=== PATIENT | female | born 1945 | race Caucasian/White ===

== ENCOUNTER 2017-12-14 11:28 | Emergency (ER) | payer MEDICARE, OTHER, SELFPAY ==
[2017-12-14 11:29] VITALS: BP 154/96; PULSE 84; RESP 12; TEMP 35.8; BMI 22.7
[2017-12-14] MEDS: 0.9% Normal Saline 1,000 ML 1000 ML IV (12:19)
[2017-12-14] MEDS: Ondansetron 4 MG/2 ML Vial IV (12:20)
[2017-12-14 12:50] LABS: Anion Gap 9 (5-15); BUN 19 mg/dL (7-18); Calcium,Total 8.3 mg/dL (8.5-10.1); Chloride 105 mmol/L (98-107); Creatinine, Serum 0.95 mg/dL (0.55-1.02); EST Glomerular Filtration Rate 62 mL/min (>60); Est Glom Filt Rate - Afr Amer 75 mL/min (>60); Estimated Creatinine Clearance 50.85 ml/min; Glucose 111 mg/dL (70-110); Potassium 3.8 mmol/L (3.5-5.1); Sodium Level 138 mmol/L (136-145)
[2017-12-14 12:52] LABS: Absolute Lymphocyte Count 0.62 X10^3/ul (0.83-4.51); Absolute Neutrophil Count 3.9 X10^3/uL (2.0-7.7); Basophil# 0.01 X10^3/uL; Basophil% 0.2 % (0-1); Eosinophil# 0.02 X10^3/uL; Eosinophils% 0.4 % (0-5); Hematocrit 44.9 % (37-47); Hemoglobin 14.9 g/dl (12.0-15.0); Lymphocyte # 0.62 X10^3/ul (4.0); Lymphocyte % 11.9 % (19-41); Mean Corp Hgb Conc 33.2 g/gl (32-36); Mean Corpuscular Hgb 30.7 pg (27.0-32.0); Mean Corpuscular Volume 92.6 fL (81-99); Mean Platelet Vol. 11.5 fl (6.2-12.0); Monocyte# 0.61 X10^3/uL; Monocyte% 11.8 % (0-10); Neutrophil # 3.93 X10^3/uL (2.7-7.7); Neutrophil % 75.7 % (47-70); RBC Distribution Width CV 13.6 % (11.6-14.6); RBC Distribution Width SD 45.9 fl (35.1-43.9); Red Blood Count 4.85 M/mm3 (4.2-5.4); White Blood Count 5.2 K/mm3 (4.4-11.0)
[2017-12-14 12:54] LABS: Differential Indicated SCAN CRITERIA MET; POSITIVE COUNT YES; POSITIVE DIFFERENTIAL NO; POSITIVE MORPHOLOGY NO
[2017-12-14 12:55] LABS: Platelet Count 232 K/mm3 (150-450); Platelet Estimate ADEQUATE (ADEQ)
[2017-12-14] MEDS: DiphenhydrAMINE 50 MG/ML Syringe 25 MG IV (14:16)
[2017-12-14] MEDS: Ketorolac 30 MG/ML Syringe IV (14:17)
[2017-12-14] MEDS: proCHLORPERazine 10 MG/2 ML Vial IV (14:17)
[2017-12-14 14:22] VITALS: BP 146/81; PULSE 95; RESP 16; O2SAT 98
--- NOTE | 2017-12-14 15:23 | ED.VISSUMM ---
- ER Visit Summary Date of Service: 12/14/17 Chief Complaint: Vomiting and diarrhea. Headache. History of Present Illness: The patient is a [address] Valdivia. She reports she has vomiting and diarrhea that began 2 days ago. She is vomited multiple times without blood. She has also had multiple episodes of diarrhea without blood. No blood in her stools or black tarry stools. She denies any abdominal pain. Patient denies sick contacts. Has not been camping out of the country. No possible bad food exposure. He does drink well water, but others at home due as well and they are not ill. No recent antibiotic use. Patient also complains of a headache that is diffuse 10 out of 10 severity. Similar to prior headaches she has had with migraines. Physical Examination: Vitals: Stable. Afebrile. General: Well-nourished and well-developed. Head: Normocephalic atraumatic. Neck: Supple, no lymphadenopathy. No JVD. Nontender. Cardiovascular: Regular rate and rhythm. No murmurs. Respiratory: No respiratory distress. Clear to auscultation bilaterally. Abdominal: Soft, nontender, nondistended, normal bowel sounds. No guarding, rebound, or peritoneal signs. Back: Nontender. Extremities: Nontender, no edema. Skin: Normal color, no rash. Neurologic: Alert and oriented ?3. Cranial nerves II through XII are intact. Normal strength and sensation. Psych: Normal affect. Test Results: CBC is remarkable for segment neutrophils 76, lymphocytes 12, monocytes 12. Chem-7 is more for glucose 111, BUN 19, and calcium of 8.3. Emergency Department Course and Treatment: She was treated the dose of morphine and Zofran IV. Her abdominal pain is completely resolved. She has not had any vomiting or diarrhea while here. She continues to complain of a headache. She was given Compazine, Toradol, and Benadryl IV. Her headache is now 2-10 severity. Treatment Plan: Patient will be discharged with Zofran for her nausea and Compazine for her headaches. Instructed to follow-up her primary care physician 1 to days not improving. Return to the emergency department for any worsening symptoms. Disposition: To home in improved and stable condition. Impression:. Vomiting/diarrhea. 2. Cephalgia. This note was generated with Dragon dictation software. It may contain incorrect words, spelling, and punctuation that were not noted in review of the chart prior to signing ED Disposition - Plan for ED Patient: Disposition: Home or Assisted Living Chief Complaint: Nausea/Vomiting Instructions: ED Vomiting Diarrhea Nonspecific Ad Prescriptions: Prochlorperazine Maleate [Compazine] 10 mg PO Q6H PRN PRN #20 tablet PRN Reason: Headache Ondansetron [Zofran Odt] 4 mg PO Q8H PRN PRN #10 tablet PRN Reason: Nausea Referrals: Etienne Valdivia MD [Primary Care Provider] - 1-2 Days if not improving
== END 2017-12-14 15:33 | disposition home or self-care (01) ==
PROVIDERS: Emergency Provider Emergency Medicine; Family Provider Internal Medicine; PCP Internal Medicine
DX: R51 Headache (principal); R19.7 Diarrhea, unspecified; R11.2 Nausea with vomiting, unspecified
CPT/HCPCS: 80048; 85025; 96361; 96374; 96375; 99284; J7030; A4216; J2405

== ENCOUNTER → 2018-04-12 12:52 | Outpatient (CLI) | payer MEDICARE, OTHER, SELFPAY | PROVIDERS: Family Provider Internal Medicine; PCP Internal Medicine; Visit Provider Dermatology | DX: L60.9 Nail disorder, unspecified (principal); L57.0 Actinic keratosis; L82.0 Inflamed seborrheic keratosis; L57.8 Other skin changes due to chronic exposure to nonionizing radiation | CPT/HCPCS: 87077; 87101 ==

== ENCOUNTER 2018-05-09 12:18 | Observation (INO) | payer MEDICARE, OTHER, SELFPAY ==
[2018-05-09] VITALS (9 sets, daily range): BP systolic 125–157; BP diastolic 72–92; PULSE 60–88; RESP 12–18; TEMP 35.6–36.6; O2SAT 96–100; BMI 24.7; BMI 24.8; BMI 24.4
--- NOTE | 2018-05-09 12:44 | RAD_ITS ---
STUDY: X-RAY CHEST REASON FOR EXAM: Female, 72 years old. Chest pain. TECHNIQUE: Single AP portable view of the chest. COMPARISON: None. FINDINGS: EKG electrodes are seen. Surgical clips are seen in the right axillary region. Hyperinflation. Scattered calcified granulomas. The lungs are clear. There is no demonstrated pleural abnormality. There is borderline cardiomegaly. Normal mediastinum and bharti. Normal visualized pulmonary arteries. Normal visualized aortic arch and descending thoracic aorta. There are diffuse degenerative changes of the visualized thoracic spine. Normal visualized ribs, clavicles, and shoulders. There is no demonstrated abnormality of the visualized soft tissue structures of the upper abdomen. RAD/Chest 1 View (Portable) IMPRESSION: No acute abnormality is seen. Electronically Signed: Shashi Granger MD at 13:20 EDT Tel [phone], Service support ,
--- NOTE | 2018-05-09 12:44 | EKG12_ITS ---
Test Reason : ABNORMAL EKG Blood Pressure : / mmHG Vent. Rate : 081 BPM Atrial Rate : 081 BPM P-R Int : 150 ms QRS Dur : 140 ms QT Int : 426 ms P-R-T Axes : 060 -45 114 degrees QTc Int : 494 ms Sinus rhythm with Premature atrial complexes Left axis deviation Left bundle branch block Abnormal ECG Confirmed by PHILLY PERRIN, CARLOS ([id number]), desk editor YANETH HOLM ([id number]) on 05/11/2018 9:11:57 AM Referred By: MICHELLE Confirmed By:CARLOS FRAGA MD
[2018-05-09] MEDS: 0.9% Normal Saline 1,000 ML 15 ML IV (13:01)
[2018-05-09] MEDS: Aspirin 81 MG TAB.CHEW 324 MG PO (13:02)
[2018-05-09 13:18] LABS: Anion Gap 7 (5-15); BUN 13 mg/dL (7-18); BUN/Creat Ratio 13.1 RATIO (10-20); Calcium,Total 9.3 mg/dL (8.5-10.1); Chloride 107 mmol/L (98-107); Creatinine, Serum 0.99 mg/dL (0.55-1.02); EST Glomerular Filtration Rate 59 mL/min (>60); Est Glom Filt Rate - Afr Amer 71 mL/min (>60); Estimated Creatinine Clearance 43.12 ml/min; Glucose 87 mg/dL (74-106); Potassium 4.1 mmol/L (3.5-5.1); Sodium Level 141 mmol/L (136-145); Thyroid Stim Hormone (TSH) 1.94 uIU/mL (0.358-3.74)
[2018-05-09 13:20] LABS: Absolute Lymphocyte Count 1.91 X10^3/ul (0.83-4.51); Absolute Neutrophil Count 3.4 X10^3/uL (2.0-7.7); Basophil# 0.02 X10^3/uL; Basophil% 0.3 % (0-1); Eosinophils% 1.7 % (0-5); Hematocrit 41.5 % (37-47); Hemoglobin 13.5 g/dl (12.0-15.0); Lymphocyte # 1.91 X10^3/ul (4.0); Lymphocyte % 33.1 % (19-41); Mean Corp Hgb Conc 32.5 g/gl (32-36); Mean Corpuscular Hgb 30.1 pg (27.0-32.0); Mean Corpuscular Volume 92.6 fL (81-99); Mean Platelet Vol. 10.1 fl (6.2-12.0); Monocyte% 5.2 % (0-10); Neutrophil # 3.43 X10^3/uL (2.7-7.7); Neutrophil % 59.5 % (47-70); POSITIVE COUNT NO; POSITIVE DIFFERENTIAL NO; POSITIVE MORPHOLOGY NO; Platelet Count 258 K/mm3 (150-450); RBC Distribution Width CV 13.1 % (11.6-14.6); RBC Distribution Width SD 44.2 fl (35.1-43.9); Red Blood Count 4.48 M/mm3 (4.2-5.4); White Blood Count 5.8 K/mm3 (4.4-11.0)
--- NOTE | 2018-05-09 13:44 | ED.VISSUMM ---
- ER Visit Summary Date of Service: 05/09/18 Chief Complaint: Chest pain History of Present Illness: The patient is a 72 F with a 3-6 month history of progressive worsening shortness of breath and chest heaviness with exertion. Patient states now when she goes out for a walk she has to stop several times to rest. She gets chest heaviness that will diminish within minutes once she is comes to arrest. Patient was seen her PCP office today were EKG changes were noted compared to her prior study from 2013. She also complains of increased fatigue and having us that her rest much more frequently than what she has in the past. Physical Examination: Blood pressure is 157/92, otherwise vitals are normal. Patient sitting upright in bed no acute distress. Head and neck examination is normal. Heart is regular rate and rhythm without murmur. Lung sounds are clear. Abdomen is soft nontender. Extremity examination reveals no significant edema or calf tenderness. Test Results: EKG is sinus at 81 with a left bundle branch block. There is loss of R-wave progression when compared to prior study from 2013. Left bundle branch block is new when compared to prior as well. Portable chest x-ray shows no acute abnormality. CBC and chemistry studies normal. TSH is normal. Troponin is less than 0.015. Emergency Department Course and Treatment: Patient was given aspirin here. She has remained pain-free while sitting at rest. Patient certainly does have concerning symptoms with onset with exertion and becoming more frequent. She also reports an episode of pain up into her neck a few days ago. At this time I recommended hospitalization overnight for repeat cardiac enzymes and stress test. Treatment Plan: [] Disposition: Admit Impression: Chest pain New left bundle branch block on EKG This note was generated with [employer] dictation software. It may contain incorrect words, spelling, and punctuation that were not noted in review of the chart prior to signing ED Disposition - Plan for ED Patient: Chief Complaint: Chest Pain Referrals: Etienne Valdivia MD [Primary Care Provider] -
--- NOTE | 2018-05-09 14:20 | NURSING ---
called ER account analyst, okay to send patient at this time.
--- NOTE | 2018-05-09 17:30 | PCM.HP.STD ---
History of Present Illness Date of Admission: 05/09/18 Chief Complaint: Chest pain The patient is a 72 year old F who presented to the emergency room evaluated for chest pain. She describes chest heaviness across her chest anytime she walks or exercises , this has progressively gotten worse in the last 3 weeks and she now also reports exertional dyspnea . She has had a negative stress test many years ago, she denies significant family history of coronary artery disease, she does not smoke and she denies history of hypertension or dyslipidemia . T Past Medical History Medical History: Medical History (Last Updated 05/09/18 @ 17:33 by Homero Maher MD) Migraine G43.909 Allergies No Known Allergies Allergy (Verified 05/09/18 12:18) Home Medications: Ambulatory Orders Medication Instructions Recorded Cholecalciferol (Vitamin D3) 1,000 unit PO DAILY 12/14/17 [Vitamin D3] Lutein Extract/Zeaxanthin Ext 1 each PO DAILY 12/14/17 [Lutein 15 mg Softgel] Sumatriptan Succinate [Imitrex] 50 mg PO .X1 PRN PRN 05/09/18 Smoking Status: Never smoker Review of Systems Comment: All Systems were reviewed with pertinent positives mentioned in the HPI above. VTE Information - Inpt Only VTE Present on Admission: No VTE Mechan Device Prophylaxis: SCD's VTE Pharm Prophylaxis ordered?: No - Physical Exam General: Alert, Oriented x3 HEENT: Atraumatic Oral: Moist Mucosa Neck: Supple Lungs: Clear to auscultation, No wheeze, No rales Cardiovascular: Regular rate, Normal S1, Normal S2 Abdomen: Bowel Sounds Present, Soft Extremities: No edema Skin: No rashes Neurological: Cranial nerves II-XII grossly intact, Motor Exam 5/5 strength throughout Vital Signs Temp Pulse Resp BP Pulse Ox 98 F 75 12 125/72 H 99 05/09/18 16:32 05/09/18 16:32 05/09/18 16:32 05/09/18 16:32 05/09/18 16:32 Oxygen Flow Rate (L/min) 2 Oxygen Delivery Method Room Air Weight: 62.6 kg Body Mass Index (BMI) 24.4 Laboratory Tests Past 24 Hrs 05/09/18 15:48 Troponin I < 0.015 Assessment/Plan 1. Chest pain; will obtain serial cardiac biomarkers and EKGs to rule out ACS , assuming negative cardiac biomarkers, we will would schedule for a stress test in the morning to rule out ischemia. 2. History of migraine headache, she takes as needed sumatriptan which we would avoid. until CAD is ruled out as in #1. 3. Early ambulation for DVT prophylaxis. Code Visit OBSV E&M: 05988 Initial observation care L2
[2018-05-10 03:25] VITALS: PULSE 66
[2018-05-10 04:30] VITALS: BP 131/72; PULSE 70; RESP 16; TEMP 36.4; O2SAT 97
[2018-05-10 05:15] LABS: Hematocrit 40.3 % (37-47); Hemoglobin 13.5 g/dl (12.0-15.0); Mean Corp Hgb Conc 33.5 g/gl (32-36); Mean Corpuscular Hgb 31.2 pg (27.0-32.0); Mean Corpuscular Volume 93.1 fL (81-99); Platelet Count 237 K/mm3 (150-450); RBC Distribution Width CV 12.8 % (11.6-14.6); RBC Distribution Width SD 42.7 fl (35.1-43.9); Red Blood Count 4.33 M/mm3 (4.2-5.4); White Blood Count 5.5 K/mm3 (4.4-11.0)
[2018-05-10 05:21] LABS: Prothrombin Time (Protime)PT. 13.3 SECONDS (11.7-14.9)
--- NOTE | 2018-05-10 05:30 | EKG12_ITS ---
Test Reason : AM EKG Blood Pressure : / mmHG Vent. Rate : 079 BPM Atrial Rate : 079 BPM P-R Int : 158 ms QRS Dur : 138 ms QT Int : 440 ms P-R-T Axes : 053 -41 126 degrees QTc Int : 504 ms Normal sinus rhythm Left axis deviation Left bundle branch block Abnormal ECG When compared with ECG of 09-MAY-2018 12:27, MANUAL COMPARISON REQUIRED, DATA IS UNCONFIRMED Confirmed by PHILLY PERRIN, CARLOS ([id number]), editor managing newspaper YANETH HOLM ([id number]) on 05/11/2018 10:05:32 AM Referred By: DR AGUIAR Confirmed By:CARLOS FRAGA MD
[2018-05-10 05:44] LABS: Anion Gap 7 (5-15); BUN 14 mg/dL (7-18); BUN/Creat Ratio 14.6 RATIO (10-20); Calcium,Total 8.8 mg/dL (8.5-10.1); Chloride 112 mmol/L (98-107); Creatinine, Serum 0.96 mg/dL (0.55-1.02); EST Glomerular Filtration Rate 61 mL/min (>60); Est Glom Filt Rate - Afr Amer 74 mL/min (>60); Estimated Creatinine Clearance 44.46 ml/min; Glucose 91 mg/dL (74-106); Potassium 4.1 mmol/L (3.5-5.1); Sodium Level 144 mmol/L (136-145)
[2018-05-10 06:21] LABS: Scan Indicated on CBC? Y/N NO
[2018-05-10 08:54] VITALS: PULSE 97
--- NOTE | 2018-05-10 09:25 | STRESSREP ---
Stress Test Report Date: 05/11/2018 Procedure: Pharmacologic stress nuclear imaging study Indications: Chest pain Consent: Per the patient Procedure: The patient underwent pharmacologic (Regadenoson) evaluation with a peak heart rate of 121 beats per minute (81 predicted maximal heart rate) and a peak blood pressure of 140/84 mmHg. The baseline ECG demonstrated sinus rhythm with a left bundle branch block pattern. The peak pharmacologic ECG demonstrated no obvious ECG changes. There were no cardiac dysrhythmias pretest, during pharmacologic infusion, or recovery. There was no complaint of chest discomfort during pharmacologic infusion or recovery. The examination was discontinued secondary to completion of protocol. Impression: 1. Pharmacologic (Regadenoson) evaluation 2. Peak pharmacologic ECG with a continued left bundle branch block pattern with no obvious ECG changes. 3. There were no cardiac dysrhythmias pretest, during pharmacologic infusion, or recovery 4. Nuclear images pending Myocardial perfusion imaging study: Technique: The patient was injected with 11.8 millicuries of technetium 99m Cardiolite and subsequently rest SPECT Cardiolite nuclear imaging was obtained in the horizontal long, vertical long, and short axis views. The patient underwent pharmacologic (Regadenoson) evaluation with a peak heart rate of 121 beats per minute (81 % percent predicted maximal heart rate) and a peak blood pressure of 140/84 mmHg. The patient was injected with 34.2 millicuries of technetium 99m Cardiolite and subsequently stress SPECT Cardiolite nuclear imaging was obtained in the horizontal long, vertical long, and short axis views. A gated Cardiolite study at peak stress was obtained. Interpretation: Rest and stress SPECT Cardiolite nuclear imaging status post realignment, normalization, and attenuation correction demonstrate relative uniform tracer uptake. There is diminished end systolic thickening and brightening. The gated Cardiolite study demonstrates diminished myocardial thickening and inward wall motion. The reported LVEF is 28 %. Impression: 1. Rest and stress SPECT Cardiolite nuclear imaging demonstrate relative uniform tracer uptake with no myocardial perfusion changes consider diagnostic for associated stress-induced myocardial ischemia or previous myocardial injury/infarction. 2. The gated Cardiolite study reports an LVEF of 28 %. This note was generated with [employer] software. It may contain incorrect words, spelling, and punctuation that were not noted in checking the note before signing.
--- NOTE | 2018-05-10 09:28 | STRESSREP_ITS ---
Stress Test Report Date: 05/11/2018 Procedure: Pharmacologic stress nuclear imaging study Indications: Chest pain Consent: Per the patient Procedure: The patient underwent pharmacologic (Regadenoson) evaluation with a peak heart rate of 121 beats per minute (81 predicted maximal heart rate) and a peak blood pressure of 140/84 mmHg. The baseline ECG demonstrated sinus rhythm with a left bundle branch block pattern. The peak pharmacologic ECG demonstrated no obvious ECG changes. There were no cardiac dysrhythmias pretest, during pharmacologic infusion, or recovery. There was no complaint of chest discomfort during pharmacologic infusion or recovery. The examination was discontinued secondary to completion of protocol. Impression: 1. Pharmacologic (Regadenoson) evaluation 2. Peak pharmacologic ECG with a continued left bundle branch block pattern with no obvious ECG changes. 3. There were no cardiac dysrhythmias pretest, during pharmacologic infusion, or recovery 4. Nuclear images pending Myocardial perfusion imaging study: Technique: The patient was injected with 11.8 millicuries of technetium 99m Cardiolite and subsequently rest SPECT Cardiolite nuclear imaging was obtained in the horizontal long, vertical long, and short axis views. The patient underwent pharmacologic (Regadenoson) evaluation with a peak heart rate of 121 beats per minute (81 % percent predicted maximal heart rate) and a peak blood pressure of 140/84 mmHg. The patient was injected with 34.2 millicuries of technetium 99m Cardiolite and subsequently stress SPECT Cardiolite nuclear imaging was obtained in the horizontal long, vertical long, and short axis views. A gated Cardiolite study at peak stress was obtained. Interpretation: Rest and stress SPECT Cardiolite nuclear imaging status post realignment, normalization, and attenuation correction demonstrate relative uniform tracer uptake. There is diminished end systolic thickening and brightening. The gated Cardiolite study demonstrates diminished myocardial thickening and inward wall motion. The reported LVEF is 28 %. Impression: 1. Rest and stress SPECT Cardiolite nuclear imaging demonstrate relative uniform tracer uptake with no myocardial perfusion changes consider diagnostic for associated stress-induced myocardial ischemia or previous myocardial injury/ infarction. 2. The gated Cardiolite study reports an LVEF of 28 %. This note was generated with [employer] software. It may contain incorrect words, spelling, and punctuation that were not noted in checking the note before signing.
[2018-05-10 10:18] VITALS: BP 139/78; PULSE 85; RESP 18; TEMP 36.4; O2SAT 100
--- NOTE | 2018-05-10 10:55 | ECHOD_ITS ---
Reason For Study: CHEST PAIN Procedure This was a 2D Doppler, Color Flow transthoracic echocardiogram. Exam performed portable in patient room. Left Ventricle Normal LV size. The estimated ejection fraction is 25 %. Stage 1 diastolic dysfunction. There is moderate to severe global hypokinesis of the left ventricle. Right Ventricle Normal RV size. Normal systolic function. Atria Normal left atrium. Normal right atrium. Mitral Valve Normal mitral valve. Mild (1+) eccentric mitral valve insufficiency. Tricuspid Valve Normal tricuspid valve. Unable to estimate RV systolic pressure due to inadequate jet, pulmonary artery pressure probably normal. Aortic Valve Trisinus/trileaflet aortic valve. Pulmonic Valve Normal pulmonic valve. Great Vessels Normal aortic root. The pulmonary artery is normal size. Normal inferior vena cava. Pericardium/Pleural Trivial pericardial effusion. MMode/2D Measurements & Calculations LVIDd: 5.0 cm IVSd: 1.1 cm Ao root diam: 2.6 cm LVIDs: 4.6 cm LVPWd: 1.0 cm RVDd: 3.1 cm FS: 7.8 % LAV(MOD-bp): 36.8 ml LA A4 area: 14.4 cm2 RA A4 area: 10.9 cm2 LAV(MOD-bp) Indexed: 22.3 ml/m2 LAV(MOD-sp2): 29.0 ml LAV(MOD-sp4): 35.6 ml Time Measurements MV dec time: 0.16 sec Doppler Measurements & Calculations MV E max osmani: 55.6 cm/sec Lat Peak E' Osmani: 3.4 cm/sec Med Peak E' Osmani: 2.8 cm/sec MV A max osmani: 105.8 cm/sec E/E' lat: 16.2 E/E' med: 20.0 MV E/A: 0.53 Ao V2 max: 100.0 cm/sec LV V1 max: 72.4 cm/sec PA V2 max: 105.8 cm/sec Ao max P.0 mmHg LV V1 max P.1 mmHg Interpretation Summary Stage 1 diastolic dysfunction. Normal LV size. The estimated ejection fraction is 25 %. There is moderate to severe global hypokinesis of the left ventricle. Global longitudinal strain of 10 Ordering Physician: Forest Garcia Referring Physician: SARABJIT FLOWERS Performed By: Ariadna Maxwell, HANANE, RVT
[2018-05-10 12:54] LABS: Cholesterol 187 mg/dL (200); High Density Lipoprotein 68 mg/dL; Triglycerides 112 mg/dL; Very Low Density Lipoprotein 22 mg/dL (5-40)
[2018-05-10] MEDS: Aspirin 81 MG TAB.CHEW PO (13:22)
[2018-05-10 13:24] LABS: Hemoglobin A1c 5.8 % (4.2-6.3)
[2018-05-10 15:01] VITALS: PULSE 91
--- NOTE | 2018-05-10 15:07 | PCM.CONS.C ---
Reason for Consult Date of Consultation: 05/10/18 Reason for Consultation: Shortness of breath and chest tightness History of Present Illness: The patient is a 72 year old F with no previous cardiac history who presented to the emergency room due to exertional shortness of breath as well as chest tightness. She is also been complaining of easy fatigability. She has never been diagnosed with angina. Of note is the fact that she had breast carcinoma initially diagnosed in 2001 and then subsequently in 2011. She received full dose chemotherapy as well as radiation therapy. The exact components are not known. She says that she was last seen by her radiation oncologist over 6 months ago and was told that she did not need to follow up. She was evaluated in the emergency room she was noted to have a left bundle branch block cardiac enzymes were obtained and were negative. She underwent a pharmacologic myocardial perfusion stress test this morning we did not demonstrate any evidence of ischemia however she was noted to have reduced ejection fraction on the nuclear imaging. Due to her other symptomatology cardiology was called for evaluation. She denies any pedal edema no palpitations no paroxysmal nocturnal dyspnea though she does attest to easy fatigability. She was seen in the hospital in December of this year with a possible viral prodrome and was discharged as an outpatient. [] Past Medical History Allergies/Adverse Reactions: Allergies No Known Allergies Allergy (Verified 05/09/18 12:18) Home Medications: Ambulatory Orders Medication Instructions Recorded Cholecalciferol (Vitamin D3) 1,000 unit PO DAILY 12/14/17 [Vitamin D3] Lutein Extract/Zeaxanthin Ext 1 each PO DAILY 12/14/17 [Lutein 15 mg Softgel] Sumatriptan Succinate [Imitrex] 50 mg PO .X1 PRN PRN 05/09/18 Smoking Status: Never smoker Alcohol: None Drugs: None Review of Systems - Review of Systems General: Reports: Fatigue, Malaise. Denies: Fever, Night Sweats Cardiovascular: Reports: Shortness of Breath, Shortness of Breath at Rest, Shortness of Breath with Exertion. Denies: Chest Discomfort, Orthopnea, PND, Peripheral Edema, Palpitations, Lightheadedness, Dizziness, Near Syncope, Syncope Respiratory: Denies: Cough, Sputum Production, Hemoptysis Gastrointestinal: Denies: Hematemesis, Hematochezia, Melena Genitourinary: Denies: Dysuria, Hematuria Skin: Denies: Rash Subjectve: Pleasant lady in no apparent distress Objective: Vital Signs Temp Pulse Resp BP Pulse Ox 97.6 F L 85 18 139/78 H 100 05/10/18 10:18 05/10/18 10:18 05/10/18 10:18 05/10/18 10:18 05/10/18 10:18 Oxygen Flow Rate (L/min) 2 Oxygen Delivery Method Room Air Weight: 138 lb 0.15 oz Body Mass Index (BMI) 24.4 Intake and Output for Last 24 Hours 05/08/18 05/09/18 05/10/18 23:59 23:59 23:59 Intake Total 300 / 300 600 / 600 Balance 300 / 300 600 / 600 General: Awake, Alert, Oriented x 3 HEENT: PERRL, EOMI, Sclera Non Icteric Neck: Supple, Good ROM, No Lymph Node Enlargement Chest Wall: - - Bilateral mastectomy Lungs: Clear to auscultation Cardiovascular: Regular Rhythm, Normal S1, Normal S2, No Murmurs, No Rubs, No Gallops Vascular: No Carotid Bruits, Normal Femoral Pulses, Normal Radial Pulses, Normal Dorsalis Pedal Pulse, Normal Posterior Tibial Pulses Abdomen: Bowel Sounds Present, Soft, Non Tender, No HSM, No Organomegaly Extremities: No Cyanosis, No Clubbing, No edema Neurological: No Focal Motor or Sensory Deficit 05/09/18 15:48: Troponin I < 0.015 05/09/18 18:17: Troponin I < 0.015 05/10/18 05:00: WBC 5.5, RBC 4.33, Hgb 13.5, Hct 40.3, MCV 93.1, MCH 31.2, MCHC 33.5, RDW 12.8, RDW Differential 42.7, Plt Count 237, MPV 10.0 05/10/18 05:00: PT 13.3, INR 1.0, APTT 29.0 05/10/18 05:00: Sodium 144, Potassium 4.1, Chloride 112 H, Carbon Dioxide 25.0, Anion Gap 7, BUN 14, Creatinine 0.96, Est GFR (MDRD) Af Amer 74, Est GFR (MDRD) Non-Af 61, BUN/Creatinine Ratio 14.6, Glucose 91, Calcium 8.8 05/10/18 05:00: Triglycerides 112, Cholesterol 187, LDL Cholesterol 97, VLDL Cholesterol 22, HDL Cholesterol 68 05/10/18 05:00: Hemoglobin A1c 5.8 Rhythm: EKG: Normal sinus rhythm with a left bundle branch block and a rate of 79 bpm. ECHO: Globally reduced left ventricular ejection fraction for results pending estimated EF 25% Assessment/Plan 1. Nonischemic cardiomyopathy. She presents with shortness of breath and chest discomfort rules out for myocardial infarction with no evidence of ischemia noted on the myocardial perfusion stress test. Her echocardiogram does confirm that she has a nonischemic cardiomyopathy which is likely secondary to chemotherapy induced agents. At this time she is on no therapy whatsoever and my recommendation would be to start her on an JIAME inhibitor, beta-josafat and titrate upwards as appropriate as well as Lasix. She will also be seen for follow-up visit. 2. Mild congestive heart failure. She does have recently documented mild congestive heart failure. She will be treated with an JAIME inhibitor and beta-josafat as well as the diuretics. The beta blockers will be titrated upwards as appropriate in the office and then further recommendations will be made. Thank you for allowing me to participate in the care of your patient. Please don't hesitate to call if any issues arise
[2018-05-10 15:50] VITALS: BP 149/86; PULSE 83; RESP 18; TEMP 36.5; O2SAT 98
--- NOTE | 2018-05-10 16:16 | PCM.DC ---
You will use the following diet at home:: Cardiac - <2 g sodium per day Your food should be the consistency of: Regular Discharge Activity: Return to Normal Activity Allergies/Adverse Reactions: Allergies No Known Allergies Allergy (Verified 05/09/18 12:18) Medications to take at Discharge Cholecalciferol (Vitamin D3) [Vitamin D3] 1,000 unit PO DAILY 12/14/17 Lutein Extract/Zeaxanthin Ext [Lutein 15 mg Softgel] 1 each PO DAILY 12/14/17 Sumatriptan Succinate [Imitrex] 50 mg PO .X1 PRN PRN 05/09/18 Aspirin [Aspirin, Baby] 81 mg PO DAILY@0800 tab.chew 05/10/18 Carvedilol [Coreg (Beta Vincent)] 3.125 mg PO BID #60 tab 05/10/18 Furosemide [Lasix] 40 mg PO DAILY #30 tab 05/10/18 Lisinopril [Zestril] 5 mg PO DAILY #30 tab 05/10/18 The following prescriptions were given: Carvedilol [Coreg (Beta Vincent)] 3.125 mg PO BID #60 tab Furosemide [Lasix] 40 mg PO DAILY #30 tab Lisinopril [Zestril] 5 mg PO DAILY #30 tab Orders to be completed after discharge: Basic Metabolic Profile (BMP) Time Frame: 5 Days, Location: Laboratory Primary Care Physician: Etienne Valdivia MD [Primary Care Provider] - Please follow up with your Primary Care Physician in: 1-2 weeks Please Follow Up With: Pérez Phillips MD When: 2-4 weeks Proposed Discharge Date: 05/10/18
--- NOTE | 2018-05-10 16:24 | DS.PCM_ITS ---
<Forest Garcia - Last Filed: 05/10/18 16:18> Discharge Date and Diagnosis Date of Admission: 05/09/18 Date of Discharge: 05/10/18 - Primary Discharge Diagnosis Chest pain and SOB with exertion 2/2 nonischemic cardiomyopathy Acute systolic congestive heart failure Hx Breast cancer Hx Migraine Hospital Course and Treatment Imaging Results: 05/10/18 10:55 Echo Complete [ECHO] Routine Consults: Cardiology - Alan Operations: None Procedures: Stress test Summary of Care Provided: Physical exam on day of discharge: General: Resting comfortably NAD Psych: A/Ox3 normal affect HEENT: PEARRLA AT NC Neck: Supple NT CV: RRR no m/t/r/g/h Resp: CTA Abd: [id number] Soft NT no guarding or rigidity Ext: DP2+= no edema Skin: W/D normal turgor Lymph/Heme: No active bleeding or adenopathy Neuro: CN2-12 intact Hospital course: The patient is a 72 year old F with a hx of breast cancer in remission s/p chemo and rads, and migraines, who presented to the ER with SOB and CP with exertion. She had negative troponin, negative EKG, and negative CXR. She was admitted to PCU and placed on telemetry. Troponins were cycled which were negative. Stress test the following morning was negative for ischemia, however she had an EF of 28%/ Cardiology was consulted. They felt that she had a nonischemic cardiomyopathy possibly 2/2 prior chemotherapy, and mild acute systolic congestive heart failure. She was placed on coreg, lasix, baby aspirin , and lisinopril. She had no further symptoms overnight. She had no crackles on exam and no leg edema. She was discharged home in stable condition and advised to have outpatient BMP in 5 days, and to follow up with her PCP in 1-2 weeks and cardiology in 2-4 weeks. [] Discharge Diet: Low fat/ Low Cholesterol, 2000 mg Sodium Diet Discharge Activity: Return to Normal Activity Home Medications: Medications to take at Discharge Cholecalciferol (Vitamin D3) [Vitamin D3] 1,000 unit PO DAILY 12/14/17 Lutein Extract/Zeaxanthin Ext [Lutein 15 mg Softgel] 1 each PO DAILY 12/14/17 Sumatriptan Succinate [Imitrex] 50 mg PO .X1 PRN PRN 05/09/18 Aspirin [Aspirin, Baby] 81 mg PO DAILY@0800 tab.chew 05/10/18 Carvedilol [Coreg (Beta Vincent)] 3.125 mg PO BID #60 tab 05/10/18 Furosemide [Lasix] 40 mg PO DAILY #30 tab 05/10/18 Lisinopril [Zestril] 5 mg PO DAILY #30 tab 05/10/18 Following Prescrptions Were Given to Patient: Carvedilol [Coreg (Beta Vincent)] 3.125 mg PO BID #60 tab Furosemide [Lasix] 40 mg PO DAILY #30 tab Lisinopril [Zestril] 5 mg PO DAILY #30 tab Primary Care Physician: Etienne Valdivia MD [Primary Care Provider] - Please follow up with your Primary Care Physician in: 1-2 weeks Please Follow Up With: Pérez Phillips MD When: 2-4 weeks Disposition: Home Minutes spent on discharge:: 35 Patient Condition:: Stable Medical Necessity - Tobacco Use Smoking Status: Never smoker Meaningful Use Info Meaningful Use Diagnoses (Choose all that apply): CHF - CHF JAIME/ARB ordered at discharge?: Yes Documented LVEF (%): 28 <Elizabeth Portillo - Last Filed: 05/10/18 18:45> Hospital Course and Treatment Imaging Results: 05/10/18 10:55 Echo Complete [ECHO] Routine Summary of Care Provided: The patient is a 72 year old F [] Code Visit Inpatient E&M: 44713 Disch Hosp
== END 2018-05-10 17:12 | disposition home or self-care (01) ==
LOC: ED 14:17 → PCU 14:28
PROVIDERS: Admitting Provider Internal Medicine; Emergency Provider Emergency Medicine; Family Provider Internal Medicine; PCP Internal Medicine; Visit Provider Internal Medicine
DX: I42.8 Other cardiomyopathies (principal); R07.89 Other chest pain; R06.02 Shortness of breath; I44.7 Left bundle-branch block, unspecified; G43.909 Migraine, unspecified, not intractable, without status migrainosus; I50.21 Acute systolic (congestive) heart failure; Z85.3 Personal history of malignant neoplasm of breast; R06.09 Other forms of dyspnea; Z92.21 Personal history of antineoplastic chemotherapy; Z92.3 Personal history of irradiation; R94.31 Abnormal electrocardiogram [ECG] [EKG]; R53.83 Other fatigue; I34.0 Nonrheumatic mitral (valve) insufficiency
CPT/HCPCS: 36415; 71045; 78452; 80048; 80061; 83036; 84443; 84484; 85025; 85027; 85610; 85730; 93005; 93017; 93306; 99218; 99285; A9500; J7030; A4216; G0378; J2785

== ENCOUNTER → 2018-12-07 10:34 | Outpatient (CLI) | payer MEDICARE, OTHER, SELFPAY ==
[2018-11-26 14:15] VITALS: BMI 22.7
--- NOTE | 2018-12-07 10:38 | ECHOD_ITS ---
Reason For Study: CHF Procedure This was a 2D Doppler, Color Flow transthoracic echocardiogram. Myocardial strain analysis was performed in this exam to aid in the assessment of cardiac function. Exam performed in department. Left Ventricle Normal LV size. The estimated ejection fraction is 28 %. Severe global left ventricular systolic dysfunction. The global longitudinal strain = -11% (abnormal). The prior global longitudinal strain was -10 % . There is severe global hypokinesis of the left ventricle. Right Ventricle Normal RV size. Normal systolic function. Atria Normal left atrium. Normal right atrium. Mitral Valve Normal mitral valve. Mild (1+) eccentric mitral valve insufficiency. Tricuspid Valve Normal tricuspid valve. Mild (1+) tricuspid valve insufficiency. Pulmonary artery systolic pressure is 23 mmHg. Aortic Valve Normal aortic valve. Trisinus/trileaflet aortic valve. Pulmonic Valve Normal pulmonic valve. Great Vessels Normal aortic root. The pulmonary artery is normal size. Normal inferior vena cava. Pericardium/Pleural No pericardial effusion. MMode/2D Measurements & Calculations LVIDd: 5.1 cm IVSd: 0.98 cm Ao root diam: 2.6 cm LVIDs: 4.5 cm LVPWd: 1.0 cm RVDd: 3.0 cm FS: 11.8 % LAV(MOD-bp): 47.6 ml LA A4 area: 14.2 cm2 LA dimension(2D): 3.3 cm LAV(MOD-bp) Indexed: 29.6 ml/m2 LAV(MOD-sp2): 44.8 ml LAV(MOD-sp4): 43.0 ml RA A4 area: 10.9 cm2 Doppler Measurements & Calculations MV E max osmani: 62.9 cm/sec Lat Peak E' Osmani: 3.6 cm/sec Med Peak E' Osmani: 4.1 cm/sec MV A max osmani: 110.1 cm/sec E/E' lat: 17.6 E/E' med: 15.2 MV E/A: 0.57 Ao V2 max: 114.4 cm/sec LV V1 max: 82.7 cm/sec PA V2 max: 106.9 cm/sec Ao max P.2 mmHg LV V1 max P.7 mmHg TR max osmani: 222.0 cm/sec TR max P.7 mmHg Interpretation Summary Normal LV size. The estimated ejection fraction is 28 %. The global longitudinal strain = -11% (abnormal). Mild (1+) eccentric mitral valve insufficiency. Mild (1+) tricuspid valve insufficiency. Compared to previous study, the left ventricular systolic function is the same.. Ordering Physician: Gregg Rodriguez Referring Physician: Etienne Valdivia M.D. Performed By: Fanny Tim RDCS, RVT
== END ==
PROVIDERS: Family Provider Internal Medicine; PCP Internal Medicine; Referring Provider Nurse Practitioner Family; Visit Provider Nurse Practitioner Family
DX: I50.23 Acute on chronic systolic (congestive) heart failure (principal); I42.8 Other cardiomyopathies
CPT/HCPCS: 93306

== ENCOUNTER → 2019-04-04 | Outpatient (CLI) | payer MEDICARE, OTHER, SELFPAY ==
[2019-01-01 13:55] VITALS: BMI 21.4
--- NOTE | 2019-04-04 09:55 | ECHODONC_ITS ---
Reason For Study: Dyspnea/SOB Procedure This was a 2D Doppler, Color Flow transthoracic echocardiogram. Myocardial strain analysis was performed in this exam to aid in the assessment of cardiac function. Exam performed in department. Left Ventricle Normal LV size. Moderately severe global left ventricular systolic dysfunction. The estimated ejection fraction is 35 %. There is moderate to severe global hypokinesis of the left ventricle. Right Ventricle Normal RV size. Normal systolic function. Atria Normal left atrium. Normal right atrium. Mitral Valve Normal mitral valve. Mild (1+) mitral valve insufficiency. Tricuspid Valve Normal tricuspid valve. Mild tricuspid valve insufficiency. Aortic Valve Normal aortic valve. Trisinus/trileaflet aortic valve. Pulmonic Valve Normal pulmonic valve. Great Vessels Normal aortic root. The pulmonary artery is normal size. Normal inferior vena cava. Pericardium/Pleural No pericardial effusion. MMode/2D Measurements & Calculations LVIDd: 4.8 cm IVSd: 0.93 cm Ao root diam: 3.0 cm LVIDs: 3.8 cm LVPWd: 0.83 cm LA dimension: 3.3 cm RVDd: 3.0 cm FS: 21.8 % LAV(MOD-bp): 46.3 ml LVAd ap4: 33.0 cm2 SV(MOD-sp4): 38.4 ml LAV(MOD-bp) Indexed: 28.8 ml/m2 EDV(MOD-sp4): 107.0 ml LAV(MOD-sp2): 43.7 ml EDV(sp4-el): 111.3 ml LAV(MOD-sp4): 46.8 ml LVAs ap4: 24.3 cm2 ESV(MOD-sp4): 68.6 ml ESV(sp4-el): 67.6 ml EF(MOD-sp4): 35.9 % EF(sp4-el): 39.2 % SV(sp4-el): 43.7 ml LA A4 area: 16.6 cm2 RA A4 area: 10.9 cm2 Time Measurements MV dec time: 0.23 sec Doppler Measurements & Calculations MV E max jorje: 59.2 cm/sec MV V2 max: 83.9 cm/sec MV P1/2t max jorje: 73.6 cm/sec MV A max jorje: 72.1 cm/sec MV max P.8 mmHg MV P1/2t: 81.4 msec MV E/A: 0.82 MV V2 mean: 46.0 cm/sec MV mean P.0 mmHg MV dec slope: 265.0 cm/sec2 MV V2 VTI: 32.2 cm MVA(P1/2t): 2.7 cm2 Ao V2 max: 133.9 cm/sec LV V1 max: 80.2 cm/sec Ao max P.2 mmHg LV V1 max P.6 mmHg Ao V2 mean: 92.1 cm/sec LV V1 mean P.2 mmHg Ao mean P.9 mmHg LV V1 mean: 49.7 cm/sec Ao V2 VTI: 30.3 cm LV V1 VTI: 19.3 cm Interpretation Summary Normal LV size. Moderately severe global left ventricular systolic dysfunction. The estimated ejection fraction is 35 %. Mild (1+) mitral valve insufficiency. The global longitudinal strain = -13.8% (abnormal). The prior global longitudinal strain was -10 % . The global longitudinal strain has improved. Compared to previous study, the left ventricular systolic function has improved.. Ordering Physician: Pérez Phillips Referring Physician: Pérez Phillips Performed By: Quintin Degroot, [facility]
== END | disposition home or self-care (01) ==
LOC: CVS 09:54
PROVIDERS: Family Provider Internal Medicine; PCP Internal Medicine; Referring Provider Internal Medicine Cardiovascular Disease; Visit Provider Internal Medicine Cardiovascular Disease
DX: I50.23 Acute on chronic systolic (congestive) heart failure (principal)
CPT/HCPCS: 0399T; 93306

== ENCOUNTER 2019-04-24 06:49 | Day surgery (SDC) | payer MEDICARE, OTHER, SELFPAY ==
[2019-04-23 14:09] VITALS: BMI 21.8
[2019-04-23 15:41] VITALS: BMI 21.8
--- NOTE | 2019-04-23 16:05 | RAD_ITS ---
STUDY: X-RAY CHEST REASON FOR EXAM: Female, 73 years old. Preop cardiac catheterization TECHNIQUE: PA and lateral views of the chest. COMPARISON: 05/09/2018 FINDINGS: Status post right axillary lymph node dissection. The lungs are clear and expanded. There is no demonstrated pleural abnormality. Normal size heart. Normal mediastinum and bharti. Normal visualized pulmonary arteries. Normal visualized aortic arch and descending thoracic aorta. Normal visualized thoracic spine. Normal visualized ribs, clavicles, and shoulders. There is no demonstrated abnormality of the visualized soft tissue structures of the upper abdomen. RAD/Chest PA and Lateral IMPRESSION: No active disease. Electronically Signed: Lauro Bowling MD at 16:23 EDT Tel , Service support ,
--- NOTE | 2019-04-24 08:17 | CL.D_ITS ---
Patient Name: LOGAN MORTON Study Date: 04/24/2019 Performing: Pérez Phillips MD Ht: 64 inches 163 cm : 1945 Wt: 128 lbs 58 kg Age: 73 Gender: female BSA: 1.62 PROCEDURE(S) PERFORMED [id number]-ORF/COR/LV CLINICAL PROFILE AND INDICATIONS Indications: Cardiomyopathy Heart Failure: NYHA Class: 2, Newly Diagnosed: Yes, Heart Failure Type: Systolic Stress/Imaging Stress/Image Study Performed: No CAD Presentations: No Sxs, no angina. CONCLUSIONS Normal coronary arteries Cardiomyopathy: Dilated idiopathic RECOMMENDATIONS Medical therapy DESCRIPTION OF PROCEDURE The patient arrived to the procedure lab. The risks and benefits of the procedure as well as a full d escription of our services here and current unavailability of surgical backup were fully explained to the patient and/or their significant other prior to the catheterization. The Timeout was completed, verifying the correct patient and procedure. The patient's procedural site was prepped and draped in the usual fashion. Local anesthetic was given subcutaneously to right radial region with Lidocaine 2% . Using a modified Seldinger technique, arterial access was obtained via the right radial artery, a 6 Fr sheath was inserted. Left Coronary Artery selective angiography was performed in multiple views u sing a 5 Fr. 4.0 Niles catheter. Right Coronary Artery selective angiography was then performed in mu ltiple views using a 5 Fr. 4.0 Niles catheter. Left Ventriculography was performed in EASON projection using a 5 Fr. Pigtail catheter. LV to AO pullback pressures were then recorded.The arterial sheath was pulled and a TR Band was applied for hemostasis w/ 12 ml air CORONARY ANGIOGRAPHY DOMINANCE: Right Dominant LEFT HEART ASSESSMENT Left Ventricular Ejection Fraction: by LV Gram 38 % Global Hypokinesis - Moderate LEFT MAIN: Angiographically normal LEFT ANTERIOR DESCENDING ARTERY: Angiographically normal CIRCUMFLEX ARTERY: Angiographically normal RIGHT CORONARY ARTERY: Angiographically normal COMPLICATIONS No Complications PROCEDURE MEDICATIONS Versed 1 mg IV Fentanyl 50 mcg IV Oxygen: 2 L/min via nasal cannula Heparin diluted in 23cc Heparinized saline. Patient given 2cc IA of this solution. 04/24/2019 07:54:4 3 Verapamil 2.5mg, Ntg 100mcgs, 2000 units of Heparin diluted in 23cc Heparinized saline. Patient give n 2cc IA of this solution. 04/24/2019 07:54:43 IV Bolus: .9 NaCl ml total 04/24/2019 07:57:38 SUMMARY OF HEMODYNAMIC DATA Time AIR REST ECG 07:18:47 AO 107/52 (73) SA 07:55:46 LV 98/-1, 1 08:03:06 LV 102/-2, 3 08:03:28 LV 103/-3, 0 08:04:13 LVp 102/-10, 1 08:04:19 AOp 105/42 (64) 08:04:24 Signed By Pérez Phillips MD On 04/24/2019 08:17:08 Pérez Phillips MD
== END 2019-04-24 10:55 | disposition home or self-care (01) ==
LOC: CLSP 06:50
PROVIDERS: Family Provider Internal Medicine; PCP Internal Medicine; Referring Provider Internal Medicine Cardiovascular Disease; Visit Provider Internal Medicine Cardiovascular Disease
DX: I42.0 Dilated cardiomyopathy (principal); I44.7 Left bundle-branch block, unspecified; I50.23 Acute on chronic systolic (congestive) heart failure; Z85.3 Personal history of malignant neoplasm of breast; Z79.82 Long term (current) use of aspirin; Z79.899 Other long term (current) drug therapy
CPT/HCPCS: 71046; 93458; 99152; 99153; J7040; C1769; C1894; Q9967

== ENCOUNTER → 2019-09-23 | Outpatient (CLI) | payer MEDICARE, OTHER, SELFPAY ==
[2019-04-23 15:41] VITALS: BMI 21.8
--- NOTE | 2019-09-23 10:31 | ECHODONC_ITS ---
Reason For Study: CHF Procedure This was a 2D Doppler, Color Flow transthoracic echocardiogram. Exam performed in department. Left Ventricle Normal LV size. The estimated ejection fraction is 45 %. Septal motion consistent with IVCD. There is mild global hypokinesis of the left ventricle. Right Ventricle Normal RV size. Normal systolic function. Atria Normal left atrium. Normal right atrium. Mitral Valve Normal mitral valve. Tricuspid Valve Normal tricuspid valve. Aortic Valve Normal aortic valve. Trisinus/trileaflet aortic valve. Pulmonic Valve Normal pulmonic valve. Great Vessels Normal aortic root. The pulmonary artery is normal size. Normal inferior vena cava. Pericardium/Pleural No pericardial effusion. MMode/2D Measurements & Calculations LVIDd: 4.7 cm IVSd: 0.91 cm Ao root diam: 3.0 cm LVIDs: 3.7 cm LVPWd: 0.89 cm RVDd: 2.9 cm FS: 20.3 % LAV(MOD-bp): 46.2 ml LA A4 area: 15.6 cm2 LA dimension(2D): 3.0 cm LAV(MOD-bp) Indexed: 28.6 ml/m2 LAV(MOD-sp2): 41.7 ml LAV(MOD-sp4): 45.8 ml RA A4 area: 10.6 cm2 Time Measurements MV dec time: 0.21 sec Doppler Measurements & Calculations MV E max osmani: 52.3 cm/sec Lat Peak E' Osmani: 4.5 cm/sec Med Peak E' Osmani: 3.7 cm/sec MV A max osmani: 70.6 cm/sec E/E' lat: 11.7 E/E' med: 14.2 MV E/A: 0.74 Ao V2 max: 112.5 cm/sec LV V1 max: 73.9 cm/sec PA V2 max: 63.3 cm/sec Ao max P.1 mmHg LV V1 max P.2 mmHg TR max osmani: 243.5 cm/sec TR max P.7 mmHg Interpretation Summary Normal LV size. The estimated ejection fraction is 45 %. Septal motion consistent with IVCD. There is mild global hypokinesis of the left ventricle. The global longitudinal strain = -13.2% (abnormal). The global longitudinal strain is mildly abnormal. The global longitudinal strain = -13.2% (abnormal). The prior global longitudinal strain was -13.8 % . Compared to previous study, the left ventricular systolic function has improved.. Ordering Physician: Pérez Phillips Referring Physician: Etienne Valdivia Performed By: Fanny Tim, RONALCS, RVT
== END | disposition home or self-care (01) ==
LOC: CVS 10:30
PROVIDERS: Family Provider Internal Medicine; PCP Internal Medicine; Referring Provider Internal Medicine Cardiovascular Disease; Visit Provider Internal Medicine Cardiovascular Disease
DX: R07.9 Chest pain, unspecified (principal); R06.02 Shortness of breath; I50.9 Heart failure, unspecified; I44.7 Left bundle-branch block, unspecified
CPT/HCPCS: 0399T; 93306

== ENCOUNTER 2019-12-11 16:00 | Outpatient (RCR) | payer MEDICARE, OTHER, SELFPAY ==
[2019-11-07 13:37] VITALS: BMI 22.4
--- NOTE | 2019-11-29 11:50 | HP.PTEVAL ---
Patient's Visit Information LOGAN MORTON is a 73 year old F referred to Physical Therapy by tEienne Valdivia MD with a diagnosis of Left Hip. Date of Evaluation: 11/29/19 Physical Therapist: Nelly Lua DPT - Visit Plan Frequency: 2x /Week Duration: 4 Weeks Plan: Focus on Core s/s with postural education for sitting and standing- possible glut med/piriformis strain - Subjective Findings: Patient reports that she was playing pickleball and went for a ball and turned and now she has pain in the left glut- 3rd week in October. Feels like something is twisted. She has gotten better but its not quite there yet. Then she started to have a little bit of low back pain on that side so she went to the MD who gave her Predinosone and recommended PT/massage. The prednisone did not help. Did have a massage helped a little bit but now its back. Low back and into the top of the buttock can feel the exact spot. Eases: pushing on it, Advil Best: 11/22 Worst: 02/20 Agg:everything. Radiates to the ankle- no radiating up the back. Describes the pain as achy- N/T nerve pain down the leg- its much more mild. very active does a lot of walking and playing pickleball sometimes. Sleep: not disturbed- right side sleeper. PMHX: Left Ventricle Bundle, cancer- breast 2006 Meds: Lutein Extract/Zeaxanthin, Sumatriptan Succinate [Imitrex],tablet,sublingual, lisinopril, furosemide, carvedilol, cholecalciferol, resveratrol - Objective Posture: FH, RS, increased kyphosis-can correct but does not maintain. Gait: no deviation noted. HR/TR: able without pain. SLS: 10 sec with mild hip drop. ROM: WNL in all planes of Lumbar and LE. Palpation: tender along pirifiromis and glut med on the left. Sensation/Reflex: WNL. Strength: Core: fair, Hip: IR/ER: 4-/5 wtih discomfort, Extn: 4+/5, Flexion: 4/5, Abd/Add: 4+/5 Clam: 4/5 with discomfort. Flex: HS: moderate, Piriformis: severe, Gastroc: mild - Goals Goal 1:: Patient will be I with HEP and progression Goal Time Frame: 4-6 Weeks Goal 2:: Patient will maintain proper posture t/o tx session to demo increased core s/s Goal Time Frame: 4-6 Weeks Goal 3:: Patient will report 0/10 pain for 1 week Goal Time Frame: 4-6 Weeks - Rehabilitation Potential Physical Therapy Diagnosis: Patient presents with hypomobiliy- she has decreased core s/s and LE strength leading to increased pain with ADL's Rehabilitation Potential: Good - Anticipated Interventions Patient/Client Instruction: Educate patient on: Benefits of Fitness Program Therapeutic Exercise to Include: Strength training, Endurance training, Balance training, Coordination, Agility training, Body mechanics, Postural training, Flexibilty training, Active ROM, Scapular Strength/Stabilization For the Purpose of:: To improve muscle performance and motor function, To improve performance and independence with ADL's TENS: No Cryotherapy (ice pack, ice massage): Yes Thermo therapy (hot pack): Yes Ultrasound (thermal/non thermal): No Thank you for the opportunity to evaluate your patient. For Medicare and Medicare HMO plans, please review the plan of care and approve it. It will need to be FAXED BACK to us at [phone] for Medicare purposes. For Medicare only, by signing this I certify the plan of care. Please let me know if there are questions or concerns regarding this plan of care. Physician Signature: Date:
--- NOTE | 2020-03-24 10:43 | HP.PT.NRP ---
LOGAN MORTON was seen in my office for initial evaluation on 11/29/19. The following Plan of Care was established for this patient: Initial Frequency: 2x /Week Initial Duration: 4 Weeks Patient/Client Instruction: Educate patient on: Benefits of Fitness Program Therapeutic Exercise to Include: Strength training, Endurance training, Balance training, Coordination, Agility training, Body mechanics, Postural training, Flexibilty training, Active ROM, Scapular Strength/Stabilization For the Purpose of:: To improve muscle performance and motor function, To improve performance and independence with ADL's TENS: No Cryotherapy (ice pack, ice massage): Yes Thermo therapy (hot pack): Yes Ultrasound (thermal/non thermal): No This patient was last seen in our office . Pertinent comments regarding their Physical therapy will appear below: Patient has not attended physical therapy in over 8 weeks- appropriate for d/c and return to MD as appropriate. At this point I will be discontinuing this patient from physical therapy. I would be happy to see this patient again in the future if found appropriate by the physician. Thank you! Nelly Lua DPT
== END 2019-12-11 19:00 | disposition home or self-care (01) ==
LOC: PT 16:00
PROVIDERS: Family Provider Internal Medicine; PCP Internal Medicine; Referring Provider Internal Medicine; Visit Provider Internal Medicine
DX: S76.012D Strain of muscle, fascia and tendon of left hip, subsequent encounter (principal)
CPT/HCPCS: 97110; 97162

== ENCOUNTER → 2020-07-10 | Outpatient (CLI) | payer MEDICARE, OTHER, SELFPAY ==
[2020-06-25 10:15] VITALS: BMI 22.4
--- NOTE | 2020-07-10 10:56 | ECHOD_ITS ---
Reason For Study: DYSPNEA/SOB Procedure This was a 2D Doppler, Color Flow transthoracic echocardiogram. Myocardial strain analysis was performed in this exam to aid in the assessment of cardiac function. Exam performed in department. Left Ventricle Normal LV size. The estimated ejection fraction is 40 %. Stage 1 diastolic dysfunction. There is mild to moderate global hypokinesis of the left ventricle. Right Ventricle Normal RV size. Normal systolic function. Atria Normal left atrium. Normal right atrium. Mitral Valve Normal mitral valve. Trivial eccentric mitral valve insufficiency. Tricuspid Valve Normal tricuspid valve. Aortic Valve Trisinus/trileaflet aortic valve. Pulmonic Valve Normal pulmonic valve. Great Vessels Normal aortic root. The pulmonary artery is normal size. Normal inferior vena cava. Pericardium/Pleural No pericardial effusion. MMode/2D Measurements & Calculations LVIDd: 4.7 cm IVSd: 1.1 cm Ao root diam: 3.0 cm LVIDs: 3.9 cm LVPWd: 0.94 cm RVDd: 2.8 cm FS: 16.6 % LAV(MOD-bp): 32.7 ml LA A4 area: 12.1 cm2 LA dimension(2D): 3.2 cm LAV(MOD-bp) Indexed: 20.5 ml/m2 LAV(MOD-sp2): 31.0 ml LAV(MOD-sp4): 30.6 ml RA A4 area: 11.2 cm2 Doppler Measurements & Calculations MV E max osmani: 50.1 cm/sec Lat Peak E' Osmani: 2.1 cm/sec Med Peak E' Osmani: 3.3 cm/sec MV A max osmani: 81.8 cm/sec E/E' lat: 23.8 E/E' med: 15.3 MV E/A: 0.61 Ao V2 max: 111.8 cm/sec LV V1 max: 71.5 cm/sec PA V2 max: 119.6 cm/sec Ao max P.0 mmHg LV V1 max P.0 mmHg Interpretation Summary Normal LV size. The estimated ejection fraction is 40 %. There is mild to moderate global hypokinesis of the left ventricle. Stage 1 diastolic dysfunction. The global longitudinal strain is moderately abnormal. The global longitudinal strain = -13.1% (abnormal). Ordering Physician: Pérez Phillips Referring Physician: Etienne Valdivia Performed By: Fanny Tim, RONALCS, RVT
== END | disposition home or self-care (01) ==
LOC: CVS 10:56
PROVIDERS: PCP Internal Medicine; Referring Provider Internal Medicine Cardiovascular Disease; Visit Provider Internal Medicine Cardiovascular Disease
DX: I42.8 Other cardiomyopathies (principal); R06.00 Dyspnea, unspecified; R06.02 Shortness of breath
CPT/HCPCS: 93306

== ENCOUNTER → 2022-06-09 | Outpatient (CLI) | payer MEDICARE, OTHER, SELFPAY ==
--- NOTE | 2022-06-09 07:17 | ECHOD_ITS ---
Reason For Study: Cardiomyopathy Procedure This was a 2D Doppler, Color Flow transthoracic echocardiogram. Myocardial strain analysis was performed in this exam to aid in the assessment of cardiac function. Exam performed in department. Left Ventricle Normal LV size. The estimated ejection fraction is 40 %. Stage 1 diastolic dysfunction. There is mild to moderate global hypokinesis of the left ventricle. Right Ventricle Normal RV size. Normal systolic function. Atria Normal left atrium. Normal right atrium. Mitral Valve Normal mitral valve. Tricuspid Valve Normal tricuspid valve. Aortic Valve Normal aortic valve. Pulmonic Valve Normal pulmonic valve. Great Vessels Normal aortic root. The pulmonary artery is normal size. Normal inferior vena cava. Pericardium/Pleural No pericardial effusion. MMode/2D Measurements & Calculations LVIDd: 4.7 cm IVSd: 0.93 cm Ao root diam: 2.8 cm LVIDs: 3.7 cm LVPWd: 0.82 cm LA dimension: 3.2 cm RVDd: 3.3 cm FS: 21.0 % LAV(MOD-bp): 29.8 ml LVAd ap4: 28.9 cm2 SV(MOD-sp4): 30.9 ml LAV(MOD-bp) Indexed: 18.9 ml/m2 LVLd ap4: 7.0 cm LAV(MOD-sp2): 22.8 ml EDV(MOD-sp4): 95.1 ml LAV(MOD-sp4): 35.2 ml EDV(sp4-el): 101.6 ml LVAs ap4: 22.2 cm2 LVLs ap4: 6.7 cm ESV(MOD-sp4): 64.2 ml ESV(sp4-el): 63.0 ml EF(MOD-sp4): 32.5 % EF(sp4-el): 38.0 % SV(sp4-el): 38.6 ml LA A4 area: 13.8 cm2 RA A4 area: 10.6 cm2 Time Measurements MV dec time: 0.17 sec Doppler Measurements & Calculations MV E max osmani: 48.5 cm/sec Lat Peak E' Osmani: 3.1 cm/sec Med Peak E' Osmani: 7.6 cm/sec MV A max osmani: 73.9 cm/sec E/E' lat: 15.5 E/E' med: 6.4 MV E/A: 0.66 MV V2 max: 92.5 cm/sec MV P1/2t max osmani: 65.0 cm/sec Ao V2 max: 105.2 cm/sec MV max P.4 mmHg MV P1/2t: 68.6 msec Ao max P.4 mmHg MV V2 mean: 41.3 cm/sec Ao V2 mean: 74.9 cm/sec MV mean P.83 mmHg MV dec slope: 277.7 cm/sec2 Ao mean P.6 mmHg MV V2 VTI: 22.0 cm MVA(P1/2t): 3.2 cm2 Ao V2 VTI: 23.8 cm LV V1 max: 78.3 cm/sec PA V2 max: 115.3 cm/sec LV V1 max P.5 mmHg LV V1 mean P.3 mmHg LV V1 mean: 52.7 cm/sec LV V1 VTI: 16.5 cm ECHO/Echo Complete Interpretation Summary Normal LV size. The estimated ejection fraction is 40 %. There is mild to moderate global hypokinesis of the left ventricle. Stage 1 diastolic dysfunction. The global longitudinal strain is moderately abnormal. The global longitudinal strain = -12.5% (abnormal). Compared to previous study, the left ventricular systolic function is the same.. Ordering Physician: Kate Simmons Referring Physician: Etienne Valdivia M.D. Performed By: Quintin Degroot RCS
--- NOTE | 2022-06-09 16:34 | STRESSREP ---
Stress Test Report Myocardial perfusion stress test. 76-year-old lady with a history of nonischemic cardiomyopathy. Stress protocol: Resting EKG demonstrates normal sinus rhythm with a rate of 61 bpm left bundle branch block pattern is noted. Resting blood pressure is 130/78 mmHg. 0.4 mg of regadenoson was infused per usual protocol followed by rapid intravenous saline flush injection continuous EKG monitoring was performed. The maximum heart rate attained was 86 bpm which was 59% of max impacted heart rate the maximum workload was 1 metabolic equivalent. At rest there were no ST or T wave changes noted to suggest abnormal flow reserve and at peak infusion nonspecific ST changes were noted with did not meet the criteria for ischemia. No clinical angina was noted. The final blood pressure was 132/70 mmHg. Myocardial perfusion protocol. 10.7 mCi of technetium 99m sestamibi was injected at rest. 0.4 mg of regadenoson was infused per usual protocol. At peak infusion 34.5 mCi of technetium 99m sestamibi was injected stress images were obtained stress and rest images were reconstructed and compared in the short axis vertical long and horizontal long axis. Gated images were also obtained to Perfusion SPECT analysis: Review of the stress images demonstrate normal uptake of tracer noted in all areas of the myocardium. The resting images similarly demonstrate normal uptake of tracer noted in all areas of the myocardium. No areas of reversibility are noted to suggest ischemia. Gated SPECT analysis: The gated ejection fraction is noted to be 25% but likely with diaphragmatic attenuation artifact. Conclusion: Pharmacologic myocardial perfusion stress test with no obvious ischemia noted.
== END | disposition home or self-care (01) ==
PROVIDERS: PCP Internal Medicine; Referring Provider Nurse Practitioner Gerontology; Visit Provider Nurse Practitioner Gerontology
DX: I42.8 Other cardiomyopathies (principal); I44.7 Left bundle-branch block, unspecified; R94.31 Abnormal electrocardiogram [ECG] [EKG]
CPT/HCPCS: 78452; 93017; 93306; A9500; A4216; J2785

== ENCOUNTER 2022-07-11 13:24 | Emergency (ER) | payer MEDICARE, OTHER, SELFPAY ==
[2022-07-11 13:25] VITALS: BP 109/64; PULSE 78; RESP 14; TEMP 37.2; O2SAT 100; BMI 21.6
--- NOTE | 2022-07-11 14:49 | CT_ITS ---
STUDY: CT Abdomen And Pelvis W/ Contrast Injection 07/11/2022 4:11 PM REASON FOR EXAM: Female, 76 years old. ABDOMINAL PAIN Abdominal Pain LLQ Technologist Notes LLQ PAIN X3 DAYS, N/D SURG-GB TECHNIQUE: Transaxial images were obtained without oral contrast, and with IV 100mL Isovue-300 intravenous contrast. Individualized dose optimization techniques were used for this CT. COMPARISON: None. FINDINGS: The visualized lung bases are unremarkable. The visualized portions of the heart are within normal limits. Unremarkable liver. There is non-visualization of the gallbladder, which may be secondary to either contraction or a prior cholecystectomy. Unremarkable spleen. Unremarkable pancreas. Unremarkable bilateral adrenal glands. No acute findings of the right kidney. ACR White Paper guidelines (Herts, et al. JACR 2018; 15(2):264-273) recommend MRI or CT without and with intravenous contrast. Unremarkable visualized stomach. Unremarkable small intestine. There is diverticulosis, with thickening of the colon wall, and pericolonic inflammation changes consistent with acute diverticulitis. There are surgical clips in the region of the appendix consistent with a prior appendectomy. There are calcifications of the abdominal aorta. This is consistent for atherosclerotic disease. There is no abdominal aortic aneurysm. Unremarkable inferior vena cava. Subcentimeter mesenteric lymph nodes. Unremarkable urinary bladder. Normal visualized uterus. Unremarkable abdominal wall. There are diffuse degenerative changes of the visualized lumbar spine. CT/Abdomen/Pelvis W IV Cont ONLY IMPRESSION: (NOT LISTED IN ORDER OF SIGNIFICANCE) Acute sigmoid diverticulitis. There is no evidence to suggest abscess formation. 6.1mm hyperdense lesion in the superior left kidney. Se 601 IM: 66. ACR White Paper guidelines (Herts, et al. JACR 2018; 15(2):264-273) recommend MRI or CT without and with intravenous contrast. Other findings as above. Electronically Signed: Harjit Carmen MD at 16:15 EDT ,
--- NOTE | 2022-07-11 14:50 | ED.VIS.GI ---
HPI HPI - GI History of Present Illness Chief Complaint: Abd Pain Narrative Narrative: Patient with past surgical history of appendectomy and cholecystectomy presents from her primary care provider's office with 3 days of abdominal pain. She states it is crampy in nature and somewhat dull. She has been having diarrhea and loose stool with it. She thought it would get better this morning but it has not. She denies any fevers or chills. She was intermittently nauseated but has had no vomiting. No recent antibiotic use. Past medical history includes remote breast cancer for which she is in remission. She states that from the chemotherapy agents she now has congestive heart failure. She denies any exacerbating or alleviating factors to her bilateral lower quadrant pain. She does state that the pain is worse on the left more so than the right. No dysuria or hematuria. [facility] Medical History Acute on chronic systolic (congestive) heart failure History of breast cancer Left bundle branch block Migraine Non-ischemic cardiomyopathy Home Medications lutein extract 15 mg-zeaxanthin extract 0.7 mg capsule 1 ea PO DAILY supplement 12/14/17 [History Last Taken 05/09/18] mecobalamin (vitamin B12) 1,000 mcg disintegrating tablet,sublingual 1,000 mcg sublingual QDAY 05/31/18 [History Last Taken Unknown] cholecalciferol (vitamin D3) 50 mcg (2,000 unit) tablet 2,000 unit PO DAILY 11/07/19 [History Last Taken Unknown] loratadine 10 mg tablet (Allergy Relief (loratadine)) 10 mg PO PRN PRN Allergy Symptoms 06/25/20 [History Last Taken Unknown] sumatriptan succinate 50 mg tablet 50 mg PO .X1 PRN PRN Migraine Symptoms 06/25/20 [History Last Taken Unknown] carvedilol 25 mg tablet 25 mg PO BID #180 tabs 05/18/21 [Rx Last Taken Unknown] multivitamin 1 tab PO DAILY 05/19/22 [History Last Taken Unknown] vitamin B complex 1 cap PO DAILY 05/19/22 [History Last Taken Unknown] furosemide 40 mg tablet 40 mg PO DAILY #90 tabs 06/30/22 [Rx Last Taken Unknown] cefdinir 300 mg capsule 300 mg PO BID #14 caps 07/11/22 [Rx Last Taken Unknown] hydrocodone-acetaminophen 5-325mg 5mg-325mg 1 tab PO Q6H PRN pain 3 days #10 tabs 07/11/22 [Rx Last Taken Unknown] metronidazole 500 mg tablet 500 mg PO TID #21 tabs 07/11/22 [Rx Last Taken Unknown] Allergy/AdvReac Type Severity Reaction Status Date / Time No Known Allergies Allergy Verified 07/11/22 13:27 Family History Grandfather Myocardial infarction Surgical History H/O lumpectomy History of appendectomy History of left heart catheterization (04/24/19) History of open reduction and internal fixation (ORIF) procedure Hx of cholecystectomy Social History Smoking Status: Never smoker ROS ROS ED ROS Narrative Constitutional: No fever, no chills. HEENT: No sore throat. No neck pain. No loss of vision. No rhinorrhea. Cardiovascular: No chest pain. No palpitations. No pedal edema. Respiratory: No cough, no shortness of breath. Abdominal: Bilateral lower quadrant, left greater than right abdominal pain. No nausea currently-resolved. No vomiting. Loose stool/diarrhea for 2 to 3 days. Genitourinary: No dysuria. No hematuria. Musculoskeletal: No myalgias. No arthralgias. Neurologic: No headaches. No dizziness. No lightheadedness. Skin: No rash. No change in color. Psychiatric: No depression. No anxiety. EXAM Physical Exam Narrative Exam Narrative: Afebrile. Vital signs noted. HEENT: Normocephalic. Atraumatic. PERRL, EOMI. Neck soft and supple. No point tenderness or step off. Cardiovascular: Regular rate and rhythm. No murmurs, rubs, or gallops appreciated. Respiratory: No tachypnea. Lungs clear to auscultation bilaterally. Gastrointestinal: Abdomen soft, tenderness in the suprapubic to left lower quadrant area, with normoactive bowel sounds. No rebound or guarding. Neurological: Awake. Alert. Nonfocal, nonlateralizing. Skin: No rash. Normal color. No pallor. Musculoskeletal: No pedal edema. Full range of motion extremities. Const Vital Signs: 07/11/22 13:25 07/11/22 15:02 Temperature 98.9 F Temperature Source Temporal Pulse Rate 78 77 Respiratory Rate 14 16 Blood Pressure 109/64 109/62 Blood Pressure Mean 79 77 Pulse Ox 100 98 Oxygen Delivery Method Room Air Room Air MDM MDM MDM Narrative Medical decision making narrative: Concern is for sigmoid diverticulitis given the examination tenderness. Comprehensive work-up was pursued. CBC, CMP, and urinalysis were obtained along with CT imaging with IV contrast. She declined analgesics currently. She was bolused normal saline 1 L intravenously. CBC shows normal white count of 9.9, hemoglobin stable at 11.1, hematocrit 33.7. Platelet count normal at 262. CMP is grossly unremarkable except for creatinine of 1.1 with a normal BUN of 14. Urinalysis is positive for nitrites but negative for WBCs, 0-5. CT of the abdomen and pelvis with IV contrast does show acute sigmoid diverticulitis without abscess or perforation. Patient is resting comfortably reading a book. At this point in time, I do feel that she could do outpatient therapy. She was given her first dose of Omnicef and Flagyl here in the emergency department and she was written prescriptions for both for the next 7 days. Additionally, I wrote her prescription for [place] tablets for breakthrough pain, otherwise she states she will take Tylenol as needed for pain. I stressed the importance of return instructions, and that she should follow-up with her primary care provider in the next 3 to 5 days. Disposition is discharged home in stable condition. Lab Data Attestation: I reviewed the patient's lab results. Labs: Laboratory Results - last 24 hr 07/11/22 07/11/22 07/11/22 15:10 15:10 16:20 WBC 9.9 RBC 3.67 L Hgb 11.1 L Hct 33.7 L MCV 91.8 MCH 30.2 MCHC 32.9 RDW Std Deviation 44.7 H RDW Coeff of [place] 13.2 Plt Count 262 MPV 9.8 Immature Gran % (Auto) 0.400 Neut % (Auto) 77.3 H Lymph % (Auto) 13.8 L Sunflower % (Auto) 7.6 Eos % (Auto) 0.7 Baso % (Auto) 0.2 Absolute Neuts (auto) 7.6 Absolute Lymphs (auto) 1.36 Nucleated RBC % 0 Sodium 138 Potassium 3.7 Chloride 103 Carbon Dioxide 31.0 Anion Gap 4 L BUN 14 Creatinine 1.14 H Estim Creat Clear Calc 36.82 Est GFR (MDRD) Af Amer 60 Est GFR (MDRD) Non-Af 49 L BUN/Creatinine Ratio 12.3 Glucose 93 Calcium 9.1 Total Bilirubin 0.80 AST 48 H ALT 50 Alkaline Phosphatase 96 Total Protein 7.4 Albumin 3.3 Globulin 4.1 Albumin/Globulin Ratio 0.8 L Urine Color Straw Urine Clarity Clear Urine pH 7.0 Ur Specific [place] 1.010 Urine Protein 15 H Urine Glucose (UA) Normal Urine Ketones Negative Urine Occult Blood 10 H Urine Nitrite Positive H Urine Bilirubin Negative Urine Urobilinogen Normal Ur Leukocyte Esterase 500 H Urine RBC 0-5 SEEN Urine WBC 0-5 SEEN Ur Squamous Epith Cells 0-5 SEEN Urine Bacteria 3+ Urine Mucus 0 SEEN Radiography Diagnostic Testing: Clinical Impression(s) from Imaging Studies Abdomen/Pelvis CT 07/11/22 14:49 IMPRESSION: (NOT LISTED IN ORDER OF SIGNIFICANCE) Acute sigmoid diverticulitis. There is no evidence to suggest abscess formation. 6.1mm hyperdense lesion in the superior left kidney. Se 601 IM: 66. ACR White Paper guidelines (Herts, et al. JACR 2018; 15(2):264-273) recommend MRI or CT without and with intravenous contrast. Other findings as above. Electronically Signed: Harjit Carmen MD at 16:15 EDT Reading Location ID and State: [facility] [place] / [place] , Service support , Discharge Plan Triage Chief Complaint: Abd Pain ED Provider: Elier Doll Dx/Rx/DC Orders Clinical Impression: Sigmoid diverticulitis, Diarrhea Instructions: ED Diverticulitis Prescriptions: New cefdinir 300 mg capsule 300 mg PO BID Qty: 14 0RF metronidazole 500 mg tablet 500 mg PO TID Qty: 21 0RF hydrocodone-acetaminophen 5-325 mg tablet 1 tab PO Q6H PRN (Reason: pain) 3 Days Qty: 10 0RF No Action mecobalamin (vitamin B12) 1,000 mcg tablet,disintegrating 1,000 mcg SUBLINGUAL QDAY cholecalciferol (vitamin D3) 2,000 unit tablet 2,000 unit PO DAILY loratadine [Allergy Relief (loratadine)] 10 mg tablet 10 mg PO PRN PRN (Reason: Allergy Symptoms) carvedilol 25 mg tablet 25 mg PO BID Qty: 180 3RF multivitamin Tablet 1 tab PO DAILY vitamin B complex Capsule 1 cap PO DAILY lutein extract-zeaxanthin ext 1 EACH capsule 1 ea PO DAILY sumatriptan succinate 50 mg tablet 50 mg PO .X1 PRN PRN (Reason: Migraine Symptoms) furosemide 40 mg tablet 40 mg PO DAILY Qty: 90 3RF Primary Care Provider: Etienne Valdivia Referrals: Etienne Valdivia MD [Primary Care Provider] - 3-5 Days Activity Restrictions/Additional Instructions: Take your medications/antibiotics as directed. Follow-up with Dr. Valdivia by the end of the week. Return with any fever, increased pain, inability to take your medications, new or worsening symptoms. Disposition Disposition: Home, Self Care
[2022-07-11 15:02] VITALS: BP 109/62; PULSE 77; RESP 16; O2SAT 98
[2022-07-11] MEDS: 0.9% Normal Saline 1,000 ML 1000 ML IV (15:08)
[2022-07-11 15:28] LABS: Absolute Lymphocyte Count 1.36 X10^3/uL (0.83-4.51); Absolute Neutrophil Count 7.6 X10^3/uL (2.0-7.7); Basophil# 0.02 X10^3/uL; Basophil% 0.2 % (0-1); Eosinophil# 0.07 X10^3/uL; Eosinophils% 0.7 % (0-5); Hematocrit 33.7 % (37-47); Hemoglobin 11.1 g/dL (12.0-15.0); Lymphocyte # 1.36 X10^3/ul (0.83-4.51); Lymphocyte % 13.8 % (19-41); Mean Corp Hgb Conc 32.9 g/dL (32-36); Mean Corpuscular Hgb 30.2 pg (27.0-32.0); Mean Corpuscular Volume 91.8 fL (81-99); Mean Platelet Vol. 9.8 fl (6.2-12.0); Monocyte# 0.75 X10^3/uL; Monocyte% 7.6 % (0-10); NRBC Flagged by Analyzer 0 % (0-5); Neutrophil # 7.63 X10^3/uL (2.7-7.7); Neutrophil % 77.3 % (47-70); Platelet Count 262 K/mm3 (150-450); RBC Distribution Width CV 13.2 % (11.6-14.6); RBC Distribution Width SD 44.7 fl (35.1-43.9); Red Blood Count 3.67 M/mm3 (4.2-5.4); White Blood Count 9.9 K/mm3 (4.4-11.0)
[2022-07-11 15:42] LABS: ALB/GLOB Ratio 0.8 RATIO (0.9-2.4); AST(SGOT) 48 U/L (15-37); Alanine Aminotransfer ALT/SGPT 50 U/L (13-56); Albumin, Serum 3.3 g/dL (3.2-5.0); Alkaline Phosphatase 96 U/L (45-117); Anion Gap 4 (5-15); BUN 14 mg/dL (7-18); BUN/Creat Ratio 12.3 RATIO (10-20); Calcium,Total 9.1 mg/dL (8.5-10.1); Chloride 103 mmol/L (98-107); Creatinine, Serum 1.14 mg/dL (0.55-1.02); EST Glomerular Filtration Rate 49 mL/min (>60); Est Glom Filt Rate - Afr Amer 60 mL/min (>60); Estimated Creatinine Clearance 36.82 ml/min; Globulin 4.1 g/dL (2.2-4.2); Glucose 93 mg/dL (74-106); Potassium 3.7 mmol/L (3.5-5.1); Protein, Total 7.4 g/dL (6.4-8.2); Sodium Level 138 mmol/L (136-145)
[2022-07-11 16:27] LABS: Mucous, Urine 0 SEEN /hpf (<or=2+)
[2022-07-11 16:33] LABS: Color, Urine Straw (Yellow); Glucose, Dipstick Normal (Normal); Ketone-Dipstick Negative (Negative); Leukocyte Esterase-Dipstick 500 /ul (Negative); Nitrite-Dipstick Positive (Negative); Occult Blood-Urine 10 /ul (Negative); Protein-Dipstick 15 mg/dl (Negative); Urine Bilirubin Dipstick Negative (Negative); Urine Clarity Clear (Clear); Urine Urobilinogen Normal (Normal)
[2022-07-11 16:52] LABS: Bacteria 3+ /hpf (None Seen); Red Blood Cells-Urine 0-5 SEEN /hpf (0-5); Squamous Epithelial Cells - UA 0-5 SEEN /hpf (5-10); White Blood Cells 0-5 SEEN /hpf (0-5)
[2022-07-11] MEDS: metroNIDAZOLE 500 MG Tablet PO (17:21)
[2022-07-11] MEDS: Cefdinir 300 MG Capsule PO (17:40)
[2022-07-11 17:43] VITALS: BP 115/64; PULSE 71; RESP 16; TEMP 37.1; O2SAT 98
== END 2022-07-11 17:44 | disposition home or self-care (01) ==
PROVIDERS: Emergency Provider Emergency Medicine; PCP Internal Medicine; Visit Provider Emergency Medicine
DX: K57.32 Diverticulitis of large intestine without perforation or abscess without bleeding (principal); I50.43 Acute on chronic combined systolic (congestive) and diastolic (congestive) heart failure; R10.32 Left lower quadrant pain; R10.31 Right lower quadrant pain; R19.7 Diarrhea, unspecified; Z90.49 Acquired absence of other specified parts of digestive tract; Z79.899 Other long term (current) drug therapy
CPT/HCPCS: 74177; 80053; 81001; 85025; 96360; 96361; 99284; J7030; Q9967

== ENCOUNTER 2022-10-09 05:52 | Emergency (ER) | payer MEDICARE, OTHER, SELFPAY ==
[2022-10-09 05:53] VITALS: BP 158/89; PULSE 101; RESP 16; TEMP 36.7; O2SAT 97; BMI 21.7
--- NOTE | 2022-10-09 06:02 | EDS_ITS ---
HPI History of Present Illness Chief Complaint: Headache Informant: patient Onset/Context/Timing Onset: Yesterday Context: Gradual Quality -Headache: Positive for Throbbing Current Severity: Severe Maximum Severity: Severe Associated Symptoms/Injury Associated Symptoms: Positive for Nausea and Photophobia Narrative Narrative: Patient presents secondary to throbbing headache. She states headache started last evening and is progressively worsened tonight. She is felt nauseated but has not vomited. She did not take anything for her headache because she was afraid she might vomit. She denies any recent head injuries or illness. She does feel that she is having chills. [facility] Medical History Acute on chronic systolic (congestive) heart failure History of breast cancer Left bundle branch block Migraine Non-ischemic cardiomyopathy Home Medications lutein extract 15 mg-zeaxanthin extract 0.7 mg capsule 1 ea PO DAILY supplement 12/14/17 [History Last Taken 05/09/18] mecobalamin (vitamin B12) 1,000 mcg disintegrating tablet,sublingual 1,000 mcg sublingual QDAY 05/31/18 [History Last Taken Unknown] cholecalciferol (vitamin D3) 50 mcg (2,000 unit) tablet 2,000 unit PO DAILY 11/07/19 [History Last Taken Unknown] loratadine 10 mg tablet (Allergy Relief (loratadine)) 10 mg PO PRN PRN Allergy Symptoms 06/25/20 [History Last Taken Unknown] sumatriptan succinate 50 mg tablet 50 mg PO .X1 PRN PRN Migraine Symptoms 06/25/20 [History Last Taken Unknown] multivitamin 1 tab PO DAILY 05/19/22 [History Last Taken Unknown] vitamin B complex 1 cap PO DAILY 05/19/22 [History Last Taken Unknown] furosemide 40 mg tablet 40 mg PO DAILY #90 tabs 06/30/22 [Rx Last Taken Unknown] cefdinir 300 mg capsule 300 mg PO BID #14 caps 07/11/22 [Rx Last Taken Unknown] hydrocodone-acetaminophen 5-325mg 5mg-325mg 1 tab PO Q6H PRN pain 3 days #10 tabs 07/11/22 [Rx Last Taken Unknown] metronidazole 500 mg tablet 500 mg PO TID #21 tabs 07/11/22 [Rx Last Taken Unknown] carvedilol 25 mg tablet 25 mg PO BID #180 tabs 08/01/22 [Rx Last Taken Unknown] nirmatrelvir 300 mg (150 mg x2)-ritonavir 100 mg tablet,dose pack(EUA) (Paxlovid) See Rx Instructions PO .COMPLEX #30 tabs 10/09/22 [Rx Last Taken Unknown] Allergy/AdvReac Type Severity Reaction Status Date / Time No Known Allergies Allergy Verified 07/11/22 13:27 Family History Grandfather Myocardial infarction Surgical History H/O lumpectomy History of appendectomy History of left heart catheterization (04/24/19) History of open reduction and internal fixation (ORIF) procedure Hx of cholecystectomy Social History Smoking Status: Never smoker ROS ROS ED Constitutional Constitutional ED: Reports chills; Denies fever(s) Eyes Eyes: Denies change in vision or discharge from eye(s) ENT ENT ED: Denies discharge from eye(s), rhinorrhea or sore throat Cardiovascular Cardiovascular: Denies chest pain or palpitations Respiratory/Chest Respiratory/Chest: Denies cough or dyspnea Gastrointestinal Gastrointestinal: Reports nausea; Denies abdominal pain, diarrhea or vomiting Genitourinary Genitourinary ED: Denies dysuria Musculoskeletal Musculoskeletal: Denies back pain, extremity pain or neck pain Integumentary Denies Abrasions or rash Neurologic Neurologic: Reports headache(s); Denies weakness Allergic/Immunologic Allergic/Immunologic ED: Denies lip swelling or urticaria EXAM Physical Exam Const Vital Signs: 10/09/22 05:53 10/09/22 05:53 Temperature 98.1 F 98.1 F Temperature Source Temporal Temporal Pulse Rate 101 H 101 H Respiratory Rate 16 16 Blood Pressure 158/89 H 158/89 H Blood Pressure Mean 112 112 Pulse Ox 97 97 Oxygen Delivery Method Room Air Room Air Positive well nourished and well developed General Appearance ED: well developed HEENT Reports normocephalic and head/scalp atraumatic Eyes PERRL and EOMs intact bilaterally Neck supple and no meningeal signs Chest Wall inspection of chest normal and palpation of chest normal Resp normal respiratory effort and clear to auscultation bilaterally Cardio regular rate and regular rhythm GI normal to inspection, nondistended, normoactive bowel sounds Palpation: soft Extremity normal to inspection Neuro oriented x3 and no sensory deficits noted Sensorium / Orientation: alert Motor Exam: strength 5/5 throughout Psych Mood & Affect: anxious Skin no rashes or lesions noted MDM MDM MDM Narrative Medical decision making narrative: Patient is given Toradol, Compazine, Benadryl, IV fluids. COVID test obtained. Treatment and Re-Evaluation Narrative: COVID test returns positive. On repeat evaluation patient reports her headache is much improved. I did review the patient's home medication list. There is nothing that prevents her from taking Paxlovid if she wishes. We discussed the pros and cons and she would like to try this. I will send the prescription to the pharmacy for her. We discussed supportive care and monitoring her pulse ox at home. Return instructions are given. Discharge Plan Triage Chief Complaint: Headache ED Provider: Lucina Miguel Dx/Rx/DC Orders Clinical Impression: COVID-19, Headache Instructions: Coronavirus Disease 2019 (COVID-19): Overview, Coronavirus Disease 2019 (COVID-19): Caring for Yourself or Others Prescriptions: New Paxlovid (EUA) 300 mg (150 mg x 2)-100 mg tablets,dose pack See Rx Instructions .ROUTE .COMPLEX Qty: 30 0RF Rx Instructions: take TWO 150 mg tablets of nirmatrelvir with ONE 100 mg tablet of ritonavir twice daily for 5 days No Action mecobalamin (vitamin B12) 1,000 mcg tablet,disintegrating 1,000 mcg SUBLINGUAL QDAY cholecalciferol (vitamin D3) 2,000 unit tablet 2,000 unit PO DAILY loratadine [Allergy Relief (loratadine)] 10 mg tablet 10 mg PO PRN PRN (Reason: Allergy Symptoms) multivitamin Tablet 1 tab PO DAILY vitamin B complex Capsule 1 cap PO DAILY lutein extract-zeaxanthin ext 1 EACH capsule 1 ea PO DAILY sumatriptan succinate 50 mg tablet 50 mg PO .X1 PRN PRN (Reason: Migraine Symptoms) cefdinir 300 mg capsule 300 mg PO BID Qty: 14 0RF metronidazole 500 mg tablet 500 mg PO TID Qty: 21 0RF hydrocodone-acetaminophen 5-325 mg tablet 1 tab PO Q6H PRN (Reason: pain) 3 Days Qty: 10 0RF furosemide 40 mg tablet 40 mg PO DAILY Qty: 90 3RF carvedilol 25 mg tablet 25 mg PO BID Qty: 180 3RF Primary Care Provider: Etienne Valdivia Referrals: Etienne Valdivia MD [Primary Care Provider] - 1-2 Weeks Disposition Disposition: Home, Self Care
[2022-10-09] MEDS: Ketorolac 15 MG/ML Vial IV (06:13)
[2022-10-09] MEDS: DiphenhydrAMINE 50 MG/ML Syringe 25 MG IV (06:13)
[2022-10-09] MEDS: proCHLORPERazine 10 MG/2 ML Vial 5 MG IV (06:13)
== END 2022-10-09 07:14 | disposition home or self-care (01) ==
PROVIDERS: Emergency Provider Emergency Medicine; PCP Internal Medicine; Visit Provider Emergency Medicine
DX: U07.1 COVID-19 (principal); I50.23 Acute on chronic systolic (congestive) heart failure; R51.9 Headache, unspecified; R11.0 Nausea
CPT/HCPCS: 87811; 96374; 96375; 99282; A4216

== ENCOUNTER → 2023-06-14 | Outpatient (CLI) | payer MEDICARE, OTHER, SELFPAY ==
--- NOTE | 2023-06-14 10:55 | ECHODONC_ITS ---
Reason For Study: MV Insufficiency Procedure This was a 2D Doppler, Color Flow transthoracic echocardiogram. Myocardial strain analysis was performed in this exam to aid in the assessment of cardiac function. Exam performed in department. Left Ventricle Normal LV size. The estimated ejection fraction is 40 %. Mild to moderate global left ventricular systolic dysfunction. Septal motion consistent with bundle branch block. There is mild to moderate global hypokinesis of the left ventricle. Right Ventricle Normal RV size. Normal systolic function. Mitral Valve Normal mitral valve. Mild (1+) eccentric mitral valve insufficiency. Aortic Valve Normal aortic valve. Trisinus/trileaflet aortic valve. Pericardium/Pleural Small pericardial effusion. MMode/2D Measurements & Calculations LVIDd: 4.8 cm IVSd: 0.77 cm Ao root diam: 2.9 cm LVIDs: 3.5 cm LVPWd: 0.86 cm RVDd: 3.0 cm FS: 27.0 % LAV(MOD-bp): 32.0 ml LVAd ap4: 27.4 cm2 LVAd ap2: 28.2 cm2 LAV(MOD-bp) Indexed: 19.8 ml/m2 LVLd ap4: 7.5 cm LVLd ap2: 7.7 cm LAV(MOD-sp2): 39.7 ml EDV(MOD-sp4): 82.7 ml EDV(MOD-sp2): 85.8 ml LAV(MOD-sp4): 23.4 ml EDV(sp4-el): 84.9 ml EDV(sp2-el): 88.2 ml LVAs ap4: 20.0 cm2 LVAs ap2: 20.0 cm2 LVLs ap4: 6.6 cm LVLs ap2: 6.4 cm ESV(MOD-sp4): 50.4 ml ESV(MOD-sp2): 50.8 ml ESV(sp4-el): 51.6 ml ESV(sp2-el): 52.8 ml EF(MOD-sp4): 39.0 % EF(MOD-sp2): 40.8 % EF(sp4-el): 39.2 % SV(MOD-sp4): 32.3 ml SV(MOD-sp2): 35.0 ml SV(sp4-el): 33.3 ml LA A4 area: 10.8 cm2 LA dimension(2D): 3.6 cm RA A4 area: 11.5 cm2 TAPSE: 2.0 cm Time Measurements MV dec time: 0.22 sec Doppler Measurements & Calculations MV E max osmani: 42.2 cm/sec Lat Peak E' Osmani: 4.3 cm/sec Med Peak E' Osmani: 4.0 cm/sec MV A max osmani: 73.4 cm/sec E/E' lat: 9.8 E/E' med: 10.5 MV E/A: 0.58 Ao V2 max: 104.5 cm/sec LV V1 max: 74.1 cm/sec MV dec slope: 193.3 cm/sec2 Ao max P.4 mmHg LV V1 max P.2 mmHg Ao V2 mean: 71.0 cm/sec LV V1 mean P.1 mmHg Ao mean P.3 mmHg LV V1 mean: 49.2 cm/sec Ao V2 VTI: 24.1 cm LV V1 VTI: 15.0 cm AV (velocity ratio): 0.62 PA V2 max: 117.0 cm/sec TR max osmani: 212.4 cm/sec TR max P.1 mmHg ECHO/ONC Echo Complete Interpretation Summary Normal LV size. The estimated ejection fraction is 40 %. Mild to moderate global left ventricular systolic dysfunction. There is mild to moderate global hypokinesis of the left ventricle. The global longitudinal strain is severely abnormal. The global longitudinal st rain = -12.8% (abnormal). Ordering Physician: Pérez Phillips Referring Physician: Etienne Valdivia M.D. Performed By: Marilyn Guy RDCS
== END | disposition home or self-care (01) ==
LOC: CVS 10:53
PROVIDERS: PCP Internal Medicine; Referring Provider Internal Medicine Cardiovascular Disease; Visit Provider Internal Medicine Cardiovascular Disease
DX: I34.0 Nonrheumatic mitral (valve) insufficiency (principal)
CPT/HCPCS: 93306; 93356

== ENCOUNTER 2023-12-11 18:49 | Inpatient (IN) | payer MEDICARE, OTHER, SELFPAY ==
[2023-12-11 18:52] VITALS: BP 163/84; PULSE 67; RESP 16; TEMP 36.1; O2SAT 98; BMI 23.0
--- NOTE | 2023-12-11 19:55 | RAD_ITS ---
INDICATION: chest pain EXAMINATION/TECHNIQUE: X-RAY - XR Chest 1 View COMPARISON: 04/23/2019. FINDINGS: LINES/DEVICES: None. LUNGS: No consolidation or evidence of an effusion. No evidence of edema or a pneumothorax. MEDIASTINUM AND CARDIOVASCULAR STRUCTURES: Cardiac silhouette is normal in size and contour. Mediastinum is unremarkable. BONES AND SOFT TISSUES: No acute abnormality. Stable calcifications in the right breast and postsurgical changes in the right breast and right axilla. RAD/Chest 1 View (Portable) IMPRESSION: No evidence of acute cardiopulmonary disease. Electronically Signed: Sharath Rajan DO at 20:54 EST ,
--- OUTSIDE RECORDS SUMMARY | 2023-12-11 20:35 | XMS RPT_ITS | CCD ---
Author Name Unknown Address [address] [place] [address] Organization [facility] Care Team Providers Care Sugar Refiner Name Role Phone BRYAN OCONNOR Attending Unavailable ANASTASIABRYAN PUGA Primary Care Unavailable ANASTASIABRYAN PUGA Admitting Unavailable ANASTASIABRYAN PUGA Attending Unavailable ANASTASIABRYAN PUGA Primary Care Unavailable ANASTASIABRYAN GONSALVES Admitting Unavailable Etienne Flowers MD Primary Care Provider [phone] Marbin Rosa RN Unavailable UnavailEtienne Burdick MD Primary Care Provider [phone] Shelley SUTTON, Marbin Luna Unavailable Unavailvanessa Zazueta RN, Shelley Luna Unavailable UnavailEtienne Burdick MD Primary Care Provider [phone] Marbin SUTTON, Shelley Luna Unavailable Unavailvanessa Zazueta RN, Shelley Luna Unavailable UnavailETIENNE Burdick Attending Unavailable ETIENNE FLOWERS Primary Care Unavailable KEYONNA ÁLVAREZ Attending Unavailable ETIENNE FLOWERS Primary Care Unavailable ETIENNE FLOWERS Referring Unavailable ETIENNE FLOWERS Primary Care Unavailable ETIENNE FLOWERS Primary Care Unavailable ETIENNE FLOWERS Referring Unavailable ETIENNE FLOWERS Attending Unavailable ETIENNE FLOWERS Primary Care Unavailable ETIENNE FLOWERS Referring Unavailable Allergies Allergy Classification Reported Allergen(s) Allergy Type Date of Onset Reaction(s) Facility (4 sources) Seasonal allergy; Translations: [SEASONAL ALLERGIES] Propensity to adverse reactions 3 Other: See Comments [facility] Work Phone: Medications Completed/Discontinued Medications Medication Drug Class(es) Dates Sig (Normalized) Sig (Original) carvedilol 25 mg oral tablet (20 sources) alpha-Adrenergic Vincent, beta-Adrenergic Vincent Start: 11-08-2019 take 1 tablet by mouth twice daily carvedilol (COREG) 25 mg tablet Indications: Chronic systolic CHF (congestive heart failure) (HCC) Take 1 tablet by mouth twice daily. 0 11/08/2019 Active Problems Active Problems Problem Classification Problem Date Documented Da te Episodic/Chronic Abdominal pain (2 sources) Acute abdominal pain; Translations: [Left lower quadrant pain] Episodic Allergic reactions (2 sources) Contact dermatitis due to plants; Translations: [Unspecified contact dermatitis due to plants, except food] Episodic Chronic kidney disease (20 sources) Chronic kidney disease stage 3; Translations: [Chronic kidney disease (CKD), stage III (moderate)] Onset: 08-13-2020 08-13-2020 Chronic Chronic kidney disease (1 source) Chronic kidney disease; Translations: [Stage 3a chronic kidney disease (HCC)] Onset: 08-13-2020 Congestive heart failure; nonhypertensive (20 sources) Chronic systolic heart failure; Translations: [Chronic systolic (congestive) heart failure] Onset: 05-18-2018 08-31-2018 Chronic Deficiency and other anemia (1 source) Anemia; Translations: [Anemia, unspecified] Episodic Diverticulosis and diverticulitis (1 source) Diverticulitis of large intestine; Translations: [Diverticulitis of large intestine without perforation or abscess without bleeding] Chronic Fluid and electrolyte disorders (1 source) Dehydration; Translations: [Dehydration] Episodic Headache; including migraine (5 sources) Migraine; Translations: [Migraine, unspecified, not intractable, without status migrainosus] Onset: 05-06-2011 Chronic Hemorrhoids (1 source) Perianal skin tags; Translations: [Residual hemorrhoidal skin tags] Episodic Nutritional deficiencies (20 sources) Vitamin D deficiency; Translations: [Vitamin D deficiency, unspecified] Onset: 03-12-2014 03-12-2014 Chronic Osteoporosis (20 sources) Osteoporosis; Translations: [Age-related osteoporosis without current pathological fracture] Onset: 12-05-2008 06-03-2013 Chronic Other connective tissue disease (2 sources) Pain in bilateral legs; Translations: [Pain in right leg] Episodic Other connective tissue disease (1 source) Postexertional fatigue; Translations: [Other specified disorders of muscle] Episodic Other connective tissue disease (1 source) Paraparesis; Translations: [Other symptoms and signs involving the musculoskeletal system] Episodic Other diseases of kidney and ureters (1 source) Disorder of kidney and/or ureter; Translations: [Other specified disorders of kidney and ureter] Chronic Other gastrointestinal disorders (20 sources) Irritable bowel syndrome; Translations: [Irritable bowel syndrome without diarrhea] Onset: 09-06-2013 09-06-2013 Chronic Other gastrointestinal disorders (1 source) Diarrhea; Translations: [Diarrhea, unspecified] Episodic Other screening for suspected conditions (not mental disorders or infectious disease) (14 sources) Imaging of genitourinary system abnormal; Translations: [Abnormal radiologic findings on diagnostic imaging of unspecified kidney] Onset: 07-15-2022 Episodic Shabana-; endo-; and myocarditis; cardiomyopathy (except that caused by tuberculosis or sexually transmitted disease) (20 sources) Cardiomyopathy; Translations: [Other cardiomyopathies] Onset: 05-18-2018 09-02-2018 Chronic Past or Other Problems Problem Classification Problem Date Documented Da te Episodic/Chronic Cancer of breast (20 sources) History of malignant neoplasm of breast; Translations: [Personal history of malignant neoplasm of breast] Onset: 04-27-2018 04-27-2018 Episodic Diabetes mellitus without complication (20 sources) Impaired glucose tolerance; Translations: [Impaired glucose tolerance (oral)] Onset: 09-03-2021 09-03-2021 Episodic Other skin disorders (20 sources) Actinic keratosis; Translations: [Actinic keratosis] Onset: 07-11-2007 01-05-2010 Episodic Results Test Name Value Interpretation Reference Range Facil ity Vital Signs Date Time Vital Sign Value Performing Clinician Roxanne ellison 09-21-2022 10:47-0500 Body height 160 cm Keyonna Older BULK SEALER OPERATOR.FLOAT BUILDER Work Phone: [facility] 09-21-2022 10:47-0500 Body weight 56.7 kg Keyonna Older BULK SEALER OPERATOR.LUCHO Work Phone: [facility] 09-21-2022 10:47-0500 Diastolic blood pressure 78 mm[Hg] Keyonna Older BULK SEALER OPERATOR.LUCHO Work Phone: [facility] 09-21-2022 10:47-0500 Heart rate 64 /min Keyonna Older BULK SEALER OPERATOR.LUCHO Work Phone: [facility] 09-21-2022 10:47-0500 Respiratory rate 14 /min Keyonna Older BULK SEALER OPERATOR.FLOAT BUILDER Work Phone: [facility] 09-21-2022 10:47-0500 Systolic blood pressure 130 mm[Hg] Keyonna Older BULK SEALER OPERATOR.FLOAT BUILDER Work Phone: [facility] 07-11-2022 12:17-0400 Body temperature 97.11 [degF] Etienne Flowers MD Work Phone: [facility] 07-11-2022 12:17-0400 Body weight 58.06 kg Etienne Flowers MD Work Phone: [facility] 07-11-2022 12:17-0400 Diastolic blood pressure 54 mm[Hg] Etienne Flowers MD Work Phone: [facility] 07-11-2022 12:17-0400 Heart rate 72 /min Etienne Flowers MD Work Phone: [facility] 07-11-2022 12:17-0400 Respiratory rate 12 /min Etienne Flowers MD Work Phone: [facility] 07-11-2022 12:17-0400 Systolic blood pressure 102 mm[Hg] Etienne Flowers MD Work Phone: [facility] 04-21-2022 12:58-0400 Body temperature 96.6 [degF] Etienne Flowers MD Work Phone: [facility] 04-21-2022 12:58-0400 Body weight 59.88 kg Etienne Flowers MD Work Phone: [facility] 04-21-2022 12:58-0400 Diastolic blood pressure 68 mm[Hg] Etienne Flowers MD Work Phone: [facility] 04-21-2022 12:58-0400 Heart rate 60 /min Etienne Flowers MD Work Phone: [facility] 04-21-2022 12:58-0400 Respiratory rate 12 /min Etienne Flowers MD Work Phone: [facility] 04-21-2022 12:58-0400 Systolic blood pressure 122 mm[Hg] Etienne Flowers MD Work Phone: [facility] 04-13-2022 09:59-0400 Body weight 59.42 kg Keyonna Older BULK SEALER OPERATOR.FLOAT BUILDER Work Phone: [facility] 04-13-2022 09:59-0400 Diastolic blood pressure 68 mm[Hg] Keyonna Older BULK SEALER OPERATOR.FLOAT BUILDER Work Phone: [facility] 04-13-2022 09:59-0400 Heart rate 64 /min Keyonna Older BULK SEALER OPERATOR.FLOAT BUILDER Work Phone: [facility] 04-13-2022 09:59-0400 Respiratory rate 12 /min Keyonna Older BULK SEALER OPERATOR.FLOAT BUILDER Work Phone: [facility] 04-13-2022 09:59-0400 Systolic blood pressure 124 mm[Hg] Keyonna Older BULK SEALER OPERATOR.FLOAT BUILDER Work Phone: [facility] Encounters Encounter Date Encounter Type Care Provider Facility Start: 11-09-2023 End: 11-09-2023 ambulatory KEYONNA ÁLVAREZ Facility:[facility] Start: 09-26-2023 Documentation procedure Mammog susanna Coordinator [facility] Start: 09-26-2023 Letter encounter Mammography Coordinator [facility] Department Start: 09-25-2023 End: 09-25-2023 Orders Only Etienne Flowers MD Work Phone: [facility] Procedures Date Procedure Procedure Detail Performing Clinician Start: 09-23-2022 End: 09-23-2022 Mammography Keyonna Older BULK SEALER OPERATOR.FLOAT BUILDER Work Phone: Start: 07-11-2022 Adult depression screening assessment Etienne Flowers MD Work Phone: Start: 06-16-2021 Mammography Keyonna Older BULK SEALER OPERATOR.FLOAT BUILDER Work Phone: Start: 03-03-2021 Adult depression screening assessment Keyonna Older BULK SEALER OPERATOR.FLOAT BUILDER Work Phone: Start: 04-21-2016 Colonoscopy Keyonna Older BULK SEALER OPERATOR.FLOAT BUILDER Work Phone: Start: 07-27-2012 History of bilateral mastectomy S/P bilateral breast lumpectomy Keyonna Older BULK SEALER OPERATOR.FLOAT BUILDER Work Phone: Start: 07-27-2012 History of mastectomy S/P bila teral breast lumpectomy Keyonna Older BULK SEALER OPERATOR.FLOAT BUILDER Work Phone: Plan of Treatment Date Care Activity Detail Author Start: 06-13-2028 Urine microalbumin profile [facility] Start: 09-23-2027 LIPID SCREEN LIPID SCREEN [facility] Start: 08-27-2026 LIPID SCREEN LIPID SCREEN [facility] Start: 04-21-2026 Colonoscopy COLONOSCOPY [facility] Start: 04-21-2026 COLORECTAL CANCER SCREENING COLORECTAL CANCER SCREENING [facility] Start: 04-20-2026 DIABETES SCREEN DIABETES SCREEN [facility] Start: 04-20-2026 Diabetes Screening Diabetes Screenin g [facility] Start: 09-23-2025 DIABETES SCREEN DIABETES SCREEN [facility] Start: 04-13-2025 DIABETES SCREEN DIABETES SCREEN [facility] Start: 09-25-2024 Mammography Mammogram Screening [facility] Start: 08-27-2024 DIABETES SCREEN DIABETES SCREEN [facility] Start: 04-20-2024 ANNUAL PCP TEAM ORDER SELECTOR MORA DISEASE VISIT ANNUAL PCP TEAM CHRONIC DISEASE VISIT [facility] Start: 04-20-2024 COVID-19 VACCINE (3 - Pfizer series) COVID-19 VACCINE (3 - Pfizer series) [facility] Immunizations Immunization Date Immunization Notes Care Provider Fa cili 09-03-2021 influenza, high-dose , quadrivalent vaccine (FLUZONE HIGH DOSE QUADRIVALENT) Keyonna Older BULK SEALER OPERATOR.FLOAT BUILDER Work Phone: [facility] 09-03-2021 influenza virus vacc ine, unspecified formulation Etienne Flowers MD Work Phone: [facility] 03-03-2021 zoster vaccine recombinant Keyonna Older BULK SEALER OPERATOR.FLOAT BUILDER Work Phone: [facility] Work Phone: 02-01-2021 COVID-19 vaccine, ag e 12+ yr ([facility] - [facility]) Keyonna Older BULK SEALER OPERATOR.FLOAT BUILDER Work Phone: [facility] Work Phone: 01-07-2021 COVID-19 vaccine, ag e 12+ yr (AVST-Kapta - PURPLE TOP) Keyonna Older BULK SEALER OPERATOR.FLOAT BUILDER Work Phone: [facility] Work Phone: 10-27-2020 zoster vaccine recombinant Keyonna Older BULK SEALER OPERATOR.FLOAT BUILDER Work Phone: [facility] Work Phone: 08-13-2020 influenza, high-dose , quadrivalent vaccine (FLUZONE HIGH DOSE QUADRIVALENT) Keyonna Older BULK SEALER OPERATOR.[facility] Work Phone: [facility] Work Phone: 06-13-2018 tetanus toxoid, redu antione diphtheria toxoid, and acellular pertussis vaccine, adsorbed Keyonna Older BULK SEALER OPERATOR.[facility] Work Phone: [facility] Work Phone: 03-02-2016 pneumococcal conjuga te vaccine, 13 valent Keyonna Older BULK SEALER OPERATOR.FLOAT BUILDER Work Phone: [facility] 09-06-2013 influenza virus vacc ine, unspecified formulation Keyonna Older BULK SEALER OPERATOR.FLOAT BUILDER Work Phone: [facility] 02-24-2012 tetanus and diphther ia toxoids, adsorbed, preservative free, for adult use (2 Lf of tetanus toxoid and 2 Lf of diphtheria toxoid) Keyonna Older BULK SEALER OPERATOR.FLOAT BUILDER Work Phone: [facility] Work Phone: 02-24-2012 zoster vaccine, live Keyonna Old er BULK SEALER OPERATOR.FLOAT BUILDER Work Phone: [facility] Work Phone: 01-30-2012 pneumococcal polysaccharide vaccine, 23 valent Keyonna Older BULK SEALER OPERATOR.FLOAT BUILDER Work Phone: [facility] Payers Date Payer Category Payer Medicare [id number] 2019 Unknown MMO MMO MEDICARE SUPPLEMENT [id number] 2019-Present [phone] [address] [place] [address] Indemnity [id number] 2019 Unknown MMO MMO MEDICARE SUPPLEMENT [id number] 2019-Present [phone] [address] [place] [address] Indemnity [id number] 2014 Medicare MEDICARE MEDICAR E A AND B [id number] 2014-Present [phone] [address] [address] [place] [address] Medicare [id number] 2014 Medicare MEDICARE MEDICAR E A AND B [id number] 2014-Present [phone] [address] [address] [place] [address] Medicare [id number] 2014 Medicare [id number] Social History Date Type Detail Facility Tobacco smoking stat [facility] Never smoked tobacco [facility] Start: 09-03-2021 End: 04-20-2023 Alcohol intake Current non-drinker of alcohol (finding) [facility] Start: 11-06-2019 End: 03-03-2021 History SDOH Alcohol Frequency 2 [facility] Start: 11-06-2019 End: 03-03-2021 History SDOH Alcohol Std Drinks 1 [facility] Start: 11-06-2019 End: 06-17-2020 History SDOH Social Connections Phone 5 [facility] Start: 11-06-2019 History SDOH Social Connections Voodoo 98 [facility] Start: 11-06-2019 History SDOH Social Connections Meetings 3 [facility] Start: 06-17-2020 History SDOH Physical Activity DPW 7 [facility] Start: 06-17-2020 History SDOH Financial 4 [facility] Start: 11-06-2019 Education 21 [facility] Start: 1945 Sex Assigned At Not on file [facility] Start: 03-27-2022 End: 07-15-2022 Exposure to SARS-CoV-2 (event) Not sure [facility] Work Phone: Start: 1945 Sex Assigned At Female [facility] Start: 10-18-2020 End: 04-18-2023 History of Social function [facility] Start: 10-18-2020 End: 04-18-2023 Social connection and isolation panel [facility] How often do you att end buddhist or temple services? Patient refused [facility] Do you belong to any clubs or organizations such as buddhist groups, unions, fraternal or athletic groups, or school groups? Yes [facility] Are you now , , , , never or living with a partner? [facility] How often to you hav e a drink containing alcohol? Monthly or less [facility] How many standard dr inks containing alcohol do you have on a typical day? 1 or 2 [facility] How often do you hav e 6 or more drinks on 1 occasion? Never [facility] Do you feel stress - tense, restless, nervous, or anxious, or unable to sleep at night because your mind is troubled all the time - these days [OSQ] Not at all [facility] (I/We) worried mk er (my/our) food would run out before (I/we) got money to buy more. Never true [facility] In the past 12 month s, was there a time when you were not able to pay the mortgage or rent on time? No [facility] Start: 04-12-2022 Gender identity Identifies as female gender (finding) [facility] Start: 04-12-2022 Sexual orientation Heterosexual (finding) [facility] How hard is it for y ou to pay for the very basics like food, housing, medical care, and heating Not very hard [facility] Do you feel stress - tense, restless, nervous, or anxious, or unable to sleep at night because your mind is troubled all the time - these days [OSQ] Only a little [facility] Goals Date Patient Goal Desired Activity /State Personal health goal Clinical Notes 06-10-2019 to 11-09-2023 Letter - Coordinator, Mammography - 09/26/2023 9:08 AM Shelley Goldsmith RN - 06/21/2023 3:17 PM Shelley Benavidez RN - 06/15/2023 4:08 PM Kenisha Zazueta RN - 10/12/2022 10:23 AM EST Note Date & Type Note Facility 11-09-2023 Note HNO ID: [id number] Author: Keyonna Álvarez APRN.FLOAT BUILDER Service: ? Author Type: Nurse Practitioner Type: Progress Notes Filed: 11/09/2023 1:17 PM Note Text: Logan Carrillo is a 77 year old female here for a Medicare wellness visit. Medicare Health Risk Assessment General Health Very good Exercise: Minutes/Day 30 min Exercise: Days/Week 7 days Alcohol: Daily Use Monthly or less Alcohol: Drinks/Day 1 or 2 Alcohol: 6 or more drinks Never Feel off balance No Concerns: Teeth/Dentures No Concerns: Sexual function No Troubled by feelings None of the above Frequency: Eating healthy diet Nearly every day ADLs requiring help None of the above Safety precautions in home/vehicle Yes Smoke, vape, chews tobacco No Difficulty hearing No Difficulty seeing No Current Providers Specialists: I have reviewed specialist-related care of the patient in the medical record. Current care team: Patient Care Team: Etienne Flowers MD as PCP - General Outside specialists seen: chief financial officer- Dr. Phillips, Optometry- Amari, Dermatology- Dr. López Medical/Family history review Reviewed and updated problem list, medical/surgical/family/social history, medications, and allergies. Opioid use review Opioid Medications (last 90 days) Some values may be hidden. Unless noted otherwise, only the newest values recorded on each date are displayed. Opioid Medications No data to display. Depression screening Depression Screening PHQ-2 Score PHQ-9 Score NIR-2 Total Score 04/20/2023 0 - - Depression screening tool completed and reviewed. Based on score and interview, patient is not at risk for depression. Screening tool discussed with patient, and I recommended no further intervention at this time. Cognitive screening Mini Cog Score: 5 Cognitive screening reviewed and no further action needed (score 3-5) Functional Observation Was the patient's timed Up AND Go test unsteady or ? 12 seconds? No Advance Care Planning Patient did not wish or was not able to name a surrogate decision maker or provide an advance care plan Measurements BP 116/74 Pulse 60 Resp 14 Ht 5' 2.5 (1.59m) Wt 134 lb (60.8kg) SpO2 97% BMI 24.10 kg/(m2). Additional screenings: No results found. Assessment/Plan Medicare annual wellness visit, subsequent (Z00.00) - Counseled on healthy diet and regular exercise - Fall avoidance information provided - Personalized prevention plan provided Keyonna Álvarez APRN.CNP [facility] 09-26-2023 Miscellaneous Notes September 26, 2023 PID: [id number] Logan Carrillo [id number] [place] [address] Dear Ms. Carrillo, We are pleased to inform you that the results of your recent breast imaging exam on 09/25/2023 are normal. Early detection of cancer is very important. We also understand recommendations regarding breast cancer screening are controversial. Please discuss with your primary care provider which strategy is best for you and whether a mammogram is right for you. Your imaging studies and report will be kept on file at [facility] as part of your permanent medical record and are available for your continuing care. Thank you for allowing us to help in meeting your health care needs. Sincerely, Dr. Ricardo Interpreting Radiologist (Normal over 40) documented in this encounter [facility] 09-25-2023 Note HNO ID: [id number] Author: Coleen Haddad, [employer] Service: ? Author Type: Oracle Analyst Type: Progress Notes Filed: 09/25/2023 11:38 AM Note Text: Radiology Service Progress Note PATIENT NAME: Logan Carrillo DATE OF SERVICE: September 25, 2023 TIME: 10:59 AM PATIENT IDENTITY VERIFICATION COMPLETED USING TWO (2) IDENTIFIERS: Name and Date of confirmed by patient verbally. FALL SCREENING: Has the patient had 2 falls in the last year or 1 fall with injury or currently using an Ambulatory Assistive Device (Walker, Cane, Wheelchair, Crutches, etc.)? No PATIENT GENDER DATA: Female. status: : No status: NO. PATIENT RELEVANT IMPLANT DATA REVIEWED: Not Applicable RADIOLOGY DEPARTMENT: Mammography PERIPHERAL IV DATA: Not applicable SIGNED BY: Coleen Haddad [employer] September 25, 2023 10:59 AM [facility] 09-14-2023 Note HNO ID: [id number] Author: Shelley Zazueta RN Service: ? Author Type: Registered Nurse Type: Progress Notes Filed: 09/14/2023 3:38 PM Note Text: CDM Telephonic Outreach Provider Action/FYI Opened in Error [facility] 09-14-2023 Note HNO ID: [id number] Author: Shelley Zazueta RN Service: ? 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 My Chart 'Home Monitoring questionnaire location reminder given. Pt appreciated the call. Contacted for: Engagement Contact made with patient: Yes Patient identified by name and date of . Discussed care with patient Outcomes: Patient forgot, reminder given Are you experiencing any new or worsening symptoms you need to talk about today? No Based on vulnerability assessment analyst, the following disposition is advised: No symptoms or symptoms present, not severe. Routed to: No Action Needed [facility] Education Provided this Outreach: No Shelley Zazueta RN September 14, 2023 2:22 PM [facility] 09-14-2023 Note Patient Outreach ([place] [facility] LOGAN CARRILLO ([id number]) 1945 F Date Time Provider Department 09/14/23 SHELLEY [facility] During your visit today, we recorded the following information about you: Shelley Zazueta RN 09/14/2023 3:38 PM Signed CDM Telephonic Outreach Provider Baljit/ALEIDA Opened in Error Allergies As of Date: 09/14/2023 Noted Allergy Reaction SEASONAL ALLERGIES 04/20/2023 14 - Other: See Comments Comments: Watery eyes Date Reviewed: 04/20/2023 Reviewed by: Vandana Mistry LPN - Fully Assessed Reason for Visit: Community Monitoring Outreach [Other] Prescriptions as of 09/14/2023 - loratadine (CLARITIN) 10 mg tablet, chewable Take 0.5 mg by mouth once daily. - mometasone (ELOCON) 0.1 % cream Apply 1 application to affected area once daily as needed. - cholecalciferol (VITAMIN D3) 1,000 unit tab tablet Take 1 tablet by mouth once daily. - SUMAtriptan (IMITREX) 50 mg tablet Take 1 tablet daily as needed at headache onset. May repeat once in 2 hours as needed. - dicyclomine (BENTYL) 10 mg capsule Take 1 capsule by mouth daily before breakfast. - carvedilol (COREG) 25 mg tablet Take 1 tablet by mouth twice daily. - furosemide (LASIX) 40 mg tablet Take 1 tablet by mouth once daily. - cyanocobalamin (VITAMIN B-12) 1,000 mcg tab Take 1 tablet by mouth once daily. - lisinopril (ZESTRIL, PRINIVIL) 5 mg tablet Take 5 mg by mouth once daily. - COMPOUNDED PRESCRIPTION 1 tablet once daily. - OTC PRODUCT Take 1 tablet by mouth once daily. Reservatrol Supplement - vit c/vit e acetate/lutein/min(LUTEIN VISON FORMULA CAP) Take one(1) tablet daily. Problem List As Of Date 09/14/2023 Noted Resolved Malignant neoplasm of breast (female), unspecif*12/07/2005 04/27/2018 Internal hemorrhoids without mention of complic* 03/06/2014 Diverticulosis of colon (without mention of hem* 03/11/2015 Herpes zoster without mention of complication [*06/01/2007 12/06/2011 ACTINIC KERATOSIS (Premalignant AK) [L57.0] 07/11/2007 Other seborrheic keratosis [L82.1] 07/11/2007 12/06/2011 SOLAR LENTIGINES///DYSCHROMIA OTHER [L81.9] 07/11/2007 12/06/2011 ACTINIC DAMAGE//CHR SOLAR SKIN DAMAGE NOS [L57.*07/11/2007 12/06/2011 REGALADO ANGIOMA///NEVUS, NON-NEOPLASTIC [I78.1] 07/11/2007 12/06/2011 Sebaceous cyst [L72.3] 07/11/2007 12/06/2011 Benign neoplasm of skin of other and unspecifie*09/25/2008 12/06/2011 Osteoporosis [M81.0] 12/05/2008 Intractable migraine without aura [G43.019] 12/05/2008 08/13/2020 Irritated//Inflamed Seborrheic Keratosis [L82.0]01/05/2010 03/09/2015 Xerosis cutis [L85.3] 07/07/2010 03/11/2015 Viral wart: component of irritated Seborrheic K*12/06/2011 03/09/2015 Solar Lentigines [L81.4] 12/06/2011 05/12/2016 Seborrheic Keratosis [L82.1] 12/06/2011 05/12/2016 Actinic skin damage [L57.8] 12/06/2011 03/09/2015 Abnormal mammogram, unspecified [R92.8] 05/15/2012 03/06/2014 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/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 04/27/2018 S/P bilateral breast lumpectomy [Z98.890] 07/27/2012 IBS (irritable bowel syndrome) [K58.9] 09/06/2013 Vitamin D deficiency [E55.9] 03/12/2014 Milial cysts [L72.0] 07/02/2014 05/12/2016 Vasovagal near syncope [R55] 12/03/2014 03/09/2015 Back pain with sciatica [M54.9, M54.30] 03/18/2016 04/12/2019 Colon cancer screening [Z12.11] 04/21/2016 04/21/2016 CKD (chronic kidney disease) stage 3, GFR 30-59*04/27/2018 08/13/2020 History of bilateral breast cancer [Z85.3] 04/27/2018 Dysphagia [R13.10] 05/04/2018 11/08/2019 Nonischemic cardiomyopathy (HCC) [I42.8] 05/18/2018 Chronic systolic CHF (congestive heart failure)*05/18/2018 Impaired glucose metabolism [R73.09] 05/18/2018 08/13/2020 Contact dermatitis due to poison jeffry [L23.7] 06/10/2019 11/08/2019 Medicare annual wellness visit, subsequent [Z00*06/10/2019 11/08/2019 CKD (chronic kidney disease) Stage 3, GFR 30-59*08/13/2020 Impaired glucose tolerance [R73.02] 09/03/[address] scan, kidney [R93.429] 07/15/2022 04/20/2023 Migraine without aura and without status migrai*05/06/2011 Encounter Status:Closed by SHELLEY ZAZUETA on 09/14/23 [facility] 09-14-2023 Note Patient Outreach (AM [facility]) LOGAN CARRILLO ([id number]) 1945 F Date Time Provider Department 09/14/23 SHELLEY ZAZUETA [facility] [place] During your visit today, we recorded the following information about you: Shelley Zazueta, RN 09/14/2023 2:50 PM Signed CDM Telephonic Outreach Provider Action/ CDM: CHF / CKD Spk with Pt 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 My Chart 'Home Monitoring questionnaire location reminder given. Pt appreciated the call. Contacted for: Engagement Contact made with patient: Yes Patient identified by name and date of . Discussed care with patient Outcomes: Patient forgot, reminder given Are you experiencing any new or worsening symptoms you need to talk about today? No Based on vulnerability assessment analyst, the following disposition is advised: No symptoms or symptoms present, not severe. Routed to: No Action Needed CRYSTAL Education Provided this Outreach: No Shelley Zazueta RN September 14, 2023 2:22 PM Allergies As of Date: 09/14/2023 Noted Allergy Reaction SEASONAL ALLERGIES 04/20/2023 14 - Other: See Comments Comments: Watery eyes Date Reviewed: 04/20/2023 Reviewed by: Vandana Mistry LPN - Fully Assessed Reason for Visit: Community Monitoring Outreach [Other] Prescriptions as of 09/14/2023 - loratadine (CLARITIN) 10 mg tablet, chewable Take 0.5 mg by mouth once daily. - mometasone (ELOCON) 0.1 % cream Apply 1 application to affected area once daily as needed. - cholecalciferol (VITAMIN D3) 1,000 unit tab tablet Take 1 tablet by mouth once daily. - SUMAtriptan (IMITREX) 50 mg tablet Take 1 tablet daily as needed at headache onset. May repeat once in 2 hours as needed. - dicyclomine (BENTYL) 10 mg capsule Take 1 capsule by mouth daily before breakfast. - carvedilol (COREG) 25 mg tablet Take 1 tablet by mouth twice daily. - furosemide (LASIX) 40 mg tablet Take 1 tablet by mouth once daily. - cyanocobalamin (VITAMIN B-12) 1,000 mcg tab Take 1 tablet by mouth once daily. - lisinopril (ZESTRIL, PRINIVIL) 5 mg tablet Take 5 mg by mouth once daily. - COMPOUNDED PRESCRIPTION 1 tablet once daily. - OTC PRODUCT Take 1 tablet by mouth once daily. Reservatrol Supplement - vit c/vit e acetate/lutein/min(LUTEIN VISON FORMULA CAP) Take one(1) tablet daily. Problem List As Of Date 09/14/2023 Noted Resolved Malignant neoplasm of breast (female), unspecif*12/07/2005 04/27/2018 Internal hemorrhoids without mention of complic* 03/06/2014 Diverticulosis of colon (without mention of hem* 03/11/2015 Herpes zoster without mention of complication [*06/01/2007 12/06/2011 ACTINIC KERATOSIS (Premalignant AK) [L57.0] 07/11/2007 Other seborrheic keratosis [L82.1] 07/11/2007 12/06/2011 SOLAR LENTIGINES///DYSCHROMIA OTHER [L81.9] 07/11/2007 12/06/2011 ACTINIC DAMAGE//CHR SOLAR SKIN DAMAGE NOS [L57.*07/11/2007 12/06/2011 REGALADO ANGIOMA///NEVUS, NON-NEOPLASTIC [I78.1] 07/11/2007 12/06/2011 Sebaceous cyst [L72.3] 07/11/2007 12/06/2011 Benign neoplasm of skin of other and unspecifie*09/25/2008 12/06/2011 Osteoporosis [M81.0] 12/05/2008 Intractable migraine without aura [G43.019] 12/05/2008 08/13/2020 Irritated//Inflamed Seborrheic Keratosis [L82.0]01/05/2010 03/09/2015 Xerosis cutis [L85.3] 07/07/2010 03/11/2015 Viral wart: component of irritated Seborrheic K*12/06/2011 03/09/2015 Solar Lentigines [L81.4] 12/06/2011 05/12/2016 Seborrheic Keratosis [L82.1] 12/06/2011 05/12/2016 Actinic skin damage [L57.8] 12/06/2011 03/09/2015 Abnormal mammogram, unspecified [R92.8] 05/15/2012 03/06/2014 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/29/2012 04/27/2018 S/P bilateral breast lumpectomy [Z98.890] 07/27/2012 IBS (irritable bowel syndrome) [K58.9] 09/06/2013 Vitamin D deficiency [E55.9] 03/12/2014 Milial cysts [L72.0] 07/02/2014 05/12/2016 Vasovagal near syncope [R55] 12/03/2014 03/09/2015 Back pain with sciatica [M54.9, M54.30] 03/18/2016 04/12/2019 Colon cancer screening [Z12.11] 04/21/2016 04/21/2016 CKD (chronic kidney disease) stage 3, GFR 30-59*04/27/2018 08/13/2020 History of bilateral breast cancer [Z85.3] 04/27/2018 Dysphagia [R13.10] 05/04/2018 11/08/2019 Nonischemic cardiomyopathy (HCC) [I42.8] 05/18/2018 Chronic systolic CHF (congestive heart failure)*05/18/2018 Impaired glucose metabolism [R73.09] 05/18/2018 08/13/2020 Contact dermatitis due to poison jeffry [L23.7] 06/10/2019 11/08/2019 Medicare annual wellness visit, subsequent [Z00*06/10/2019 11/08/2019 CKD (chronic kidney disease) Stage 3, GFR 30-59*08/13/2020 Impaired glucose tolerance [R73.02] 09/03/[address] scan, kidney [R93.429] 07/15/2022 04/20/2023 Migraine without aura and without status migrai*05/06/2011 Encounter Status:Closed by ST (more content not included)... [facility] 06-21-2023 Note HNO ID: [id number] Author: Shelley Zauzeta RN Service: ? Author Type: Registered Nurse Type: Progress Notes Filed: 06/21/2023 3:36 PM Note Text: CDM Telephonic Outreach Provider Action/FYI CDM: CHF, CKD Pt denies new or worsening symptoms or needs, provided My Chart Home Monitoring questionnaire location and updates Pt appreciated the call. ADL's, Falls, Goals completed CRYSTAL CKD Education sent Contacted for: Engagement Contact made with patient: Yes Patient identified by name and date of . Discussed care with patient Outcomes: Patient forgot, reminder given Are you experiencing any new or worsening symptoms you need to talk about today? No Based on vulnerability assessment analyst, the following disposition is advised: No symptoms or symptoms present, not severe. Routed to: No Action Needed CRYSTAL Education Provided this Outreach: Yes Shelley Zazueta RN June 21, 2023 3:18 PM [facility] 06-21-2023 History of Presen t illness Narrative CDM Telephonic Outreach Provider Action/FYI CDM: CHF, CKD Pt denies new or worsening symptoms or needs, provided My Chart Home Monitoring questionnaire location and updates Pt appreciated the call. ADL's, Falls, Goals completed CRYSTAL CKD Education sent Contacted for: Engagement Contact made with patient: Yes Patient identified by name and date of . Discussed care with patient Outcomes: Patient forgot, reminder given Are you experiencing any new or worsening symptoms you need to talk about today? No Based on vulnerability assessment analyst, the following disposition is advised: No symptoms or symptoms present, not severe. Routed to: No Action Needed CRYSTAL Education Provided this Outreach: Yes Shelley Zazueta RN June 21, 2023 3:18 PM CDM Telephonic Outreach Provider Action/FYI CDM: CHF, CKD Called Pt left a message to verify symptom status and needs and to provide My Chart 'Home Monitoring questionnaire location Contacted for: Engagement Contact made with patient: No, left message. Shelley Zazueta RN June 15, 2023 4:08 PM documented in this encounter [facility] 06-15-2023 Note HNO ID: [id number] Author: Shelley Zazueta RN Service: ? Author Type: Registered Nurse Type: Progress Notes Filed: 06/21/2023 3:36 PM Note Text: CDM Telephonic Outreach Provider Action/FYI CDM: CHF, CKD Called Pt left a message to verify symptom status and needs and to provide My Chart 'Home Monitoring questionnaire location Contacted for: Engagement Contact made with patient: No, left message. Shelley Zazueta RN June 15, 2023 4:08 PM [facility] 06-15-2023 Note Patient Outreach [place] LOGAN CARRILLO ([id number]) 1945 F Date Time Provider Department 06/15/23 SHELLEY ZAZUETA [facility] During your visit today, we recorded the following information about you: Shelley Zazueta RN 06/21/2023 3:36 PM Signed CDM Telephonic Outreach Provider Action/FYI CDM: CHF, CKD Called Pt left a message to verify symptom status and needs and to provide My Chart 'Home Monitoring questionnaire location Contacted for: Engagement Contact made with patient: No, left message. Shelley Zazueta RN June 15, 2023 4:08 PM Shelley Zazueta RN 06/21/2023 3:36 PM Signed CDM Telephonic Outreach Provider Action/FYI CDM: CHF, CKD Pt denies new or worsening symptoms or needs, provided My Chart Home Monitoring questionnaire location and updates Pt appreciated the call. ADL's, Falls, Goals completed CRYSTAL CKD Education sent Contacted for: Engagement Contact made with patient: Yes Patient identified by name and date of . Discussed care with patient Outcomes: Patient forgot, reminder given Are you experiencing any new or worsening symptoms you need to talk about today? No Based on vulnerability assessment analyst, the following disposition is advised: No symptoms or symptoms present, not severe. Routed to: No Action Needed CRYSTAL Education Provided this Outreach: Yes Shelley Zazueta RN June 21, 2023 3:18 PM Allergies As of Date: 06/15/2023 Noted Allergy Reaction SEASONAL ALLERGIES 04/20/2023 14 - Other: See Comments Comments: Watery eyes Date Reviewed: 04/20/2023 Reviewed by: Vandana Mistry LPN - Fully Assessed Reason for Visit: Community Monitoring Outreach [Other] Primary Visit Diagnosis:Stage 3a chronic kidney disease (HCC) [N18.31] Order(s):PT ED NEPHROLOGY [[id number]] Order #: [id number]: 1 PT ED NEPHROLOGY [[id number]] Order #: [id number]: 1 Prescriptions as of 06/21/2023 - loratadine (CLARITIN) 10 mg tablet, chewable Take 0.5 mg by mouth once daily. - mometasone (ELOCON) 0.1 % cream Apply 1 application to affected area once daily as needed. - cholecalciferol (VITAMIN D3) 1,000 unit tab tablet Take 1 tablet by mouth once daily. - SUMAtriptan (IMITREX) 50 mg tablet Take 1 tablet daily as needed at headache onset. May repeat once in 2 hours as needed. - dicyclomine (BENTYL) 10 mg capsule Take 1 capsule by mouth daily before breakfast. - carvedilol (COREG) 25 mg tablet Take 1 tablet by mouth twice daily. - furosemide (LASIX) 40 mg tablet Take 1 tablet by mouth once daily. - cyanocobalamin (VITAMIN B-12) 1,000 mcg tab Take 1 tablet by mouth once daily. - lisinopril (ZESTRIL, PRINIVIL) 5 mg tablet Take 5 mg by mouth once daily. - COMPOUNDED PRESCRIPTION 1 tablet once daily. - OTC PRODUCT Take 1 tablet by mouth once daily. Reservatrol Supplement - vit c/vit e acetate/lutein/min(LUTEIN VISON FORMULA CAP) Take one(1) tablet daily. Problem List As Of Date 06/15/2023 Noted Resolved Malignant neoplasm of breast (female), unspecif*12/07/2005 04/27/2018 Internal hemorrhoids without mention of complic* 03/06/2014 Diverticulosis of colon (without mention of hem* 03/11/2015 Herpes zoster without mention of complication [*06/01/2007 12/06/2011 ACTINIC KERATOSIS (Premalignant AK) [L57.0] 07/11/2007 Other seborrheic keratosis [L82.1] 07/11/2007 12/06/2011 SOLAR LENTIGINES///DYSCHROMIA OTHER [L81.9] 07/11/2007 12/06/2011 ACTINIC DAMAGE//CHR SOLAR SKIN DAMAGE NOS [L57.*07/11/2007 12/06/2011 REGALADO ANGIOMA///NEVUS, NON-NEOPLASTIC [I78.1] 07/11/2007 12/06/2011 Sebaceous cyst [L72.3] 07/11/2007 12/06/2011 Benign neoplasm of skin of other and unspecifie*09/25/2008 12/06/2011 Osteoporosis [M81.0] 12/05/2008 Intractable migraine without aura [G43.019] 12/05/2008 08/13/2020 Irritated//Inflamed Seborrheic Keratosis [L82.0]01/05/2010 03/09/2015 Xerosis cutis [L85.3] 07/07/2010 03/11/2015 Viral wart: component of irritated Seborrheic K*12/06/2011 03/09/2015 Solar Lentigines [L81.4] 12/06/2011 05/12/2016 Seborrheic Keratosis [L82.1] 12/06/2011 05/12/2016 Actinic skin damage [L57.8] 12/06/2011 03/09/2015 Abnormal mammogram, unspecified [R92.8] 05/15/2012 03/06/2014 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/29/2012 04/27/2018 S/P bilateral breast lumpectomy [Z98.890] 07/27/2012 IBS (irritable bowel syndrome) [K58.9] 09/06/2013 Vitamin D deficiency [E55.9] 03/12/2014 Milial cysts [L72.0] 07/02/2014 05/12/2016 Vasovagal near syncope [R55] 12/03/2014 03/09/2015 Back pain with sciatica [M54.9, M54.30] 03/18/2016 04/12/2019 Colon cancer screening [Z12.11] 04/21/2016 04/21/2016 CKD (chronic kidney disease) stage 3, GFR 30-59*04/27/2018 08/13/2020 History of bilateral breast cancer [Z85.3] 04/27/2018 Dysphagia [R13.10] 05/04/2018 11/08/2019 Nonischemic cardiomyopathy (HCC) [I42.8] 05/18/2018 Chronic systolic CHF (congestive heart failure)*07 (more content not included)... [facility] 04-20-2023 Note HNO ID: [id number] Author: Etienne Flowers MD Service: ? Author Type: Physician Type: Progress Notes Filed: 04/20/2023 3:34 PM Note Text: This note was created using [employer]. Subjective Logan Carrillo is a 77 year old female. She was doing well and staying active. Her cardiac medications have not changed. Review of Systems Constitutional: Negative for fatigue and unexpected weight change. Eyes: Negative. Respiratory: Negative for chest tightness and shortness of breath. Cardiovascular: Negative for chest pain, palpitations and leg swelling. Gastrointestinal: Negative. Genitourinary: Negative. Neurological: Negative. ACTIVE PROBLEM LIST ACTINIC KERATOSIS (Premalignant AK) Osteoporosis S/P Bilateral Breast Lumpectomy Ibs (Irritable Bowel Syndrome) Vitamin D Deficiency History of Bilateral Breast Cancer Nonischemic Cardiomyopathy (Hcc) Chronic Systolic Chf (Congestive Heart Failure) (Hcc) CKD (chronic kidney disease) Stage 3, GFR 30-59 ml/min Impaired Glucose Tolerance Migraine Without Aura and Without Status Migrainosus, Not Intractable Current Outpatient Medications Medication Sig loratadine (CLARITIN) 10 mg tablet, chewable Take 0.5 mg by mouth once daily. mometasone (ELOCON) 0.1 % cream Apply 1 application to affected area once daily as needed. cholecalciferol (VITAMIN D3) 1,000 unit tab tablet Take 1 tablet by mouth once daily. SUMAtriptan (IMITREX) 50 mg tablet Take 1 tablet daily as needed at headache onset. May repeat once in 2 hours as needed. dicyclomine (BENTYL) 10 mg capsule Take 1 capsule by mouth daily before breakfast. (Patient taking differently: Take 10 mg by mouth daily before breakfast. Patient taking as needed.) carvedilol (COREG) 25 mg tablet Take 1 tablet by mouth twice daily. furosemide (LASIX) 40 mg tablet Take 1 tablet by mouth once daily. cyanocobalamin (VITAMIN B-12) 1,000 mcg tab Take 1 tablet by mouth once daily. lisinopril (ZESTRIL, PRINIVIL) 5 mg tablet Take 5 mg by mouth once daily. COMPOUNDED PRESCRIPTION 1 tablet once daily. OTC PRODUCT Take 1 tablet by mouth once daily. Reservatrol Supplement vit c/vit e acetate/lutein/min(LUTEIN VISON FORMULA CAP) Take one(1) tablet daily. No current facility-administered medications for this visit. Objective BP 114/64 (BP Site: Left Arm, BP Position: Sitting, BP Cuff Size: Large Adult) Pulse 68 Resp 16 Wt 60.8 kg (134 lb) BMI 23.74 kg/m? Physical Exam Constitutional: Appearance: Normal appearance. Cardiovascular: Rate and Rhythm: Normal rate and regular rhythm. Heart sounds: No murmur heard. No gallop. Pulmonary: Breath sounds: Normal breath sounds. Musculoskeletal: Right lower leg: No edema. Left lower leg: No edema. Neurological: Mental Status: She is alert. Gait: Gait normal. Depression Screening 07/11/2022 09/21/2022 04/18/2023 04/20/2023 PHQ-2 Score 0 2 0 0 PHQ-9 Score - - 1 - NIR-2 Total Score - - - - Depression screening tool completed and reviewed. Based on score and interview, patient is not at risk for depression. Screening tool discussed with patient, and I recommended no further intervention at this time. Assessment and Plan 1. Stage 3a chronic kidney disease (HCC) - ICD9: 585.3, ICD10: N18.31 (primary diagnosis) Monitor. Labs today. - CBC - BASIC METABOLIC PNL 2. Nonischemic cardiomyopathy (HCC) - ICD9: 425.4, ICD10: I42.8 Stable. 3. Chronic systolic CHF (congestive heart failure) (HCC) - ICD9: 428.22, 428.0, ICD10: I50.22 Stable. 4. Impaired glucose tolerance - ICD9: 790.22, ICD10: R73.02 Recheck - HGB A1C 5. Migraine without aura and without status migrainosus, not intractable - ICD9: 346.10, ICD10: G43.009 Infrequent. No medication use for one year. Etienne Flowers MD [facility] 03-27-2023 Miscellaneous Notes NEERAJ: 12/14/2022 Last refill: 04/06/2022 QTY: 45g Refills: 0 documented in this encounter [facility] 12-14-2022 Note HNO ID: [id number] Author: Etienne Flowers MD Service: ? Author Type: Physician Type: Progress Notes Filed: 12/14/2022 3:37 PM Note Text: This note was created using [employer]. Subjective Logan Carrillo is a 77 year old female complaining of vague left ear pressure for 2 weeks, with no other symptoms. ACTIVE PROBLEM LIST ACTINIC KERATOSIS (Premalignant AK) Osteoporosis S/P Bilateral Breast Lumpectomy Ibs (Irritable Bowel Syndrome) Vitamin D Deficiency History of Bilateral Breast Cancer Nonischemic Cardiomyopathy (Hcc) Chronic Systolic Chf (Congestive Heart Failure) (Hcc) CKD (chronic kidney disease) Stage 3, GFR 30-59 ml/min Impaired Glucose Tolerance Abnormal CT Scan, Kidney Current Outpatient Medications Medication Sig cholecalciferol (VITAMIN D3) 1,000 unit tab tablet Take 1 tablet by mouth once daily. SUMAtriptan (IMITREX) 50 mg tablet Take 1 tablet daily as needed at headache onset. May repeat once in 2 hours as needed. mometasone (ELOCON) 0.1 % cream Apply 1 application to affected area once daily as needed. dicyclomine (BENTYL) 10 mg capsule Take 1 capsule by mouth daily before breakfast. (Patient taking differently: Take 10 mg by mouth daily before breakfast. Patient taking as needed.) carvedilol (COREG) 25 mg tablet Take 1 tablet by mouth twice daily. furosemide (LASIX) 40 mg tablet Take 1 tablet by mouth once daily. cyanocobalamin (VITAMIN B-12) 1,000 mcg tab Take 1 tablet by mouth once daily. lisinopril (ZESTRIL, PRINIVIL) 5 mg tablet Take 5 mg by mouth once daily. COMPOUNDED PRESCRIPTION 1 tablet once daily. OTC PRODUCT Take 1 tablet by mouth once daily. Reservatrol Supplement vit c/vit e acetate/lutein/min(LUTEIN VISON FORMULA CAP) Take one(1) tablet daily. No current facility-administered medications for this visit. Review of Systems Constitutional: Negative for fever. HENT: Negative for congestion, ear discharge, ear pain, hearing loss and sore throat. Respiratory: Negative. Objective BP 118/70 (BP Site: Left Arm, BP Position: Sitting, BP Cuff Size: Large Adult) Pulse 72 Temp 36.4 ?C (97.6 ?F) (Temporal) Resp 12 Wt 57.2 kg (126 lb) BMI 22.32 kg/m? Physical Exam Constitutional: Appearance: Normal appearance. HENT: Right Ear: Tympanic membrane and ear canal normal. Left Ear: There is impacted cerumen. Ears: Comments: Canal narrow. Musculoskeletal: Cervical back: No tenderness. Lymphadenopathy: Cervical: No cervical adenopathy. Assessment and Plan 1. Impacted cerumen of left ear - ICD9: 380.4, ICD10: H61.22 Verbal consent obtained for lavage and ear curette. Lavage and curette well tolerated, but not successful, but reproduces symptoms. Use OTC ear drops. See ENT in about one week if not better. - AMBULATORY EAR LAVAGE/IRRIGATION Etienne Flowers MD [facility] 12-14-2022 Note HNO ID: [id number] Author: Vandana Mistry LPN Service: ? Author Type: ? Type: Progress Notes Filed: 12/14/2022 3:37 PM Note Text: Left ear flushed with warm water/h2o2. Did not remove any cerumen. Patient tolerated procedure well. [facility] 11-23-2022 Miscellaneous Notes NEERAJ: 09/21/2022 Last refill: 08/02/2021 QTY: 90 Refills: 0 Patient's request for medication is as follows: Requested Prescriptions Pending Prescriptions Disp Refills cholecalciferol (VITAMIN D3) 1,000 unit tab tablet 90 tablet 0 Sig: Take 1 tablet by mouth once daily. Please approve the above prescription(s) to electronically send to pharmacy. Natalio Flynn Ma documented in this encounter [facility] 10-12-2022 History of Presen t illness Narrative Patient requesting refills as follows: Please contact Pt directly for any recommendations. Requested Prescriptions Pending Prescriptions Disp Refills SUMAtriptan (IMITREX) 50 mg tablet 27 tablet 1 Sig: Take 1 tablet daily as needed at headache onset. May repeat once in 2 hours as needed. Please review and advise. Shelley Zazueta, RN Shelley Zazueta RN October 12, 2022 10:23 AM documented in this encounter [facility] 10-12-2022 History of Presen t illness Narrative INSIGHT CDM ESCALATION Provider Action/FYI: Updates Routed to Dr. Flowers, Pt is requesting a refill of [employer] ( See other encounter) Pt reported on Insight questionnaire experiencing new symptoms related to your chronic condition. Spk with Pt she reported tested Covid Positive on 10/09/22, Pt denies Sob or wheezing, has a mild intermittent cough Pt is speaking in full sentences, No respiratory distress, t was treated with Paxlovid which has been effective. Pt has slight nausea, C-band, motion sickness band which is effective, eating and drinking adequate fluid, eating light meals. Instructed on symptom relief, Pt verbalized understanding. Message received via: InSight - Yes contact made with patient ACTION TAKEN: Based on vulnerability assessment analyst, the following disposition is advised: SYMPTOMS PRESENT NOT SEVERE: No action required - Continue outreach / Phone Call Shelley Zazueta RN October 12, 2022 10:03 AM documented in this encounter [facility] 09-26-2022 Miscellaneous Notes September 26, 2022 PID: [id number] Logan Carrillo [id number] [place] [address] Dear Ms. Carrillo, We are pleased to inform you that the results of your recent breast imaging exam on 09/23/2022 are normal. Early detection of cancer is very important. We also understand recommendations regarding breast cancer screening are controversial. Please discuss with your primary care provider which strategy is best for you and whether a mammogram is right for you. Your imaging studies and report will be kept on file at [facility] as part of your permanent medical record and are available for your continuing care. Thank you for allowing us to help in meeting your health care needs. Sincerely, Dr. Buckner Interpreting Radiologist (Normal over 40) documented in this encounter [facility] 09-23-2022 History of Presen t illness Narrative Radiology Service Progress Note PATIENT NAME: Logan Carrillo DATE OF SERVICE: September 23, 2022 TIME: 2:34 PM PATIENT IDENTITY VERIFICATION COMPLETED USING TWO (2) IDENTIFIERS: Name and Date of confirmed by patient verbally. FALL SCREENING: Has the patient had 2 falls in the last year or 1 fall with injury or currently using an Ambulatory Assistive Device (Walker, Cane, Wheelchair, Crutches, etc.)? No PATIENT GENDER DATA: Female. status: : No status: NO. PATIENT RELEVANT IMPLANT DATA REVIEWED: Not Applicable RADIOLOGY DEPARTMENT: Mammography PERIPHERAL IV DATA: Not applicable SIGNED BY: Brenda Maynard RT(R) September 23, 2022 2:34 PM documented in this encounter [facility] 09-21-2022 History of Presen t illness Narrative Medicare Yearly Visit Medical B eligibilty date 12/14/13 Date of last exam 09/03/21 PAST MEDICAL HISTORY Diagnosis Date Cholecystitis with cholelithiasis Sept.2007 Choledocholithiasis with acute cholecystitis 08/10/2009 Chronic systolic CHF (congestive heart failure) ([facility]) 05/18/2018 CKD (chronic kidney disease) stage 3, GFR 30-59 ml/min ([facility]) 04/27/2018 Contact dermatitis due to poison jeffry 06/10/2019 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 2013 Diverticulosis of colon (without mention of hemorrhage) HERPES ZOSTER NOS 06/01/2007 Internal hemorrhoids without mention of complication Intractable migraine without aura 12/05/2008 Malignant neoplasm of breast (female), unspecified site 2000 Breast cancer Rt/lumpectomy/chemo/radiation Migraine without aura, with intractable migraine, so stated, without mention of status migrainosus 05/06/2011 Nonischemic cardiomyopathy (HCC) 05/18/2018 Likely secondary to chemotherapy for breast cancer Osteoporosis 12/05/2008 Osteoporosis 12/05/2008 Vasovagal near syncope 12/03/2014 PAST SURGICAL HISTORY Procedure Laterality Date APPENDECTOMY 1999 BIOPSY BREAST OPEN INCISIONAL Right 09/20/2002 Bx of breast, US Guided CARDIAC CATH 04/24/2019 COLONOSCOPY FLX DX W/COLLJ SPEC WHEN PFRMD 03/13/06 COLONOSCOPY FLX DX W/COLLJ SPEC WHEN PFRMD 04/21/16 Colonoscopy mac next time EXC BREAST LES PREOP PLMT RAD MARKER OPEN 1 LES Left 06/12/2012 left EXC CYST/ABERRANT BREAST TISSUE OPEN 1/> LESION Left 07/06/2012 RE-DO LEFT LUMPECTOMY LAPS SURG CHOLECSTC W/EXPL COMMON DUCT 07/31/2009 LAP GB WITH CBD LIG/TRNSXJ FLP TUBE ABDL/VAG APPR UNI/BI 1975 MASTECTOMY PARTIAL Right 09/20/2002 Mastectomy - partial PAST SURGICAL HISTORY OF 2005 broken right wrist plate put in STEREO LOC FOR CORE BRST BX LT Left 05/22/2012 Left breast ALLERGIES: Patient has no known allergies. Medications reviewed: Yes FAMILY HISTORY Problem Relation Age of Onset COPD Mother Diabetes Mother Cancer Father Lymphoma, Thyroid Brother SOCIAL HISTORY: Social History Tobacco Use Smoking status: Never Smokeless tobacco: Never Substance Use Topics Alcohol use: No Drug use: No Logan likes to exercise by stretching daily and walks a lot during the day at work. She watches her diet for sodium, low fat and low cholesterol most of the time. List of current specialists seen: Grade Foreman- Dr. Phillips Optometry- Dr. Fitzpatrick Dermatology- Dr. Ramakrishna López End of Live Planning discussed including patients advanced directive wishes: Yes, needs to complete paperwork for it I am willing to follow Logan's advanced directives. Evidence of Cognitive Impairment: No What tool was used to assess the patients cognitive status? MiniCog 5/5. PHQ-2 / Depression screen She in the past two weeks denies having felt down, depressed, hopeless, or with little interest or pleasure in doing things. Functional Ability/Safety Screen 1. Was the patient's timed Up and Go test unsteady or longer than 30 seconds? No 2. Does the patient need help with the phone, transportation, shopping,preparing meals, housework, laundry, medications or managing money? No 3. Does your home have rugs in the hallway, lack of grab bars in the bathroom, lack of handrails on the stairs or have poor lighting? No Hearing Evaluation: normal PHYSICAL EXAM BP 130/78 Pulse 64 Resp 14 Ht 160 cm (5' 3 ) Wt 56.7 kg (125 lb) BMI 22.14 kg/m Alert and oriented X 3: YES Body mass index is 22.14 kg/m . ASSESSMENT/PLAN: 1. Medicare annual wellness visit, subsequent - ICD9: V70.0, ICD10: Z00.00 (primary diagnosis) The following prevention plan was discussed during the office visit and provided to the patient: - fall risk reduction - Counseled on healthy diet and regular exercise - Calcium intake with supplements or by diet of 1000 mg/day for under 50, 7690-4300 mg/day for 50+ - Mammogram ordered - exam recommended once yearly - Depression screening tool completed and reviewed with patient. Based on score and interview, patient is not at risk for depression and recommended no further intervention at this time. - follow-up for medicare annual exam in one year 2. Impaired glucose tolerance - ICD9: 790.22, ICD10: R73.02 - HGB A1C 3. Screening for lipid disorders - ICD9: V77.91, ICD10: Z13.220 - LIPID PANEL BASIC - COMP METABOLIC PANEL 4. Vitamin D deficiency - ICD9: 268.9, ICD10: E55.9 - VITAMIN D 25 HYDROXY 5. Encounter for screening mammogram for malignant neoplasm of breast - ICD9: V76.12, ICD10: Z12.31 - LONG SCREENING Keyonna Mims APRN.LUCHO documented in this encounter [facility] 09-17-2022 Miscellaneous Notes Pt reports she was diagnosed with Diverticulitis 3-4 weeks ago, and this feels like it did then. Let Pt and know she would need to go to the ER for a prescription for pain medicine and that she would need antibiotics, they could also give her nausea medication. Pt reports she was just in the hospital for this. Let Pt know that her stomach needs rest. documented in this encounter [facility] 08-01-2022 Miscellaneous Notes Patient has been identified by name and date of : Yes Patient phones for refill(s): Requested Prescriptions Pending Prescriptions Disp Refills cholecalciferol (VITAMIN D3) 1,000 unit tab tablet 90 tablet 0 Sig: Take 1 tablet by mouth once daily. Date of last office visit in primary care: 07/15/2022 Annual Medicare: 09/21/2022 Last 2 Encounter Wt Readings: Date: Wt: 07/11/2022 58.1 kg (128 lb) 04/21/2022 59.9 kg (132 lb) Previous labs/tests for medication: Not applicable Please advise. Thank you. Vandana Mistry LPN documented in this encounter [facility] 07-18-2022 History of Presen t illness Narrative This note was created using [employer]. Subjective Patient presents with: ED Follow-up: diverticulitis Logan Carrillo is a 76 year old female. I referred her to the ER 07/11/22 for abdominal pain with peritoneal signs. Her workup confirmed sigmoid diverticulitis with no complications. She was discharged on cefdinir and omnicef. She felt vaguely ill and was having diarrhea. She noted lumps in her anus. Abdominal pain was resolving. She was advancing her diet. Aside from sigmoid diverticulitis, she was noted to have a 6.1 mm hyperdense lesion of her left kidney and MRI was recommended. Review of Systems Constitutional: Positive for appetite change and fatigue. Negative for chills and fever. HENT: Negative. Respiratory: Negative. Cardiovascular: Negative. Genitourinary: Negative. ACTIVE PROBLEM LIST ACTINIC KERATOSIS (Premalignant AK) Osteoporosis S/P Bilateral Breast Lumpectomy Ibs (Irritable Bowel Syndrome) Vitamin D Deficiency History of Bilateral Breast Cancer Nonischemic Cardiomyopathy (Hcc) Chronic Systolic Chf (Congestive Heart Failure) (Hcc) CKD (chronic kidney disease) Stage 3, GFR 30-59 ml/min Impaired Glucose Tolerance Abnormal CT Scan, Kidney Current Outpatient Medications Medication Sig mometasone (ELOCON) 0.1 % cream Apply 1 application to affected area once daily as needed. cholecalciferol (VITAMIN D3) 1,000 unit tab tablet Take 1 tablet by mouth once daily. dicyclomine (BENTYL) 10 mg capsule Take 1 capsule by mouth daily before breakfast. carvedilol (COREG) 25 mg tablet Take 1 tablet by mouth twice daily. furosemide (LASIX) 40 mg tablet Take 1 tablet by mouth once daily. cyanocobalamin (VITAMIN B-12) 1,000 mcg tab Take 1 tablet by mouth once daily. lisinopril (ZESTRIL, PRINIVIL) 5 mg tablet Take 5 mg by mouth once daily. COMPOUNDED PRESCRIPTION 1 tablet once daily. OTC PRODUCT Take 1 tablet by mouth once daily. Reservatrol Supplement vit c/vit e acetate/lutein/min(LUTEIN VISON FORMULA CAP) Take one(1) tablet daily. cefdinir (OMNICEF) 300 mg capsule Take 1 capsule by mouth twice daily. metroNIDAZOLE (FLAGYL) 500 mg tablet Take 1 tablet by mouth three times daily. No current facility-administered medications for this visit. Objective BP (P) 122/74 (BP Site: Left Arm, BP Position: Sitting, BP Cuff Size: Regular Adult) Pulse (P) 60 Temp (P) 36.4 C (97.6 F) (Temporal) Resp (P) 16 Wt (P) 57.6 kg (127 lb) BMI (P) 22.50 kg/m Physical Exam Constitutional: Appearance: She is not ill-appearing. Cardiovascular: Rate and Rhythm: Normal rate and regular rhythm. Pulmonary: Breath sounds: Normal breath sounds. Abdominal: Palpations: Abdomen is soft. Tenderness: There is no abdominal tenderness. Genitourinary: Comments: Only Anal inspection was done. Circumferential skin tags and external hemorrhoids noted, mild erythema. Neurological: Mental Status: She is alert. Assessment and Plan 1. Diverticulitis of large intestine without perforation or abscess without bleeding - ICD9: 562.11, ICD10: K57.32 (primary diagnosis) Finish antibiotic. 2. Skin tag of perianal region - ICD9: 455.9, ICD10: K64.4 From diarrhea. This should improve once diarrhea subsides which is likely from antibiotic. 3. Abnormal CT scan, kidney - ICD9: 793.5, ICD10: R93.429 See below. 4. Other specified disorders of kidney and ureter - ICD9: 593.89, ICD10: N28.89 - MRI KIDNEY WO/W IVCON Eteinne Flowers MD documented in this encounter [facility] documented as of this encounter (statuses as of 06/22/2023) [facility]09-02-2022 History of Past illness Narrative* Problem Noted Date Diagnosed Date Resolved Date Abnormal CT scan, kidney 07/15/202206/2023 Contact dermatitis due to poison jeffry 06/10/2019 11/08/2019 Medicare annual wellness visit, subsequent 06/10/2019 11/08/2019 Impaired glucose metabolism 05/18/2018 08/13/2020 Dysphagia 05/04/2018 11/08/2019 Overview: Added automatically from request for surgery [id number] CKD (chronic kidney disease) stage 3, GFR 30-59 ml/min 04/27/2018 08/13/2020 Colon cancer screening 04/21/201604/21 Back pain with sciatica 03/18/201603/15 Vasovagal near syncope 12/03/201403/09 Milial cysts 07/02/2014 05/12/2016 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 04/27/2018 Abnormal mammogram, unspecified 05/15/2012 03/06/2014 Viral wart: component of irr itated Seborrheic Keratosis L forehead 12/06/2011 03/09/2015 Solar Lentigines 12/06/2011 05/12/2016 Seborrheic Keratosis 12/06/2011 016 Actinic skin damage 12/06/2011 03/09/20 15 Xerosis cutis 07/07/2010 03/11/2015 Irritated//Inflamed Seborrheic Keratosis 01/05/2010 03/09/2015 Intractable migraine without aura 12/05/2008 08/13/2020 Benign neoplasm of skin of o ther and unspecified parts of face 09/25/2008 12/06/2011 Other seborrheic keratosis 07/11/2007 0 12/06/2011 SOLAR LENTIGINES///DYSCHROMIA OTHER 07/11/2007 12/06/2011 ACTINIC DAMAGE//CHR SOLAR SKIN DAMAGE NOS 07/11/2007 12/06/2011 REGALADO ANGIOMA///NEVUS, NON-NEOPLASTIC 07/11/2007 12/06/2011 Sebaceous cyst 07/11/2007 12/06/2011 Herpes zoster without mention of complication 06/01/20 07 12/06/2011 Malignant neoplasm of breast (female), unspecified site 12/07/2005 04/27/2018 Internal hemorrhoids without mention of complication 03/06/2014 Diverticulosis of colon (wit hout mention of hemorrhage) 03/11/2015 documented as of this encounter (statuses as of 09/16/2023) [facility]09-02-2022 History of Past illness Narrative* Problem Noted Date Diagnosed Date Resolved Date Abnormal CT scan, kidney 07/15/202206/2023 Contact dermatitis due to poison jeffry 06/10/2019 11/08/2019 Medicare annual wellness visit, subsequent 06/10/2019 11/08/2019 Impaired glucose metabolism 05/18/2018 08/13/2020 Dysphagia 05/04/2018 11/08/2019 Overview: Added automatically from request for surgery [id number] CKD (chronic kidney disease) stage 3, GFR 30-59 ml/min 04/27/2018 08/13/2020 Colon cancer screening 04/21/201604/21 Back pain with sciatica 03/18/201603/15 Vasovagal near syncope 12/03/201403/09 Milial cysts 07/02/2014 05/12/2016 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 04/27/2018 Abnormal mammogram, unspecified 05/15/2012 03/06/2014 Viral wart: component of irr itated Seborrheic Keratosis L forehead 12/06/2011 03/09/2015 Solar Lentigines 12/06/2011 05/12/2016 Seborrheic Keratosis 12/06/2011 016 Actinic skin damage 12/06/2011 03/09/20 15 Xerosis cutis 07/07/2010 03/11/2015 Irritated//Inflamed Seborrheic Keratosis 01/05/2010 03/09/2015 Intractable migraine without aura 12/05/2008 08/13/2020 Benign neoplasm of skin of o ther and unspecified parts of face 09/25/2008 12/06/2011 Other seborrheic keratosis 07/11/2007 0 12/06/2011 SOLAR LENTIGINES///DYSCHROMIA OTHER 07/11/2007 12/06/2011 ACTINIC DAMAGE//CHR SOLAR SKIN DAMAGE NOS 07/11/2007 12/06/2011 REGALADO ANGIOMA///NEVUS, NON-NEOPLASTIC 07/11/2007 12/06/2011 Sebaceous cyst 07/11/2007 12/06/2011 Herpes zoster without mention of complication 06/01/20 07 12/06/2011 Malignant neoplasm of breast (female), unspecified site 12/07/2005 04/27/2018 Internal hemorrhoids without mention of complication 03/06/2014 Diverticulosis of colon (wit hout mention of hemorrhage) 03/11/2015 documented as of this encounter (statuses as of 09/17/2023) [facility]09-[facility]20[facility] History of Past illness Narrative* Problem Noted Date Diagnosed Date Resolved Date Abnormal CT scan, kidney 07/15/202206/2023 Contact dermatitis due to poison jeffry 06/10/2019 11/08/2019 Medicare annual wellness visit, subsequent 06/10/2019 11/08/2019 Impaired glucose metabolism 05/18/2018 08/13/2020 Dysphagia 05/04/2018 11/08/2019 Overview: Added automatically from request for surgery [id number] CKD (chronic kidney disease) stage 3, GFR 30-59 ml/min 04/27/2018 08/13/2020 Colon cancer screening 04/21/201604/21 Back pain with sciatica 03/18/201603/15 Vasovagal near syncope 12/03/201403/09 Milial cysts 07/02/2014 05/12/2016 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 04/27/2018 Abnormal mammogram, unspecified 05/15/2012 03/06/2014 Viral wart: component of irr itated Seborrheic Keratosis L forehead 12/06/2011 03/09/2015 Solar Lentigines 12/06/2011 05/12/2016 Seborrheic Keratosis 12/06/2011 016 Actinic skin damage 12/06/2011 03/09/20 15 Xerosis cutis 07/07/2010 03/11/2015 Irritated//Inflamed Seborrheic Keratosis 01/05/2010 03/09/2015 Intractable migraine without aura 12/05/2008 08/13/2020 Benign neoplasm of skin of o ther and unspecified parts of face 09/25/2008 12/06/2011 Other seborrheic keratosis 07/11/2007 0 12/06/2011 SOLAR LENTIGINES///DYSCHROMIA OTHER 07/11/2007 12/06/2011 ACTINIC DAMAGE//CHR SOLAR SKIN DAMAGE NOS 07/11/2007 12/06/2011 REGALADO ANGIOMA///NEVUS, NON-NEOPLASTIC 07/11/2007 12/06/2011 Sebaceous cyst 07/11/2007 12/06/2011 Herpes zoster without mention of complication 06/01/20 07 12/06/2011 Malignant neoplasm of breast (female), unspecified site 12/07/2005 04/27/2018 Internal hemorrhoids without mention of complication 03/06/2014 Diverticulosis of colon (wit hout mention of hemorrhage) 03/11/2015 documented as of this encounter (statuses as of 09/28/2023) [facility]08-29-2022 Instructions* Patient Instructions* Etienne Flowers MD - 07/11/2022 12:52 PM EDT PROCEED TO THE ER. YOU NEED BLOOD TESTS AND CT SCANS AND IV FLUIDS. [facility] History of Present illness Narrative* Etienne Flowers MD - 07/11/2022 12:41 PM EDT This note was created using [employer]igo. Subjective Logan Carrillo is a 76 year old female. She had been having lower abdominal pains for 3 days, getting progressively worse, and waking her up from sleep. Pain was cramping, and associated with nausea, and non bloody diarrhea. She denied any unusual food intake. She indicated she had food poisoning from fastfood 2 weeks ago that resolved. This was not letting up. Pepto Bismol was not helping. Appetite was poor. Review of Systems Constitutional: Positive for appetite change and fatigue. Negative for fever. HENT: Negative for congestion and sore throat. Respiratory: Negative for cough and shortness of breath. Cardiovascular: Negative. Genitourinary: Negative for difficulty urinating and dysuria. ACTIVE PROBLEM LIST ACTINIC KERATOSIS (Premalignant AK) Osteoporosis S/P Bilateral Breast Lumpectomy Ibs (Irritable Bowel Syndrome) Vitamin D Deficiency History of Bilateral Breast Cancer Nonischemic Cardiomyopathy (Hcc) Chronic Systolic Chf (Congestive Heart Failure) (Hcc) CKD (chronic kidney disease) Stage 3, GFR 30-59 ml/min Impaired Glucose Tolerance Current Outpatient Medications Medication Sig mometasone (ELOCON) 0.1 % cream Apply 1 application to affected area once daily as needed. cholecalciferol (VITAMIN D3) 1,000 unit tab tablet Take 1 tablet by mouth once daily. dicyclomine (BENTYL) 10 mg capsule Take 1 capsule by mouth daily before breakfast. carvedilol (COREG) 25 mg tablet Take 1 tablet by mouth twice daily. furosemide (LASIX) 40 mg tablet Take 1 tablet by mouth once daily. cyanocobalamin (VITAMIN B-12) 1,000 mcg tab Take 1 tablet by mouth once daily. lisinopril (ZESTRIL, PRINIVIL) 5 mg tablet Take 5 mg by mouth once daily. COMPOUNDED PRESCRIPTION 1 tablet once daily. OTC PRODUCT Take 1 tablet by mouth once daily. Reservatrol Supplement vit c/vit e acetate/lutein/min(LUTEIN VISON FORMULA CAP) Take one(1) tablet daily. No current facility-administered medications for this visit. Objective BP 102/54 (BP Site: Left Arm, BP Position: Sitting, BP Cuff Size: Large Adult) Pulse 72 Temp 36.2 C (97.1 F) (Temporal) Resp 12 Wt 58.1 kg (128 lb) BMI 22.67 kg/m Physical Exam Constitutional: General: She is not in acute distress. Appearance: She is not diaphoretic. Eyes: General: No scleral icterus. Conjunctiva/sclera: Conjunctivae normal. Pulmonary: Effort: Pulmonary effort is normal. Abdominal: General: Abdomen is flat. Bowel sounds are decreased. Tenderness: There is abdominal tenderness in the suprapubic area and left lower quadrant. There is left CVA tenderness, guarding and rebound. There is no right CVA tenderness. Neurological: Mental Status: She is alert. Assessment and Plan 1. Acute abdominal pain in left lower quadrant - ICD9: 789.04, 338.19, ICD10: R10.32 (primary diagnosis) Differential Diagnosis includes Diverticulitis and colitis. 2. Left lower quadrant abdominal tenderness with rebound tenderness - ICD9: 789.64, ICD10: R10.824 3. Diarrhea, unspecified type - ICD9: 787.91, ICD10: R19.7 4. Dehydration - ICD9: 276.51, ICD10: E86.0 Patient advised ER. I spoke to ER doctor. Etienne Flowers MD [facility] History of Present illness Narrative* Marbin Rosa RN - 06/15/2022 1:36 PM EDT inSight CDM Engagement Provider Action/FYI: Call to Pt, left a message to verify CHF/ CKD symptom status and provide Insight Monitoring questionnaire reminder. Contact Made with Patient: No, first attempt, left message. Mukund Carrillo. This is Shelley Zazueta RN your [employer] Mortiser Operator from the [facility]. I am calling to check in with you concerning the MyChart questionnaire you have been receiving from me. I will call you again tomorrow and am looking forward to speaking with you. (Care Coordinatorenters next day in next patient outreach ) Shelley Zazueta RN June 15, 2022 1:36 PM [facility] History of Present illness Narrative* Marbin Rosa RN - 05/12/2022 3:56 PM EDT INSIGHT CDM TELEPHONIC OUTREACH Provider Action/FYI: Call to Pt left a message to verify CHF/ CKD status and needs. Contact made with patient: No - Left message Mukund my name is Shelley Zazueta RN your [employer] Mortiser Operator from the [facility] I am callingtoday for your bi-weekly check in. I am sorry I missed your call. I will reach out to you again tomorrow. (if the third call I will reach out to you again next week) Enter next patient outreach date for the following business day using the Track Pt Outreach. End outreach. Shelley Zazueta RN May 12, 2022 3:56 PM documented [facility] Instructions* Patient Instructions* Etienne Flowers MD - 04/21/2022 1:28 PM EDT Do follow up labs today. [facility] History of Present illness Narrative* Etienne Flowers MD - 04/21/2022 1:10 PM EDT This note was created using Quigo. Subjective Logan Carrillo is a 76 year old female. She had ongoing issues with subjective weakness and pain in her legs. 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 Her labs and PVDtest were unremarkable. Her symptoms reminded her of presentation of her cardiomyopathy. She sees Dr. Phillips in May for her annual cardiology follow up. Review of Systems Constitutional: Negative for fever and unexpected weight change. Respiratory: Negative for cough, chest tightness and shortness of breath. Cardiovascular: Negative for chest pain, palpitations and leg swelling. Gastrointestinal: Negative. Neurological: Positive for weakness. Negative for numbness. ACTIVE PROBLEM LIST ACTINIC KERATOSIS (Premalignant AK) Osteoporosis S/P Bilateral Breast Lumpectomy Ibs (Irritable Bowel Syndrome) Vitamin D Deficiency History of Bilateral Breast Cancer Nonischemic Cardiomyopathy (Hcc) Chronic Systolic Chf (Congestive Heart Failure) (Hcc) CKD (chronic kidney disease) Stage 3, GFR 30-59 ml/min Impaired Glucose Tolerance Current Outpatient Medications Medication Sig mometasone (ELOCON) 0.1 % cream Apply 1 application to affected area once daily as needed. cholecalciferol (VITAMIN D3) 1,000 unit tab tablet Take 1 tablet by mouth once daily. dicyclomine (BENTYL) 10 mg capsule Take 1 capsule by mouth daily before breakfast. carvedilol (COREG) 25 mg tablet Take 1 tablet by mouth twice daily. furosemide (LASIX) 40 mg tablet Take 1 tablet by mouth once daily. cyanocobalamin (VITAMIN B-12) 1,000 mcg tab Take 1 tablet by mouth once daily. lisinopril (ZESTRIL, PRINIVIL) 5 mg tablet Take 5 mg by mouth once daily. COMPOUNDED PRESCRIPTION 1 tablet once daily. OTC PRODUCT Take 1 tablet by mouth once daily. Reservatrol Supplement vit c/vit e acetate/lutein/min(LUTEIN VISON FORMULA CAP) Take one(1) tablet daily. No current facility-administered medications for this visit. Objective BP 122/68 (BP Site: Left Arm, BP Position: Sitting, BP Cuff Size: Large Adult) Pulse 60 Temp (!) 35.9 C (96.6 F) (Temporal Artery) Resp 12 Wt 59.9 kg (132 lb) BMI 23.38 kg/m Physical Exam Constitutional: Appearance: Normal appearance. Cardiovascular: Rate and Rhythm: Normal rate and regular rhythm. Pulses: Normal pulses. Heart sounds: No murmur heard. No gallop. Pulmonary: Effort: No respiratory distress. Breath sounds: No wheezing or rales. Musculoskeletal: General: No tenderness. Right lower leg: No edema. Left lower leg: No edema. Neurological: Mental Status: She is alert. Motor: No weakness. Gait: Gait normal. Component Latest Ref Rng & Units 04/13/2022 WBC 3.70 - 11.00 k/uL 5.52 RBC 3.90 - 5.20 m/uL 3.78 (L) Hemoglobin 11.5 - 15.5 g/dL 11.2 (L) Hematocrit 36.0 - 46.0 % 35.7 (L) MCV 80.0 - 100.0 fL 94.4 MCH 26.0 - 34.0 pg 29.6 MCHC 30.5 - 36.0 g/dL 31.4 RDW-CV 11.5 - 15.0 % 13.2 Platelet Count 150 - 400 k/uL 266 MPV 9.0 - 12.7 fL 10.4 Neut% % 59.2 Abs Neut (ANC) 1.45 - 7.50 k/uL 3.27 Lymph% % 29.2 Abs Lymph 1.00 - 4.00 k/uL 1.61 Bradford% % 8.5 Abs Bradford <0.87 k/uL 0.47 Eosin% % 2.0 Abs Eosin <0.46 k/uL 0.11 Baso% % 0.7 Abs Baso <0.11 k/uL 0.04 Immature Gran % % 0.4 IMMATURE GRANS (ABS) <0.10 k/uL <0.03 NRBC /100 WBC 0.0 Absolute nRBC <0.01 k/uL <0.01 DTYPE Auto Protein, Total 6.3 - 8.0 g/dL 7.2 Albumin 3.9 - 4.9 g/dL 4.5 Calcium 8.5 - 10.2 mg/dL 9.7 Bilirubin, Total 0.2 - 1.3 mg/dL 0.8 Alkaline Phosphatase 34 - 123 U/L 78 AST 13 - 35 U/L 19 ALT 7 - 38 U/L 10 Glucose 74 - 99 mg/dL 92 BUN 7 - 21 mg/dL 20 Creatinine 0.58 - 0.96 mg/dL 1.07 (H) Sodium 136 - 144 mmol/L 138 Potassium 3.7 - 5.1 mmol/L 3.8 Chloride 97 - 105 mmol/L 100 CO2 22 - 30 mmol/L 26 Anion Gap 9 - 18 mmol/L 12 eGFR >=60 mL/min/1.73m 54 (L) CK 42 - 196 U/L 98 Magnesium 1.7 - 2.3 mg/dL 2.3 GISELLE normal in both legs. Assessment and Plan 1. Pain in both lower extremities - ICD9: 729.5, ICD10: M79.604, M79.605 (primary diagnosis) Subjective leg fatigue. Do follow up labs. 2. Leg weakness, bilateral - ICD9: 729.89, ICD10: R29.898 Subjective leg fatigue. Leg exercises. 3. Chronic systolic CHF (congestive heart failure) (HCC) - ICD9: 428.22, 428.0, ICD10: I50.22 Stable. EKG w/o change. - ECG COMPLETE 4. Nonischemic cardiomyopathy (HCC) - ICD9: 425.4, ICD10: I42.8 - ECG COMPLETE 5. Stage 3a chronic kidney disease (HCC) - ICD9: 585.3, ICD10: N18.31 Stable. Etienne Flowers MD [facility] History of Present illness Narrative* Keyonna Mims, BULK SEALER OPERATOR.FLOAT BUILDER - 04/13/2022 10:01 AM EDT CC: Patient presents with: fatigue in legs: 4-6 weeks body muscle soreness DEVAN Carrillo is a 76 year old female who presents today for above. Patient reports for the past 4-6 weeks she has been experiencing a heavy feeling in both legs with activity, legs get tired easily. Only occurring with ambulation however she also had aching in both legs that occurred randomly and sometimes waking her up in the middle of the night. She has no other myalgias and no joint pains. She denies malaise, generalized fatigue, weakness, legs giving out on her, numbness/tingling, decreased sensation, cold feeling, falling, leg swelling, redness or tenderness. No recent illnesses. Staying well hydrated. No new medications. She started drinking protein supplement and taking an OTC herbal medication with B vitamins and caffeine a couple weeks ago, notic ed a slight improvement since then. REVIEW OF SYSTEMS General: no fevers, no chills, no night sweats and no significant changes in weight Respiratory: no cough, no wheezing, no shortness of breath, no hemoptysis Cardiovascular: no chest pain, no chest pressure, no palpitations and no decrease in exercise tolerance GI: No nausea, vomiting. Chronic diarrhea every morning, no worse than usual. Skin: Negative for lesions, rash, and itching Neurologic: No dizziness, lightheadedness, tremors PAST MEDICAL HISTORY Diagnosis Date Cholecystitis with cholelithiasis Jul.2007 Choledocholithiasis with acute cholecystitis 08/10/2009 Chronic systolic CHF (congestive heart failure) ([facility]) 05/18/2018 CKD (chronic kidney disease) stage 3, GFR 30-59 ml/min ([facility]) 04/27/2018 Contact dermatitis due to poison jeffry 06/10/2019 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 2013 Diverticulosis of colon (without mention of hemorrhage) HERPES ZOSTER NOS 06/01/2007 Internal hemorrhoids without mention of complication Intractable migraine without aura 12/05/2008 Malignant neoplasm of breast (female), unspecified site 1999 Breast cancer Rt/lumpectomy/chemo/radiation Migraine without aura, with intractable migraine, so stated, without mention of status migrainosus 05/06/2011 Nonischemic cardiomyopathy (HCC) 05/18/2018 Likely secondary to chemotherapy for breast cancer Osteoporosis 12/05/2008 Osteoporosis 12/05/2008 Vasovagal near syncope 12/03/2014 PAST SURGICAL HISTORY Procedure Laterality Date APPENDECTOMY 1998 BIOPSY BREAST OPEN INCISIONAL Right 09/20/2002 Bx of breast, US Guided CARDIAC CATH 04/24/2019 COLONOSCOPY FLX DX W/COLLJ SPEC WHEN PFRMD 03/13/06 COLONOSCOPY FLX DX W/COLLJ SPEC WHEN PFRMD 04/21/16 Colonoscopy mac next time EXC BREAST LES PREOP PLMT RAD MARKER OPEN 1 LES Left 06/12/2012 left EXC CYST/ABERRANT BREAST TISSUE OPEN 1/> LESION Left 07/06/2012 RE-DO LEFT LUMPECTOMY LAPS SURG CHOLECSTC W/EXPL COMMON DUCT 07/31/2009 LAP GB WITH CBD LIG/TRNSXJ FLP TUBE ABDL/VAG APPR UNI/BI 1975 MASTECTOMY PARTIAL Right 09/20/2002 Mastectomy - partial PAST SURGICAL HISTORY OF 2005 broken right wrist plate put in STEREO LOC FOR CORE BRST BX LT Left 05/22/2012 Left breast ALLERGIES Patient has no known allergies. MEDICATIONS mometasone (ELOCON) 0.1 % cream Apply 1 application to affected area once daily as needed. cholecalciferol (VITAMIN D3) 1,000 unit tab tablet Take 1 tablet by mouth once daily. dicyclomine (BENTYL) 10 mg capsule Take 1 capsule by mouth daily before breakfast. carvedilol (COREG) 25 mg tablet Take 1 tablet by mouth twice daily. furosemide (LASIX) 40 mg tablet Take 1 tablet by mouth once daily. cyanocobalamin (VITAMIN B-12) 1,000 mcg tab Take 1 tablet by mouth once daily. lisinopril (ZESTRIL, PRINIVIL) 5 mg tablet Take 5 mg by mouth once daily. COMPOUNDED PRESCRIPTION 1 tablet once daily. OTC PRODUCT Take 1 tablet by mouth once daily. Reservatrol Supplement vit c/vit e acetate/lutein/min(LUTEIN VISON FORMULA CAP) Take one(1) tablet daily. FAMILY HISTORY Problem Relation Age of Onset COPD Mother Diabetes Mother Cancer Father Lymphoma, Thyroid Brother Social History Tobacco Use Smoking status: Never Smoker Smokeless tobacco: Never Used Substance Use Topics Alcohol use: No Drug use: No PHYSICAL EXAM BP 124/68 Pulse 64 Resp 12 Wt 59.4 kg (131 lb) BMI 23.21 kg/m General Appearance: well appearing, in no acute distress, alert Skin: Skin color, texture, turgor normal for age; No rashes or lesions Lungs: Lungs clear to auscultation. No wheezing, rhonchi, rales. Heart: RRR without murmur, gallop, or rubs. No ectopy Extremities: venous stasis changes BLE. No deformities, edema, clubbing or cyanosis. Good capillaryrefill. Pulses: 2+, No cords. No calf tenderness. Neurological: gait normal. Muscle strength 5/5 bilaterally. Reflexes 2+ and symmetric. DATA REVIEWED: Most recent labs ASSESSMENT/PLAN: 1. Exercise-induced leg fatigue - ICD9: 729.89, ICD10: M62.89 (primary diagnosis) Suspicious for PVD Further evaluation with: - CBC + DIFF - COMP METABOLIC PANEL - CK CREATINE KINASE - PVR ANK PRESS [facility] Follow-up in one month or sooner depending on results of work-up 2. Pain in both lower extremities - ICD9: 729.5, ICD10: M79.604, M79.605 As above - CBC + DIFF - COMP METABOLIC PANEL - CK CREATINE KINASE - MAGNESIUM BLD - PVR ANK PRESS [facility] Prescription instructions reviewed with patient as applicable. Potential red flag symptoms discussed with the patient. Reviewed appropriate action plan to take if red flag symptoms occur. Patient agreeable to treatment plan. Keyonna Mims APRN.CNP documented in this encounter[facility] [place] Miscellaneous Notes* Telephone Encounter - Vandana Mistry LPN - 04/06/2022 10:48 AM EDT Patient has been identified by name and date of : Yes Patient phones for refill(s): Pending Prescriptions Disp Refills MOMETASONE 0.1 % TOPICAL CREAM 45 g 0 Sig: Apply 1 application to affected area once daily as needed. JONATHAN: No Date of last office visit in primary care: 09/03/2021 No future appt scheduled. Last 2 Encounter Wt Readings: Date: Wt: 09/03/2021 60.3 kg (133 lb) 01/10/2020 59.4 kg (131 lb) Previous labs/tests for medication: Not applicable Please advise. Thank you. 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 documented in this encounterSelect [facility] [place] History of Past illness Narrative* Problem Noted Date Resolved Date Contact dermatitis due to poison jeffry 06/10/2019 11/08/2019 Medicare annual wellness visit, subsequent 06/1011/08/2019 Impaired glucose metabolism 05/18/2018 1011/2019 Dysphagia 05/04/2018 11/08/2019 Overview: Added automatically from request for surgery [id number] CKD (chronic kidney disease) stage 3, GFR 30-59 ml/min 04/27/2018 08/13/2020 Colon cancer screening 04/21/2016 6 Back pain with sciatica 03/18/2016 04/12/20 19 Vasovagal near syncope 12/03/2014 5 Milial cysts 07/02/2014 05/12/2016 DCIS (ductal carcinoma in situ) of breast 201104/27/2018 Abnormal mammogram, unspecified 05/15/2012 03/06/2014 Viral wart: component of irr itated Seborrheic Keratosis L forehead 12/06/2011 03/09/2015 Solar Lentigines 12/06/2011 05/12/2016 Seborrheic Keratosis 12/06/2011 05/12/2016 Actinic skin damage 12/06/2011 03/09/2015 Xerosis cutis 07/07/2010 03/11/2015 Irritated//Inflamed Seborrheic Keratosis 010 03/09/2015 Intractable migraine without aura 12/05/2008 08/13/2020 Benign neoplasm of skin of o ther and unspecified parts of face 09/25/2008 12/06/2011 Other seborrheic keratosis 07/11/200712/06 SOLAR LENTIGINES///DYSCHROMIA OTHER 07/11/2007 12/06/2011 ACTINIC DAMAGE//CHR SOLAR SKIN DAMAGE NOS 200612/06/2011 REGALADO ANGIOMA///NEVUS, NON-NEOPLASTIC 7 12/06/2011 Sebaceous cyst 07/11/2007 12/06/2011 Herpes zoster without mention of complication 12/06/2011 Malignant neoplasm of breast (female), unspecifi ed site 12/07/2005 04/27/2018 Internal hemorrhoids without mention of complica tion 03/06/2014 Diverticulosis of colon (without mention of hemo rrhage) 03/11/2015 documented as of this encounter (statuses as of 04/06/2022) [facility] [place] History of Past illness Narrative* Problem Noted Date Resolved Date Contact dermatitis due to poison jeffry 06/10/2019 11/08/2019 Medicare annual wellness visit, subsequent 06/1011/08/2019 Impaired glucose metabolism 05/18/2018 1011/2019 Dysphagia 05/04/2018 11/08/2019 Overview: Added automatically from request for surgery [id number] CKD (chronic kidney disease) stage 3, GFR 30-59 ml/min 04/27/2018 08/13/2020 Colon cancer screening 04/21/2016 6 Back pain with sciatica 03/18/2016 04/12/20 19 Vasovagal near syncope 12/03/2014 5 Milial cysts 07/02/2014 05/12/2016 DCIS (ductal carcinoma in situ) of breast 201104/27/2018 Abnormal mammogram, unspecified 05/15/2012 03/06/2014 Viral wart: component of irr itated Seborrheic Keratosis L forehead 12/06/2011 03/09/2015 Solar Lentigines 12/06/2011 05/12/2016 Seborrheic Keratosis 12/06/2011 05/12/2016 Actinic skin damage 12/06/2011 03/09/2015 Xerosis cutis 07/07/2010 03/11/2015 Irritated//Inflamed Seborrheic Keratosis 010 03/09/2015 Intractable migraine without aura 12/05/2008 08/13/2020 Benign neoplasm of skin of o ther and unspecified parts of face 09/25/2008 12/06/2011 Other seborrheic keratosis 07/11/200712/06 SOLAR LENTIGINES///DYSCHROMIA OTHER 07/11/2007 12/06/2011 ACTINIC DAMAGE//CHR SOLAR SKIN DAMAGE NOS 200612/06/2011 REGALADO ANGIOMA///NEVUS, NON-NEOPLASTIC 7 12/06/2011 Sebaceous cyst 07/11/2007 12/06/2011 Herpes zoster without mention of complication 12/06/2011 Malignant neoplasm of breast (female), unspecifi ed site 12/07/2005 04/27/2018 Internal hemorrhoids without mention of complica tion 03/06/2014 Diverticulosis of colon (without mention of hemo rrhage) 03/11/2015 documented as of this encounter (statuses as of 04/13/2022) [facility] [place] History of Past illness Narrative* Problem Noted Date Resolved Date Contact dermatitis due to poison jeffry 06/10/2019 11/08/2019 Medicare annual wellness visit, subsequent 06/1011/08/2019 Impaired glucose metabolism 05/18/201811/2019 Dysphagia 05/04/2018 11/08/2019 Overview: Added automatically from request for surgery [id number] CKD (chronic kidney disease) stage 3, GFR 30-59 ml/min 04/27/2018 08/13/2020 Colon cancer screening 04/21/2016 6 Back pain with sciatica 03/18/2016 04/12/20 19 Vasovagal near syncope 12/03/2014 5 Milial cysts 07/02/2014 05/12/2016 DCIS (ductal carcinoma in situ) of breast 201104/27/2018 Abnormal mammogram, unspecified 05/15/2012 03/06/2014 Viral wart: component of irr itated Seborrheic Keratosis L forehead 12/06/2011 03/09/2015 Solar Lentigines 12/06/2011 05/12/2016 Seborrheic Keratosis 12/06/2011 05/12/2016 Actinic skin damage 12/06/2011 03/09/2015 Xerosis cutis 07/07/2010 03/11/2015 Irritated//Inflamed Seborrheic Keratosis 010 03/09/2015 Intractable migraine without aura 12/05/2008 08/13/2020 Benign neoplasm of skin of o ther and unspecified parts of face 09/25/2008 12/06/2011 Other seborrheic keratosis 07/11/200712/06 SOLAR LENTIGINES///DYSCHROMIA OTHER 07/11/2007 12/06/2011 ACTINIC DAMAGE//CHR SOLAR SKIN DAMAGE NOS 200612/06/2011 REGALADO ANGIOMA///NEVUS, NON-NEOPLASTIC 7 12/06/2011 Sebaceous cyst 07/11/2007 12/06/2011 Herpes zoster without mention of complication 12/06/2011 Malignant neoplasm of breast (female), unspecifi ed site 12/07/2005 04/27/2018 Internal hemorrhoids without mention of complica tion 03/06/2014 Diverticulosis of colon (without mention of hemo rrhage) 03/11/2015 documented as of this encounter (statuses as of 04/15/2022) [facility] [place] of Past illness Narrative* Problem Noted Date Resolved Date Contact dermatitis due to poison jeffry 06/10/2019 11/08/2019 Medicare annual wellness visit, subsequent 06/1011/08/2019 Impaired glucose metabolism 05/18/201811/2019 Dysphagia 05/04/2018 11/08/2019 Overview: Added automatically from request for surgery [id number] CKD (chronic kidney disease) stage 3, GFR 30-59 ml/min 04/27/2018 08/13/2020 Colon cancer screening 04/21/2016 6 Back pain with sciatica 03/18/2016 04/12/20 19 Vasovagal near syncope 12/03/2014 5 Milial cysts 07/02/2014 05/12/2016 DCIS (ductal carcinoma in situ) of breast 201104/27/2018 Abnormal mammogram, unspecified 05/15/2012 03/06/2014 Viral wart: component of irr itated Seborrheic Keratosis L forehead 12/06/2011 03/09/2015 Solar Lentigines 12/06/2011 05/12/2016 Seborrheic Keratosis 12/06/2011 05/12/2016 Actinic skin damage 12/06/2011 03/09/2015 Xerosis cutis 07/07/2010 03/11/2015 Irritated//Inflamed Seborrheic Keratosis 010 03/09/2015 Intractable migraine without aura 12/05/2008 08/13/2020 Benign neoplasm of skin of o ther and unspecified parts of face 09/25/2008 12/06/2011 Other seborrheic keratosis 07/11/200712/06 SOLAR LENTIGINES///DYSCHROMIA OTHER 07/11/2007 12/06/2011 ACTINIC DAMAGE//CHR SOLAR SKIN DAMAGE NOS 200612/06/2011 REGALADO ANGIOMA///NEVUS, NON-NEOPLASTIC 7 12/06/2011 Sebaceous cyst 07/11/2007 12/06/2011 Herpes zoster without mention of complication 12/06/2011 Malignant neoplasm of breast (female), unspecifi ed site 12/07/2005 04/27/2018 Internal hemorrhoids without mention of complica tion 03/06/2014 Diverticulosis of colon (without mention of hemo rrhage) 03/11/2015 documented as of this encounter (statuses as of 04/21/2022) [facility] [place] of Past illness Narrative* Problem Noted Date Resolved Date Contact dermatitis due to poison jeffry 06/10/2019 11/08/2019 Medicare annual wellness visit, subsequent 06/1011/08/2019 Impaired glucose metabolism 05/18/201811/2019 Dysphagia 05/04/2018 11/08/2019 Overview: Added automatically from request for surgery [id number] CKD (chronic kidney disease) stage 3, GFR 30-59 ml/min 04/27/2018 08/13/2020 Colon cancer screening 04/21/2016 6 Back pain with sciatica 03/18/2016 04/12/20 19 Vasovagal near syncope 12/03/2014 5 Milial cysts 07/02/2014 05/12/2016 DCIS (ductal carcinoma in situ) of breast 201104/27/2018 Abnormal mammogram, unspecified 05/15/2012 03/06/2014 Viral wart: component of irr itated Seborrheic Keratosis L forehead 12/06/2011 03/09/2015 Solar Lentigines 12/06/2011 05/12/2016 Seborrheic Keratosis 12/06/2011 05/12/2016 Actinic skin damage 12/06/2011 03/09/2015 Xerosis cutis 07/07/2010 03/11/2015 Irritated//Inflamed Seborrheic Keratosis 010 03/09/2015 Intractable migraine without aura 12/05/2008 08/13/2020 Benign neoplasm of skin of o ther and unspecified parts of face 09/25/2008 12/06/2011 Other seborrheic keratosis 07/11/200712/06 SOLAR LENTIGINES///DYSCHROMIA OTHER 07/11/2007 12/06/2011 ACTINIC DAMAGE//CHR SOLAR SKIN DAMAGE NOS 200612/06/2011 REGALADO ANGIOMA///NEVUS, NON-NEOPLASTIC 7 12/06/2011 Sebaceous cyst 07/11/2007 12/06/2011 Herpes zoster without mention of complication 12/06/2011 Malignant neoplasm of breast (female), unspecifi ed site 12/07/2005 04/27/2018 Internal hemorrhoids without mention of complica tion 03/06/2014 Diverticulosis of colon (without mention of hemo rrhage) 03/11/2015 documented as of this encounter (statuses as of 05/13/2022) [facility] illness Narrative* Problem Noted Date Resolved Date Contact dermatitis due to poison jeffry 06/10/2019 11/08/2019 Medicare annual wellness visit, subsequent 06/1011/08/2019 Impaired glucose metabolism 05/18/2018 10/0 11/2019 Dysphagia 05/04/2018 11/08/2019 Overview: Added automatically from request for surgery [id number] CKD (chronic kidney disease) stage 3, GFR 30-59 ml/min 04/27/2018 08/13/2020 Colon cancer screening 04/21/2016 6 Back pain with sciatica 03/18/2016 04/12/20 19 Vasovagal near syncope 12/03/2014 5 Milial cysts 07/02/2014 05/12/2016 DCIS (ductal carcinoma in situ) of breast 201104/27/2018 Abnormal mammogram, unspecified 05/15/2012 03/06/2014 Viral wart: component of irr itated Seborrheic Keratosis L forehead 12/06/2011 03/09/2015 Solar Lentigines 12/06/2011 05/12/2016 Seborrheic Keratosis 12/06/2011 05/12/2016 Actinic skin damage 12/06/2011 03/09/2015 Xerosis cutis 07/07/2010 03/11/2015 Irritated//Inflamed Seborrheic Keratosis 010 03/09/2015 Intractable migraine without aura 12/05/2008 08/13/2020 Benign neoplasm of skin of o ther and unspecified parts of face 09/25/2008 12/06/2011 Other seborrheic keratosis 07/11/200712/06 SOLAR LENTIGINES///DYSCHROMIA OTHER 07/11/2007 12/06/2011 ACTINIC DAMAGE//CHR SOLAR SKIN DAMAGE NOS 200612/06/2011 REGALADO ANGIOMA///NEVUS, NON-NEOPLASTIC 7 12/06/2011 Sebaceous cyst 07/11/2007 12/06/2011 Herpes zoster without mention of complication 12/06/2011 Malignant neoplasm of breast (female), unspecifi ed site 12/07/2005 04/27/2018 Internal hemorrhoids without mention of complica tion 03/06/2014 Diverticulosis of colon (without mention of hemo rrhage) 03/11/2015 documented as of this encounter (statuses as of 06/15/2022) [facility] illness Narrative* Problem Noted Date Resolved Date Contact dermatitis due to poison jeffry 06/10/2019 11/08/2019 Medicare annual wellness visit, subsequent 06/1011/08/2019 Impaired glucose metabolism 05/18/201811/2019 Dysphagia 05/04/2018 11/08/2019 Overview: Added automatically from request for surgery [id number] CKD (chronic kidney disease) stage 3, GFR 30-59 ml/min 04/27/2018 08/13/2020 Colon cancer screening 04/21/2016 6 Back pain with sciatica 03/18/2016 04/12/20 19 Vasovagal near syncope 12/03/2014 5 Milial cysts 07/02/2014 05/12/2016 DCIS (ductal carcinoma in situ) of breast 201104/27/2018 Abnormal mammogram, unspecified 05/15/2012 03/06/2014 Viral wart: component of irr itated Seborrheic Keratosis L forehead 12/06/2011 03/09/2015 Solar Lentigines 12/06/2011 05/12/2016 Seborrheic Keratosis 12/06/2011 05/12/2016 Actinic skin damage 12/06/2011 03/09/2015 Xerosis cutis 07/07/2010 03/11/2015 Irritated//Inflamed Seborrheic Keratosis 010 03/09/2015 Intractable migraine without aura 12/05/2008 08/13/2020 Benign neoplasm of skin of o ther and unspecified parts of face 09/25/2008 12/06/2011 Other seborrheic keratosis 07/11/200712/06 SOLAR LENTIGINES///DYSCHROMIA OTHER 07/11/2007 12/06/2011 ACTINIC DAMAGE//CHR SOLAR SKIN DAMAGE NOS 200612/06/2011 REGALADO ANGIOMA///NEVUS, NON-NEOPLASTIC 7 12/06/2011 Sebaceous cyst 07/11/2007 12/06/2011 Herpes zoster without mention of complication 12/06/2011 Malignant neoplasm of breast (female), unspecifi ed site 12/07/2005 04/27/2018 Internal hemorrhoids without mention of complica tion 03/06/2014 Diverticulosis of colon (without mention of hemo rrhage) 03/11/2015 documented as of this encounter (statuses as of 07/11/2022) [facility] Past illness Narrative* Problem Noted Date Resolved Date Contact dermatitis due to poison jeffry 06/10/2019 11/08/2019 Medicare annual wellness visit, subsequent 06/1011/08/2019 Impaired glucose metabolism 05/18/2018 1011/2019 Dysphagia 05/04/2018 11/08/2019 Overview: Added automatically from request for surgery [id number] CKD (chronic kidney disease) stage 3, GFR 30-59 ml/min 04/27/2018 08/13/2020 Colon cancer screening 04/21/2016 6 Back pain with sciatica 03/18/2016 04/12/20 19 Vasovagal near syncope 12/03/2014 5 Milial cysts 07/02/2014 05/12/2016 DCIS (ductal carcinoma in situ) of breast 201104/27/2018 Abnormal mammogram, unspecified 05/15/2012 03/06/2014 Viral wart: component of irr itated Seborrheic Keratosis L forehead 12/06/2011 03/09/2015 Solar Lentigines 12/06/2011 05/12/2016 Seborrheic Keratosis 12/06/2011 05/12/2016 Actinic skin damage 12/06/2011 03/09/2015 Xerosis cutis 07/07/2010 03/11/2015 Irritated//Inflamed Seborrheic Keratosis 010 03/09/2015 Intractable migraine without aura 12/05/2008 08/13/2020 Benign neoplasm of skin of o ther and unspecified parts of face 09/25/2008 12/06/2011 Other seborrheic keratosis 07/11/200712/06 SOLAR LENTIGINES///DYSCHROMIA OTHER 07/11/2007 12/06/2011 ACTINIC DAMAGE//CHR SOLAR SKIN DAMAGE NOS 200612/06/2011 REGALADO ANGIOMA///NEVUS, NON-NEOPLASTIC 7 12/06/2011 Sebaceous cyst 07/11/2007 12/06/2011 Herpes zoster without mention of complication 12/06/2011 Malignant neoplasm of breast (female), unspecifi ed site 12/07/2005 04/27/2018 Internal hemorrhoids without mention of complica tion 03/06/2014 Diverticulosis of colon (without mention of hemo rrhage) 03/11/2015 documented as of this encounter (statuses as of 07/19/2022) [facility] of Past illness Narrative* Problem Noted Date Resolved Date Contact dermatitis due to poison jeffry 06/10/2019 11/08/2019 Medicare annual wellness visit, subsequent 06/1011/08/2019 Impaired glucose metabolism 05/18/201811/2019 Dysphagia 05/04/2018 11/08/2019 Overview: Added automatically from request for surgery [id number] CKD (chronic kidney disease) stage 3, GFR 30-59 ml/min 04/27/2018 08/13/2020 Colon cancer screening 04/21/2016 6 Back pain with sciatica 03/18/2016 04/12/20 19 Vasovagal near syncope 12/03/2014 5 Milial cysts 07/02/2014 05/12/2016 DCIS (ductal carcinoma in situ) of breast 201104/27/2018 Abnormal mammogram, unspecified 05/15/2012 03/06/2014 Viral wart: component of irr itated Seborrheic Keratosis L forehead 12/06/2011 03/09/2015 Solar Lentigines 12/06/2011 05/12/2016 Seborrheic Keratosis 12/06/2011 05/12/2016 Actinic skin damage 12/06/2011 03/09/2015 Xerosis cutis 07/07/2010 03/11/2015 Irritated//Inflamed Seborrheic Keratosis 010 03/09/2015 Intractable migraine without aura 12/05/2008 08/13/2020 Benign neoplasm of skin of o ther and unspecified parts of face 09/25/2008 12/06/2011 Other seborrheic keratosis 07/11/200712/06 SOLAR LENTIGINES///DYSCHROMIA OTHER 07/11/2007 12/06/2011 ACTINIC DAMAGE//CHR SOLAR SKIN DAMAGE NOS 200612/06/2011 REGALADO ANGIOMA///NEVUS, NON-NEOPLASTIC 7 12/06/2011 Sebaceous cyst 07/11/2007 12/06/2011 Herpes zoster without mention of complication 12/06/2011 Malignant neoplasm of breast (female), unspecifi ed site 12/07/2005 04/27/2018 Internal hemorrhoids without mention of complica tion 03/06/2014 Diverticulosis of colon (without mention of hemo rrhage) 03/11/2015 documented as of this encounter (statuses as of 08/02/2022) [facility] History of Past illness Narrative* Problem Noted Date Resolved Date Contact dermatitis due to poison jeffry 06/10/2019 11/08/2019 Medicare annual wellness visit, subsequent 06/1011/08/2019 Impaired glucose metabolism 05/18/201811/2019 Dysphagia 05/04/2018 11/08/2019 Overview: Added automatically from request for surgery [id number] CKD (chronic kidney disease) stage 3, GFR 30-59 ml/min 04/27/2018 08/13/2020 Colon cancer screening 04/21/2016 6 Back pain with sciatica 03/18/2016 04/12/20 19 Vasovagal near syncope 12/03/2014 5 Milial cysts 07/02/2014 05/12/2016 DCIS (ductal carcinoma in situ) of breast 201104/27/2018 Abnormal mammogram, unspecified 05/15/2012 03/06/2014 Viral wart: component of irr itated Seborrheic Keratosis L forehead 12/06/2011 03/09/2015 Solar Lentigines 12/06/2011 05/12/2016 Seborrheic Keratosis 12/06/2011 05/12/2016 Actinic skin damage 12/06/2011 03/09/2015 Xerosis cutis 07/07/2010 03/11/2015 Irritated//Inflamed Seborrheic Keratosis 010 03/09/2015 Intractable migraine without aura 12/05/2008 08/13/2020 Benign neoplasm of skin of o ther and unspecified parts of face 09/25/2008 12/06/2011 Other seborrheic keratosis 07/11/200712/06 SOLAR LENTIGINES///DYSCHROMIA OTHER 07/11/2007 12/06/2011 ACTINIC DAMAGE//CHR SOLAR SKIN DAMAGE NOS 200612/06/2011 REGALADO ANGIOMA///NEVUS, NON-NEOPLASTIC 7 12/06/2011 Sebaceous cyst 07/11/2007 12/06/2011 Herpes zoster without mention of complication 12/06/2011 Malignant neoplasm of breast (female), unspecifi ed site 12/07/2005 04/27/2018 Internal hemorrhoids without mention of complica tion 03/06/2014 Diverticulosis of colon (without mention of hemo rrhage) 03/11/2015 documented as of this encounter (statuses as of 09/17/2022) [facility] History of Past illness Narrative* Problem Noted Date Resolved Date Contact dermatitis due to poison jeffry 06/10/2019 11/08/2019 Medicare annual wellness visit, subsequent 06/1011/08/2019 Impaired glucose metabolism 05/18/201811/2019 Dysphagia 05/04/2018 11/08/2019 Overview: Added automatically from request for surgery [id number] CKD (chronic kidney disease) stage 3, GFR 30-59 ml/min 04/27/2018 08/13/2020 Colon cancer screening 04/21/2016 6 Back pain with sciatica 03/18/2016 04/12/20 19 Vasovagal near syncope 12/03/2014 5 Milial cysts 07/02/2014 05/12/2016 DCIS (ductal carcinoma in situ) of breast 201104/27/2018 Abnormal mammogram, unspecified 05/15/2012 03/06/2014 Viral wart: component of irr itated Seborrheic Keratosis L forehead 12/06/2011 03/09/2015 Solar Lentigines 12/06/2011 05/12/2016 Seborrheic Keratosis 12/06/2011 05/12/2016 Actinic skin damage 12/06/2011 03/09/2015 Xerosis cutis 07/07/2010 03/11/2015 Irritated//Inflamed Seborrheic Keratosis 010 03/09/2015 Intractable migraine without aura 12/05/2008 08/13/2020 Benign neoplasm of skin of o ther and unspecified parts of face 09/25/2008 12/06/2011 Other seborrheic keratosis 07/11/200712/06 SOLAR LENTIGINES///DYSCHROMIA OTHER 07/11/2007 12/06/2011 ACTINIC DAMAGE//CHR SOLAR SKIN DAMAGE NOS 200612/06/2011 REGALADO ANGIOMA///NEVUS, NON-NEOPLASTIC 7 12/06/2011 Sebaceous cyst 07/11/2007 12/06/2011 Herpes zoster without mention of complication 12/06/2011 Malignant neoplasm of breast (female), unspecifi ed site 12/07/2005 04/27/2018 Internal hemorrhoids without mention of complica tion 03/06/2014 Diverticulosis of colon (without mention of hemo rrhage) 03/11/2015 documented as of this encounter (statuses as of 09/21/2022) [facility] History of Past illness Narrative* Problem Noted Date Resolved Date Contact dermatitis due to poison jeffry 06/10/2019 11/08/2019 Medicare annual wellness visit, subsequent 06/1011/08/2019 Impaired glucose metabolism 05/18/201811/2019 Dysphagia 05/04/2018 11/08/2019 Overview: Added automatically from request for surgery [id number] CKD (chronic kidney disease) stage 3, GFR 30-59 ml/min 04/27/2018 08/13/2020 Colon cancer screening 04/21/2016 6 Back pain with sciatica 03/18/2016 04/12/20 19 Vasovagal near syncope 12/03/2014 5 Milial cysts 07/02/2014 05/12/2016 DCIS (ductal carcinoma in situ) of breast 201104/27/2018 Abnormal mammogram, unspecified 05/15/2012 03/06/2014 Viral wart: component of irr itated Seborrheic Keratosis L forehead 12/06/2011 03/09/2015 Solar Lentigines 12/06/2011 05/12/2016 Seborrheic Keratosis 12/06/2011 05/12/2016 Actinic skin damage 12/06/2011 03/09/2015 Xerosis cutis 07/07/2010 03/11/2015 Irritated//Inflamed Seborrheic Keratosis 010 03/09/2015 Intractable migraine without aura 12/05/2008 08/13/2020 Benign neoplasm of skin of o ther and unspecified parts of face 09/25/2008 12/06/2011 Other seborrheic keratosis 07/11/200712/06 SOLAR LENTIGINES///DYSCHROMIA OTHER 07/11/2007 12/06/2011 ACTINIC DAMAGE//CHR SOLAR SKIN DAMAGE NOS 200612/06/2011 REGALADO ANGIOMA///NEVUS, NON-NEOPLASTIC 7 12/06/2011 Sebaceous cyst 07/11/2007 12/06/2011 Herpes zoster without mention of complication 12/06/2011 Malignant neoplasm of breast (female), unspecifi ed site 12/07/2005 04/27/2018 Internal hemorrhoids without mention of complica tion 03/06/2014 Diverticulosis of colon (without mention of hemo rrhage) 03/11/2015 documented as of this encounter (statuses as of 09/28/2022) [facility] History of Past illness Narrative* Problem Noted Date Resolved Date Contact dermatitis due to poison jeffry 06/10/2019 11/08/2019 Medicare annual wellness visit, subsequent 06/1011/08/2019 Impaired glucose metabolism 05/18/201811/2019 Dysphagia 05/04/2018 11/08/2019 Overview: Added automatically from request for surgery [id number] CKD (chronic kidney disease) stage 3, GFR 30-59 ml/min 04/27/2018 08/13/2020 Colon cancer screening 04/21/2016 6 Back pain with sciatica 03/18/2016 04/12/20 19 Vasovagal near syncope 12/03/2014 5 Milial cysts 07/02/2014 05/12/2016 DCIS (ductal carcinoma in situ) of breast 201104/27/2018 Abnormal mammogram, unspecified 05/15/2012 03/06/2014 Viral wart: component of irr itated Seborrheic Keratosis L forehead 12/06/2011 03/09/2015 Solar Lentigines 12/06/2011 05/12/2016 Seborrheic Keratosis 12/06/2011 05/12/2016 Actinic skin damage 12/06/2011 03/09/2015 Xerosis cutis 07/07/2010 03/11/2015 Irritated//Inflamed Seborrheic Keratosis 010 03/09/2015 Intractable migraine without aura 12/05/2008 08/13/2020 Benign neoplasm of skin of o ther and unspecified parts of face 09/25/2008 12/06/2011 Other seborrheic keratosis 07/11/200712/06 SOLAR LENTIGINES///DYSCHROMIA OTHER 07/11/2007 12/06/2011 ACTINIC DAMAGE//CHR SOLAR SKIN DAMAGE NOS 200612/06/2011 REGALADO ANGIOMA///NEVUS, NON-NEOPLASTIC 7 12/06/2011 Sebaceous cyst 07/11/2007 12/06/2011 Herpes zoster without mention of complication 12/06/2011 Malignant neoplasm of breast (female), unspecifi ed site 12/07/2005 04/27/2018 Internal hemorrhoids without mention of complica tion 03/06/2014 Diverticulosis of colon (without mention of hemo rrhage) 03/11/2015 documented as of this encounter (statuses as of 10/12/2022) [facility] History of Past illness Narrative* Problem Noted Date Resolved Date Contact dermatitis due to poison jeffry 06/10/2019 11/08/2019 Medicare annual wellness visit, subsequent 06/1011/08/2019 Impaired glucose metabolism 05/18/2018 10/0 11/2019 Dysphagia 05/04/2018 11/08/2019 Overview: Added automatically from request for surgery [id number] CKD (chronic kidney disease) stage 3, GFR 30-59 ml/min 04/27/2018 08/13/2020 Colon cancer screening 04/21/2016 6 Back pain with sciatica 03/18/2016 04/12/20 19 Vasovagal near syncope 12/03/2014 5 Milial cysts 07/02/2014 05/12/2016 DCIS (ductal carcinoma in situ) of breast 201104/27/2018 Abnormal mammogram, unspecified 05/15/2012 03/06/2014 Viral wart: component of irr itated Seborrheic Keratosis L forehead 12/06/2011 03/09/2015 Solar Lentigines 12/06/2011 05/12/2016 Seborrheic Keratosis 12/06/2011 05/12/2016 Actinic skin damage 12/06/2011 03/09/2015 Xerosis cutis 07/07/2010 03/11/2015 Irritated//Inflamed Seborrheic Keratosis 010 03/09/2015 Intractable migraine without aura 12/05/2008 08/13/2020 Benign neoplasm of skin of o ther and unspecified parts of face 09/25/2008 12/06/2011 Other seborrheic keratosis 07/11/200712/06 SOLAR LENTIGINES///DYSCHROMIA OTHER 07/11/2007 12/06/2011 ACTINIC DAMAGE//CHR SOLAR SKIN DAMAGE NOS 200612/06/2011 REGALADO ANGIOMA///NEVUS, NON-NEOPLASTIC 7 12/06/2011 Sebaceous cyst 07/11/2007 12/06/2011 Herpes zoster without mention of complication 12/06/2011 Malignant neoplasm of breast (female), unspecifi ed site 12/07/2005 04/27/2018 Internal hemorrhoids without mention of complica tion 03/06/2014 Diverticulosis of colon (without mention of hemo rrhage) 03/11/2015 documented as of this encounter (statuses as of 10/12/2022) [facility] History of Past illness Narrative* Problem Noted Date Resolved Date Contact dermatitis due to poison jeffry 06/10/2019 11/08/2019 Medicare annual wellness visit, subsequent 06/1011/08/2019 Impaired glucose metabolism 05/18/201811/2019 Dysphagia 05/04/2018 11/08/2019 Overview: Added automatically from request for surgery [id number] CKD (chronic kidney disease) stage 3, GFR 30-59 ml/min 04/27/2018 08/13/2020 Colon cancer screening 04/21/2016 6 Back pain with sciatica 03/18/2016 04/12/20 19 Vasovagal near syncope 12/03/2014 5 Milial cysts 07/02/2014 05/12/2016 DCIS (ductal carcinoma in situ) of breast 201104/27/2018 Abnormal mammogram, unspecified 05/15/2012 03/06/2014 Viral wart: component of irr itated Seborrheic Keratosis L forehead 12/06/2011 03/09/2015 Solar Lentigines 12/06/2011 05/12/2016 Seborrheic Keratosis 12/06/2011 05/12/2016 Actinic skin damage 12/06/2011 03/09/2015 Xerosis cutis 07/07/2010 03/11/2015 Irritated//Inflamed Seborrheic Keratosis 010 03/09/2015 Intractable migraine without aura 12/05/2008 08/13/2020 Benign neoplasm of skin of o ther and unspecified parts of face 09/25/2008 12/06/2011 Other seborrheic keratosis 07/11/200712/06 SOLAR LENTIGINES///DYSCHROMIA OTHER 07/11/2007 12/06/2011 ACTINIC DAMAGE//CHR SOLAR SKIN DAMAGE NOS 200612/06/2011 REGALADO ANGIOMA///NEVUS, NON-NEOPLASTIC 7 12/06/2011 Sebaceous cyst 07/11/2007 12/06/2011 Herpes zoster without mention of complication 12/06/2011 Malignant neoplasm of breast (female), unspecifi ed site 12/07/2005 04/27/2018 Internal hemorrhoids without mention of complica tion 03/06/2014 Diverticulosis of colon (without mention of hemo rrhage) 03/11/2015 documented as of this encounter (statuses as of 11/23/2022) [facility] History of Past illness Narrative* Problem Noted Date Resolved Date Contact dermatitis due to poison jeffry 06/10/2019 11/08/2019 Medicare annual wellness visit, subsequent 06/1011/08/2019 Impaired glucose metabolism 05/18/201811/2019 Dysphagia 05/04/2018 11/08/2019 Overview: Added automatically from request for surgery [id number] CKD (chronic kidney disease) stage 3, GFR 30-59 ml/min 04/27/2018 08/13/2020 Colon cancer screening 04/21/2016 6 Back pain with sciatica 03/18/2016 04/12/20 19 Vasovagal near syncope 12/03/2014 5 Milial cysts 07/02/2014 05/12/2016 DCIS (ductal carcinoma in situ) of breast 201104/27/2018 Abnormal mammogram, unspecified 05/15/2012 03/06/2014 Viral wart: component of irr itated Seborrheic Keratosis L forehead 12/06/2011 03/09/2015 Solar Lentigines 12/06/2011 05/12/2016 Seborrheic Keratosis 12/06/2011 05/12/2016 Actinic skin damage 12/06/2011 03/09/2015 Xerosis cutis 07/07/2010 03/11/2015 Irritated//Inflamed Seborrheic Keratosis 010 03/09/2015 Intractable migraine without aura 12/05/2008 08/13/2020 Benign neoplasm of skin of o ther and unspecified parts of face 09/25/2008 12/06/2011 Other seborrheic keratosis 07/11/200712/06 SOLAR LENTIGINES///DYSCHROMIA OTHER 07/11/2007 12/06/2011 ACTINIC DAMAGE//CHR SOLAR SKIN DAMAGE NOS 200612/06/2011 REGALADO ANGIOMA///NEVUS, NON-NEOPLASTIC 7 12/06/2011 Sebaceous cyst 07/11/2007 12/06/2011 Herpes zoster without mention of complication 12/06/2011 Malignant neoplasm of breast (female), unspecifi ed site 12/07/2005 04/27/2018 Internal hemorrhoids without mention of complica tion 03/06/2014 Diverticulosis of colon (without mention of hemo rrhage) 03/11/2015 documented as of this encounter (statuses as of 03/28/2023) [facility] Dermatitis due to plant Contact dermatitis and other eczema due to plants (except food) [facility] Exercise-induced leg fatigue- Primary Other musculoskeletal symptoms referable to limbs Pain in both lower extremities [facility] Anemia, unspecified type- Primary [facility] Pain in both lower extremities- Primary Leg weakness, bilateral Other musculoskeletal symptoms referable to limbs Chronic systolic CHF (congestive heart failure) (HCC) Chronic systolic heart failure Nonischemic cardiomyopathy (HCC) Other primary cardiomyopathies Stage 3a chronic kidney disease (HCC) documented in this encounter [facility] note* Diagnosis Acute abdominal pain in left lower quadrant- Primary Abdominal pain, left lower quadrant Left lower quadrant abdominal tenderness with rebound tenderness Diarrhea, unspecified type Dehydration [facility] Diagnosis Diverticulitis of large intestine without perforation or abscess without bleeding- Primary Diverticulitis of colon (without mention of hemorrhage) Skin tag of perianal region Residual hemorrhoidal skin tags Abnormal CT scan, kidney Nonspecific (abnormal) findings on radiological and other examination of genitourinary organs Other specified disorders of kidney and ureter [facility] Diagnosis Medicare annual wellness visit, subsequent- Primary Routine general medical examination at a health care facility Impaired glucose tolerance Impaired glucose tolerance test Screening for lipid disorders Vitamin D deficiency Unspecified vitamin D deficiency Encounter for screening mammogram for malignant neoplasm of breast Other screening mammogram [facility] Diagnosis Migraine without status migrainosus, not intractable, unspecified migraine type documented in this encounter [facility] note* Diagnosis Dermatitis due to plant Contact dermatitis and other eczema due to plants (except food) [facility] Diagnosis Stage 3a chronic kidney disease (HCC)- Primary [facility] Diagnosis Visit for screening mammogram- Primary Other screening mammogram documented in this encounter [facility] note* Diagnosis Encounter for screening mammogram for malignant neoplasm of breast Other screening mammogram Visit for screening mammogram- Primary Other screening mammogram documented in this encounter [facility] for referral (narrative)* Outpatient Procedure (Routine) - Authorized Specialty Diagnoses / Procedures Referred By Aline ahumada [facility] Diagnoses Pain in both lower extremities Exercise-induced leg fatigue Claudication (HCC) Procedures PVR ANK PRESS ANGIE VAS LAB NON-INVAS PHYSIOLOGIC STD EXTREMITY ART 2 LEVEL Keyonna Mims APRN.CNP [address] [place] [address] [facility] [address] [place] [address] Referral ID Status Reason Start Date Expiration Date Visits Requested Visits Authorized [id number] Authorized Auto-Generat ed Referral 04/13/2022 04/13/2023 1 1 [facility] for referral (narrative)* Outpatient Procedure (Routine) - Closed Specialty Diagnoses / Procedures Referred By Aline ahumada [facility] Diagnoses Chronic systolic CHF (congestive heart failure) (HCC) Nonischemic cardiomyopathy (HCC) Procedures ECG COMPLETE ECG ROUTINE ECG W/LEAST 12 LDS W/I&R Etienne Flowers MD [address] [place] [address] [facility] [address] [place] [address] Referral ID Status Reason Start Date Expiration Date V isits Requested Visits Authorized [id number] Closed Auto-Generate d Referral 04/21/2022 04/21/2023 1 1 [facility] for referral (narrative)* Diagnostic Procedure Only (Routine) - Authorized Specialty Diagnoses / Procedures Referred By Aline ahumada Referred To Contact [facility] Diagnoses Encounter for screening mammogram for malignant neoplasm of breast Procedures LONG SCREENING SCREENING MAMMOGRAPHY BI 2-VIEW BREAST INC Keyonna Ching APRN.CNP [address] [place] [address] [facility] [address] [place] [address] Referral ID Status Reason Start Date Expiration Date Visits Requested Visits Authorized [id number] Authorized Auto-Generat ed Referral 09/21/2022 10/21/2023 1 1 [facility] for referral (narrative)* Diagnostic Procedure Only (Routine) - Authorized Specialty Diagnoses / Procedures Referred By Aline ahumada Referred To Contact [facility] Diagnoses Visit for screening mammogram Procedures LONG SCREENING SCREENING MAMMOGRAPHY BI 2-VIEW BREAST INC CAD Etienne Flowers MD [address] [place] [address] [facility] [address] [place] [address] Referral ID Status Reason Start Date Expiration Date Visits Requested Visits Authorized [id number] Authorized Auto-Generat ed Referral 09/15/2023 10/13/2024 1 1 [facility] for referral (narrative)* Diagnostic Procedure Only (Routine) - Closed Specialty Diagnoses / Procedures Referred By Aline t Referred To Contact [facility] Diagnoses Encounter for screening mammogram for malignant neoplasm of breast Procedures LONG SCREENING SCREENING MAMMOGRAPHY BI 2-VIEW BREAST INC CAD Older, Keyonna, 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.FLOAT BUILDER [address] [place] [address] [facility] [address] [place] [address] Referral ID Status Reason Start Date Expiration Date V isits Requested Visits Authorized [id number] Closed Auto-Generate d Referral 09/21/2022 10/21/2023 1 1 [facility] for visit Narrative* Diagnostic Procedure Only (Routine) - Closed Specialty Diagnoses / Procedures Referred By Aline ahumada Referred To Contact [facility] Diagnoses Encounter for screening mammogram for malignant neoplasm of breast Procedures LONG SCREENING SCREENING MAMMOGRAPHY BI 2-VIEW BREAST INC CAD [facility], Keyonna, BULK SEALER OPERATOR.FLOAT BUILDER [address] [place] [address] [facility] [address] [address] Referral ID Status Reason Start Date Expiration Date V isits Requested Visits Authorized [id number] Closed Auto-Generate d Referral 09/21/2022 10/21/2023 1 1 [facility] Summary Purpose Family History No Family History Records FoundNo Family History Records Found Advance Directives No Advanced Directives Records FoundDocuments on File Type Date Recorded Patient General Counsel Expl anation Advance Directive(s) 04/21/2016 9:39 AM Advance Directive(s) 04/07/2016 12:16 PM Documents on File Type Date Recorded Patient General Counsel Expl anation Advance Directive(s) 04/21/2016 9:39 AM Advance Directive(s) 04/07/2016 12:16 PM Reason for Referral Specialty Diagnoses / Procedures Referred By Aline ahumada Referred To Contact [facility] Diagnoses Other specified disorders of kidney and ureter Procedures MRI KIDNEY WO/W IVCON MRI ABDOMEN W/O & W/CONTRAST MATERIAL Etienne Flowers MD [address] [place] [address] [facility] Referral ID Status Reason Start Date Expiration Date Visits Requested Visits Authorized [id number] Authorized Auto-Generat ed Referral 08/14/2022 08/14/2023 1 1 Health Concerns Problem Noted Date Diagnosed Date High Risk Chronic Disease Home Monitoring Proble 03/29/2023 Problem Noted Date Diagnosed Date High Risk Chronic Disease Home Monitoring Proble 03/29/2023 Additional Source Comments INFORMATION SOURCE (unrecogn ized section and content) DATE CREATED AUTHOR AUTHOR'S ORGANIZ ATION 11/11/2023 [facility] Source Comments (unrecognize d section and content) In the event this informatio n is protected by the Federal Confidentiality of Alcohol and Drug Abuse Patient Records regulations: The Federal rules restrict any use of the information to criminally investigate or prosecute any alcohol or drug abuse patient.[facility] the event this information is protected by the Federal Confidentiality of Alcohol and Drug Abuse Patient Records regulations: The Federal rules restrict any use of the information to criminally investigate or prosecute any alcohol or drug abuse patient.[facility] the event this information is protected by the Federal Confidentiality of Alcohol and Drug Abuse Patient Records regulations: The Federal rules restrict any use of the information to criminally investigate or prosecute any alcohol or drug abuse patient.[facility] the event this information is protected by the Federal Confidentiality of Alcohol and Drug Abuse Patient Records regulations: The Federal rules restrict any use of the information to criminally investigate or prosecute any alcohol or drug abuse patient.[facility] the event this information is protected by the Federal Confidentiality of Alcohol and Drug Abuse Patient Records regulations: The Federal rules restrict any use of the information to criminally investigate or prosecute any alcohol or drug abuse patient.[facility] event this information is protected by the Federal Confidentiality of Alcohol and Drug Abuse Patient Records regulations: The Federal rules restrict any use of the information to criminally investigate or prosecute any alcohol or drug abuse patient.[facility] the event this information is protected by the Federal Confidentiality of Alcohol and Drug Abuse Patient Records regulations: The Federal rules restrict any use of the information to criminally investigate or prosecute any alcohol or drug abuse patient.[facility] the event this information is protected by the Federal Confidentiality of Alcohol and Drug Abuse Patient Records regulations: The Federal rules restrict any use of the information to criminally investigate or prosecute any alcohol or drug abuse patient.[facility] the event this information is protected by the Federal Confidentiality of Alcohol and Drug Abuse Patient Records regulations: The Federal rules restrict any use of the information to criminally investigate or prosecute any alcohol or drug abuse patient.[facility]on[facility] the event this information is protected by the Federal Confidentiality of Alcohol and Drug Abuse Patient Records regulations: The Federal rules restrict any use of the information to criminally investigate or prosecute any alcohol or drug abuse patient.[facility]on[facility] the event this information is protected by the Federal Confidentiality of Alcohol and Drug Abuse Patient Records regulations: The Federal rules restrict any use of the information to criminally investigate or prosecute any alcohol or drug abuse patient.[facility]on[facility] the event this information is protected by the Federal Confidentiality of Alcohol and Drug Abuse Patient Records regulations: The Federal rules restrict any use of the information to criminally investigate or prosecute any alcohol or drug abuse patient.[facility]on[facility] the event this information is protected by the Federal Confidentiality of Alcohol and Drug Abuse Patient Records regulations: The Federal rules restrict any use of the information to criminally investigate or prosecute any alcohol or drug abuse patient.[facility]onIn the event this information is protected by the Federal Confidentiality of Alcohol and Drug Abuse Patient Records regulations: The Federal rules restrict any use of the information to criminally investigate or prosecute any alcohol or drug abuse patient.[facility]onIn the event this information is protected by the Federal Confidentiality of Alcohol and Drug Abuse Patient Records regulations: The Federal rules restrict any use of the information to criminally investigate or prosecute any alcohol or drug abuse patient.[facility]onIn the event this information is protected by the Federal Confidentiality of Alcohol and Drug Abuse Patient Records regulations: The Federal rules restrict any use of the information to criminally investigate or prosecute any alcohol or drug abuse patient.[facility]onIn the event this information is protected by the Federal Confidentiality of Alcohol and Drug Abuse Patient Records regulations: The Federal rules restrict any use of the information to criminally investigate or prosecute any alcohol or drug abuse patient.[facility]onIn the event this information is protected by the Federal Confidentiality of Alcohol and Drug Abuse Patient Records regulations: The Federal rules restrict any use of the information to criminally investigate or prosecute any alcohol or drug abuse patient.[facility]onIn the event this information is protected by the Federal Confidentiality of Alcohol and Drug Abuse Patient Records regulations: The Federal rules restrict any use of the information to criminally investigate or prosecute any alcohol or drug abuse patient.[facility]onIn the event this information is protected by the Federal Confidentiality of Alcohol and Drug Abuse Patient Records regulations: The Federal rules restrict any use of the information to criminally investigate or prosecute any alcohol or drug abuse patient.[facility] Reason for Visit (unrecogniz ed section and content) Reason Comments fatigue in legs 4-6 weeks body muscle soreness Reason Comments Recheck Reason Onset Date Comments Community Monitoring Outreach 05/12/2022 CH F/ CKD Telephonic CDM Reason Onset Date Comments Community Monitoring Outreach 06/15/2022 CH F / CKD Telephonic CDM Outreach Reason Comments Abdominal Pain Reason Comments ED Follow-up diverticulitis Reason Onset Date Comments Refill Request 08/01/2022 Reason Comments Medicare Wellness Exam Reason Onset Date Comments Community Monitoring Outreach 10/12/2022 In sight Escalation Reason Onset Date Comments Community Monitoring Outreach 10/12/2022 Rx request Reason Onset Date Comments Refill Request 11/22/2022 Reason Onset Date Comments Refill Request 03/27/2023 Reason Onset Date Comments Community Monitoring Outreach 06/15/2023 Care Teams (unrecognized sec tion and content) Sugar Refiner Relationship Specialty Start Date End Date Etienne Flowers MD [address] [place] [address] PCP - General 07/30/09 Marbin Rosa, production metal sprayerDirector Inbound Sales Internal Medicine 07/20/21 Sugar Refiner Relationship Specialty Start Date End Date Etienne Flowers MD [address] [place] [address] PCP - General 07/30/09 Marbin Rosa, production metal sprayerDirector Inbound Sales Internal Medicine 07/20/21 Sugar Refiner Relationship Specialty Start Date End Date Etienne Flowers MD [address] [place] [address] PCP - General 07/30/09 Marbin Rosa, production metal sprayerDirector Inbound Sales Internal Medicine 07/20/21 Sugar Refiner Relationship Specialty Start Date End Date Etienne Flowers MD [address] [place] [address] PCP - General 07/30/09 Marbin Rosa, production metal sprayerDirector Inbound Sales Internal Medicine 07/20/21 Sugar Refiner Relationship Specialty Start Date End Date Etienne Flowers MD [address] [place] [address] PCP - General 07/30/09 Marbin Rosa, production metal sprayerDirector Inbound Sales Internal Medicine 07/20/21 Sugar Refiner Relationship Specialty Start Date End Date Etienne Flowers MD [address] [place] [address] PCP - General 07/30/09 Marbin Rosa, production metal sprayerDirector Inbound Sales Internal Medicine 07/20/21 Sugar Refiner Relationship Specialty Start Date End Date Etienne Flowers MD [address] [place] [address] PCP - General 07/30/09 Marbin Rosa, production metal sprayerDirector Inbound Sales Internal Medicine 07/20/21 Sugar Refiner Relationship Specialty Start Date End Date Etienne Flowers MD [address] [place] [address] PCP - General 07/30/09 Marbin Rosa, production metal sprayerDirector Inbound Sales Internal Medicine 07/20/21 Sugar Refiner Relationship Specialty Start Date End Date Etienne Flowers MD [address] [place] [address] PCP - General 07/30/09 Shelley Zazueta, production metal sprayerDirector Inbound Sales Internal Medicine 07/20/21 Sugar Refiner Relationship Specialty Start Date End Date Etienne Flowers MD [address] [place] [address] PCP - General 07/30/09 Shelley Zazueta, production metal sprayerDirector Inbound Sales Internal Medicine 07/20/21 Sugar Refiner Relationship Specialty Start Date End Date Etienne Flowers MD [address] [place] [address] PCP - General 07/30/09 Shelley Zazueta, production metal sprayerDirector Inbound Sales Internal Medicine 07/20/21 Sugar Refiner Relationship Specialty Start Date End Date Etienne Flowers MD [address] [place] [address] PCP - General 07/30/09 Shelley Zazueta, production metal sprayerDirector Inbound Sales Internal Medicine 07/20/21 Sugar Refiner Relationship Specialty Start Date End Date Etienne Flowers MD [address] [place] [address] PCP - General 07/30/09 Shelley Zazueta, production metal sprayerDirector Inbound Sales Internal Medicine 07/20/21 Sugar Refiner Relationship Specialty Start Date End Date Etienne Flowers MD [address] [place] [address] PCP - General 07/30/09 Shelley Zazueta, production metal sprayerDirector Inbound Sales Internal Medicine 07/20/21 FOR RECORDS PERTAINING TO PATIENTS WHO ARE OR HAVE BEEN ENROLLED IN A CHEMICAL DEPENDENCY/SUBSTANCEABUSE PROGRAM, SOME INFORMATION MAY BE OMITTED. This clinical summary was aggregated from multiple sources. Caution should be exercised in using it in the provision of clinical care. This summary normalizes information from multiple sources, and as a consequence, information in this document may materially change the coding, format and clinical context of patient data. In addition, data may be omitted in some cases. CLINICAL DECISIONS SHOULD BE BASED ON THE PRIMARY CLINICAL RECORDS. [facility] [employer] [facility]. provides no warranty or guarantee of the accuracy or completeness of information in this document.
--- NOTE | 2023-12-11 20:50 | EDS_ITS ---
HPI History of Present Illness Chief Complaint: Nausea/Vomiting Informant: patient and spouse/S.O. Onset/Context/Timing Onset: Weeks Context: Gradual Onset Timing: Intermittent Current Severity: Mild Maximum Severity: Mild Narrative Narrative: 78-year-old female extensive past medical history of CHF, left bundle, card iomyopathy initially EF of 15% years ago is now up to 40%. Prior history of breast cancer. States she is felt lightheaded for the last 3 weeks intermittent primarily positional going from a lying to a seated or seated or standing position and with time it gets better. She denies any headache. Today around noon she said she just was not feeling well same lightheadedness but she started having nausea and vomiting. She has had some recent fatigue. And left-sided chest discomfort is not exertional. Prior similar symptoms: Yes Recent Illness/Hospitalization: No PFSH PFSH Medical History Acute on chronic systolic (congestive) heart failure COVID-19 (~09/2022) History of breast cancer Left bundle branch block Migraine Non-ischemic cardiomyopathy Home Medications lutein extract 15 mg-zeaxanthin extract 0.7 mg capsule 1 ea PO DAILY supplement 12/14/17 [History Last Taken 05/09/18] mecobalamin (vitamin B12) 1,000 mcg disintegrating tablet,sublingual 1,000 mcg sublingual QDAY 05/31/18 [History Last Taken Unknown] cholecalciferol (vitamin D3) 50 mcg (2,000 unit) tablet 2,000 unit PO DAILY 11/07/19 [History Last Taken Unknown] sumatriptan succinate 50 mg tablet 50 mg PO .X1 PRN PRN Migraine Symptoms 06/25/20 [History Last Taken Unknown] multivitamin 1 tab PO DAILY 05/19/22 [History Last Taken Unknown] furosemide 40 mg tablet 40 mg PO DAILY #90 tabs 06/21/23 [Rx Last Taken Unknown] lisinopril 5 mg tablet 5 mg PO DAILY #30 tabs 06/28/23 [Rx Last Taken Unknown] carvedilol 25 mg tablet 25 mg PO BID #180 tabs 07/31/23 [Rx Last Taken Unknown] Allergy/AdvReac Type Severity Reaction Status Date / Time No Known Allergies Allergy Verified 12/11/23 18:51 Family History Grandfather Myocardial infarction Surgical History H/O lumpectomy History of appendectomy History of left heart catheterization (04/24/19) History of open reduction and internal fixation (ORIF) procedure Hx of cholecystectomy Social History Smoking Status: Never smoker alcohol intake: never substance use type: does not use caffeine: Yes Type: coffee Number of servings: 2 ROS ROS ED ROS Narrative Lightheadedness. 4 weeks. Nausea and vomiting today. Review of Systems ROS Unobtainable: Denies due to encephalopathy Constitutional Constitutional ED: Denies chills or fever(s) Eyes Eyes: Denies blurry vision ENT ENT ED: Denies ear pain Cardiovascular Cardiovascular: Denies chest pain Respiratory/Chest Respiratory/Chest: Denies cough or dyspnea Gastrointestinal Gastrointestinal: Reports nausea and vomiting; Denies abdominal pain, constipation, diarrhea or melena Genitourinary Genitourinary ED: Denies dysuria or hematuria Musculoskeletal Musculoskeletal: Denies arthralgias Integumentary Denies abscess Neurologic Neurologic: Denies headache(s) Psychiatric Psychiatric: Denies anxiety Endocrine Endocrinology: Denies cold intolerance Hematologic/Lymphatic Hematologic/Lymphatic: Reports none; Denies systems reviewed and no addt'l complaints, except as documented Allergic/Immunologic Allergic/Immunologic ED: Denies mouth swelling, tongue swelling or urticaria EXAM Physical Exam Narrative Exam Narrative: Well-appearing 78-year-old female. Vital signs stable afebrile. Sitting u pright in bed. at bedside. She does not look septic toxic or in any distress. Pulse ox 90% on room air no hypoxia. H EENT exam unremarkable atraumatic. Pupils round react light. Normal speech. No facial droop. No trauma. Neck nontender. No lymphadenopathy. Lungs clear to auscultation bilaterally. Heart regular rhythm rate about 60 no murmur. Chest wall and ribs nontender. Abdomen soft nontender. Back nontender. Moving all 4 extremities. 5 out of 5 cash management clerk strength. Dorsi plantarflexion intact. No drift bilaterally. Upper and lower extremities. Calves are nontender without edema or cords. Neurologically she is awake alert with no focal motor deficits lying in bed. NIH is 0. Answering questions following commands. Const Vital Signs: 12/11/23 18:52 12/11/23 18:54 12/11/23 18:54 Temperature 96.9 F L Temperature Source Temporal Pulse Rate 67 Pulse Rate [Lying] Pulse Rate [Sitting (for 1 minute prior to obtaining)] Pulse Rate [Standing (for 1 minute prior to obtaining)] Respiratory Rate 16 Respiratory Effort Normal Non-Labored Blood Pressure 163/84 H Blood Pressure [Lying] Blood Pressure [Sitting (for 1 minute prior to obtaining)] Blood Pressure [Standing (for 1 minute prior to obtaining)] Blood Pressure Mean 110 Blood Pressure Mean [Lying] Blood Pressure Mean [Sitting (for 1 minute prior to obtaining)] Blood Pressure Mean [Standing (for 1 minute prior to obtaining)] Pulse Ox 98 Oxygen Delivery Method Room Air Room Air 12/11/23 22:11 12/11/23 20:51 12/11/23 22:00 Temperature Temperature Source Pulse Rate 39 L 47 L Pulse Rate [Lying] 63 Pulse Rate [Sitting (for 1 minute prior to obtaining)] 39 L Pulse Rate [Standing (for 1 minute prior to obtaining)] 39 L Respiratory Rate 16 15 Respiratory Effort Blood Pressure 129/48 H 142/53 H Blood Pressure [Lying] 137/59 H Blood Pressure [Sitting (for 1 minute prior to obtaining)] 143/50 H Blood Pressure [Standing (for 1 minute prior to obtaining)] 136/48 H Blood Pressure Mean 75 82 Blood Pressure Mean [Lying] 85 Blood Pressure Mean [Sitting (for 1 minute prior to obtaining)] 81 Blood Pressure Mean [Standing (for 1 minute prior to obtaining)] 77 Pulse Ox 95 Oxygen Delivery Method Positive well nourished and well developed; Negative for cachectic, contractures or unkempt General Appearance ED: well developed and NAD; Negative for unkempt, cachectic, contractures, cyanotic, diaphoretic or pallor Nutritional Appearance: Negative for cachectic HEENT Reports moist mucous membranes; Denies dry mucous membranes Negative for trauma or tenderness Mouth ED: No dry mucous membranes Mouth: No dry mucous membranes Eyes PERRL and EOMs intact bilaterally General Eye ED: Negative for pale conjunctiva, scleral icterus or other Neck no lymphadenopathy, supple and no JVD General: Negative for tenderness Lymph Lymphatic: Negative for other Chest Wall inspection of chest normal and palpation of chest normal Chest: Negative for other Resp normal respiratory effort and clear to auscultation bilaterally Effort and Inspection: Negative for retractions Auscultation: Negative for rales, rhonchi or wheezes Cardio regular rhythm, S1 normal heart sound, S2 normal heart sound and no murmurs Palpation: Negative for palpable S3 or palpable S4 Rate: Negative for bradycardia, tachycardic or other Rhythm: Negative for abnormal rhythm GI normal to inspection, nondistended, normoactive bowel sounds, non-tender, non- distended and no masses Inspection: Negative for abdominal distention Auscultation: normoactive bowel sounds Palpation: soft; Negative for tender or guarding Back/Spine no CVA tenderness General Back: Negative for CVA tenderness Cervical Spine: Negative for cervical spine tenderness Thoracic Spine / Upper Back: Negative for thoracic spinal tenderness or paraspinal muscle tenderness Lumbar Spine / Lower Back: Negative for lumbar spinal tenderness Neuro oriented x3 and CN's II-XII intact bilaterally Sensorium / Orientation: alert; Negative for orientation impaired, lethargic or stuporous Motor Exam: strength 5/5 throughout Psych mental status grossly normal Appearance: Negative for unkempt Attitude: No agitated Mood & Affect: Negative for depressed, anxious or tearful Skin no rashes or lesions noted, no wounds and skin turgor normal General Skin Exam: elasticity normal; Negative for jaundice or pallor Lesions: No lesion noted Rashes: No rashes noted Trauma: Negative for abrasion Wounds: Negative for wounds noted MDM MDM MDM Narrative Medical decision making narrative: 78-year-old extensive cardiac history with lightheadedness for 3 weeks it sounds positional like orthostatic hypotension. She had some atypical chest discomfort today that was not exertional. And she has had nausea and vomiting. Cardiac workup plus IV Zofran for nausea. Orthostatic vital signs. Exam is benign. Neurologic exam is normal. Repeat exam unchanged. In bed the patient has normal neurologic exam. Walker she was able to walk but felt lightheaded. She has no focal neurological deficits. She has been having episodes of bradycardia anywhere from 30 to the low 60s while in the emergency department. I do not know if this is related or not to her lightheadedness. Her most recent echocardiogram showed an ejection fraction of 40% she has a known cardiomyopathy but that is improving. She will also be treated with a liter normal saline. I do not know the patient's lightheadedness this is simply because it may be related to this bradycardia I will speak to the hospitalist about a telemetry admission. History & Record Review Discussion w/independent historian: Patient Additional record(s) reviewed:: Prior inpatient record, Prior outpatient record, Prior ED visit and Prior labs Lab Data Attestation: I reviewed the patient's lab results. Lab results narrative: CBC shows a white count of 7. H&H 12 and 36. Platelets 261. BMP electrolytes unremarkable. Gap 7. BUN of 28 creatinine 1.36. Glucose 138. Troponin is normal at 38. Chest x-ray is negative. Labs: Laboratory Results - last 24 hr 12/11/23 21:05 WBC 7.0 RBC 4.06 L Hgb 12.3 Hct 36.9 L MCV 90.9 MCH 30.3 MCHC 33.3 RDW Std Deviation 41.3 RDW Coeff of [place] 12.6 Plt Count 261 MPV 9.9 Immature Gran % (Auto) 0.300 Neut % (Auto) 77.4 H Lymph % (Auto) 17.9 L [place] % (Auto) 3.7 Eos % (Auto) 0.1 Baso % (Auto) 0.6 Absolute Neuts (auto) 5.4 Absolute Lymphs (auto) 1.25 Nucleated RBC % 0 Sodium 138 Potassium 3.9 Chloride 105 Carbon Dioxide 26.0 Anion Gap 7 BUN 28 H Creatinine 1.36 H Estim Creat Clear Calc 29.91 Est GFR (MDRD) Af Amer 49 L Est GFR (MDRD) Non-Af 40 L BUN/Creatinine Ratio 20.6 H Glucose 138 H Calcium 9.2 Troponin I High Sens 38 Radiography Chest X-Ray - ED: 1 View, Read by ED Physician, Read by Radiologist, Lungs, Mediastinum, Bony Structures, No Acute Disease and Chronic Changes Diagnostic Testing: Clinical Impression(s) from Imaging Studies Chest X-Ray 12/11/23 19:55 IMPRESSION: No evidence of acute cardiopulmonary disease. Electronically Signed: Sharath Rajan DO at 20:54 EST , Chest x-ray, portable, single view shows no acute abnormality. Normal cardiac silhouette. Normal lung ceballos. Normal mediastinum. No infiltrates. No effusions. Interpreted both by myself and the radiologist. Rhythm Strip Rhythm Strip: Sinus bradycardia Rate: 53 Ectopy: None EKG Initial EKG: Attestation: I personally reviewed and interpreted this EKG as follows: Interpretation: Sinus Rhythm, No Acute Injury Pattern and Sinus Bradycardia Comments: Sinus bradycardia rate of 53 no acute signs of RI or ischemia. Left bundle branch block which she has a history of. Prior EKG tracings: available for review Prior: Unchanged Discharge Plan Dx/Rx/DC Orders Clinical Impression: Light-headedness, History of breast cancer, Bradycardia, Hx of cardiomyopathy Disposition Disposition: Acute Care Hospital [facility]
[2023-12-11 20:51] VITALS: BP 129/48; PULSE 39; RESP 16
[2023-12-11 21:13] LABS: Absolute Lymphocyte Count 1.25 X10^3/uL (0.83-4.51); Absolute Neutrophil Count 5.4 X10^3/uL (2.0-7.7); Basophil# 0.04 X10^3/uL; Basophil% 0.6 % (0-1); Eosinophil# 0.01 X10^3/uL; Eosinophils% 0.1 % (0-5); Hematocrit 36.9 % (37-47); Hemoglobin 12.3 g/dL (12.0-15.0); Lymphocyte # 1.25 X10^3/ul (0.83-4.51); Lymphocyte % 17.9 % (19-41); Mean Corp Hgb Conc 33.3 g/dL (32-36); Mean Corpuscular Hgb 30.3 pg (27.0-32.0); Mean Corpuscular Volume 90.9 fL (81-99); Mean Platelet Vol. 9.9 fl (6.2-12.0); Monocyte# 0.26 X10^3/uL; Monocyte% 3.7 % (0-10); NRBC Flagged by Analyzer 0 % (0-5); Neutrophil # 5.39 X10^3/uL (2.7-7.7); Neutrophil % 77.4 % (47-70); Platelet Count 261 K/mm3 (150-450); RBC Distribution Width CV 12.6 % (11.6-14.6); RBC Distribution Width SD 41.3 fl (35.1-43.9); Red Blood Count 4.06 M/mm3 (4.2-5.4)
[2023-12-11] MEDS: Ondansetron 4 MG/2 ML Vial IV (21:18)
[2023-12-11 21:34] LABS: Anion Gap 7 (5-15); BUN 28 mg/dL (7-18); BUN/Creat Ratio 20.6 RATIO (10-20); Calcium,Total 9.2 mg/dL (8.5-10.1); Chloride 105 mmol/L (98-107); Creatinine, Serum 1.36 mg/dL (0.55-1.02); EST Glomerular Filtration Rate 40 mL/min (>60); Est Glom Filt Rate - Afr Amer 49 mL/min (>60); Estimated Creatinine Clearance 29.91 ml/min; Glucose 138 mg/dL (74-106); Potassium 3.9 mmol/L (3.5-5.1); Sodium Level 138 mmol/L (136-145); Troponin-I HS (w/2H Reflex) 38 pg/mL (3.0-54.0)
[2023-12-11 22:00] VITALS: BP 142/53; PULSE 47; RESP 15; O2SAT 95
[2023-12-11 22:11] VITALS: BP 136/48; BP 137/59; BP 143/50; PULSE 39; PULSE 63
--- NOTE | 2023-12-11 23:05 | CT_ITS ---
INDICATION: dizziness. breast ca hx EXAMINATION: CT BRAIN - CT Head or Brain W/O Contrast Injection TECHNIQUE: Multiple axial images were obtained of the head with sagittal and coronal reconstructed images. Individualized dose optimization techniques were used for this CT. IV contrast dosage and agent: None. COMPARISON: None. FINDINGS: BRAIN PARENCHYMA: No evidence of an acute infarct or intracranial hemorrhage. No evidence of a mass. CSF SPACES: The ventricles, sulci and subarachnoid cisterns are appropriate for age. CALVARIUM, SKULL BASE, PARANASAL SINUSES AND MASTOID AIR CELLS: No fracture. Mastoid air cells are clear. Visualized paranasal sinuses are unremarkable. ORBITS: The globes, extraocular muscles, optic nerves and retrobulbar fat are unremarkable. CT/Brain/Head without Contrast IMPRESSION: Normal noncontrast CT of the head. Electronically Signed: Sharath Rajan DO at 23:39 EST ,
[2023-12-11 23:09] LABS: Reflex Troponin-HS? (from REC) Y
--- NOTE | 2023-12-11 23:25 | PCM.HP.STD ---
HPI - General General Date of Admission: 12/11/23 Date of Service: 12/11/23 Chief Complaint: Lightheadedness HPI Narrative LOGAN MORTON, is a 78 F who presented to the emergency department at [facility] on 12/11/2023 complaining of lightheadedness that has been problematic for the last 3 weeks. She has had associated profound fatigue and nausea with intermittent vomiting. She states she gets the nausea and vomiting when she has these episodes. Initially it sounded very orthostatic and she was complaining of the symptoms predominantly being with positional changes from sitting to standing however her orthostatic vitals were completely unremarkable. She still is having some nausea and was able to ambulate throughout the emergency department without any signs of disequilibrium. She has no other associated symptoms. She has had no medication changes. She has a history of a nonischemic cardiomyopathy with improvement in her EF to 40% from 15%. Her cardiomyopathy was deemed to be from her previous chemotherapy for breast cancer. She follows with Dr. Phillips at baseline. She did have a cardiac catheterization on 04/24/2019 that showed normal coronary arteries. Vital signs on presentation showed a temperature of 96.9, heart rate 67, blood pressure 163/84, respiratory rate 16 oxygen saturations 98% on room air. Orthostatic vitals were done and found to be unremarkable. Her heart rate has been quite variable during the telemetry monitoring in the emergency department and she has had heart rates anywhere from the low 30s to 67. Her CBC was unremarkable. BMP shows normal electrolytes. She has a slightly elevated BUN and creatinine which appear to be close to her baseline. Her glucose was 138. Troponin was normal at 38 and TSH was 2.31. EKG showed sinus bradycardia with intermittent ectopy and normal intervals with no signs of acute ischemia. Chest x-ray was unremarkable. CT of the brain was unremarkable. [facility] Medical History Acute on chronic systolic (congestive) heart failure COVID-19 (~09/2022) History of breast cancer Left bundle branch block Migraine Non-ischemic cardiomyopathy Home Medications lutein extract 15 mg-zeaxanthin extract 0.7 mg capsule 1 ea PO DAILY supplement 12/14/17 [History Last Taken 05/09/18] mecobalamin (vitamin B12) 1,000 mcg disintegrating tablet,sublingual 1,000 mcg sublingual QDAY supplement 05/31/18 [History Last Taken Unknown] cholecalciferol (vitamin D3) 50 mcg (2,000 unit) tablet 2,000 unit PO DAILY supplement 11/07/19 [History Last Taken Unknown] sumatriptan succinate 50 mg tablet 50 mg PO .X1 PRN PRN Migraine Symptoms 06/25/20 [History Last Taken Unknown] multivitamin 1 tab PO DAILY supplement 05/19/22 [History Last Taken Unknown] furosemide 40 mg tablet 40 mg PO DAILY fluid #90 tabs 06/21/23 [Rx Last Taken Unknown] lisinopril 5 mg tablet 5 mg PO DAILY htn #30 tabs 06/28/23 [Rx Last Taken Unknown] carvedilol 25 mg tablet 25 mg PO BID htn #180 tabs 07/31/23 [Rx Last Taken Unknown] Allergy/AdvReac Type Severity Reaction Status Date / Time No Known Allergies Allergy Verified 12/11/23 18:51 Family History Grandfather Myocardial infarction Surgical History H/O lumpectomy History of appendectomy History of left heart catheterization (04/24/19) History of open reduction and internal fixation (ORIF) procedure Hx of cholecystectomy Social History Smoking Status: Never smoker alcohol intake: never substance use type: does not use caffeine: Yes Type: coffee Number of servings: 2 ROS Constitutional Constitutional: Reports fatigue; Denies anorexia, change in weight, chills, fever(s), malaise, night sweats, weakness or other Eyes Eyes: Denies blurry vision, change in eye color, change in vision, discharge from eye(s), double vision, erythema, eye pain, loss of vision or other ENT HEENT: Denies abnormal hearing, dysphagia, ear pain, epistaxis, headache(s), hearing loss, nasal congestion, nasal discharge, post nasal drip, sinus pressure, sore throat or other Cardiovascular Cardiovascular: Reports lightheadedness; Denies chest pain, claudication, dyspnea on exertion, edema, orthopnea, palpitations, paroxysmal nocturnal dyspnea, rapid heart rate, syncope or other Respiratory/Chest Respiratory/Chest: Denies cough, dyspnea, excessive phlegm production, hemoptysis, productive cough, shortness of breath at rest, shortness of breath with exertion, wheezing or other Gastrointestinal Gastrointestinal: Reports nausea and vomiting; Denies abdominal pain, coffee ground emesis, constipation, diarrhea, dyspepsia, hematemesis, hematochezia, loose stools, melena or other Genitourinary Genitourinary: Denies burning urination, difficulty urinating, dysuria, hematuria, nocturia, urinary frequency, urinary hesitancy, urinary incontinence, urinary urgency or other Musculoskeletal Musculoskeletal: Denies arthralgias, back pain, joint pain, joint stiffness, joint swelling, myalgias, neck pain or other Neurologic Neurologic: Denies abnormal gait, abnormal speech, confusion, disequilibrium, dizziness, focal weakness, headache(s), numbness, paresthesias, seizure-like activity, seizures, syncope, tingling, tremor(s) or other Psychiatric Psychiatric: Denies anxiety, depression, homicidal ideation, suicidal ideation or other Endocrine Endocrinology: Denies change in body appearance, cold intolerance, excessive sweating, heat intolerance, polydipsia, polyuria or other Hematologic/Lymphatic Hematologic/Lymphatic: Denies anemia, easy bleeding, easy bruising, lymphadenopathy or other Allergic/Immunologic Allergic/Immunologic: Denies rhinitis, hives, eczemia, asthma or other Vital Signs Vital Signs Vital Signs: 12/11/23 18:52 12/11/23 18:54 12/11/23 18:54 Temperature 96.9 F L Temperature Source Temporal Pulse Rate 67 Pulse Rate [Lying] Pulse Rate [Sitting (for 1 minute prior to obtaining)] Pulse Rate [Standing (for 1 minute prior to obtaining)] Respiratory Rate 16 Respiratory Effort Normal Non-Labored Blood Pressure 163/84 H Blood Pressure [Lying] Blood Pressure [Sitting (for 1 minute prior to obtaining)] Blood Pressure [Standing (for 1 minute prior to obtaining)] Blood Pressure Mean 110 Blood Pressure Mean [Lying] Blood Pressure Mean [Sitting (for 1 minute prior to obtaining)] Blood Pressure Mean [Standing (for 1 minute prior to obtaining)] Pulse Ox 98 Oxygen Delivery Method Room Air Room Air 12/11/23 22:11 12/11/23 20:51 12/11/23 22:00 Temperature Temperature Source Pulse Rate 39 L 47 L Pulse Rate [Lying] 63 Pulse Rate [Sitting (for 1 minute prior to obtaining)] 39 L Pulse Rate [Standing (for 1 minute prior to obtaining)] 39 L Respiratory Rate 16 15 Respiratory Effort Blood Pressure 129/48 H 142/53 H Blood Pressure [Lying] 137/59 H Blood Pressure [Sitting (for 1 minute prior to obtaining)] 143/50 H Blood Pressure [Standing (for 1 minute prior to obtaining)] 136/48 H Blood Pressure Mean 75 82 Blood Pressure Mean [Lying] 85 Blood Pressure Mean [Sitting (for 1 minute prior to obtaining)] 81 Blood Pressure Mean [Standing (for 1 minute prior to obtaining)] 77 Pulse Ox 95 Oxygen Delivery Method Weight Weight: 60.781 kg Body Mass Index (BMI) 23.0 Physical Exam Const alert, oriented x3, no apparent distress, average body habitus and well nourished; Negative for healthy appearing Constitutional Narrative: Older, white female, sitting up in bed, appears younger than stated age, appears nontoxic but does appear as if she is not feeling well General Appearance: cooperative HEENT normocephalic, head/scalp atraumatic, hearing grossly normal bilaterally and moist oral mucous membranes HEENT Narrative: Mallampati is 2, no thrush Eyes PERRL and EOMs intact bilaterally Eyes Narrative: No scleral icterus Neck no lymphadenopathy and supple Neck Narrative: Trachea midline, no thyroid enlargement or nodules noted, Resp normal respiratory effort, no retractions, no use of accessory muscles and clear to auscultation bilaterally Auscultation: Negative for rales, rhonchi or wheezes Cardio S1 normal heart sound, S2 normal heart sound, no murmurs, no rub, no gallops and no clicks; Negative for regular rate or regular rhythm Cardio Narrative: Bradycardic with intermittent ectopy noted GI normal to inspection, nondistended, normoactive bowel sounds, soft to palpation and non-tender Extremity no clubbing, cyanosis or edema Extremity Narrative: Pedal pulses are 2+ Neuro oriented x3, moves all extremities and no focal motor deficits Speech: speech normal Psych affect normal Psych Narrative: Very pleasant, interacts appropriately Results Lab / Micro Data Attestation: I reviewed the patient's lab results. 12/11/23 21:05 12/11/23 21:05 Labs: Laboratory Results - last 24 hr 12/11/23 21:05: WBC 7.0, RBC 4.06 L, Hgb 12.3, Hct 36.9 L, MCV 90.9, MCH 30.3, MCHC 33.3, RDW Std Deviation 41.3, RDW Coeff of Linwood 12.6, Plt Count 261, MPV 9.9, Immature Gran % (Auto) 0.300, Neut % (Auto) 77.4 H, Lymph % (Auto) 17.9 L, Randolph % (Auto) 3.7, Eos % (Auto) 0.1, Baso % (Auto) 0.6, Absolute Neuts (auto) 5.4, Absolute Lymphs (auto) 1.25, Nucleated RBC % 0, Sodium 138, Potassium 3.9, Chloride 105, Carbon Dioxide 26.0, Anion Gap 7, BUN 28 H, Creatinine 1.36 H, Estim Creat Clear Calc 29.91, Est GFR (MDRD) Af Amer 49 L, Est GFR (MDRD) Non-Af 40 L, BUN/Creatinine Ratio 20.6 H, Glucose 138 H, Calcium 9.2, Troponin I High Sens 38 Rhythm Strip Rhythm Strip: Sinus bradycardia Rate: 53 Ectopy: None Imaging Radiology Impression Chest X-Ray 12/11/23 19:55 IMPRESSION: No evidence of acute cardiopulmonary disease. Electronically Signed: Sharath Rajan DO at 20:54 EST Reading Location ID and State: [facility] / [place] Tel , Service support , Assessment & Plan Assessment/Plan (1) Bradycardia: (2) Light-headedness: (3) Elevated serum creatinine: (4) Nausea and vomiting: PLAN: Plan Lightheadedness with bradycardia -Orthostatics are negative -Patient found to be quite profoundly bradycardic intermittently -Hold home beta-josafat -TSH was normal -Cycle cardiac enzymes -Check echocardiogram -Consult cardiology -CT of the brain unremarkable -With history of breast cancer x 2 we will check MRI of brain with and without contrast to rule out any metastatic process that could be contributing Fatigue -Suspect related to the above -Beta-blockers on hold -TSH is normal Nausea and vomiting -Etiology is unclear -Seems to be related to -As needed antiemetics available Elevated serum creatinine -Baseline is unclear -Current creatinine is 1.36 -Patient was given gentle hydration by the emergency department however with an EF of 40% I will not hydrate her anymore and will continue her home Lasix -Repeat lab in a.m. History of nonischemic cardiomyopathy -Was attributed to chemotherapy related to her breast cancer -Echocardiogram is pending -Hold home Coreg -Last echocardiogram was performed on 06/14/2023 and showed an EF of 40% with mild to moderate global left ventricular dysfunction, chronic bundle maria luisa block with no significant valvular abnormalities. -Continue home Lasix Hypertension -Hold home Coreg -Continue home lisinopril -As needed hydralazine for systolic pressure greater than 160 Vitamin D deficiency -Continue home supplementation History of migraine headaches -Continue home as needed sumatriptan DVT prophylaxis -Subcu Lovenox 40 mg daily CODE STATUS -DNR CCA with no intubation as verified on admission Charges/Coding Visit Charges Inpatient E&M: 28479 Init Hosp L2
[2023-12-11] MEDS: 0.9% Normal Saline (1000mL) 1,000 ML 999 ML IV (23:26)
--- OUTSIDE RECORDS SUMMARY | 2023-12-11 23:27 | XMS RPT_ITS | CCD ---
Author Name Unknown Address [address] [place] [address] Organization [facility] Care Team Providers Care Watch Band Assembler Name Role Phone BRYAN OCONNOR Attending Unavailable ANASTASIABRYAN PUGA Primary Care Unavailable ANASTASIABRYAN PUGA Admitting Unavailable ANASTASIABRYAN PUGA Attending Unavailable ANASTASIABRYAN PUGA Primary Care Unavailable ANASTASIABRYAN GONSALVES Admitting Unavailable Etienne Flowers MD Primary Care Provider [phone] Marbin Rosa RN Unavailable UnavailEtienne Burdick MD Primary Care Provider [phone] Shelley SUTTON, Marbin Luna Unavailable Unavailvanessa Zazueta RN, Shelley Luna Unavailable UnavailEtienne Burdick MD Primary Care Provider [phone] Marbin SUTTON, Shelley Luna Unavailable Unavailvanessa Zazueta [...] to adverse reactions 3 Other: See Comments [facility] Work Phone: Medications Completed/Discontinued Medications Medication Drug [...] 10:47-0500 Body height 160 cm Keyonna Older NURSES ASSISTANT.MARKET RESEARCH SPECIALIST Work Phone: [facility] 09-21-2022 10:47-0500 Body weight 56.7 kg Keyonna Older NURSES ASSISTANT.LUCHO Work Phone: [facility] 09-21-2022 10:47-0500 Diastolic blood pressure 78 mm[Hg] Keyonna Older NURSES ASSISTANT.LUCHO Work Phone: [facility] 09-21-2022 10:47-0500 Heart rate 64 /min Keyonna Older NURSES ASSISTANT.LUCHO Work Phone: [facility] 09-21-2022 10:47-0500 Respiratory rate 14 /min Keyonna Older NURSES ASSISTANT.MARKET RESEARCH SPECIALIST Work Phone: [facility] 09-21-2022 10:47-0500 Systolic blood pressure 130 mm[Hg] Keyonna Older NURSES ASSISTANT.MARKET RESEARCH SPECIALIST Work Phone: [facility] 07-11-2022 12:17-0400 Body temperature 97.11 [degF] Etienne Flowers MD Work Phone: [facility] 07-11-2022 12:17-0400 Body weight 58.06 kg Etienne Flowers MD Work Phone: [facility] 07-11-2022 12:17-0400 Diastolic blood pressure 54 mm[Hg] Etienne Flowers MD Work Phone: [facility] 07-11-2022 12:17-0400 Heart rate 72 /min Etienne Flowers MD Work Phone: [facility] 07-11-2022 12:17-0400 Respiratory rate 12 /min Etienne Flowers MD Work Phone: [facility] 07-11-2022 12:17-0400 Systolic blood pressure 102 mm[Hg] Etienne Flowers MD Work Phone: [facility] 04-21-2022 12:58-0400 Body temperature 96.6 [degF] Etienne Flowers MD Work Phone: [facility] 04-21-2022 12:58-0400 Body weight 59.88 kg Etienne Flowers MD Work Phone: [facility] 04-21-2022 12:58-0400 Diastolic blood pressure 68 mm[Hg] Etienne Flowers MD Work Phone: [facility] 04-21-2022 12:58-0400 Heart rate 60 /min Etienne Flowers MD Work Phone: [facility] 04-21-2022 12:58-0400 Respiratory rate 12 /min Etienne Flowers MD Work Phone: [facility] 04-21-2022 12:58-0400 Systolic blood pressure 122 mm[Hg] Etienne Flowers MD Work Phone: [facility] 04-13-2022 09:59-0400 Body weight 59.42 kg Keyonna Older NURSES ASSISTANT.MARKET RESEARCH SPECIALIST Work Phone: [facility] 04-13-2022 09:59-0400 Diastolic blood pressure 68 mm[Hg] Keyonna Older NURSES ASSISTANT.MARKET RESEARCH SPECIALIST Work Phone: [facility] 04-13-2022 09:59-0400 Heart rate 64 /min Keyonna Older NURSES ASSISTANT.MARKET RESEARCH SPECIALIST Work Phone: [facility] 04-13-2022 09:59-0400 Respiratory rate 12 /min Keyonna Older NURSES ASSISTANT.MARKET RESEARCH SPECIALIST Work Phone: [facility] 04-13-2022 09:59-0400 Systolic blood pressure 124 mm[Hg] Keyonna Older NURSES ASSISTANT.MARKET RESEARCH SPECIALIST Work Phone: [facility] Encounters Encounter Date Encounter Type Care Provider Facility Start: 11-09-2023 End: 11-09-2023 ambulatory KEYONNA ÁLVAREZ Facility:[facility] Start: 09-26-2023 Documentation procedure Mammog susanna Coordinator [facility] Start: 09-26-2023 Letter encounter Mammography Coordinator [facility] Department Start: 09-25-2023 End: 09-25-2023 Orders Only Etienne Flowers MD Work Phone: [facility] Procedures Date Procedure Procedure Detail Performing Clinician Start: 09-23-2022 End: 09-23-2022 Mammography Keyonna Older NURSES ASSISTANT.MARKET RESEARCH SPECIALIST Work Phone: Start: 07-11-2022 Adult depression screening assessment Etienne Flowers MD Work Phone: Start: 06-16-2021 Mammography Keyonna Older NURSES ASSISTANT.MARKET RESEARCH SPECIALIST Work Phone: Start: 03-03-2021 Adult depression screening assessment Keyonna Older NURSES ASSISTANT.MARKET RESEARCH SPECIALIST Work Phone: Start: 04-21-2016 Colonoscopy Keyonna Older NURSES ASSISTANT.MARKET RESEARCH SPECIALIST Work Phone: Start: 07-27-2012 History of bilateral mastectomy S/P bilateral breast lumpectomy Keyonna Older NURSES ASSISTANT.MARKET RESEARCH SPECIALIST Work Phone: Start: 07-27-2012 History of mastectomy S/P bila teral breast lumpectomy Keyonna Older NURSES ASSISTANT.MARKET RESEARCH SPECIALIST Work Phone: Plan of Treatment Date Care Activity Detail Author Start: 06-13-2028 Urine microalbumin profile [facility] Start: 09-23-2027 LIPID SCREEN LIPID SCREEN [facility] Start: 08-27-2026 LIPID SCREEN LIPID SCREEN [facility] Start: 04-21-2026 Colonoscopy COLONOSCOPY [facility] Start: 04-21-2026 COLORECTAL CANCER SCREENING COLORECTAL CANCER SCREENING [facility] Start: 04-20-2026 DIABETES SCREEN DIABETES SCREEN [facility] Start: 04-20-2026 Diabetes Screening Diabetes Screenin g [facility] Start: 09-23-2025 DIABETES SCREEN DIABETES SCREEN [facility] Start: 04-13-2025 DIABETES SCREEN DIABETES SCREEN [facility] Start: 09-25-2024 Mammography Mammogram Screening [facility] Start: 08-27-2024 DIABETES SCREEN DIABETES SCREEN [facility] Start: 04-20-2024 ANNUAL PCP TEAM CONTINUOUS WAVE OPERATOR MORA DISEASE VISIT ANNUAL PCP TEAM CHRONIC DISEASE VISIT [facility] Start: 04-20-2024 COVID-19 VACCINE (3 - Pfizer series) COVID-19 VACCINE (3 - Pfizer series) [facility] Immunizations Immunization Date Immunization Notes Care Provider Fa cili 09-03-2021 influenza, high-dose , quadrivalent vaccine (FLUZONE HIGH DOSE QUADRIVALENT) Keyonna Older NURSES ASSISTANT.MARKET RESEARCH SPECIALIST Work Phone: [facility] 09-03-2021 influenza virus vacc ine, unspecified formulation Etienne Flowers MD Work Phone: [facility] 03-03-2021 zoster vaccine recombinant Keyonna Older NURSES ASSISTANT.MARKET RESEARCH SPECIALIST Work Phone: [facility] Work Phone: 02-01-2021 COVID-19 vaccine, ag e 12+ yr (Complete [employer] [facility] - [facility]) Keyonna Older NURSES ASSISTANT.MARKET RESEARCH SPECIALIST Work Phone: [facility] Work Phone: 01-07-2021 COVID-19 vaccine, ag e 12+ yr (Complete [employer] - PURPLE [employer]) Keyonna Older NURSES ASSISTANT.MARKET RESEARCH SPECIALIST Work Phone: [facility] Work Phone: 10-27-2020 zoster vaccine recombinant Keyonna Older NURSES ASSISTANT.MARKET RESEARCH SPECIALIST Work Phone: [facility] Work Phone: 08-13-2020 influenza, high-dose , quadrivalent vaccine (FLUZONE HIGH DOSE QUADRIVALENT) Keyonna Older NURSES ASSISTANT.[facility] Work Phone: [facility] Work Phone: 06-13-2018 tetanus toxoid, redu antione diphtheria toxoid, and acellular pertussis vaccine, adsorbed Keyonna Older NURSES ASSISTANT.[facility] Work Phone: [facility] Work Phone: 03-02-2016 pneumococcal conjuga te vaccine, 13 valent Keyonna Older NURSES ASSISTANT.MARKET RESEARCH SPECIALIST Work Phone: [facility] 09-06-2013 influenza virus vacc ine, unspecified formulation Keyonna Older NURSES ASSISTANT.MARKET RESEARCH SPECIALIST Work Phone: [facility] 02-24-2012 tetanus and diphther ia toxoids, adsorbed, preservative free, for adult use (2 Lf of tetanus toxoid and 2 Lf of diphtheria toxoid) Keyonna Older NURSES ASSISTANT.MARKET RESEARCH SPECIALIST Work Phone: [facility] Work Phone: 02-24-2012 zoster vaccine, live Keyonna Old er NURSES ASSISTANT.MARKET RESEARCH SPECIALIST Work Phone: [facility] Work Phone: 01-30-2012 pneumococcal polysaccharide vaccine, 23 valent Keyonna Older NURSES ASSISTANT.MARKET RESEARCH SPECIALIST Work Phone: [facility] Payers Date Payer Category Payer Medicare [id number] 2019 Unknown MMO MMO MEDICARE SUPPLEMENT [id number] 2019-Present [phone] [address] [place] [address] Indemnity [id number] 2019 Unknown MMO MMO MEDICARE SUPPLEMENT [id number] 2019-Present [phone] [address] [place] [address] Indemnity [id number] 2014 Medicare MEDICARE MEDICAR E A AND B [id number] 2014-Present [phone] [address] [address] [place] [address] Medicare [id number] 2014 Medicare MEDICARE MEDICAR E A AND B [id number] 2014-Present [phone] [address] [address] [place] [address] Medicare [id number] 2014 Medicare [id number] Social History Date Type Detail Facility Tobacco smoking stat [facility] Never smoked tobacco [facility] Start: 09-03-2021 End: 04-20-2023 Alcohol intake Current non-drinker of alcohol (finding) [facility] Start: 11-06-2019 End: 03-03-2021 History SDOH Alcohol Frequency 2 [facility] Start: 11-06-2019 End: 03-03-2021 History SDOH Alcohol Std Drinks 1 [facility] Start: 11-06-2019 End: 06-17-2020 History SDOH Social Connections Phone 5 [facility] Start: 11-06-2019 History SDOH Social Connections Holiness 98 [facility] Start: 11-06-2019 History SDOH Social Connections Meetings 3 [facility] Start: 06-17-2020 History SDOH Physical Activity DPW 7 [facility] Start: 06-17-2020 History SDOH Financial 4 [facility] Start: 11-06-2019 Education 21 [facility] Start: 1945 Sex Assigned At Not on file [facility] Start: 03-27-2022 End: 07-15-2022 Exposure to SARS-CoV-2 (event) Not sure [facility] Work Phone: Start: 1945 Sex Assigned At Female [facility] Start: 10-18-2020 End: 04-18-2023 History of Social function [facility] Start: 10-18-2020 End: 04-18-2023 Social connection and isolation panel [facility] How often do you att end baptism or muslim services? Patient refused [facility] Do you belong to any clubs or organizations such as baptism groups, unions, fraternal or athletic groups, or school groups? Yes [facility] Are you now , , , , never or living with a partner? [facility] How often to you hav e a drink containing alcohol? Monthly or less [facility] How many standard dr inks containing alcohol do you have on a typical day? 1 or 2 [facility] How often do you hav e 6 or more drinks on 1 occasion? Never [facility] Do you feel stress - tense, restless, nervous, or anxious, or unable to sleep at night because your mind is troubled all the time - these days [OSQ] Not at all [facility] (I/We) worried mk er (my/our) food would run out before (I/we) got money to buy more. Never true [facility] In the past 12 month s, was there a time when you were not able to pay the mortgage or rent on time? No [facility] Start: 04-12-2022 Gender identity Identifies as female gender (finding) [facility] Start: 04-12-2022 Sexual orientation Heterosexual (finding) [facility] How hard is it for y ou to pay for the very basics like food, housing, medical care, and heating Not very hard [facility] Do you feel stress - tense, restless, nervous, or anxious, or unable to sleep at night because your mind is troubled all the time - these days [OSQ] Only a little [facility] Goals Date Patient Goal Desired Activity /State Personal health goal Clinical Notes 06-10-2019 to 11-09-2023 Letter - Coordinator, Mammography - 09/26/2023 9:08 AM Shelley Goldsmith RN - 06/21/2023 3:17 PM Shelley Benavidez RN - 06/15/2023 4:08 PM Kenisha Zazueta RN - 10/12/2022 10:23 AM EST Note Date & Type Note Facility 11-09-2023 Note HNO ID: [id number] Author: Keyonna Álvarez APRN.MARKET RESEARCH SPECIALIST Service: ? Author Type: Nurse Practitioner Type: [...] as PCP - General Outside specialists seen: collet making machine operator- Dr. Phillips, Optometry- Amari, Dermatology- Dr. López [...] Personalized prevention plan provided Keyonna Álvarez APRN.CNP [facility] 09-26-2023 Miscellaneous Notes September 26, 2023 PID: [id number] Logan Carrillo [address] [place] [address] Dear Ms. Carrillo, We are pleased to [...] report will be kept on file at [facility] as part of your permanent medical record and are available for your continuing care. Thank you for allowing us to help in meeting your health care needs. Sincerely, Dr. Ricardo Interpreting Radiologist [facility] (Normal over 40) documented in this encounter [facility] 09-25-2023 Note HNO ID: [id number] Author: Coleen Haddad, [employer] Service: ? Author Type: Lead Burner Apprentice Type: Progress Notes Filed: 09/25/2023 11:38 AM [...] DATA: Not applicable SIGNED BY: Coleen Haddad [email or web address] September 25, 2023 10:59 AM [facility] 09-14-2023 Note HNO ID: [id number] Author: Shelley Zazueta RN Service: ? Author Type: Registered Nurse Type: Progress Notes Filed: 09/14/2023 3:38 PM Note Text: CDM Telephonic Outreach Provider Action/FYI Opened in Error [facility] 09-14-2023 Note HNO ID: [id number] Author: Shelley Zazueta RN Service: ? 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 No Based on corporate director talent assessment, the following disposition is advised: No symptoms or symptoms present, not severe. Routed to: No Action Needed CRYSTAL Education Provided this Outreach: No Shelley Zazueta RN September 14, 2023 2:22 PM [facility] 09-14-2023 Note Patient Outreach ([facility]) LOGAN CARRILLO ([id number]) 1945 F Date Time Provider Department 09/14/23 [...] Encounter Status:Closed by SHELLEY ZAZUETA on 09/14/23 [facility] 09-14-2023 Note Patient Outreach (AM [facility]) LOGAN CARRILLO ([id number]) 1945 F Date Time Provider Department 09/14/23 SHELLEY ZAZUETA [facility] During your visit today, we recorded the following information about you: Shelley Zazueta, RN 09/14/2023 2:50 PM Signed CDM Telephonic Outreach Provider Action/ CDM: CHF / CKD Spk with 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 No Based on corporate director talent assessment, the following disposition is advised: No symptoms [...] Status:Closed by ST (more content not included)... [facility] 06-21-2023 Note HNO ID: [id number] Author: Shelley Zazueta RN Service: ? Author [...] to talk about today? No Based on corporate director talent assessment, the following disposition is advised: No symptoms or symptoms present, not severe. Routed to: No Action Needed CRYSTAL Education Provided this Outreach: Yes Shelley Zazueta RN June 21, 2023 3:18 PM [facility] 06-21-2023 History of Presen t illness [...] to talk about today? No Based on corporate director talent assessment, the following disposition is advised: No symptoms [...] 2023 4:08 PM documented in this encounter [facility] 06-15-2023 Note HNO ID: [id number] Author: Shelley Zazueta RN Service: ? Author [...] Zazueta RN June 15, 2023 4:08 PM [facility] 06-15-2023 Note Patient Outreach ([facility]) LOGAN CARRILLO ([id number]) 1945 F Date Time Provider Department 06/15/23 [...] to talk about today? No Based on corporate director talent assessment, the following disposition is advised: No symptoms [...] kidney disease (HCC) [N18.31] Order(s):PT ED NEPHROLOGY [[id number]] Order #: [id number]: 1 PT ED NEPHROLOGY [[id number]] Order #: [id number]: 1 Prescriptions as of 06/21/2023 - loratadine [...] (congestive heart failure)*07 (more content not included)... [facility] 04-20-2023 Note HNO ID: [id number] Author: Etienne Flowers MD Service: ? Author Type: Physician Type: Progress Notes Filed: 04/20/2023 3:34 PM Note Text: This note was created using Vibryntriter. Subjective Logan Carrillo is a 77 year [...] use for one year. Etienne Flowers MD [facility] 03-27-2023 Miscellaneous Notes NEERAJ: 12/14/2022 Last refill: 04/06/2022 QTY: 45g Refills: 0 documented in this encounter [facility] 12-14-2022 Note HNO ID: [id number] Author: Etienne Flowers MD Service: ? Author Type: Physician Type: Progress Notes Filed: 12/14/2022 3:37 PM Note Text: This note was created using barcoo. Subjective Logan Carrillo is a 77 year [...] - AMBULATORY EAR LAVAGE/IRRIGATION Etienne Flowers MD [facility] 12-14-2022 Note HNO ID: [id number] Author: Vandana Mistry LPN Service: ? Author Type: ? Type: Progress Notes Filed: 12/14/2022 3:37 PM Note Text: Left ear flushed with warm water/h2o2. Did not remove any cerumen. Patient tolerated procedure well. [facility] 11-23-2022 Miscellaneous Notes NEERAJ: 09/21/2022 Last refill: 08/02/2021 QTY: 90 Refills: 0 Patient's request for medication is as follows: Requested Prescriptions Pending Prescriptions Disp Refills cholecalciferol (VITAMIN D3) 1,000 unit tab tablet 90 tablet 0 Sig: Take 1 tablet by mouth once daily. Please approve the above prescription(s) to electronically send to pharmacy. Natalio Flynn Ma documented in this encounter [facility] 10-12-2022 History of Presen t illness Narrative [...] 2022 10:23 AM documented in this encounter [facility] 10-12-2022 History of Presen t illness Narrative [...] made with patient ACTION TAKEN: Based on corporate director talent assessment, the following disposition is advised: SYMPTOMS PRESENT NOT SEVERE: No action required - Continue outreach / Phone Call Shelley Zazueta RN October 12, 2022 10:03 AM documented in this encounter [facility] 09-26-2022 Miscellaneous Notes September 26, 2022 PID: [id number] Logan Carrillo [address] [place] [address] Dear Ms. Carrillo, We are pleased to [...] report will be kept on file at [facility] as part of your permanent medical record and are available for your continuing care. Thank you for allowing us to help in meeting your health care needs. Sincerely, Dr. Buckner Interpreting Radiologist [facility] (Normal over 40) documented in this encounter [facility] 09-23-2022 History of Presen t illness Narrative [...] 2022 2:34 PM documented in this encounter [facility] 09-21-2022 History of Presen t illness Narrative Medicare Yearly Visit Medical B eligibilty date 12/14/13 Date of last exam 09/03/21 PAST MEDICAL HISTORY Diagnosis Date Cholecystitis with cholelithiasis Sept.2007 Choledocholithiasis with acute cholecystitis 08/10/2009 Chronic systolic CHF (congestive heart failure) ([facility]) 05/18/2018 CKD (chronic kidney disease) stage 3, GFR 30-59 ml/min ([facility]) 04/27/2018 Contact dermatitis due to poison jeffry [...] the time. List of current specialists seen: Voucher Clerk- Dr. Phillips Optometry- Dr. Fitzpatrick Dermatology- Dr. [...] diet of 1000 mg/day for under 50, 0480-5127 mg/day for 50+ - Mammogram ordered - [...] Keyonna Mims APRN.LUCHO documented in this encounter [facility] 09-17-2022 Miscellaneous Notes Pt reports she was [...] stomach needs rest. documented in this encounter [facility] 08-01-2022 Miscellaneous Notes Patient has been identified [...] Vandana Mistry LPN documented in this encounter [facility] 07-18-2022 History of Presen t illness Narrative This note was created using Vibryntriter. Subjective Patient presents with: ED Follow-up: diverticulitis [...] ICD10: N28.89 - MRI KIDNEY WO/W IVCON Etienne Flowers MD documented in this encounter [facility] documented as of this encounter (statuses as of 06/22/2023) [facility]09-02-2022 History of Past illness Narrative* Problem Noted Date Diagnosed Date Resolved Date Abnormal CT scan, kidney 07/15/202206/2023 Contact dermatitis due to poison jeffry 06/10/2019 11/08/2019 Medicare annual wellness visit, subsequent 06/10/2019 11/08/2019 Impaired glucose metabolism 05/18/2018 08/13/2020 Dysphagia 05/04/2018 11/08/2019 Overview: Added automatically from request for surgery [id number] CKD (chronic kidney disease) stage 3, GFR [...] of this encounter (statuses as of 09/16/2023) [facility]09-02-2022 History of Past illness Narrative* Problem Noted Date Diagnosed Date Resolved Date Abnormal CT scan, kidney 07/15/202206/2023 Contact dermatitis due to poison jeffry 06/10/2019 11/08/2019 Medicare annual wellness visit, subsequent 06/10/2019 11/08/2019 Impaired glucose metabolism 05/18/2018 08/13/2020 Dysphagia 05/04/2018 11/08/2019 Overview: Added automatically from request for surgery [id number] CKD (chronic kidney disease) stage 3, GFR [...] of this encounter (statuses as of 09/17/2023) [facility]09-02-2022 History of Past illness Narrative* Problem Noted Date Diagnosed Date Resolved Date Abnormal CT scan, kidney 07/15/202206/2023 Contact dermatitis due to poison jeffry 06/10/2019 11/08/2019 Medicare annual wellness visit, subsequent 06/10/2019 11/08/2019 Impaired glucose metabolism 05/18/2018 08/13/2020 Dysphagia 05/04/2018 11/08/2019 Overview: Added automatically from request for surgery [id number] CKD (chronic kidney disease) stage 3, GFR [...] of this encounter (statuses as of 09/28/2023) [facility]08-29-2022 Instructions* Patient Instructions* Etienne Flowers MD - 07/11/2022 12:52 PM EDT PROCEED TO THE ER. YOU NEED BLOOD TESTS AND CT SCANS AND IV FLUIDS. [facility] History of Present illness Narrative* Etienne Flowers MD - 07/11/2022 12:41 PM EDT This note was created using barcoo. Subjective Logan Carrillo is a 76 year [...] doctor. Etienne Flowers MD [facility] History of Present illness Narrative* Marbin Rosa RN - 06/15/2022 1:36 PM EDT inSight CDM Engagement Provider Action/FYI: Call to Pt, left a message to verify CHF/ CKD symptom status and provide Insight Monitoring questionnaire reminder. Contact Made with Patient: No, first attempt, left message. Mukund Carrillo. This is Shelley Zazueta RN your Cement Mason Helper from the [facility]. I am calling to check in with you concerning the MyChart questionnaire you have been receiving from me. I will call you again tomorrow and am looking forward to speaking with you. (Care Coordinatorenters next day in next patient outreach ) Shelley Zazueta RN June 15, 2022 1:36 PM documented in this [facility]The [facility] History of Present illness Narrative* Marbin Rosa RN - 05/12/2022 3:56 PM EDT INSIGHT CDM TELEPHONIC OUTREACH Provider Action/FYI: Call to Pt left a message to verify CHF/ CKD status and needs. Contact made with patient: No - Left message Mukund my name is Shelley Zazueta RN your Cement Mason Helper [facility] the [facility] I am callingtoday for your bi-weekly check [...] 12, 2022 3:56 PM documented in this encounterThe [facility] Instructions* Patient Instructions* Etienne Flowers MD - 04/21/2022 1:28 PM EDT Do follow up labs today. documented in this encounterThe [facility] History of Present illness Narrative* Etienne Flowers MD - 04/21/2022 1:10 PM EDT This note was created using barcoo. Subjective Logan Carrillo is a 76 year [...] Abs Lymph 1.00 - 4.00 k/uL 1.61 Ventura% % 8.5 Abs Ventura <0.87 k/uL 0.47 Eosin% % 2.0 Abs [...] Stable. Etienne Flowers MD documented in this encounterThe [facility] History of Present illness Narrative* Keyonna Mims, NURSES ASSISTANT.MARKET RESEARCH SPECIALIST - 04/13/2022 10:01 AM EDT CC: Patient [...] 08/10/2009 Chronic systolic CHF (congestive heart failure) ([facility]) 05/18/2018 CKD (chronic kidney disease) stage 3, GFR 30-59 ml/min ([facility]) 04/27/2018 Contact dermatitis due to poison jeffry [...] plan. Keyonna Mims APRN.CNP documented in this encounterThe [facility]05-25-[facility]22 Miscellaneous Notes* Telephone Encounter - Vandana Mistry [...] applicable Please advise. Thank you. Vandana Fede MANAGER PRINT documented in this encounterThe [facility] History of Past illness Narrative* Problem Noted Date Resolved Date Contact dermatitis due to poison jeffry 06/10/2019 11/08/2019 Medicare annual wellness visit, subsequent 06/1011/08/2019 Impaired glucose metabolism 05/18/2018 1011/2019 Dysphagia 05/04/2018 11/08/2019 Overview: Added automatically from request for surgery [id number] CKD (chronic kidney disease) stage 3, GFR [...] of this encounter (statuses as of 04/06/2022) [facility] History of Past illness Narrative* Problem Noted Date Resolved Date Contact dermatitis due to poison jeffry 06/10/2019 11/08/2019 Medicare annual wellness visit, subsequent 06/1011/08/2019 Impaired glucose metabolism 05/18/2018 1011/2019 Dysphagia 05/04/2018 11/08/2019 Overview: Added automatically from request for surgery [id number] CKD (chronic kidney disease) stage 3, GFR [...] of this encounter (statuses as of 04/13/2022) [facility] History of Past illness Narrative* Problem Noted Date Resolved Date Contact dermatitis due to poison jeffry 06/10/2019 11/08/2019 Medicare annual wellness visit, subsequent 06/1011/08/2019 Impaired glucose metabolism 05/18/201811/2019 Dysphagia 05/04/2018 11/08/2019 Overview: Added automatically from request for surgery [id number] CKD (chronic kidney disease) stage 3, GFR [...] of this encounter (statuses as of 04/15/2022) [facility] History of Past illness Narrative* Problem Noted Date Resolved Date Contact dermatitis due to poison jeffry 06/10/2019 11/08/2019 Medicare annual wellness visit, subsequent 06/1011/08/2019 Impaired glucose metabolism 05/18/201811/2019 Dysphagia 05/04/2018 11/08/2019 Overview: Added automatically from request for surgery [id number] CKD (chronic kidney disease) stage 3, GFR [...] of this encounter (statuses as of 04/21/2022) [facility] History of Past illness Narrative* Problem Noted Date Resolved Date Contact dermatitis due to poison jeffry 06/10/2019 11/08/2019 Medicare annual wellness visit, subsequent 06/1011/08/2019 Impaired glucose metabolism 05/18/201811/2019 Dysphagia 05/04/2018 11/08/2019 Overview: Added automatically from request for surgery [id number] CKD (chronic kidney disease) stage 3, GFR [...] of this encounter (statuses as of 05/13/2022) [facility] History of Past illness Narrative* Problem Noted Date Resolved Date Contact dermatitis due to poison jeffry 06/10/2019 11/08/2019 Medicare annual wellness visit, subsequent 06/1011/08/2019 Impaired glucose metabolism 05/18/2018 10/0 11/2019 Dysphagia 05/04/2018 11/08/2019 Overview: Added automatically from request for surgery [id number] CKD (chronic kidney disease) stage 3, GFR [...] of this encounter (statuses as of 06/15/2022) [facility] History of Past illness Narrative* Problem Noted Date Resolved Date Contact dermatitis due to poison jeffry 06/10/2019 11/08/2019 Medicare annual wellness visit, subsequent 06/1011/08/2019 Impaired glucose metabolism 05/18/201811/2019 Dysphagia 05/04/2018 11/08/2019 Overview: Added automatically from request for surgery [id number] CKD (chronic kidney disease) stage 3, GFR [...] of this encounter (statuses as of 07/11/2022) [facility] of Past illness Narrative* Problem Noted Date Resolved Date Contact dermatitis due to poison jeffry 06/10/2019 11/08/2019 Medicare annual wellness visit, subsequent 06/1011/08/2019 Impaired glucose metabolism 05/18/2018 1011/2019 Dysphagia 05/04/2018 11/08/2019 Overview: Added automatically from request for surgery [id number] CKD (chronic kidney disease) stage 3, GFR [...] of this encounter (statuses as of 07/19/2022) [facility] of Past illness Narrative* Problem Noted Date Resolved Date Contact dermatitis due to poison jeffry 06/10/2019 11/08/2019 Medicare annual wellness visit, subsequent 06/1011/08/2019 Impaired glucose metabolism 05/18/201811/2019 Dysphagia 05/04/2018 11/08/2019 Overview: Added automatically from request for surgery [id number] CKD (chronic kidney disease) stage 3, GFR [...] of this encounter (statuses as of 08/02/2022) [facility] of Past illness Narrative* Problem Noted Date Resolved Date Contact dermatitis due to poison jeffry 06/10/2019 11/08/2019 Medicare annual wellness visit, subsequent 06/1011/08/2019 Impaired glucose metabolism 05/18/201811/2019 Dysphagia 05/04/2018 11/08/2019 Overview: Added automatically from request for surgery [id number] CKD (chronic kidney disease) stage 3, GFR [...] of this encounter (statuses as of 09/17/2022) [facility] of Past illness Narrative* Problem Noted Date Resolved Date Contact dermatitis due to poison jeffry 06/10/2019 11/08/2019 Medicare annual wellness visit, subsequent 06/1011/08/2019 Impaired glucose metabolism 05/18/201811/2019 Dysphagia 05/04/2018 11/08/2019 Overview: Added automatically from request for surgery [id number] CKD (chronic kidney disease) stage 3, GFR [...] of this encounter (statuses as of 09/21/2022) [facility] of Past illness Narrative* Problem Noted Date Resolved Date Contact dermatitis due to poison jeffry 06/10/2019 11/08/2019 Medicare annual wellness visit, subsequent 06/1011/08/2019 Impaired glucose metabolism 05/18/201811/2019 Dysphagia 05/04/2018 11/08/2019 Overview: Added automatically from request for surgery [id number] CKD (chronic kidney disease) stage 3, GFR [...] of this encounter (statuses as of 09/28/2022) [facility] of Past illness Narrative* Problem Noted Date Resolved Date Contact dermatitis due to poison jeffry 06/10/2019 11/08/2019 Medicare annual wellness visit, subsequent 06/1011/08/2019 Impaired glucose metabolism 05/18/201811/2019 Dysphagia 05/04/2018 11/08/2019 Overview: Added automatically from request for surgery [id number] CKD (chronic kidney disease) stage 3, GFR [...] of this encounter (statuses as of 10/12/2022) [facility] of Past illness Narrative* Problem Noted Date Resolved Date Contact dermatitis due to poison jeffry 06/10/2019 11/08/2019 Medicare annual wellness visit, subsequent 06/1011/08/2019 Impaired glucose metabolism 05/18/2018 10/0 11/2019 Dysphagia 05/04/2018 11/08/2019 Overview: Added automatically from request for surgery [id number] CKD (chronic kidney disease) stage 3, GFR [...] of this encounter (statuses as of 10/12/2022) [facility] of Past illness Narrative* Problem Noted Date Resolved Date Contact dermatitis due to poison jeffry 06/10/2019 11/08/2019 Medicare annual wellness visit, subsequent 06/1011/08/2019 Impaired glucose metabolism 05/18/201811/2019 Dysphagia 05/04/2018 11/08/2019 Overview: Added automatically from request for surgery [id number] CKD (chronic kidney disease) stage 3, GFR [...] of this encounter (statuses as of 11/23/2022) [facility] of Past illness Narrative* Problem Noted Date Resolved Date Contact dermatitis due to poison jeffry 06/10/2019 11/08/2019 Medicare annual wellness visit, subsequent 06/1011/08/2019 Impaired glucose metabolism 05/18/201811/2019 Dysphagia 05/04/2018 11/08/2019 Overview: Added automatically from request for surgery [id number] CKD (chronic kidney disease) stage 3, GFR [...] of this encounter ([facility]es as of 03/28/2023) [facility] Dermatitis due to plant Contact dermatitis and other eczema due to plants (except food) [facility] Exercise-induced leg fatigue- Primary Other musculoskeletal symptoms referable to limbs Pain in both lower extremities [facility] Anemia, unspecified type- Primary [facility] Pain in both lower extremities- Primary Leg weakness, bilateral Other musculoskeletal symptoms referable to limbs Chronic systolic CHF (congestive heart failure) (HCC) Chronic systolic heart failure Nonischemic cardiomyopathy (HCC) Other primary cardiomyopathies Stage 3a chronic kidney disease (HCC) documented in this encounter [facility] note* Diagnosis Acute abdominal pain in left lower quadrant- Primary Abdominal pain, left lower quadrant Left lower quadrant abdominal tenderness with rebound tenderness Diarrhea, unspecified type Dehydration [facility] Diagnosis Diverticulitis of large intestine without perforation or abscess without bleeding- Primary Diverticulitis of colon (without mention of hemorrhage) Skin tag of perianal region Residual hemorrhoidal skin tags Abnormal CT scan, kidney Nonspecific (abnormal) findings on radiological and other examination of genitourinary organs Other specified disorders of kidney and ureter [facility] Diagnosis Medicare annual wellness visit, subsequent- Primary Routine general medical examination at a health care facility Impaired glucose tolerance Impaired glucose tolerance test Screening for lipid disorders Vitamin D deficiency Unspecified vitamin D deficiency Encounter for screening mammogram for malignant neoplasm of breast Other screening mammogram [facility] Diagnosis Migraine without status migrainosus, not intractable, unspecified migraine type documented in this encounter [facility] note* Diagnosis Dermatitis due to plant Contact dermatitis and other eczema due to plants (except food) [facility] Diagnosis Stage 3a chronic kidney disease (HCC)- Primary [facility] Diagnosis Visit for screening mammogram- Primary Other screening mammogram documented in this encounter [facility] note* Diagnosis Encounter for screening mammogram for malignant neoplasm of breast Other screening mammogram Visit for screening mammogram- Primary Other screening mammogram documented in this encounter [facility] for referral (narrative)* Outpatient Procedure (Routine) - Authorized Specialty Diagnoses / Procedures Referred By Aline ahumada [facility] Diagnoses Pain in both lower extremities Exercise-induced leg fatigue Claudication (HCC) Procedures PVR ANK PRESS ANGIE VAS LAB NON-INVAS PHYSIOLOGIC STD EXTREMITY ART 2 LEVEL Keyonna Mims APRN.CNP [address] [place] [address] [facility] [address] [place] [address] Referral ID Status Reason Start Date Expiration Date Visits Requested Visits Authorized [id number] Authorized Auto-Generat ed Referral 04/13/2022 04/13/2023 1 1 [facility] for referral (narrative)* Outpatient Procedure (Routine) - Closed Specialty Diagnoses / Procedures Referred By Aline ahumada [facility] Diagnoses Chronic systolic CHF (congestive heart failure) (HCC) Nonischemic cardiomyopathy (HCC) Procedures ECG COMPLETE ECG ROUTINE ECG W/LEAST 12 LDS W/I&R Etienne Flowers MD [address] [place] [address] [facility] [address] [place] [address] Referral ID Status Reason Start Date Expiration Date V isits Requested Visits Authorized [id number] Closed Auto-Generate d Referral 04/21/2022 04/21/2023 1 1 [facility] for referral (narrative)* Diagnostic Procedure Only (Routine) - Authorized Specialty Diagnoses / Procedures Referred By Aline ahumada Referred To Contact [facility] Diagnoses Encounter for screening mammogram for malignant neoplasm of breast Procedures LONG SCREENING SCREENING MAMMOGRAPHY BI 2-VIEW BREAST INC Keyonna Ching APRN.CNP [address] [place] [address] [facility] [address] [address] Referral ID Status Reason Start Date Expiration Date Visits Requested Visits Authorized [id number] Authorized Auto-Generat ed Referral 09/21/2022 10/21/2023 1 1 [facility] for referral (narrative)* Diagnostic Procedure Only (Routine) - Authorized Specialty Diagnoses / Procedures Referred By Aline ahumada Referred To Contact [facility] Diagnoses Visit for screening mammogram Procedures LONG SCREENING SCREENING MAMMOGRAPHY BI 2-VIEW BREAST INC CAD Etienne Flowers MD [address] [place] [address] [facility] [address] [place] [address] Referral ID Status Reason Start Date Expiration Date Visits Requested Visits Authorized [id number] Authorized Auto-Generat ed Referral 09/15/2023 10/13/2024 1 1 [facility] for referral (narrative)* Diagnostic Procedure Only (Routine) - Closed Specialty Diagnoses / Procedures Referred By Aline t Referred To Contact [facility] Diagnoses Encounter for screening mammogram for malignant neoplasm of breast Procedures LONG SCREENING SCREENING MAMMOGRAPHY BI 2-VIEW BREAST INC CAD Older, Keyonna, NURSES ASSISTANT.MARKET RESEARCH SPECIALIST [address] [place] [address] [facility] [id number] [address] Referral ID Status Reason Start Date Expiration Date V isits Requested Visits Authorized [id number] Closed Auto-Generate d Referral 09/21/2022 10/21/2023 1 1 [facility] for visit Narrative* Diagnostic Procedure Only (Routine) - Closed Specialty Diagnoses / Procedures Referred By Aline ahumada Referred To Contact [facility] Diagnoses Encounter for screening mammogram for malignant neoplasm of breast Procedures LONG SCREENING SCREENING MAMMOGRAPHY BI 2-VIEW BREAST INC CAD [facility], Keyonna, NURSES ASSISTANT.MARKET RESEARCH SPECIALIST [address] [place] [address] [facility] [address] [address] Referral ID Status Reason Start Date Expiration Date V isits Requested Visits Authorized [id number] Closed Auto-Generate d Referral 09/21/2022 10/21/2023 1 1 [facility] Summary Purpose Family History No Family History Records FoundNo Family History Records Found Advance Directives No Advanced Directives Records FoundDocuments on File Type Date Recorded 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 Advance Directive(s) 04/21/2016 9:39 AM Advance Directive(s) 04/07/2016 12:16 PM Documents on File Type Date Recorded 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 Advance Directive(s) 04/21/2016 9:39 AM Advance Directive(s) 04/07/2016 12:16 PM Reason for Referral Specialty Diagnoses / Procedures Referred By Aline ahumada Referred To Contact [facility] Diagnoses Other specified disorders of kidney and ureter Procedures MRI KIDNEY WO/W IVCON MRI ABDOMEN W/O & W/CONTRAST MATERIAL Etienne Flowers MD [address] [place] [address] [facility] Referral ID Status Reason Start Date Expiration Date Visits Requested Visits Authorized [id number] Authorized Auto-Generat ed Referral 08/14/2022 08/14/2023 1 1 Health Concerns Problem Noted Date Diagnosed Date High Risk Chronic Disease Home Monitoring Proble 03/29/2023 Problem Noted Date Diagnosed Date High Risk Chronic Disease Home Monitoring Proble 03/29/2023 Additional Source Comments INFORMATION SOURCE (unrecogn ized section and content) DATE CREATED AUTHOR AUTHOR'S ORGANIZ ATION 11/11/2023 [facility] Source Comments (unrecognize d section and content) In the event this informatio n is protected by the Federal Confidentiality of Alcohol and Drug Abuse Patient Records regulations: The Federal rules restrict any use of the information to criminally investigate or prosecute any alcohol or drug abuse patient.[facility] the event this information is protected by the Federal Confidentiality of Alcohol and Drug Abuse Patient Records regulations: The Federal rules restrict any use of the information to criminally investigate or prosecute any alcohol or drug abuse patient.[facility] the event this information is protected by the Federal Confidentiality of Alcohol and Drug Abuse Patient Records regulations: The Federal rules restrict any use of the information to criminally investigate or prosecute any alcohol or drug abuse patient.[facility] the event this information is protected by the Federal Confidentiality of Alcohol and Drug Abuse Patient Records regulations: The Federal rules restrict any use of the information to criminally investigate or prosecute any alcohol or drug abuse patient.[facility] the event this information is protected by the Federal Confidentiality of Alcohol and Drug Abuse Patient Records regulations: The Federal rules restrict any use of the information to criminally investigate or prosecute any alcohol or drug abuse patient.[facility] the event this information is protected by the Federal Confidentiality of Alcohol and Drug Abuse Patient Records regulations: The Federal rules restrict any use of the information to criminally investigate or prosecute any alcohol or drug abuse patient.[facility] the event this information is protected by the Federal Confidentiality of Alcohol and Drug Abuse Patient Records regulations: The Federal rules restrict any use of the information to criminally investigate or prosecute any alcohol or drug abuse patient.[facility] the event this information is protected by the Federal Confidentiality of Alcohol and Drug Abuse Patient Records regulations: The Federal rules restrict any use of the information to criminally investigate or prosecute any alcohol or drug abuse patient.[facility] the event this information is protected by the Federal Confidentiality of Alcohol and Drug Abuse Patient Records regulations: The Federal rules restrict any use of the information to criminally investigate or prosecute any alcohol or drug abuse patient.[facility] the event this information is protected by the Federal Confidentiality of Alcohol and Drug Abuse Patient Records regulations: The Federal rules restrict any use of the information to criminally investigate or prosecute any alcohol or drug abuse patient.[facility] the event this information is protected by the Federal Confidentiality of Alcohol and Drug Abuse Patient Records regulations: The Federal rules restrict any use of the information to criminally investigate or prosecute any alcohol or drug abuse patient.[facility] the event this information is protected by the Federal Confidentiality of Alcohol and Drug Abuse Patient Records regulations: The Federal rules restrict any use of the information to criminally investigate or prosecute any alcohol or drug abuse patient.[facility]woods[facility] the event this information is protected by the Federal Confidentiality of Alcohol and Drug Abuse Patient Records regulations: The Federal rules restrict any use of the information to criminally investigate or prosecute any alcohol or drug abuse patient.[facility] the event this information is protected by the Federal Confidentiality of Alcohol and Drug Abuse Patient Records regulations: The Federal rules restrict any use of the information to criminally investigate or prosecute any alcohol or drug abuse patient.[facility] the event this information is protected by the Federal Confidentiality of Alcohol and Drug Abuse Patient Records regulations: The Federal rules restrict any use of the information to criminally investigate or prosecute any alcohol or drug abuse patient.[facility] the event this information is protected by the Federal Confidentiality of Alcohol and Drug Abuse Patient Records regulations: The Federal rules restrict any use of the information to criminally investigate or prosecute any alcohol or drug abuse patient.[facility] the event this information is protected by the Federal Confidentiality of Alcohol and Drug Abuse Patient Records regulations: The Federal rules restrict any use of the information to criminally investigate or prosecute any alcohol or drug abuse patient.[facility]woods[facility] the event this information is protected by the Federal Confidentiality of Alcohol and Drug Abuse Patient Records regulations: The Federal rules restrict any use of the information to criminally investigate or prosecute any alcohol or drug abuse patient.[facility] the event this information is protected by the Federal Confidentiality of Alcohol and Drug Abuse Patient Records regulations: The Federal rules restrict any use of the information to criminally investigate or prosecute any alcohol or drug abuse patient.[facility]woods[facility] the event this information is protected by the Federal Confidentiality of Alcohol and Drug Abuse Patient Records regulations: The Federal rules restrict any use of the information to criminally investigate or prosecute any alcohol or drug abuse patient.[facility] Reason for Visit (unrecogniz ed section and [...] Care Teams (unrecognized sec tion and content) Watch Band Assembler Relationship Specialty Start Date End Date Etienne Flowers MD [address] [place] [address] PCP - General 07/30/09 Marbin Rosa, shoe salespersonNotch Grinder Internal Medicine 07/20/21 Watch Band Assembler Relationship Specialty Start Date End Date Etienne Flowers MD [address] [facility] [address] PCP - General 07/30/09 Marbin Rosa, shoe salespersonNotch Grinder Internal Medicine 07/20/21 Watch Band Assembler Relationship Specialty Start Date End Date Etienne Flowers MD [address] [facility] [address] PCP - General 07/30/09 Marbin Rosa, shoe salespersonNotch Grinder Internal Medicine 07/20/21 Watch Band Assembler Relationship Specialty Start Date End Date Etienne Flowers MD [address] [place] [address] PCP - General 07/30/09 Marbin Rosa, shoe salespersonNotch Grinder Internal Medicine 07/20/21 Watch Band Assembler Relationship Specialty Start Date End Date Etienne Flowers MD [address] [place] [address] PCP - General 07/30/09 Marbin Rosa, shoe salespersonNotch Grinder Internal Medicine 07/20/21 Watch Band Assembler Relationship Specialty Start Date End Date Etienne Flowers MD [address] [place] [address] PCP - General 07/30/09 Marbin Rosa, shoe salespersonNotch Grinder Internal Medicine 07/20/21 Watch Band Assembler Relationship Specialty Start Date End Date Etienne Flowers MD [address] [place] [address] PCP - General 07/30/09 Marbin Rosa, shoe salespersonNotch Grinder Internal Medicine 07/20/21 Watch Band Assembler Relationship Specialty Start Date End Date Etienne Flowers MD [address] [place] [address] PCP - General 07/30/09 Marbin Rosa, shoe salespersonNotch Grinder Internal Medicine 07/20/21 Watch Band Assembler Relationship Specialty Start Date End Date Etienne Flowers MD [address] [place] [address] PCP - General 07/30/09 Shelley Zazueta, shoe salespersonNotch Grinder Internal Medicine 07/20/21 Watch Band Assembler Relationship Specialty Start Date End Date Etienne Flowers MD [address] [place] [address] PCP - General 07/30/09 Shelley Zazueta, shoe salespersonNotch Grinder Internal Medicine 07/20/21 Watch Band Assembler Relationship Specialty Start Date End Date Etienne Flowers MD [address] [place] [address] PCP - General 07/30/09 Shelley Zazueta, shoe salespersonNotch Grinder Internal Medicine 07/20/21 Watch Band Assembler Relationship Specialty Start Date End Date Etienne Flowers MD [address] [place] [address] PCP - General 07/30/09 Shelley Zazueta, shoe salespersonNotch Grinder Internal Medicine 07/20/21 Watch Band Assembler Relationship Specialty Start Date End Date Etienne Flowers MD [address] [place] [address] PCP - General 07/30/09 Shelley Zazueta, shoe salespersonNotch Grinder Internal Medicine 07/20/21 Watch Band Assembler Relationship Specialty Start Date End Date Etienne Flowers MD [address] [place] [address] PCP - General 07/30/09 Shelley Zazueta, shoe salespersonNotch Grinder Internal Medicine 07/20/21 FOR RECORDS PERTAINING TO [...] BE BASED ON THE PRIMARY CLINICAL RECORDS. [facility] [employer] [facility]. provides no warranty or guarantee of the accuracy or completeness of information in this document.
--- OUTSIDE RECORDS SUMMARY | 2023-12-11 23:43 | XMS RPT_ITS | CCD ---
Author Name Unknown Address [address] [place] [address] Organization [facility] Care Team Providers Care Place Change Roof Bolter Name Role Phone BRYAN OCONNOR Attending Unavailable ANASTASIABRYAN PUGA Primary Care Unavailable ANASTASIABRYAN PUGA Admitting Unavailable ANASTASIABRYAN PUGA Attending Unavailable ANASTASIABRYAN PUGA Primary Care Unavailable ANASTASIABRYAN GONSALVES Admitting Unavailable Etienne Flowers MD Primary Care Provider [phone] Marbin Rosa RN Unavailable UnavailEtienne Burdick MD Primary Care Provider [phone] Shelley SUTTON, Marbin Luna Unavailable Unavailvanessa Zazueta RN, Shelley Luna Unavailable UnavailEtienne Burdick MD Primary Care Provider [phone] Marbin SUTTON, Shelley Luna Unavailable Unavailvanessa Zazueta [...] to adverse reactions 3 Other: See Comments [facility] Work Phone: Medications Completed/Discontinued Medications Medication Drug [...] 10:47-0500 Body height 160 cm Keyonna Older ABRASIVE WORKER.PRISON OFFICER Work Phone: [facility] 09-21-2022 10:47-0500 Body weight 56.7 kg Keyonna Older ABRASIVE WORKER.LUCHO Work Phone: [facility] 09-21-2022 10:47-0500 Diastolic blood pressure 78 mm[Hg] Keyonna Older ABRASIVE WORKER.LUCHO Work Phone: [facility] 09-21-2022 10:47-0500 Heart rate 64 /min Keyonna Older ABRASIVE WORKER.LUCHO Work Phone: [facility] 09-21-2022 10:47-0500 Respiratory rate 14 /min Keyonna Older ABRASIVE WORKER.PRISON OFFICER Work Phone: [facility] 09-21-2022 10:47-0500 Systolic blood pressure 130 mm[Hg] Keyonna Older ABRASIVE WORKER.PRISON OFFICER Work Phone: [facility] 07-11-2022 12:17-0400 Body temperature 97.11 [degF] Etienne Flowers MD Work Phone: [facility] 07-11-2022 12:17-0400 Body weight 58.06 kg Etienne Flowers MD Work Phone: [facility] 07-11-2022 12:17-0400 Diastolic blood pressure 54 mm[Hg] Etienne Flowers MD Work Phone: [facility] 07-11-2022 12:17-0400 Heart rate 72 /min Etienne Flowers MD Work Phone: [facility] 07-11-2022 12:17-0400 Respiratory rate 12 /min Etienne Flowers MD Work Phone: [facility] 07-11-2022 12:17-0400 Systolic blood pressure 102 mm[Hg] Etienne Flowers MD Work Phone: [facility] 04-21-2022 12:58-0400 Body temperature 96.6 [degF] Etienne Flowers MD Work Phone: [facility] 04-21-2022 12:58-0400 Body weight 59.88 kg Etienne Flowers MD Work Phone: [facility] 04-21-2022 12:58-0400 Diastolic blood pressure 68 mm[Hg] Etienne Flowers MD Work Phone: [facility] 04-21-2022 12:58-0400 Heart rate 60 /min Etienne Flowers MD Work Phone: [facility] 04-21-2022 12:58-0400 Respiratory rate 12 /min Etienne Flowers MD Work Phone: [facility] 04-21-2022 12:58-0400 Systolic blood pressure 122 mm[Hg] Etienne Flowers MD Work Phone: [facility] 04-13-2022 09:59-0400 Body weight 59.42 kg Keyonna Older ABRASIVE WORKER.PRISON OFFICER Work Phone: [facility] 04-13-2022 09:59-0400 Diastolic blood pressure 68 mm[Hg] Keyonna Older ABRASIVE WORKER.PRISON OFFICER Work Phone: [facility] 04-13-2022 09:59-0400 Heart rate 64 /min Keyonna Older ABRASIVE WORKER.PRISON OFFICER Work Phone: [facility] 04-13-2022 09:59-0400 Respiratory rate 12 /min Keyonna Older ABRASIVE WORKER.PRISON OFFICER Work Phone: [facility] 04-13-2022 09:59-0400 Systolic blood pressure 124 mm[Hg] Keyonna Older ABRASIVE WORKER.PRISON OFFICER Work Phone: [facility] Encounters Encounter Date Encounter Type Care Provider Facility Start: 11-09-2023 End: 11-09-2023 ambulatory KEYONNA ÁLVAREZ Facility:[facility] Start: 09-26-2023 Documentation procedure Mammog susanna Coordinator [facility] Start: 09-26-2023 Letter encounter Mammography Coordinator [facility] Department Start: 09-25-2023 End: 09-25-2023 Orders Only Etienne Flowers MD Work Phone: [facility] Procedures Date Procedure Procedure Detail Performing Clinician Start: 09-23-2022 End: 09-23-2022 Mammography Keyonna Older ABRASIVE WORKER.PRISON OFFICER Work Phone: Start: 07-11-2022 Adult depression screening assessment Etienne Flowers MD Work Phone: Start: 06-16-2021 Mammography Keyonna Older ABRASIVE WORKER.PRISON OFFICER Work Phone: Start: 03-03-2021 Adult depression screening assessment Keyonna Older ABRASIVE WORKER.PRISON OFFICER Work Phone: Start: 04-21-2016 Colonoscopy Keyonna Older ABRASIVE WORKER.PRISON OFFICER Work Phone: Start: 07-27-2012 History of bilateral mastectomy S/P bilateral breast lumpectomy Keyonna Older ABRASIVE WORKER.PRISON OFFICER Work Phone: Start: 07-27-2012 History of mastectomy S/P bila teral breast lumpectomy Keyonna Older ABRASIVE WORKER.PRISON OFFICER Work Phone: Plan of Treatment Date Care Activity Detail Author Start: 06-13-2028 Urine microalbumin profile [facility] Start: 09-23-2027 LIPID SCREEN LIPID SCREEN [facility] Start: 08-27-2026 LIPID SCREEN LIPID SCREEN [facility] Start: 04-21-2026 Colonoscopy COLONOSCOPY [facility] Start: 04-21-2026 COLORECTAL CANCER SCREENING COLORECTAL CANCER SCREENING [facility] Start: 04-20-2026 DIABETES SCREEN DIABETES SCREEN [facility] Start: 04-20-2026 Diabetes Screening Diabetes Screenin g [facility] Start: 09-23-2025 DIABETES SCREEN DIABETES SCREEN [facility] Start: 04-13-2025 DIABETES SCREEN DIABETES SCREEN [facility] Start: 09-25-2024 Mammography Mammogram Screening [facility] Start: 08-27-2024 DIABETES SCREEN DIABETES SCREEN [facility] Start: 04-20-2024 ANNUAL PCP TEAM STRICKLER ATTENDANT MORA DISEASE VISIT ANNUAL PCP TEAM CHRONIC DISEASE VISIT [facility] Start: 04-20-2024 COVID-19 VACCINE (3 - Pfizer series) COVID-19 VACCINE (3 - Pfizer series) [facility] Immunizations Immunization Date Immunization Notes Care Provider Fa cili 09-03-2021 influenza, high-dose , quadrivalent vaccine (FLUZONE HIGH DOSE QUADRIVALENT) Keyonna Older ABRASIVE WORKER.PRISON OFFICER Work Phone: [facility] 09-03-2021 influenza virus vacc ine, unspecified formulation Etienne Flowers MD Work Phone: [facility] 03-03-2021 zoster vaccine recombinant Keyonna Older ABRASIVE WORKER.PRISON OFFICER Work Phone: [facility] Work Phone: 02-01-2021 COVID-19 vaccine, ag e 12+ yr ([facility] - [facility]) Keyonna Older ABRASIVE WORKER.PRISON OFFICER Work Phone: [facility] Work Phone: 01-07-2021 COVID-19 vaccine, ag e 12+ yr ([employer] - PURPLE TOP) Keyonna Older ABRASIVE WORKER.PRISON OFFICER Work Phone: [facility] Work Phone: 10-27-2020 zoster vaccine recombinant Keyonna Older ABRASIVE WORKER.PRISON OFFICER Work Phone: [facility] Work Phone: 08-13-2020 influenza, high-dose , quadrivalent vaccine (FLUZONE HIGH DOSE QUADRIVALENT) Keyonna Older ABRASIVE WORKER.[facility] Work Phone: [facility] Work Phone: 06-13-2018 tetanus toxoid, redu antione diphtheria toxoid, and acellular pertussis vaccine, adsorbed Keyonna Older ABRASIVE WORKER.[facility] Work Phone: [facility] Work Phone: 03-02-2016 pneumococcal conjuga te vaccine, 13 valent Keyonna Older ABRASIVE WORKER.PRISON OFFICER Work Phone: [facility] 09-06-2013 influenza virus vacc ine, unspecified formulation Keyonna Older ABRASIVE WORKER.PRISON OFFICER Work Phone: [facility] 02-24-2012 tetanus and diphther ia toxoids, adsorbed, preservative free, for adult use (2 Lf of tetanus toxoid and 2 Lf of diphtheria toxoid) Keyonna Older ABRASIVE WORKER.PRISON OFFICER Work Phone: [facility] Work Phone: 02-24-2012 zoster vaccine, live Keyonna Old er ABRASIVE WORKER.PRISON OFFICER Work Phone: [facility] Work Phone: 01-30-2012 pneumococcal polysaccharide vaccine, 23 valent Keyonna Older ABRASIVE WORKER.PRISON OFFICER Work Phone: [facility] Payers Date Payer Category Payer Medicare [id number] 2019 Unknown MMO MMO MEDICARE SUPPLEMENT [id number] 2019-Present [phone] [address] [place] [address] Indemnity [id number] 2019 Unknown MMO MMO MEDICARE SUPPLEMENT [id number] 2019-Present [phone] [address] [place] [address] Indemnity [id number] 2014 Medicare MEDICARE MEDICAR E A AND B [id number] 2014-Present [phone] [address] [address] [place] [address] Medicare [id number] 2014 Medicare MEDICARE MEDICAR E A AND B [id number] 2014-Present [phone] [address] [address] [place] [address] Medicare [id number] 2014 Medicare [id number] Social History Date Type Detail Facility Tobacco smoking stat [facility] Never smoked tobacco [facility] Start: 09-03-2021 End: 04-20-2023 Alcohol intake Current non-drinker of alcohol (finding) [facility] Start: 11-06-2019 End: 03-03-2021 History SDOH Alcohol Frequency 2 [facility] Start: 11-06-2019 End: 03-03-2021 History SDOH Alcohol Std Drinks 1 [facility] Start: 11-06-2019 End: 06-17-2020 History SDOH Social Connections Phone 5 [facility] Start: 11-06-2019 History SDOH Social Connections Confucianist 98 [facility] Start: 11-06-2019 History SDOH Social Connections Meetings 3 [facility] Start: 06-17-2020 History SDOH Physical Activity DPW 7 [facility] Start: 06-17-2020 History SDOH Financial 4 [facility] Start: 11-06-2019 Education 21 [facility] Start: 1945 Sex Assigned At Not on file [facility] Start: 03-27-2022 End: 07-15-2022 Exposure to SARS-CoV-2 (event) Not sure [facility] Work Phone: Start: 1945 Sex Assigned At Female [facility] Start: 10-18-2020 End: 04-18-2023 History of Social function [facility] Start: 10-18-2020 End: 04-18-2023 Social connection and isolation panel [facility] How often do you att end confucianism or orthodoxy services? Patient refused [facility] Do you belong to any clubs or organizations such as confucianism groups, unions, fraternal or athletic groups, or school groups? Yes [facility] Are you now , , , , never or living with a partner? [facility] How often to you hav e a drink containing alcohol? Monthly or less [facility] How many standard dr inks containing alcohol do you have on a typical day? 1 or 2 [facility] How often do you hav e 6 or more drinks on 1 occasion? Never [facility] Do you feel stress - tense, restless, nervous, or anxious, or unable to sleep at night because your mind is troubled all the time - these days [OSQ] Not at all [facility] (I/We) worried mk er (my/our) food would run out before (I/we) got money to buy more. Never true [facility] In the past 12 month s, was there a time when you were not able to pay the mortgage or rent on time? No [facility] Start: 04-12-2022 Gender identity Identifies as female gender (finding) [facility] Start: 04-12-2022 Sexual orientation Heterosexual (finding) [facility] How hard is it for y ou to pay for the very basics like food, housing, medical care, and heating Not very hard [facility] Do you feel stress - tense, restless, nervous, or anxious, or unable to sleep at night because your mind is troubled all the time - these days [OSQ] Only a little [facility] Goals Date Patient Goal Desired Activity /State Personal health goal Clinical Notes 06-10-2019 to 11-09-2023 Letter - Coordinator, Mammography - 09/26/2023 9:08 AM Shelley Goldsmith RN - 06/21/2023 3:17 PM Shelley Benavidez RN - 06/15/2023 4:08 PM Kenisha Zazueta RN - 10/12/2022 10:23 AM EST Note Date & Type Note Facility 11-09-2023 Note HNO ID: [id number] Author: Keyonna Álvarez APRN.PRISON OFFICER Service: ? Author Type: Nurse Practitioner Type: [...] as PCP - General Outside specialists seen: legend maker- Dr. Phillips, Optometry- Amari, Dermatology- Dr. López [...] Personalized prevention plan provided Keyonna Álvarez APRN.CNP [facility] 09-26-2023 Miscellaneous Notes September 26, 2023 PID: [id number] Logan Carrillo [address] [place] [address] Dear Ms. Carrillo, We are pleased to [...] report will be kept on file at [facility] as part of your permanent medical record and are available for your continuing care. Thank you for allowing us to help in meeting your health care needs. Sincerely, Dr. Ricardo Interpreting Radiologist [facility] (Normal over 40) documented in this encounter [facility] 09-25-2023 Note HNO ID: [id number] Author: Coleen Haddad, [employer] Service: ? Author Type: Marketing Administrative Assistant Type: Progress Notes Filed: 09/25/2023 11:38 AM [...] DATA: Not applicable SIGNED BY: Coleen Haddad [employer] September 25, 2023 10:59 AM [facility] 09-14-2023 Note HNO ID: [id number] Author: Shelley Zazueta RN Service: ? Author Type: Registered Nurse Type: Progress Notes Filed: 09/14/2023 3:38 PM Note Text: CDM Telephonic Outreach Provider Action/FYI Opened in Error [facility] 09-14-2023 Note HNO ID: [id number] Author: Shelley Zazueta RN Service: ? 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 No Based on tailor's aide, the following disposition is advised: No symptoms or symptoms present, not severe. Routed to: No Action Needed CRYSTAL Education Provided this Outreach: No Shelley Zazueta RN September 14, 2023 2:22 PM [facility] 09-14-2023 Note Patient Outreach ([place] [facility] LOGAN CARRILLO ([id number]) 1945 F Date Time Provider Department 09/14/23 [...] Encounter Status:Closed by SHELLEY ZAZUETA on 09/14/23 [facility] 09-14-2023 Note Patient Outreach (AM [facility]) LOGAN CARRILLO ([id number]) 1945 F Date Time Provider Department 09/14/23 SHELLEY ZAZUETA [facility] During your visit today, we recorded the following information about you: Shelley Zazueta, RN 09/14/2023 2:50 PM Signed CDM Telephonic Outreach Provider Action/ CDM: CHF / CKD Spk with 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 No Based on tailor's aide, the following disposition is advised: No symptoms [...] Status:Closed by ST (more content not included)... [facility] 06-21-2023 Note HNO ID: [id number] Author: Shelley Zazueta RN Service: ? Author [...] to talk about today? No Based on tailor's aide, the following disposition is advised: No symptoms or symptoms present, not severe. Routed to: No Action Needed CRYSTAL Education Provided this Outreach: Yes Shelley Zazueta RN June 21, 2023 3:18 PM [facility] 06-21-2023 History of Presen t illness Narrative [...] to talk about today? No Based on tailor's aide, the following disposition is advised: No symptoms [...] 2023 4:08 PM documented in this encounter [facility] 06-15-2023 Note HNO ID: [id number] Author: Shelley Zazueta RN Service: ? Author [...] Zazueta RN June 15, 2023 4:08 PM [facility] 06-15-2023 Note Patient Outreach ([facility] LOGAN CARRILLO ([id number]) 1945 F Date Time Provider Department 06/15/23 [...] to talk about today? No Based on tailor's aide, the following disposition is advised: No symptoms [...] kidney disease (HCC) [N18.31] Order(s):PT ED NEPHROLOGY [[id number]] Order #: [id number]: 1 PT ED NEPHROLOGY [[id number]] Order #: [id number]: 1 Prescriptions as of 06/21/2023 - loratadine [...] (congestive heart failure)*07 (more content not included)... [facility] 04-20-2023 Note HNO ID: [id number] Author: Etienne Flowers MD Service: ? Author Type: Physician Type: Progress Notes Filed: 04/20/2023 3:34 PM Note Text: This note was created using DeNovaMedriter. Subjective Logan Carrillo is a 77 year [...] use for one year. Etienne Flowers MD [facility] 03-27-2023 Miscellaneous Notes NEERAJ: 12/14/2022 Last refill: 04/06/2022 QTY: 45g Refills: 0 documented in this encounter [facility] 12-14-2022 Note HNO ID: [id number] Author: Etienne Flowers MD Service: ? Author Type: Physician Type: Progress Notes Filed: 12/14/2022 3:37 PM Note Text: This note was created using Nanoleaf. Subjective Logan Carrillo is a 77 year [...] - AMBULATORY EAR LAVAGE/IRRIGATION Etienne Flowers MD [facility] 12-14-2022 Note HNO ID: [id number] Author: Vandana Mistry LPN Service: ? Author Type: ? Type: Progress Notes Filed: 12/14/2022 3:37 PM Note Text: Left ear flushed with warm water/h2o2. Did not remove any cerumen. Patient tolerated procedure well. [facility] 11-23-2022 Miscellaneous Notes NEERAJ: 09/21/2022 Last refill: 08/02/2021 QTY: 90 Refills: 0 Patient's request for medication is as follows: Requested Prescriptions Pending Prescriptions Disp Refills cholecalciferol (VITAMIN D3) 1,000 unit tab tablet 90 tablet 0 Sig: Take 1 tablet by mouth once daily. Please approve the above prescription(s) to electronically send to pharmacy. Natalio Flynn Ma documented in this encounter [facility] 10-12-2022 History of Presen t illness Narrative [...] 2022 10:23 AM documented in this encounter [facility] 10-12-2022 History of Presen t illness Narrative [...] made with patient ACTION TAKEN: Based on tailor's aide, the following disposition is advised: SYMPTOMS PRESENT NOT SEVERE: No action required - Continue outreach / Phone Call Shelley Zazueta RN October 12, 2022 10:03 AM documented in this encounter [facility] 09-26-2022 Miscellaneous Notes September 26, 2022 PID: [id number] Logan Carirllo [address] [place] [address] Dear Ms. Carrillo, We are pleased to [...] report will be kept on file at [facility] as part of your permanent medical record and are available for your continuing care. Thank you for allowing us to help in meeting your health care needs. Sincerely, Dr. Buckner Interpreting Radiologist [facility] (Normal over 40) documented in this encounter [facility] 09-23-2022 History of Presen t illness Narrative [...] 2022 2:34 PM documented in this encounter [facility] 09-21-2022 History of Presen t illness Narrative Medicare Yearly Visit Medical B eligibilty date 12/14/13 Date of last exam 09/03/21 PAST MEDICAL HISTORY Diagnosis Date Cholecystitis with cholelithiasis Sept.2007 Choledocholithiasis with acute cholecystitis 08/10/2009 Chronic systolic CHF (congestive heart failure) ([facility]) 05/18/2018 CKD (chronic kidney disease) stage 3, GFR 30-59 ml/min ([facility]) 04/27/2018 Contact dermatitis due to poison jeffry [...] the time. List of current specialists seen: Landscaper- Dr. Phillips Optometry- Dr. Fitzpatrick Dermatology- Dr. [...] diet of 1000 mg/day for under 50, 9959-1272 mg/day for 50+ - Mammogram ordered - [...] Keyonna Mims APRN.LUCHO documented in this encounter [facility] 09-17-2022 Miscellaneous Notes Pt reports she was [...] stomach needs rest. documented in this encounter [facility] 08-01-2022 Miscellaneous Notes Patient has been identified [...] Vandana Mistry LPN documented in this encounter [facility] 07-18-2022 History of Presen t illness Narrative This note was created using DeNovaMedriter. Subjective Patient presents with: ED Follow-up: diverticulitis [...] Etienne Flowers MD documented in this encounter [facility] documented as of this encounter (statuses as of 06/22/2023) [facility] History of Past illness Narrative* Problem Noted Date Diagnosed Date Resolved Date Abnormal CT scan, kidney 07/15/202206/2023 Contact dermatitis due to poison jeffry 06/10/2019 11/08/2019 Medicare annual wellness visit, subsequent 06/10/2019 11/08/2019 Impaired glucose metabolism 05/18/2018 08/13/2020 Dysphagia 05/04/2018 11/08/2019 Overview: Added automatically from request for surgery [id number] CKD (chronic kidney disease) stage 3, GFR [...] of this encounter (statuses as of 09/16/2023) [facility] History of Past illness Narrative* Problem Noted Date Diagnosed Date Resolved Date Abnormal CT scan, kidney 07/15/202206/2023 Contact dermatitis due to poison jeffry 06/10/2019 11/08/2019 Medicare annual wellness visit, subsequent 06/10/2019 11/08/2019 Impaired glucose metabolism 05/18/2018 08/13/2020 Dysphagia 05/04/2018 11/08/2019 Overview: Added automatically from request for surgery [id number] CKD (chronic kidney disease) stage 3, GFR [...] of this encounter (statuses as of 09/17/2023) [facility] History of Past illness Narrative* Problem Noted Date Diagnosed Date Resolved Date Abnormal CT scan, kidney 07/15/202206/2023 Contact dermatitis due to poison jeffry 06/10/2019 11/08/2019 Medicare annual wellness visit, subsequent 06/10/2019 11/08/2019 Impaired glucose metabolism 05/18/2018 08/13/2020 Dysphagia 05/04/2018 11/08/2019 Overview: Added automatically from request for surgery [id number] CKD (chronic kidney disease) stage 3, GFR [...] of this encounter (statuses as of 09/28/2023) [facility] Instructions* Patient Instructions* Etienne Flowers MD - 07/11/2022 12:52 PM EDT PROCEED TO THE ER. YOU NEED BLOOD TESTS AND CT SCANS AND IV FLUIDS. [facility] History of Present illness Narrative* Etienne Flowers MD - 07/11/2022 12:41 PM EDT This note was created using Nanoleaf. Subjective Logan Carrillo is a 76 year [...] doctor. Etienne Flowers MD [facility] History of Present illness Narrative* Marbin Rosa RN - 06/15/2022 1:36 PM EDT inSight CDM Engagement Provider Action/FYI: Call to Pt, left a message to verify CHF/ CKD symptom status and provide Insight Monitoring questionnaire reminder. Contact Made with Patient: No, first attempt, left message. Mukund Carrillo. This is Shelley Zazueta RN your Lace Inspector from the [facility]. I am calling to check in with you concerning the MyChart questionnaire you have been receiving from me. I will call you again tomorrow and am looking forward to speaking with you. (Care Coordinatorenters next day in next patient outreach ) Shelley Zazueta RN June 15, 2022 1:36 PM [facility] History of Present illness Narrative* Marbin Rosa RN - 05/12/2022 3:56 PM EDT INSIGHT CDM TELEPHONIC OUTREACH Provider Action/FYI: Call to Pt left a message to verify CHF/ CKD status and needs. Contact made with patient: No - Left message Mukund my name is Shelley Zazueta RN your Lace Inspector from the [facility] I am callingtoday for your bi-weekly check [...] 12, 2022 3:56 PM [facility] Instructions* Patient Instructions* Etienne Flowers MD - 04/21/2022 1:28 PM EDT Do follow up labs today. documented [facility] History of Present illness Narrative* Etienne Flowers MD - 04/21/2022 1:10 PM EDT This note was created using Nanoleaf. Subjective Logan Carrillo is a 76 year [...] Abs Lymph 1.00 - 4.00 k/uL 1.61 [place]% % 8.5 Abs [place] <0.87 k/uL 0.47 Eosin% % 2.0 Abs [...] Stable. Etienne Flowers MD [facility] History of Present illness Narrative* Keyonna Mims, ABRASIVE WORKER.PRISON OFFICER - 04/13/2022 10:01 AM EDT CC: Patient [...] systolic CHF (congestive heart failure) ([facility]) 05/18/2018 CKD (chronic kidney disease) stage 3, GFR 30-59 ml/min ([facility]) 04/27/2018 Contact dermatitis due to poison jeffry [...] plan. Keyonna Mims APRN.CNP [facility] Miscellaneous Notes* Telephone Encounter - Vandana Mistry [...] applicable Please advise. Thank you. Vandana Fede CABLE CUTTER AND SWAGER documented in this encounterAden[facility]-29-2019 History of Past illness Narrative* Problem Noted Date Resolved Date Contact dermatitis due to poison jeffry 06/10/2019 11/08/2019 Medicare annual wellness visit, subsequent 06/1011/08/2019 Impaired glucose metabolism 05/18/2018 1011/2019 Dysphagia 05/04/2018 11/08/2019 Overview: Added automatically from request for surgery [id number] CKD (chronic kidney disease) stage 3, GFR [...] of this encounter (statuses as of 04/06/2022) [facility] Narrative* Problem Noted Date Resolved Date Contact dermatitis due to poison jeffry 06/10/2019 11/08/2019 Medicare annual wellness visit, subsequent 06/1011/08/2019 Impaired glucose metabolism 05/18/2018 1011/2019 Dysphagia 05/04/2018 11/08/2019 Overview: Added automatically from request for surgery [id number] CKD (chronic kidney disease) stage 3, GFR [...] of this encounter (statuses as of 04/13/2022) [facility] Narrative* Problem Noted Date Resolved Date Contact dermatitis due to poison jeffry 06/10/2019 11/08/2019 Medicare annual wellness visit, subsequent 06/1011/08/2019 Impaired glucose metabolism 05/18/201811/2019 Dysphagia 05/04/2018 11/08/2019 Overview: Added automatically from request for surgery [id number] CKD (chronic kidney disease) stage 3, GFR [...] of this encounter (statuses as of 04/15/2022) [facility] Narrative* Problem Noted Date Resolved Date Contact dermatitis due to poison jeffry 06/10/2019 11/08/2019 Medicare annual wellness visit, subsequent 06/1011/08/2019 Impaired glucose metabolism 05/18/201811/2019 Dysphagia 05/04/2018 11/08/2019 Overview: Added automatically from request for surgery [id number] CKD (chronic kidney disease) stage 3, GFR [...] of this encounter (statuses as of 04/21/2022) [facility] Narrative* Problem Noted Date Resolved Date Contact dermatitis due to poison jeffry 06/10/2019 11/08/2019 Medicare annual wellness visit, subsequent 06/1011/08/2019 Impaired glucose metabolism 05/18/201811/2019 Dysphagia 05/04/2018 11/08/2019 Overview: Added automatically from request for surgery [id number] CKD (chronic kidney disease) stage 3, GFR [...] of this encounter (statuses as of 05/13/2022) [facility] Narrative* Problem Noted Date Resolved Date Contact dermatitis due to poison jeffry 06/10/2019 11/08/2019 Medicare annual wellness visit, subsequent 06/1011/08/2019 Impaired glucose metabolism 05/18/2018 10/0 11/2019 Dysphagia 05/04/2018 11/08/2019 Overview: Added automatically from request for surgery [id number] CKD (chronic kidney disease) stage 3, GFR [...] of this encounter (statuses as of 06/15/2022) [facility] Narrative* Problem Noted Date Resolved Date Contact dermatitis due to poison jeffry 06/10/2019 11/08/2019 Medicare annual wellness visit, subsequent 06/1011/08/2019 Impaired glucose metabolism 05/18/201811/2019 Dysphagia 05/04/2018 11/08/2019 Overview: Added automatically from request for surgery [id number] CKD (chronic kidney disease) stage 3, GFR [...] of this encounter (statuses as of 07/11/2022) [facility] Narrative* Problem Noted Date Resolved Date Contact dermatitis due to poison jeffry 06/10/2019 11/08/2019 Medicare annual wellness visit, subsequent 06/1011/08/2019 Impaired glucose metabolism 05/18/2018 1011/2019 Dysphagia 05/04/2018 11/08/2019 Overview: Added automatically from request for surgery [id number] CKD (chronic kidney disease) stage 3, GFR [...] of this encounter (statuses as of 07/19/2022) [facility] Narrative* Problem Noted Date Resolved Date Contact dermatitis due to poison jeffry 06/10/2019 11/08/2019 Medicare annual wellness visit, subsequent 06/1011/08/2019 Impaired glucose metabolism 05/18/201811/2019 Dysphagia 05/04/2018 11/08/2019 Overview: Added automatically from request for surgery [id number] CKD (chronic kidney disease) stage 3, GFR [...] of this encounter (statuses as of 08/02/2022) [facility] Narrative* Problem Noted Date Resolved Date Contact dermatitis due to poison jeffry 06/10/2019 11/08/2019 Medicare annual wellness visit, subsequent 06/1011/08/2019 Impaired glucose metabolism 05/18/201811/2019 Dysphagia 05/04/2018 11/08/2019 Overview: Added automatically from request for surgery [id number] CKD (chronic kidney disease) stage 3, GFR [...] of this encounter (statuses as of 09/17/2022) [facility] Narrative* Problem Noted Date Resolved Date Contact dermatitis due to poison jeffry 06/10/2019 11/08/2019 Medicare annual wellness visit, subsequent 06/1011/08/2019 Impaired glucose metabolism 05/18/201811/2019 Dysphagia 05/04/2018 11/08/2019 Overview: Added automatically from request for surgery [id number] CKD (chronic kidney disease) stage 3, GFR [...] of this encounter (statuses as of 09/21/2022) [facility] Narrative* Problem Noted Date Resolved Date Contact dermatitis due to poison jeffry 06/10/2019 11/08/2019 Medicare annual wellness visit, subsequent 06/1011/08/2019 Impaired glucose metabolism 05/18/201811/2019 Dysphagia 05/04/2018 11/08/2019 Overview: Added automatically from request for surgery [id number] CKD (chronic kidney disease) stage 3, GFR [...] of this encounter (statuses as of 09/28/2022) [facility] Narrative* Problem Noted Date Resolved Date Contact dermatitis due to poison jeffry 06/10/2019 11/08/2019 Medicare annual wellness visit, subsequent 06/1011/08/2019 Impaired glucose metabolism 05/18/201811/2019 Dysphagia 05/04/2018 11/08/2019 Overview: Added automatically from request for surgery [id number] CKD (chronic kidney disease) stage 3, GFR [...] of this encounter (statuses as of 10/12/2022) [facility] Narrative* Problem Noted Date Resolved Date Contact dermatitis due to poison jeffry 06/10/2019 11/08/2019 Medicare annual wellness visit, subsequent 06/1011/08/2019 Impaired glucose metabolism 05/18/2018 10/0 11/2019 Dysphagia 05/04/2018 11/08/2019 Overview: Added automatically from request for surgery [id number] CKD (chronic kidney disease) stage 3, GFR [...] of this encounter (statuses as of 10/12/2022) [facility] Narrative* Problem Noted Date Resolved Date Contact dermatitis due to poison jeffry 06/10/2019 11/08/2019 Medicare annual wellness visit, subsequent 06/1011/08/2019 Impaired glucose metabolism 05/18/201811/2019 Dysphagia 05/04/2018 11/08/2019 Overview: Added automatically from request for surgery [id number] CKD (chronic kidney disease) stage 3, GFR [...] of this encounter (statuses as of 11/23/2022) [facility] Narrative* Problem Noted Date Resolved Date Contact dermatitis due to poison jeffry 06/10/2019 11/08/2019 Medicare annual wellness visit, subsequent 06/1011/08/2019 Impaired glucose metabolism 05/18/201811/2019 Dysphagia 05/04/2018 11/08/2019 Overview: Added automatically from request for surgery [id number] CKD (chronic kidney disease) stage 3, GFR [...] of this encounter (statuses as of 03/28/2023) [facility] Dermatitis due to plant Contact dermatitis and other eczema due to plants (except food) [facility] Diagnosis Exercise-induced leg fatigue- Primary Other musculoskeletal symptoms referable to limbs Pain in both lower extremities [facility] Diagnosis Anemia, unspecified type- Primary [facility] Diagnosis Pain in both lower extremities- Primary Leg weakness, bilateral Other musculoskeletal symptoms referable to limbs Chronic systolic CHF (congestive heart failure) (HCC) Chronic systolic heart failure Nonischemic cardiomyopathy (HCC) Other primary cardiomyopathies Stage 3a chronic kidney disease (HCC) documented in this encounter [facility] note* Diagnosis Acute abdominal pain in left lower quadrant- Primary Abdominal pain, left lower quadrant Left lower quadrant abdominal tenderness with rebound tenderness Diarrhea, unspecified type Dehydration [facility] Diagnosis Diverticulitis of large intestine without perforation or abscess without bleeding- Primary Diverticulitis of colon (without mention of hemorrhage) Skin tag of perianal region Residual hemorrhoidal skin tags Abnormal CT scan, kidney Nonspecific (abnormal) findings on radiological and other examination of genitourinary organs Other specified disorders of kidney and ureter [facility] Diagnosis Medicare annual wellness visit, subsequent- Primary Routine general medical examination at a health care facility Impaired glucose tolerance Impaired glucose tolerance test Screening for lipid disorders Vitamin D deficiency Unspecified vitamin D deficiency Encounter for screening mammogram for malignant neoplasm of breast Other screening mammogram [facility] Diagnosis Migraine without status migrainosus, not intractable, unspecified migraine type documented in this encounter [facility] note* Diagnosis Dermatitis due to plant Contact dermatitis and other eczema due to plants (except food) [facility] encounter [facility] Diagnosis Stage 3a chronic kidney disease (HCC)- Primary [facility]* Diagnosis Visit for screening mammogram- Primary Other screening mammogram documented in this encounter [facility] note* Diagnosis Encounter for screening mammogram for malignant neoplasm of breast Other screening mammogram Visit for screening mammogram- Primary Other screening mammogram documented in this encounter [facility] for referral (narrative)* Outpatient Procedure (Routine) - Authorized Specialty Diagnoses / Procedures Referred By Aline ahumada [facility] Diagnoses Pain in both lower extremities Exercise-induced leg fatigue Claudication (HCC) Procedures PVR ANK PRESS ANGIE VAS LAB NON-INVAS PHYSIOLOGIC STD EXTREMITY ART 2 LEVEL Keyonna Mims APRN.CNP [address] [place] [address] [facility] [address] [place] [address] Referral ID Status Reason Start Date Expiration Date Visits Requested Visits Authorized [id number] Authorized Auto-Generat ed Referral 04/13/2022 04/13/2023 1 1 [facility] for referral (narrative)* Outpatient Procedure (Routine) - Closed Specialty Diagnoses / Procedures Referred By Aline ahumada [facility] Diagnoses Chronic systolic CHF (congestive heart failure) (HCC) Nonischemic cardiomyopathy (HCC) Procedures ECG COMPLETE ECG ROUTINE ECG W/LEAST 12 LDS W/I&R Etienne Flowers MD [address] [place] [address] [facility] [address] [place] [address] Referral ID Status Reason Start Date Expiration Date V isits Requested Visits Authorized [id number] Closed Auto-Generate d Referral 04/21/2022 04/21/2023 1 1 [facility] for referral (narrative)* Diagnostic Procedure Only (Routine) - Authorized Specialty Diagnoses / Procedures Referred By Aline ahumada Referred To Contact [facility] Diagnoses Encounter for screening mammogram for malignant neoplasm of breast Procedures LONG SCREENING SCREENING MAMMOGRAPHY BI 2-VIEW BREAST INC Keyonna Ching APRN.CNP [address] [place] [address] [facility] [address] [address] Referral ID Status Reason Start Date Expiration Date Visits Requested Visits Authorized [id number] Authorized Auto-Generat ed Referral 09/21/2022 10/21/2023 1 1 [facility] for referral (narrative)* Diagnostic Procedure Only (Routine) - Authorized Specialty Diagnoses / Procedures Referred By Aline ahumada Referred To Contact [facility] Diagnoses Visit for screening mammogram Procedures LONG SCREENING SCREENING MAMMOGRAPHY BI 2-VIEW BREAST INC CAD Etienne Flowers MD [address] [place] [address] [facility] [address] [place] [address] Referral ID Status Reason Start Date Expiration Date Visits Requested Visits Authorized [id number] Authorized Auto-Generat ed Referral 09/15/2023 10/13/2024 1 1 [facility] for referral (narrative)* Diagnostic Procedure Only (Routine) - Closed Specialty Diagnoses / Procedures Referred By Aline t Referred To Contact [facility] Diagnoses Encounter for screening mammogram for malignant neoplasm of breast Procedures LONG SCREENING SCREENING MAMMOGRAPHY BI 2-VIEW BREAST INC CAD Older, Keyonna, ABRASIVE WORKER.PRISON OFFICER [address] [place] [address] [facility] [address] [address] Referral ID Status Reason Start Date Expiration Date V isits Requested Visits Authorized [id number] Closed Auto-Generate d Referral 09/21/2022 10/21/2023 1 1 [facility] for visit Narrative* Diagnostic Procedure Only (Routine) - Closed Specialty Diagnoses / Procedures Referred By Aline ahumada Referred To Contact [facility] Diagnoses Encounter for screening mammogram for malignant neoplasm of breast Procedures LONG SCREENING SCREENING MAMMOGRAPHY BI 2-VIEW BREAST INC CAD [facility], Keyonna, ABRASIVE WORKER.PRISON OFFICER [address] [place] [address] [facility] [address] [address] Referral ID Status Reason Start Date Expiration Date V isits Requested Visits Authorized [id number] Closed Auto-Generate d Referral 09/21/2022 10/21/2023 1 1 [facility] Summary Purpose Family History No Family History Records FoundNo Family History Records Found Advance Directives No Advanced Directives Records FoundDocuments on File Type Date Recorded Patient 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 Expl 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 Advance Directive(s) 04/21/2016 9:39 AM Advance Directive(s) 04/07/2016 12:16 PM Documents on File Type Date Recorded Patient Firer Helper Expl anation Advance Directive(s) 04/21/2016 9:39 AM Advance Directive(s) 04/07/2016 12:16 PM Reason for Referral Specialty Diagnoses / Procedures Referred By Aline ahumada Referred To Contact [facility] Diagnoses Other specified disorders of kidney and ureter Procedures MRI KIDNEY WO/W IVCON MRI ABDOMEN W/O & W/CONTRAST MATERIAL Etienne Flowers MD [address] [place] [address] [facility] Referral ID Status Reason Start Date Expiration Date Visits Requested Visits Authorized [id number] Authorized Auto-Generat ed Referral 08/14/2022 08/14/2023 1 1 Health Concerns Problem Noted Date Diagnosed Date High Risk Chronic Disease Home Monitoring Proble 03/29/2023 Problem Noted Date Diagnosed Date High Risk Chronic Disease Home Monitoring Proble 03/29/2023 Additional Source Comments INFORMATION SOURCE (unrecogn ized section and content) DATE CREATED AUTHOR AUTHOR'S ORGANIZ ATION 11/11/2023 [facility] Source Comments (unrecognize d section and content) In the event this informatio n is protected by the Federal Confidentiality of Alcohol and Drug Abuse Patient Records regulations: The Federal rules restrict any use of the information to criminally investigate or prosecute any alcohol or drug abuse patient.[facility] SystemIn the event this information is protected by the Federal Confidentiality of Alcohol and Drug Abuse Patient Records regulations: The Federal rules restrict any use of the information to criminally investigate or prosecute any alcohol or drug abuse patient.[facility] SystemIn the event this information is protected by the Federal Confidentiality of Alcohol and Drug Abuse Patient Records regulations: The Federal rules restrict any use of the information to criminally investigate or prosecute any alcohol or drug abuse patient.[facility] SystemIn the event this information is protected by the Federal Confidentiality of Alcohol and Drug Abuse Patient Records regulations: The Federal rules restrict any use of the information to criminally investigate or prosecute any alcohol or drug abuse patient.[facility] SystemIn the event this information is protected by the Federal Confidentiality of Alcohol and Drug Abuse Patient Records regulations: The Federal rules restrict any use of the information to criminally investigate or prosecute any alcohol or drug abuse patient.[facility] SystemIn the event this information is protected by the Federal Confidentiality of Alcohol and Drug Abuse Patient Records regulations: The Federal rules restrict any use of the information to criminally investigate or prosecute any alcohol or drug abuse patient.[facility] SystemIn the event this information is protected by the Federal Confidentiality of Alcohol and Drug Abuse Patient Records regulations: The Federal rules restrict any use of the information to criminally investigate or prosecute any alcohol or drug abuse patient.[facility] SystemIn the event this information is protected by the Federal Confidentiality of Alcohol and Drug Abuse Patient Records regulations: The Federal rules restrict any use of the information to criminally investigate or prosecute any alcohol or drug abuse patient.[facility] SystemIn the event this information is protected by the Federal Confidentiality of Alcohol and Drug Abuse Patient Records regulations: The Federal rules restrict any use of the information to criminally investigate or prosecute any alcohol or drug abuse patient.[facility] SystemIn the event this information is protected by the Federal Confidentiality of Alcohol and Drug Abuse Patient Records regulations: The Federal rules restrict any use of the information to criminally investigate or prosecute any alcohol or drug abuse patient.[facility] SystemIn the event this information is protected by the Federal Confidentiality of Alcohol and Drug Abuse Patient Records regulations: The Federal rules restrict any use of the information to criminally investigate or prosecute any alcohol or drug abuse patient.[facility] SystemIn the event this information is protected by the Federal Confidentiality of Alcohol and Drug Abuse Patient Records regulations: The Federal rules restrict any use of the information to criminally investigate or prosecute any alcohol or drug abuse patient.[facility] SystemIn the event this information is protected by the Federal Confidentiality of Alcohol and Drug Abuse Patient Records regulations: The Federal rules restrict any use of the information to criminally investigate or prosecute any alcohol or drug abuse patient.[facility] SystemIn the event this information is protected by the Federal Confidentiality of Alcohol and Drug Abuse Patient Records regulations: The Federal rules restrict any use of the information to criminally investigate or prosecute any alcohol or drug abuse patient.[facility] SystemIn the event this information is protected by the Federal Confidentiality of Alcohol and Drug Abuse Patient Records regulations: The Federal rules restrict any use of the information to criminally investigate or prosecute any alcohol or drug abuse patient.[facility] SystemIn the event this information is protected by the Federal Confidentiality of Alcohol and Drug Abuse Patient Records regulations: The Federal rules restrict any use of the information to criminally investigate or prosecute any alcohol or drug abuse patient.[facility] SystemIn the event this information is protected by the Federal Confidentiality of Alcohol and Drug Abuse Patient Records regulations: The Federal rules restrict any use of the information to criminally investigate or prosecute any alcohol or drug abuse patient.[facility] SystemIn the event this information is protected by the Federal Confidentiality of Alcohol and Drug Abuse Patient Records regulations: The Federal rules restrict any use of the information to criminally investigate or prosecute any alcohol or drug abuse patient.[facility] SystemIn the event this information is protected by the Federal Confidentiality of Alcohol and Drug Abuse Patient Records regulations: The Federal rules restrict any use of the information to criminally investigate or prosecute any alcohol or drug abuse patient.[facility] SystemIn the event this information is protected by the Federal Confidentiality of Alcohol and Drug Abuse Patient Records regulations: The Federal rules restrict any use of the information to criminally investigate or prosecute any alcohol or drug abuse patient.[facility] Reason for Visit (unrecogniz ed section and [...] Care Teams (unrecognized sec tion and content) Place Change Roof Bolter Relationship Specialty Start Date End Date Etienne Flowers MD [address] [place] [address] PCP - General 07/30/09 Marbin Rosa, aluminum pourerTechnical Coordinator Internal Medicine 07/20/21 Place Change Roof Bolter Relationship Specialty Start Date End Date Etienne Flowers MD [address] [facility] [place] [address] PCP - General 07/30/09 Marbin Rosa, aluminum pourerTechnical Coordinator Internal Medicine 07/20/21 Place Change Roof Bolter Relationship Specialty Start Date End Date Etienne Flowers MD [address] [facility] [place] [address] PCP - General 07/30/09 Marbin Rosa, aluminum pourerTechnical Coordinator Internal Medicine 07/20/21 Place Change Roof Bolter Relationship Specialty Start Date End Date Etienne Flowers MD [address] [facility] [place] [address] PCP - General 07/30/09 Marbin Rosa, aluminum pourerTechnical Coordinator Internal Medicine 07/20/21 Place Change Roof Bolter Relationship Specialty Start Date End Date Etienne Flowers MD [address] [facility] [place] [address] PCP - General 07/30/09 Marbin Rosa, aluminum pourerTechnical Coordinator Internal Medicine 07/20/21 Place Change Roof Bolter Relationship Specialty Start Date End Date Etienne Flowers MD [address] [facility] [place] [address] PCP - General 07/30/09 Marbin Rosa, aluminum pourerTechnical Coordinator Internal Medicine 07/20/21 Place Change Roof Bolter Relationship Specialty Start Date End Date Etienne Flowers MD [address] [facility] [place] [address] PCP - General 07/30/09 Marbin Rosa, aluminum pourerTechnical Coordinator Internal Medicine 07/20/21 Place Change Roof Bolter Relationship Specialty Start Date End Date Etienne Flowers MD [address] [facility] [place] [address] PCP - General 07/30/09 Marbin Rosa, aluminum pourerTechnical Coordinator Internal Medicine 07/20/21 Place Change Roof Bolter Relationship Specialty Start Date End Date Etienne Flowers MD [address] [facility] [place] [address] PCP - General 07/30/09 Shelley Zazueta, aluminum pourerTechnical Coordinator Internal Medicine 07/20/21 Place Change Roof Bolter Relationship Specialty Start Date End Date Etienne Flowers MD [address] [facility] [place] [address] PCP - General 07/30/09 Shelley Zazueta, aluminum pourerTechnical Coordinator Internal Medicine 07/20/21 Place Change Roof Bolter Relationship Specialty Start Date End Date Etienne Flowers MD [address] [place] [address] PCP - General 07/30/09 Shelley Zazueta, aluminum pourerTechnical Coordinator Internal Medicine 07/20/21 Place Change Roof Bolter Relationship Specialty Start Date End Date Etienne Flowers MD [address] [place] [address] PCP - General 07/30/09 Shelley Zazueta, aluminum pourerTechnical Coordinator Internal Medicine 07/20/21 Place Change Roof Bolter Relationship Specialty Start Date End Date Etienne Flowers MD [address] [facility] [place] [address] PCP - General 07/30/09 Shelley Zazueta, aluminum pourerTechnical Coordinator Internal Medicine 07/20/21 Place Change Roof Bolter Relationship Specialty Start Date End Date Etienne Flowers MD [address] [place] [address] PCP - General 07/30/09 Shelley Zazueta, aluminum pourerTechnical Coordinator Internal Medicine 07/20/21 FOR RECORDS PERTAINING TO [...] BE BASED ON THE PRIMARY CLINICAL RECORDS. [facility] [employer] [facility]. provides no warranty or guarantee of the accuracy or completeness of information in this document.
[2023-12-11 23:56] LABS: Thyroid Stim Hormone (TSH) 2.31 uIU/mL (0.358-3.74)
[2023-12-12] VITALS (8 sets, daily range): BP systolic 136–147; BP diastolic 49–88; PULSE 49–60; RESP 14–15; TEMP 36.9; O2SAT 95–98; BMI 23.3
[2023-12-12] MEDS: Ondansetron 4 MG/2 ML Vial IV (00:01)
--- NOTE | 2023-12-12 00:01 | ED.RN ---
pt refusing to change into a gown at this time.
--- NOTE | 2023-12-12 00:46 | ECHOD_ITS ---
Reason For Study: ARRHYTHMIA Procedure This was a 2D Doppler, Color Flow transthoracic echocardiogram. Exam performed portable in patient room. Left Ventricle Normal LV size. Septal motion consistent with bundle branch block. Left ventricular systolic function is normal. The estimated ejection fraction is 50-55 %. Normal diastololic function. Right Ventricle Normal RV size. Normal systolic function. Atria Normal left atrium. Normal right atrium. Mitral Valve The mitral valve is structurally normal. No prolapse or stenosis seen. Mild (1+) mitral valve insufficiency. Tricuspid Valve Normal tricuspid valve. Mild (1+) tricuspid valve insufficiency. Right ventricular systolic pressure estimated to be 28 mmHg. Aortic Valve Trisinus/trileaflet aortic valve. There is no aortic stenosis. Pulmonic Valve The pulmonic valve is not well visualized. Great Vessels Normal aortic root. Pericardium/Pleural No pericardial effusion. MMode/2D Measurements & Calculations LVIDd: 4.8 cm IVSd: 0.89 cm Ao root diam: 2.8 cm LVIDs: 3.4 cm LVPWd: 0.80 cm RVDd: 2.6 cm FS: 27.8 % LAV(MOD-bp): 54.4 ml LVAd ap4: 33.8 cm2 LVAd ap2: 28.5 cm2 LAV(MOD-bp) Indexed: 33.0 ml/m2 LVLd ap4: 8.0 cm LVLd ap2: 7.8 cm LAV(MOD-sp2): 44.3 ml EDV(MOD-sp4): 115.6 ml EDV(MOD-sp2): 86.8 ml LAV(MOD-sp4): 62.4 ml EDV(sp4-el): 121.4 ml EDV(sp2-el): 88.6 ml LVAs ap4: 19.0 cm2 LVAs ap2: 17.0 cm2 LVLs ap4: 6.4 cm LVLs ap2: 6.7 cm ESV(MOD-sp4): 47.9 ml ESV(MOD-sp2): 36.6 ml ESV(sp4-el): 48.0 ml ESV(sp2-el): 36.7 ml EF(MOD-sp4): 58.6 % EF(MOD-sp2): 57.9 % EF(sp4-el): 60.5 % SV(MOD-sp4): 67.7 ml SV(MOD-sp2): 50.2 ml SV(sp4-el): 73.4 ml LA dimension(2D): 3.8 cm LA A4 area: 19.6 cm2 RA A4 area: 12.6 cm2 TAPSE: 2.1 cm Time Measurements MV dec time: 0.15 sec Doppler Measurements & Calculations MV E max osmani: 114.8 cm/sec Lat Peak E' Osmani: 13.6 cm/sec Med Peak E' Osmani: 14.9 cm/sec MV A max osmani: 78.6 cm/sec E/E' lat: 8.5 E/E' med: 7.7 MV E/A: 1.5 MV V2 max: 133.0 cm/sec MV P1/2t max osmani: 133.9 cm/sec Ao V2 max: 121.9 cm/sec MV max P.1 mmHg MV P1/2t: 78.9 msec Ao max P.0 mmHg MV V2 mean: 44.6 cm/sec MV dec slope: 497.3 cm/sec2 Ao V2 mean: 80.9 cm/sec MV mean P.2 mmHg Ao mean P.1 mmHg MV V2 VTI: 52.0 cm MVA(P1/2t): 2.8 cm2 Ao V2 VTI: 31.0 cm AV (velocity ratio): 0.62 LV V1 max: 81.8 cm/sec MR max osmani: 395.9 cm/sec PA V2 max: 124.7 cm/sec LV V1 max P.7 mmHg MR max P.7 mmHg PA V2 mean: 74.0 cm/sec LV V1 mean P.6 mmHg LV V1 mean: 59.0 cm/sec LV V1 VTI: 19.1 cm TR max osmani: 249.1 cm/sec TR max P.8 mmHg ECHO/Echo Complete Interpretation Summary Mild (1+) mitral valve insufficiency. Mild (1+) tricuspid valve insufficiency. Compared to previous echo, the LV function has improved. The estimated ejection fraction is 50-55 %. Ordering Physician: Opal Shipley Referring Physician: Etienne Valdivia Performed By: Fanny Tim RDCS, RVT
--- OUTSIDE RECORDS SUMMARY | 2023-12-12 00:54 | XMS RPT_ITS | CCD ---
Author Name Unknown Address [address] [place] [address] Organization [facility] Care Team Providers Care Deck Hand Name Role Phone BRYAN OCONNOR Attending Unavailable ANASTASIABRYAN PUGA Primary Care Unavailable ANASTASIABRYAN PUGA Admitting Unavailable ANASTASIABRYAN PUGA Attending Unavailable ANASTASIABRYAN PUGA Primary Care Unavailable ANASTASIABRYAN GONSALVES Admitting Unavailable Etienne Flowers MD Primary Care Provider [phone] Marbin Rosa RN Unavailable UnavailEtienne Burdick MD Primary Care Provider [phone] Shelley SUTTON, Marbin Luna Unavailable Unavailvanessa Zazueta RN, Shelley Luna Unavailable UnavailEtienne Burdick MD Primary Care Provider [phone] Marbin SUTTON, Shelley Luna Unavailable Unavailvanessa Zazueta [...] to adverse reactions 3 Other: See Comments [facility] Work Phone: Medications Completed/Discontinued Medications Medication Drug [...] 10:47-0500 Body height 160 cm Keyonna Older PLANT ENGINEERING SUPERVISOR.TRANSIT OPERATOR Work Phone: [facility] 09-21-2022 10:47-0500 Body weight 56.7 kg Keyonna Older PLANT ENGINEERING SUPERVISOR.LUCHO Work Phone: [facility] 09-21-2022 10:47-0500 Diastolic blood pressure 78 mm[Hg] Keyonna Older PLANT ENGINEERING SUPERVISOR.LUCHO Work Phone: [facility] 09-21-2022 10:47-0500 Heart rate 64 /min Keyonna Older PLANT ENGINEERING SUPERVISOR.LUCHO Work Phone: [facility] 09-21-2022 10:47-0500 Respiratory rate 14 /min Keyonna Older PLANT ENGINEERING SUPERVISOR.TRANSIT OPERATOR Work Phone: [facility] 09-21-2022 10:47-0500 Systolic blood pressure 130 mm[Hg] Keyonna Older PLANT ENGINEERING SUPERVISOR.TRANSIT OPERATOR Work Phone: [facility] 07-11-2022 12:17-0400 Body temperature 97.11 [degF] Etienne Flowers MD Work Phone: [facility] 07-11-2022 12:17-0400 Body weight 58.06 kg Etienne Flowers MD Work Phone: [facility] 07-11-2022 12:17-0400 Diastolic blood pressure 54 mm[Hg] Etienne Flowers MD Work Phone: [facility] 07-11-2022 12:17-0400 Heart rate 72 /min Etienne Flowers MD Work Phone: [facility] 07-11-2022 12:17-0400 Respiratory rate 12 /min Etienne Flowers MD Work Phone: [facility] 07-11-2022 12:17-0400 Systolic blood pressure 102 mm[Hg] Etienne Flowers MD Work Phone: [facility] 04-21-2022 12:58-0400 Body temperature 96.6 [degF] Etienne Flowers MD Work Phone: [facility] 04-21-2022 12:58-0400 Body weight 59.88 kg Etienne Flowers MD Work Phone: [facility] 04-21-2022 12:58-0400 Diastolic blood pressure 68 mm[Hg] Etienne Flowers MD Work Phone: [facility] 04-21-2022 12:58-0400 Heart rate 60 /min Etienne Flowers MD Work Phone: [facility] 04-21-2022 12:58-0400 Respiratory rate 12 /min Etienne Flowers MD Work Phone: [facility] 04-21-2022 12:58-0400 Systolic blood pressure 122 mm[Hg] Etienne Flowers MD Work Phone: [facility] 04-13-2022 09:59-0400 Body weight 59.42 kg Keyonna Older PLANT ENGINEERING SUPERVISOR.TRANSIT OPERATOR Work Phone: [facility] 04-13-2022 09:59-0400 Diastolic blood pressure 68 mm[Hg] Keyonna Older PLANT ENGINEERING SUPERVISOR.TRANSIT OPERATOR Work Phone: [facility] 04-13-2022 09:59-0400 Heart rate 64 /min Keyonna Older PLANT ENGINEERING SUPERVISOR.TRANSIT OPERATOR Work Phone: [facility] 04-13-2022 09:59-0400 Respiratory rate 12 /min Keyonna Older PLANT ENGINEERING SUPERVISOR.TRANSIT OPERATOR Work Phone: [facility] 04-13-2022 09:59-0400 Systolic blood pressure 124 mm[Hg] Keyonna Older PLANT ENGINEERING SUPERVISOR.TRANSIT OPERATOR Work Phone: [facility] Encounters Encounter Date Encounter Type Care Provider Facility Start: 11-09-2023 End: 11-09-2023 ambulatory KEYONNA ÁLVAREZ [facility] Start: 09-26-2023 Documentation procedure Mammog susanna Coordinator [facility] Start: 09-26-2023 Letter encounter Mammography Coordinator [facility] Department Start: 09-25-2023 End: 09-25-2023 Orders Only Etienne Flowers MD Work Phone: [facility] Procedures Date Procedure Procedure Detail Performing Clinician Start: 09-23-2022 End: 09-23-2022 Mammography Keyonna Older PLANT ENGINEERING SUPERVISOR.TRANSIT OPERATOR Work Phone: Start: 07-11-2022 Adult depression screening assessment Etienne Flowers MD Work Phone: Start: 06-16-2021 Mammography Keyonna Older PLANT ENGINEERING SUPERVISOR.TRANSIT OPERATOR Work Phone: Start: 03-03-2021 Adult depression screening assessment Keyonna Older PLANT ENGINEERING SUPERVISOR.TRANSIT OPERATOR Work Phone: Start: 04-21-2016 Colonoscopy Keyonna Older PLANT ENGINEERING SUPERVISOR.TRANSIT OPERATOR Work Phone: Start: 07-27-2012 History of bilateral mastectomy S/P bilateral breast lumpectomy Keyonna Older PLANT ENGINEERING SUPERVISOR.TRANSIT OPERATOR Work Phone: Start: 07-27-2012 History of mastectomy S/P bila teral breast lumpectomy Keyonna Older PLANT ENGINEERING SUPERVISOR.TRANSIT OPERATOR Work Phone: Plan of Treatment Date Care Activity Detail Author Start: 06-13-2028 Urine microalbumin profile [facility] Start: 09-23-2027 LIPID SCREEN LIPID SCREEN [facility] Start: 08-27-2026 LIPID SCREEN LIPID SCREEN [facility] Start: 04-21-2026 Colonoscopy COLONOSCOPY [facility] Start: 04-21-2026 COLORECTAL CANCER SCREENING COLORECTAL CANCER SCREENING [facility] Start: 04-20-2026 DIABETES SCREEN DIABETES SCREEN [facility] Start: 04-20-2026 Diabetes Screening Diabetes Screenin g [facility] Start: 09-23-2025 DIABETES SCREEN DIABETES SCREEN [facility] Start: 04-13-2025 DIABETES SCREEN DIABETES SCREEN [facility] Start: 09-25-2024 Mammography Mammogram Screening [facility] Start: 08-27-2024 DIABETES SCREEN DIABETES SCREEN [facility] Start: 04-20-2024 ANNUAL PCP TEAM TELEPHONE CLERK MORA DISEASE VISIT ANNUAL PCP TEAM CHRONIC DISEASE VISIT [facility] Start: 04-20-2024 COVID-19 VACCINE (3 - Pfizer series) COVID-19 VACCINE (3 - Pfizer series) [facility] Immunizations Immunization Date Immunization Notes Care Provider Fa cili 09-03-2021 influenza, high-dose , quadrivalent vaccine (FLUZONE HIGH DOSE QUADRIVALENT) Keyonna Older PLANT ENGINEERING SUPERVISOR.TRANSIT OPERATOR Work Phone: [facility] 09-03-2021 influenza virus vacc ine, unspecified formulation Etienne Flowers MD Work Phone: [facility] 03-03-2021 zoster vaccine recombinant Keyonna Older PLANT ENGINEERING SUPERVISOR.TRANSIT OPERATOR Work Phone: [facility] Work Phone: 02-01-2021 COVID-19 vaccine, ag e 12+ yr ([employer] - [facility]) Keyonna Older PLANT ENGINEERING SUPERVISOR.TRANSIT OPERATOR Work Phone: [facility] Work Phone: 01-07-2021 COVID-19 vaccine, ag e 12+ yr ([employer] - [place] [employer]) Keyonna Older PLANT ENGINEERING SUPERVISOR.TRANSIT OPERATOR Work Phone: [facility] Work Phone: 10-27-2020 zoster vaccine recombinant Keyonna Older PLANT ENGINEERING SUPERVISOR.TRANSIT OPERATOR Work Phone: [facility] Work Phone: 08-13-2020 influenza, high-dose , quadrivalent vaccine (FLUZONE HIGH DOSE QUADRIVALENT) Keyonna Older PLANT ENGINEERING SUPERVISOR.[facility] Work Phone: [facility] Work Phone: 06-13-2018 tetanus toxoid, redu antione diphtheria toxoid, and acellular pertussis vaccine, adsorbed Keyonna Older PLANT ENGINEERING SUPERVISOR.[facility] Work Phone: [facility] Work Phone: 03-02-2016 pneumococcal conjuga te vaccine, 13 valent Keyonna Older PLANT ENGINEERING SUPERVISOR.TRANSIT OPERATOR Work Phone: [facility] 09-06-2013 influenza virus vacc ine, unspecified formulation Keyonna Older PLANT ENGINEERING SUPERVISOR.TRANSIT OPERATOR Work Phone: [facility] 02-24-2012 tetanus and diphther ia toxoids, adsorbed, preservative free, for adult use (2 Lf of tetanus toxoid and 2 Lf of diphtheria toxoid) Keyonna Older PLANT ENGINEERING SUPERVISOR.TRANSIT OPERATOR Work Phone: [facility] Work Phone: 02-24-2012 zoster vaccine, live Keyonna Old er PLANT ENGINEERING SUPERVISOR.TRANSIT OPERATOR Work Phone: [facility] Work Phone: 01-30-2012 pneumococcal polysaccharide vaccine, 23 valent Keyonna Older PLANT ENGINEERING SUPERVISOR.TRANSIT OPERATOR Work Phone: [facility] Payers Date Payer Category Payer Medicare [id number] 2019 Unknown MMO MMO MEDICARE SUPPLEMENT [id number] 2019-Present [phone] [address] [place] [address] Indemnity [id number] 2019 Unknown MMO MMO MEDICARE SUPPLEMENT [id number] 2019-Present [phone] [address] [place] [address] Indemnity [id number] 2014 Medicare MEDICARE MEDICAR E A AND B [id number] 2014-Present [phone] [address] [address] [place] [address] Medicare [id number] 2014 Medicare MEDICARE MEDICAR E A AND B [id number] 2014-Present [phone] [address] [address] [place] [address] Medicare [id number] 2014 Medicare [id number] Social History Date Type Detail Facility Tobacco smoking stat [facility] Never smoked tobacco [facility] Start: 09-03-2021 End: 04-20-2023 Alcohol intake Current non-drinker of alcohol (finding) [facility] Start: 11-06-2019 End: 03-03-2021 History SDOH Alcohol Frequency 2 [facility] Start: 11-06-2019 End: 03-03-2021 History SDOH Alcohol Std Drinks 1 [facility] Start: 11-06-2019 End: 06-17-2020 History SDOH Social Connections Phone 5 [facility] Start: 11-06-2019 History SDOH Social Connections Zoroastrian 98 [facility] Start: 11-06-2019 History SDOH Social Connections Meetings 3 [facility] Start: 06-17-2020 History SDOH Physical Activity DPW 7 [facility] Start: 06-17-2020 History SDOH Financial 4 [facility] Start: 11-06-2019 Education 21 [facility] Start: 1945 Sex Assigned At Not on file [facility] Start: 03-27-2022 End: 07-15-2022 Exposure to SARS-CoV-2 (event) Not sure [facility] Work Phone: Start: 1945 Sex Assigned At Female [facility] Start: 10-18-2020 End: 04-18-2023 History of Social function [facility] Start: 10-18-2020 End: 04-18-2023 Social connection and isolation panel [facility] How often do you att end nondenominational or druze services? Patient refused [facility] Do you belong to any clubs or organizations such as nondenominational groups, unions, fraternal or athletic groups, or school groups? Yes [facility] Are you now , , , , never or living with a partner? [facility] How often to you hav e a drink containing alcohol? Monthly or less [facility] How many standard dr inks containing alcohol do you have on a typical day? 1 or 2 [facility] How often do you hav e 6 or more drinks on 1 occasion? Never [facility] Do you feel stress - tense, restless, nervous, or anxious, or unable to sleep at night because your mind is troubled all the time - these days [OSQ] Not at all [facility] (I/We) worried mk er (my/our) food would run out before (I/we) got money to buy more. Never true [facility] In the past 12 month s, was there a time when you were not able to pay the mortgage or rent on time? No [facility] Start: 04-12-2022 Gender identity Identifies as female gender (finding) [facility] Start: 04-12-2022 Sexual orientation Heterosexual (finding) [facility] How hard is it for y ou to pay for the very basics like food, housing, medical care, and heating Not very hard [facility] Do you feel stress - tense, restless, nervous, or anxious, or unable to sleep at night because your mind is troubled all the time - these days [OSQ] Only a little [facility] Goals Date Patient Goal Desired Activity /State Personal health goal Clinical Notes 06-10-2019 to 11-09-2023 Letter - Coordinator, Mammography - 09/26/2023 9:08 AM Shelley Goldsmith RN - 06/21/2023 3:17 PM Shelley Benavidez RN - 06/15/2023 4:08 PM Kenisha Zazueta RN - 10/12/2022 10:23 AM EST Note Date & Type Note Facility 11-09-2023 Note HNO ID: [id number] Author: Keyonna Álvarez APRN.TRANSIT OPERATOR Service: ? Author Type: Nurse Practitioner Type: [...] as PCP - General Outside specialists seen: grinding machine operator automatic- Dr. Phillips, Optometry- Amari, Dermatology- Dr. López [...] Personalized prevention plan provided Keyonna Álvarez APRN.CNP [facility] 09-26-2023 Miscellaneous Notes September 26, 2023 PID: [id number] Logan Carrillo [address] [place] [address] Dear Ms. Carrillo, We are pleased to [...] report will be kept on file at [facility] as part of your permanent medical record and are available for your continuing care. Thank you for allowing us to help in meeting your health care needs. Sincerely, Dr. Ricardo Interpreting Radiologist (Normal over 40) documented in this encounter [facility] 09-25-2023 Note HNO ID: [id number] Author: Coleen Haddad, [employer] Service: ? Author Type: Engine Service Repairer Type: Progress Notes Filed: 09/25/2023 11:38 AM [...] DATA: Not applicable SIGNED BY: Coleen Haddad [employer] September 25, 2023 10:59 AM [facility] 09-14-2023 Note HNO ID: [id number] Author: Shelley Zazueta RN Service: ? Author Type: Registered Nurse Type: Progress Notes Filed: 09/14/2023 3:38 PM Note Text: CDM Telephonic Outreach Provider Action/FYI Opened in Error [facility] 09-14-2023 Note HNO ID: [id number] Author: Shelley Zazueta RN Service: ? 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 No Based on auto body repairman, the following disposition is advised: No symptoms or symptoms present, not severe. Routed to: No Action Needed CRYSTAL Education Provided this Outreach: No Shelley Zazueta RN September 14, 2023 2:22 PM [facility] 09-14-2023 Note Patient Outreach (AM [facility]) LOGAN CARRILLO ([id number]) 1945 F Date Time Provider Department 09/14/23 SHELLEY ZAZUETASaramd During your visit today, we recorded the [...] Encounter Status:Closed by SHELLEY ZAZUETA on 09/14/23 [facility] 09-14-2023 Note Patient Outreach (AM [facility]) LOGAN CARRILLO ([id number]) 1945 F Date Time Provider Department 09/14/23 SHELLEY ZAZUETA [facility] During your visit today, we recorded the following information about you: Shelley Zazueta, RN 09/14/2023 2:50 PM Signed CDM Telephonic Outreach Provider Action/ CDM: CHF / CKD Spk with 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 No Based on auto body repairman, the following disposition is advised: No symptoms [...] Status:Closed by ST (more content not included)... [facility] 06-21-2023 Note HNO ID: [id number] Author: Shelley Zazueta RN Service: ? Author [...] to talk about today? No Based on auto body repairman, the following disposition is advised: No symptoms or symptoms present, not severe. Routed to: No Action Needed CRYSTLA Education Provided this Outreach: Yes Shelley Zazueta RN June 21, 2023 3:18 PM [facility] 06-21-2023 History of Presen t [...] to talk about today? No Based on auto body repairman, the following disposition is advised: No symptoms [...] 2023 4:08 PM documented in this encounter [facility] 06-15-2023 Note HNO ID: [id number] Author: Shelley Zazueta RN Service: ? Author [...] Zazueta RN June 15, 2023 4:08 PM [facility] 06-15-2023 Note Patient Outreach (AM [facility]) LOGAN CARRILLO ([id number]) 1945 F Date Time Provider Department 06/15/23 [...] to talk about today? No Based on auto body repairman, the following disposition is advised: No symptoms [...] kidney disease (HCC) [N18.31] Order(s):PT ED NEPHROLOGY [[id number]] Order #: [id number]: 1 PT ED NEPHROLOGY [[id number]] Order #: [id number]: 1 Prescriptions as of 06/21/2023 - loratadine [...] (congestive heart failure)*07 (more content not included)... [facility] 04-20-2023 Note HNO ID: [id number] Author: Etienne Flowers MD Service: ? Author Type: Physician Type: Progress Notes Filed: 04/20/2023 3:34 PM Note Text: This note was created using TripConnectriter. Subjective Logan Carrillo is a 77 year [...] use for one year. Etienne Flowers MD [facility] 03-27-2023 Miscellaneous Notes NEERAJ: 12/14/2022 Last refill: 04/06/2022 QTY: 45g Refills: 0 documented in this encounter [facility] 12-14-2022 Note HNO ID: [id number] Author: Etienne Flowers MD Service: ? Author Type: Physician Type: Progress Notes Filed: 12/14/2022 3:37 PM Note Text: This note was created using [employer]. Subjective Logan Carrillo is a 77 year [...] - AMBULATORY EAR LAVAGE/IRRIGATION Etienne Flowers MD [facility] 12-14-2022 Note HNO ID: [id number] Author: Vandana Mistry LPN Service: ? Author Type: ? Type: Progress Notes Filed: 12/14/2022 3:37 PM Note Text: Left ear flushed with warm water/h2o2. Did not remove any cerumen. Patient tolerated procedure well. [facility] 11-23-2022 Miscellaneous Notes NEERAJ: 09/21/2022 Last refill: 08/02/2021 QTY: 90 Refills: 0 Patient's request for medication is as follows: Requested Prescriptions Pending Prescriptions Disp Refills cholecalciferol (VITAMIN D3) 1,000 unit tab tablet 90 tablet 0 Sig: Take 1 tablet by mouth once daily. Please approve the above prescription(s) to electronically send to pharmacy. Natalio Flynn Ma documented in this encounter [facility] 10-12-2022 History of Presen t illness Narrative [...] 2022 10:23 AM documented in this encounter [facility] 10-12-2022 History of Presen t illness Narrative [...] made with patient ACTION TAKEN: Based on auto body repairman, the following disposition is advised: SYMPTOMS PRESENT NOT SEVERE: No action required - Continue outreach / Phone Call Shelley Zazueta RN October 12, 2022 10:03 AM documented in this encounter [facility] 09-26-2022 Miscellaneous Notes September 26, 2022 PID: [id number] Logan Carrillo [address] [place] [address] Dear Ms. Carrillo, We are pleased to [...] report will be kept on file at [facility] as part of your permanent medical record and are available for your continuing care. Thank you for allowing us to help in meeting your health care needs. Sincerely, Dr. Buckner Interpreting Radiologist (Normal over 40) documented in this encounter [facility] 09-23-2022 History of Presen t illness Narrative [...] 2022 2:34 PM documented in this encounter [facility] 09-21-2022 History of Presen t illness Narrative [...] the time. List of current specialists seen: Spool Carrier- Dr. Phillips Optometry- Dr. Fitzpatrick Dermatology- Dr. [...] diet of 1000 mg/day for under 50, [id number] mg/day for 50+ - Mammogram ordered - [...] Keyonna Mims APRN.LUCHO documented in this encounter [facility] 09-17-2022 Miscellaneous Notes Pt reports she was [...] stomach needs rest. documented in this encounter [facility] 08-01-2022 Miscellaneous Notes Patient has been identified [...] Vandana Mistry LPN documented in this encounter [facility] 07-18-2022 History of Presen t illness Narrative This note was created using [employer]. Subjective Patient presents with: ED Follow-up: diverticulitis [...] Etienne Flowers MD documented in this encounter [facility] documented as of this encounter (statuses as of 06/22/2023) [facility]09-02-2022 History of Past illness Narrative* Problem Noted Date Diagnosed Date Resolved Date Abnormal CT scan, kidney 07/15/202206/2023 Contact dermatitis due to poison jeffry 06/10/2019 11/08/2019 Medicare annual wellness visit, subsequent 06/10/2019 11/08/2019 Impaired glucose metabolism 05/18/2018 08/13/2020 Dysphagia 05/04/2018 11/08/2019 Overview: Added automatically from request for surgery [id number] CKD (chronic kidney disease) stage 3, GFR [...] of this encounter (statuses as of 09/16/2023) [facility]09-[facility] History of Past illness Narrative* Problem Noted Date Diagnosed Date Resolved Date Abnormal CT scan, kidney 07/15/202206/2023 Contact dermatitis due to poison jeffry 06/10/2019 11/08/2019 Medicare annual wellness visit, subsequent 06/10/2019 11/08/2019 Impaired glucose metabolism 05/18/2018 08/13/2020 Dysphagia 05/04/2018 11/08/2019 Overview: Added automatically from request for surgery [id number] CKD (chronic kidney disease) stage 3, GFR [...] of this encounter (statuses as of 09/17/2023) [facility] History of Past illness Narrative* Problem Noted Date Diagnosed Date Resolved Date Abnormal CT scan, kidney 07/15/202206/2023 Contact dermatitis due to poison jeffry 06/10/2019 11/08/2019 Medicare annual wellness visit, subsequent 06/10/2019 11/08/2019 Impaired glucose metabolism 05/18/2018 08/13/2020 Dysphagia 05/04/2018 11/08/2019 Overview: Added automatically from request for surgery [id number] CKD (chronic kidney disease) stage 3, GFR [...] of this encounter (statuses as of 09/28/2023) [facility]08-29-2022 Instructions* Patient Instructions* Etienne Flowers MD - 07/11/2022 12:52 PM EDT PROCEED TO THE ER. YOU NEED BLOOD TESTS AND CT SCANS AND IV FLUIDS. [facility] History of Present illness Narrative* Etienne Flowers MD - 07/11/2022 12:41 PM EDT This note was created using [employer]. Subjective Logan Carrillo is a 76 year [...] doctor. Etienne Flowers MD [facility] History of Present illness Narrative* Marbin Rosa RN - 06/15/2022 1:36 PM EDT inSight CDM Engagement Provider Action/FYI: Call to Pt, left a message to verify CHF/ CKD symptom status and provide Insight Monitoring questionnaire reminder. Contact Made with Patient: No, first attempt, left message. Mukund Carrillo. This is Shelley Zazueta RN your Home Performance Laborer from the [facility]. I am calling to check in with you concerning the MyChart questionnaire you have been receiving from me. I will call you again tomorrow and am looking forward to speaking with you. (Care Coordinatorenters next day in next patient outreach ) Shelley Zazueta RN June 15, 2022 1:36 PM [facility] History of Present illness Narrative* Marbin Rosa RN - 05/12/2022 3:56 PM EDT INSIGHT CDM TELEPHONIC OUTREACH Provider Action/FYI: Call to Pt left a message to verify CHF/ CKD status and needs. Contact made with patient: No - Left message Mukund my name is Shelley Zazueta RN your Home Performance Laborer from the [facility] I am callingtoday for your bi-weekly check [...] 12, 2022 3:56 PM documented in this encounterOhio[facility]06-[facility]22 Instructions* Patient Instructions* Etienne Flowers MD - 04/21/2022 1:28 PM EDT Do follow up labs today. documented in this encounterOhio[facility]06-[facility]22 History of Present illness Narrative* Etienne Flowers MD - 04/21/2022 1:10 PM EDT This note was created using [employer]. Subjective Logan Carrillo is a 76 year [...] Abs Lymph 1.00 - 4.00 k/uL 1.61 Forrest% % 8.5 Abs Forrest <0.87 k/uL 0.47 Eosin% % 2.0 Abs [...] Stable. Etienne Flowers MD documented in this encounterOhio[facility]06-[facility]22 History of Present illness Narrative* Keyonna Mims, PLANT ENGINEERING SUPERVISOR.TRANSIT OPERATOR - 04/13/2022 10:01 AM EDT CC: Patient [...] plan. Keyonna Mims APRN.CNP documented in this encounterOhio[facility]05-25-[facility]22 Miscellaneous Notes* Telephone Encounter - Vandana Mistry [...] applicable Please advise. Thank you. Vandana Fede SANDSTONE SPLITTER documented in this encounterOhio[facility]07-29-2019 History of Past illness Narrative* Problem Noted Date Resolved Date Contact dermatitis due to poison jeffry 06/10/2019 11/08/2019 Medicare annual wellness visit, subsequent 06/1011/08/2019 Impaired glucose metabolism 05/18/2018 1011/2019 Dysphagia 05/04/2018 11/08/2019 Overview: Added automatically from request for surgery [id number] CKD (chronic kidney disease) stage 3, GFR [...] of this encounter (statuses as of 04/06/2022) [facility] of [facility] illness Narrative* Problem Noted Date Resolved Date Contact dermatitis due to poison jeffry 06/10/2019 11/08/2019 Medicare annual wellness visit, subsequent 06/1011/08/2019 Impaired glucose metabolism 05/18/2018 1011/2019 Dysphagia 05/04/2018 11/08/2019 Overview: Added automatically from request for surgery [id number] CKD (chronic kidney disease) stage 3, GFR [...] of this encounter (statuses as of 04/13/2022) [facility] of [facility] illness Narrative* Problem Noted Date Resolved Date Contact dermatitis due to poison jeffry 06/10/2019 11/08/2019 Medicare annual wellness visit, subsequent 06/1011/08/2019 Impaired glucose metabolism 05/18/201811/2019 Dysphagia 05/04/2018 11/08/2019 Overview: Added automatically from request for surgery [id number] CKD (chronic kidney disease) stage 3, GFR [...] of this encounter (statuses as of 04/15/2022) [facility] of [facility] illness Narrative* Problem Noted Date Resolved Date Contact dermatitis due to poison jeffry 06/10/2019 11/08/2019 Medicare annual wellness visit, subsequent 06/1011/08/2019 Impaired glucose metabolism 05/18/201811/2019 Dysphagia 05/04/2018 11/08/2019 Overview: Added automatically from request for surgery [id number] CKD (chronic kidney disease) stage 3, GFR [...] of this encounter (statuses as of 04/21/2022) [facility] Narrative* Problem Noted Date Resolved Date Contact dermatitis due to poison jeffry 06/10/2019 11/08/2019 Medicare annual wellness visit, subsequent 06/1011/08/2019 Impaired glucose metabolism 05/18/201811/2019 Dysphagia 05/04/2018 11/08/2019 Overview: Added automatically from request for surgery [id number] CKD (chronic kidney disease) stage 3, GFR [...] of this encounter (statuses as of 05/13/2022) [facility] Narrative* Problem Noted Date Resolved Date Contact dermatitis due to poison jeffry 06/10/2019 11/08/2019 Medicare annual wellness visit, subsequent 06/1011/08/2019 Impaired glucose metabolism 05/18/2018 10/0 11/2019 Dysphagia 05/04/2018 11/08/2019 Overview: Added automatically from request for surgery [id number] CKD (chronic kidney disease) stage 3, GFR [...] of this encounter (statuses as of 06/15/2022) [facility] Narrative* Problem Noted Date Resolved Date Contact dermatitis due to poison jeffry 06/10/2019 11/08/2019 Medicare annual wellness visit, subsequent 06/1011/08/2019 Impaired glucose metabolism 05/18/201811/2019 Dysphagia 05/04/2018 11/08/2019 Overview: Added automatically from request for surgery [id number] CKD (chronic kidney disease) stage 3, GFR [...] of this encounter (statuses as of 07/11/2022) [facility] Narrative* Problem Noted Date Resolved Date Contact dermatitis due to poison jeffry 06/10/2019 11/08/2019 Medicare annual wellness visit, subsequent 06/1011/08/2019 Impaired glucose metabolism 05/18/2018 1011/2019 Dysphagia 05/04/2018 11/08/2019 Overview: Added automatically from request for surgery [id number] CKD (chronic kidney disease) stage 3, GFR [...] of this encounter (statuses as of 07/19/2022) [facility] Narrative* Problem Noted Date Resolved Date Contact dermatitis due to poison jeffry 06/10/2019 11/08/2019 Medicare annual wellness visit, subsequent 06/1011/08/2019 Impaired glucose metabolism 05/18/201811/2019 Dysphagia 05/04/2018 11/08/2019 Overview: Added automatically from request for surgery [id number] CKD (chronic kidney disease) stage 3, GFR [...] of this encounter (statuses as of 08/02/2022) [facility] Narrative* Problem Noted Date Resolved Date Contact dermatitis due to poison jeffry 06/10/2019 11/08/2019 Medicare annual wellness visit, subsequent 06/1011/08/2019 Impaired glucose metabolism 05/18/201811/2019 Dysphagia 05/04/2018 11/08/2019 Overview: Added automatically from request for surgery [id number] CKD (chronic kidney disease) stage 3, GFR [...] of this encounter (statuses as of 09/17/2022) [facility] Narrative* Problem Noted Date Resolved Date Contact dermatitis due to poison jeffry 06/10/2019 11/08/2019 Medicare annual wellness visit, subsequent 06/1011/08/2019 Impaired glucose metabolism 05/18/201811/2019 Dysphagia 05/04/2018 11/08/2019 Overview: Added automatically from request for surgery [id number] CKD (chronic kidney disease) stage 3, GFR [...] of this encounter (statuses as of 09/21/2022) [facility] Narrative* Problem Noted Date Resolved Date Contact dermatitis due to poison jeffry 06/10/2019 11/08/2019 Medicare annual wellness visit, subsequent 06/1011/08/2019 Impaired glucose metabolism 05/18/201811/2019 Dysphagia 05/04/2018 11/08/2019 Overview: Added automatically from request for surgery [id number] CKD (chronic kidney disease) stage 3, GFR [...] of this encounter (statuses as of 09/28/2022) [facility] Narrative* Problem Noted Date Resolved Date Contact dermatitis due to poison jeffry 06/10/2019 11/08/2019 Medicare annual wellness visit, subsequent 06/1011/08/2019 Impaired glucose metabolism 05/18/201811/2019 Dysphagia 05/04/2018 11/08/2019 Overview: Added automatically from request for surgery [id number] CKD (chronic kidney disease) stage 3, GFR [...] of this encounter (statuses as of 10/12/2022) [facility] Narrative* Problem Noted Date Resolved Date Contact dermatitis due to poison jeffry 06/10/2019 11/08/2019 Medicare annual wellness visit, subsequent 06/1011/08/2019 Impaired glucose metabolism 05/18/2018 10/0 11/2019 Dysphagia 05/04/2018 11/08/2019 Overview: Added automatically from request for surgery [id number] CKD (chronic kidney disease) stage 3, GFR [...] of this encounter (statuses as of 10/12/2022) [facility] Narrative* Problem Noted Date Resolved Date Contact dermatitis due to poison jeffry 06/10/2019 11/08/2019 Medicare annual wellness visit, subsequent 06/1011/08/2019 Impaired glucose metabolism 05/18/201811/2019 Dysphagia 05/04/2018 11/08/2019 Overview: Added automatically from request for surgery [id number] CKD (chronic kidney disease) stage 3, GFR [...] of this encounter (statuses as of 11/23/2022) [facility] Narrative* Problem Noted Date Resolved Date Contact dermatitis due to poison jeffry 06/10/2019 11/08/2019 Medicare annual wellness visit, subsequent 06/1011/08/2019 Impaired glucose metabolism 05/18/201811/2019 Dysphagia 05/04/2018 11/08/2019 Overview: Added automatically from request for surgery [id number] CKD (chronic kidney disease) stage 3, GFR [...] of this encounter (statuses as of 03/28/2023) [facility] Dermatitis due to plant Contact dermatitis and other eczema due to plants (except food) [facility] Diagnosis Exercise-induced leg fatigue- Primary Other musculoskeletal symptoms referable to limbs Pain in both lower extremities [facility] Diagnosis Anemia, unspecified type- Primary [facility] Diagnosis Pain in both lower extremities- Primary Leg weakness, bilateral Other musculoskeletal symptoms referable to limbs Chronic systolic CHF (congestive heart failure) (HCC) Chronic systolic heart failure Nonischemic cardiomyopathy (HCC) Other primary cardiomyopathies Stage 3a chronic kidney disease (HCC) documented in this encounter [facility] note* Diagnosis Acute abdominal pain in left lower quadrant- Primary Abdominal pain, left lower quadrant Left lower quadrant abdominal tenderness with rebound tenderness Diarrhea, unspecified type Dehydration [facility] Diagnosis Diverticulitis of large intestine without perforation or abscess without bleeding- Primary Diverticulitis of colon (without mention of hemorrhage) Skin tag of perianal region Residual hemorrhoidal skin tags Abnormal CT scan, kidney Nonspecific (abnormal) findings on radiological and other examination of genitourinary organs Other specified disorders of kidney and ureter [facility] Diagnosis Medicare annual wellness visit, subsequent- Primary Routine general medical examination at a health care facility Impaired glucose tolerance Impaired glucose tolerance test Screening for lipid disorders Vitamin D deficiency Unspecified vitamin D deficiency Encounter for screening mammogram for malignant neoplasm of breast Other screening mammogram [facility]* Diagnosis Migraine without status migrainosus, not intractable, unspecified migraine type documented in this encounter [facility] note* Diagnosis Dermatitis due to plant Contact dermatitis and other eczema due to plants (except food) [facility]* Diagnosis Stage 3a chronic kidney disease (HCC)- Primary [facility]* Diagnosis Visit for screening mammogram- Primary Other screening mammogram documented in this encounter [facility] note* Diagnosis Encounter for screening mammogram for malignant neoplasm of breast Other screening mammogram Visit for screening mammogram- Primary Other screening mammogram documented in this encounter [facility] for referral (narrative)* Outpatient Procedure (Routine) - Authorized Specialty Diagnoses / Procedures Referred By Aline ahumada [facility] Diagnoses Pain in both lower extremities Exercise-induced leg fatigue Claudication (HCC) Procedures PVR ANK PRESS ANGIE VAS LAB NON-INVAS PHYSIOLOGIC STD EXTREMITY ART 2 LEVEL Keyonna Mims APRN.CNP [address] [place] [address] [facility] [place] [address] [place] [address] Referral ID Status Reason Start Date Expiration Date Visits Requested Visits Authorized [id number] Authorized Auto-Generat ed Referral 04/13/2022 04/13/2023 1 1 [facility] for referral (narrative)* Outpatient Procedure (Routine) - Closed Specialty Diagnoses / Procedures Referred By Aline ahumada [facility] Diagnoses Chronic systolic CHF (congestive heart failure) (HCC) Nonischemic cardiomyopathy (HCC) Procedures ECG COMPLETE ECG ROUTINE ECG W/LEAST 12 LDS W/I&R Etienne Flowers MD [address] [place] [address] [facility] [address] [place] [address] Referral ID Status Reason Start Date Expiration Date V isits Requested Visits Authorized [id number] Closed Auto-Generate d Referral 04/21/2022 04/21/2023 1 1 [facility] for referral (narrative)* Diagnostic Procedure Only (Routine) - Authorized Specialty Diagnoses / Procedures Referred By Aline ahumada Referred To Contact [facility] Diagnoses Encounter for screening mammogram for malignant neoplasm of breast Procedures LONG SCREENING SCREENING MAMMOGRAPHY BI 2-VIEW BREAST INC Keyonna Ching APRN.CNP [address] [place] [address] [facility] [address] [address] Referral ID Status Reason Start Date Expiration Date Visits Requested Visits Authorized [id number] Authorized Auto-Generat ed Referral 09/21/2022 10/21/2023 1 1 [facility] for referral (narrative)* Diagnostic Procedure Only (Routine) - Authorized Specialty Diagnoses / Procedures Referred By Aline ahumada Referred To Contact [facility] Diagnoses Visit for screening mammogram Procedures LONG SCREENING SCREENING MAMMOGRAPHY BI 2-VIEW BREAST INC CAD Etienne Flowers MD [address] [place] [address] [facility] [address] [place] [address] Referral ID Status Reason Start Date Expiration Date Visits Requested Visits Authorized [id number] Authorized Auto-Generat ed Referral 09/15/2023 10/13/2024 1 1 [facility] for referral (narrative)* Diagnostic Procedure Only (Routine) - Closed Specialty Diagnoses / Procedures Referred By Aline t Referred To Contact [facility] Diagnoses Encounter for screening mammogram for malignant neoplasm of breast Procedures LONG SCREENING SCREENING MAMMOGRAPHY BI 2-VIEW BREAST INC CAD Older, Keyonna, PLANT ENGINEERING SUPERVISOR.TRANSIT OPERATOR [address] [place] [address] [facility] [address] [address] Referral ID Status Reason Start Date Expiration Date V isits Requested Visits Authorized [id number] Closed Auto-Generate d Referral 09/21/2022 10/21/2023 1 1 [facility] for visit Narrative* Diagnostic Procedure Only (Routine) - Closed Specialty Diagnoses / Procedures Referred By Aline ahumada Referred To Contact [facility] Diagnoses Encounter for screening mammogram for malignant neoplasm of breast Procedures LONG SCREENING SCREENING MAMMOGRAPHY BI 2-VIEW BREAST INC CAD [facility], Keyonna, PLANT ENGINEERING SUPERVISOR.TRANSIT OPERATOR [address] [place] [address] [facility] [address] [place] [address] Referral ID Status Reason Start Date Expiration Date V isits Requested Visits Authorized [id number] Closed Auto-Generate d Referral 09/21/2022 10/21/2023 1 1 [facility] Summary Purpose Family History No Family History Records FoundNo Family History Records Found Advance Directives No Advanced Directives Records FoundDocuments on File Type Date Recorded Patient Diet Therapist Expl anation Advance Directive(s) 04/21/2016 9:39 AM Advance Directive(s) 04/07/2016 12:16 PM Documents on File Type Date Recorded Patient Diet Therapist Expl anation Advance Directive(s) 04/21/2016 9:39 AM Advance Directive(s) 04/07/2016 12:16 PM Reason for Referral Specialty Diagnoses / Procedures Referred By Aline ahumada Referred To Contact [facility] Diagnoses Other specified disorders of kidney and ureter Procedures MRI KIDNEY WO/W IVCON MRI ABDOMEN W/O & W/CONTRAST MATERIAL Etienne Flowers MD [address] [place] [address] [facility] Referral ID Status Reason Start Date Expiration Date Visits Requested Visits Authorized [id number] Authorized Auto-Generat ed Referral 08/14/2022 08/14/2023 1 1 Health Concerns Problem Noted Date Diagnosed Date High Risk Chronic Disease Home Monitoring Proble 03/29/2023 Problem Noted Date Diagnosed Date High Risk Chronic Disease Home Monitoring Proble 03/29/2023 Additional Source Comments INFORMATION SOURCE (unrecogn ized section and content) DATE CREATED AUTHOR AUTHOR'S ORGANIZ ATION 11/11/2023 [facility] Source Comments (unrecognize d section and content) In the event this informatio n is protected by the Federal Confidentiality of Alcohol and Drug Abuse Patient Records regulations: The Federal rules restrict any use of the information to criminally investigate or prosecute any alcohol or drug abuse patient.[facility] Hospital[facility] the event this information is protected by the Federal Confidentiality of Alcohol and Drug Abuse Patient Records regulations: The Federal rules restrict any use of the information to criminally investigate or prosecute any alcohol or drug abuse patient.[facility] HospitalIn the event this information is protected by the Federal Confidentiality of Alcohol and Drug Abuse Patient Records regulations: The Federal rules restrict any use of the information to criminally investigate or prosecute any alcohol or drug abuse patient.[facility] HospitalIn the event this information is protected by the Federal Confidentiality of Alcohol and Drug Abuse Patient Records regulations: The Federal rules restrict any use of the information to criminally investigate or prosecute any alcohol or drug abuse patient.[facility] HospitalIn the event this information is protected by the Federal Confidentiality of Alcohol and Drug Abuse Patient Records regulations: The Federal rules restrict any use of the information to criminally investigate or prosecute any alcohol or drug abuse patient.[facility] HospitalIn the event this information is protected by the Federal Confidentiality of Alcohol and Drug Abuse Patient Records regulations: The Federal rules restrict any use of the information to criminally investigate or prosecute any alcohol or drug abuse patient.[facility] HospitalIn the event this information is protected by the Federal Confidentiality of Alcohol and Drug Abuse Patient Records regulations: The Federal rules restrict any use of the information to criminally investigate or prosecute any alcohol or drug abuse patient.[facility] HospitalIn the event this information is protected by the Federal Confidentiality of Alcohol and Drug Abuse Patient Records regulations: The Federal rules restrict any use of the information to criminally investigate or prosecute any alcohol or drug abuse patient.[facility] HospitalIn the event this information is protected by the Federal Confidentiality of Alcohol and Drug Abuse Patient Records regulations: The Federal rules restrict any use of the information to criminally investigate or prosecute any alcohol or drug abuse patient.[facility] HospitalIn the event this information is protected by the Federal Confidentiality of Alcohol and Drug Abuse Patient Records regulations: The Federal rules restrict any use of the information to criminally investigate or prosecute any alcohol or drug abuse patient.[facility] HospitalIn the event this information is protected by the Federal Confidentiality of Alcohol and Drug Abuse Patient Records regulations: The Federal rules restrict any use of the information to criminally investigate or prosecute any alcohol or drug abuse patient.[facility] HospitalIn the event this information is protected by the Federal Confidentiality of Alcohol and Drug Abuse Patient Records regulations: The Federal rules restrict any use of the information to criminally investigate or prosecute any alcohol or drug abuse patient.[facility] HospitalIn the event this information is protected by the Federal Confidentiality of Alcohol and Drug Abuse Patient Records regulations: The Federal rules restrict any use of the information to criminally investigate or prosecute any alcohol or drug abuse patient.[facility] HospitalIn the event this information is protected by the Federal Confidentiality of Alcohol and Drug Abuse Patient Records regulations: The Federal rules restrict any use of the information to criminally investigate or prosecute any alcohol or drug abuse patient.[facility] HospitalIn the event this information is protected by the Federal Confidentiality of Alcohol and Drug Abuse Patient Records regulations: The Federal rules restrict any use of the information to criminally investigate or prosecute any alcohol or drug abuse patient.[facility] HospitalIn the event this information is protected by the Federal Confidentiality of Alcohol and Drug Abuse Patient Records regulations: The Federal rules restrict any use of the information to criminally investigate or prosecute any alcohol or drug abuse patient.[facility] HospitalIn the event this information is protected by the Federal Confidentiality of Alcohol and Drug Abuse Patient Records regulations: The Federal rules restrict any use of the information to criminally investigate or prosecute any alcohol or drug abuse patient.[facility] HospitalIn the event this information is protected by the Federal Confidentiality of Alcohol and Drug Abuse Patient Records regulations: The Federal rules restrict any use of the information to criminally investigate or prosecute any alcohol or drug abuse patient.[facility] HospitalIn the event this information is protected by the Federal Confidentiality of Alcohol and Drug Abuse Patient Records regulations: The Federal rules restrict any use of the information to criminally investigate or prosecute any alcohol or drug abuse patient.[facility] HospitalIn the event this information is protected by the Federal Confidentiality of Alcohol and Drug Abuse Patient Records regulations: The Federal rules restrict any use of the information to criminally investigate or prosecute any alcohol or drug abuse patient.[facility] Reason for Visit (unrecogniz ed section and [...] Care Teams (unrecognized sec tion and content) Deck Hand Relationship Specialty Start Date End Date Etienne Flowers MD [address] [place] [address] PCP - General 07/30/09 Marbin Rosa, obstetrics specialistProfessional Services Specialist Internal Medicine 07/20/21 Deck Hand Relationship Specialty Start Date End Date Etienne Flowers MD [address] [facility] [place] [address] PCP - General 07/30/09 Marbin Rosa, obstetrics specialistProfessional Services Specialist Internal Medicine 07/20/21 Deck Hand Relationship Specialty Start Date End Date Etienne Flowers MD [address] [facility] [place] [address] PCP - General 07/30/09 Marbin Rosa, obstetrics specialistProfessional Services Specialist Internal Medicine 07/20/21 Deck Hand Relationship Specialty Start Date End Date Etienne Flowers MD [address] [facility] [place] [address] PCP - General 07/30/09 Marbin Rosa, obstetrics specialistProfessional Services Specialist Internal Medicine 07/20/21 Deck Hand Relationship Specialty Start Date End Date Etienne Flowers MD [address] [facility] [place] [address] PCP - General 07/30/09 Marbin Rosa, obstetrics specialistProfessional Services Specialist Internal Medicine 07/20/21 Deck Hand Relationship Specialty Start Date End Date Etienne Flowers MD [address] [facility] [place] [address] PCP - General 07/30/09 Marbin Rosa, obstetrics specialistProfessional Services Specialist Internal Medicine 07/20/21 Deck Hand Relationship Specialty Start Date End Date Etienne Flowers MD [address] [facility] [place] [id number] PCP - General 07/30/09 Marbin Rosa, obstetrics specialistProfessional Services Specialist Internal Medicine 07/20/21 Deck Hand Relationship Specialty Start Date End Date Etienne Flowers MD [address] [facility] [place] [address] PCP - General 07/30/09 Marbin Rosa, obstetrics specialistProfessional Services Specialist Internal Medicine 07/20/21 Deck Hand Relationship Specialty Start Date End Date Etienne Flowers MD [address] [facility] [place] [address] PCP - General 07/30/09 Shelley Zazueta, obstetrics specialistProfessional Services Specialist Internal Medicine 07/20/21 Deck Hand Relationship Specialty Start Date End Date Etienne Flowers MD [address] [facility] [place] [address] PCP - General 07/30/09 Shelley Zazueta, obstetrics specialistProfessional Services Specialist Internal Medicine 07/20/21 Deck Hand Relationship Specialty Start Date End Date Etienne Flowers MD [address] [facility] [place] [address] PCP - General 07/30/09 Shelley Zazueta, obstetrics specialistProfessional Services Specialist Internal Medicine 07/20/21 Deck Hand Relationship Specialty Start Date End Date Etienne Flowers MD [address] [facility] [place] [address] PCP - General 07/30/09 Shelley Zazueta, obstetrics specialistProfessional Services Specialist Internal Medicine 07/20/21 Deck Hand Relationship Specialty Start Date End Date Etienne Flowers MD [address] [facility] [place] [address] PCP - General 07/30/09 Shelley Zazueta, obstetrics specialistProfessional Services Specialist Internal Medicine 07/20/21 Deck Hand Relationship Specialty Start Date End Date Etienne Flowers MD [address] [facility] [place] [address] PCP - General 07/30/09 Shelley Zazueta, obstetrics specialistProfessional Services Specialist Internal Medicine 07/20/21 FOR RECORDS PERTAINING TO [...] BE BASED ON THE PRIMARY CLINICAL RECORDS. [facility] [employer] [facility]. provides no warranty or guarantee of the accuracy or completeness of information in this document.
[2023-12-12] MEDS: proCHLORPERazine 10 MG/2 ML Vial 5 MG IV ×2 (01:11→10:44)
[2023-12-12 01:59] LABS: Troponin-I HS 43 pg/mL (3.0-54.0)
[2023-12-12 04:03] LABS: Troponin-I HS 39 pg/mL (3.0-54.0)
[2023-12-12 07:19] LABS: Absolute Lymphocyte Count 2.25 X10^3/uL (0.83-4.51); Absolute Neutrophil Count 4.2 X10^3/uL (2.0-7.7); Basophil# 0.02 X10^3/uL; Basophil% 0.3 % (0-1); Eosinophil# 0.06 X10^3/uL; Eosinophils% 0.8 % (0-5); Hematocrit 34.5 % (37-47); Hemoglobin 11.4 g/dL (12.0-15.0); Lymphocyte # 2.25 X10^3/ul (0.83-4.51); Lymphocyte % 31.8 % (19-41); Mean Corpuscular Hgb 30.6 pg (27.0-32.0); Mean Corpuscular Volume 92.5 fL (81-99); Mean Platelet Vol. 9.7 fl (6.2-12.0); Monocyte# 0.54 X10^3/uL; Monocyte% 7.6 % (0-10); NRBC Flagged by Analyzer 0 % (0-5); Neutrophil % 59.4 % (47-70); Platelet Count 232 K/mm3 (150-450); RBC Distribution Width CV 12.6 % (11.6-14.6); RBC Distribution Width SD 42.7 fl (35.1-43.9); Red Blood Count 3.73 M/mm3 (4.2-5.4); White Blood Count 7.1 K/mm3 (4.4-11.0)
[2023-12-12 07:52] LABS: AST(SGOT) 18 U/L (15-37); Alanine Aminotransfer ALT/SGPT 19 U/L (13-56); Albumin, Serum 3.2 g/dL (3.2-5.0); Alkaline Phosphatase 64 U/L (45-117); Anion Gap 4 (5-15); BUN 20 mg/dL (7-18); BUN/Creat Ratio 16.7 RATIO (10-20); Calcium,Total 8.7 mg/dL (8.5-10.1); Chloride 111 mmol/L (98-107); EST Glomerular Filtration Rate 46 mL/min (>60); Est Glom Filt Rate - Afr Amer 56 mL/min (>60); Globulin 3.1 g/dL (2.2-4.2); Glucose 102 mg/dL (74-106); Magnesium 2.6 mg/dL (1.6-2.6); Phosphorus 2.6 mg/dL (2.5-4.9); Potassium 3.7 mmol/L (3.5-5.1); Protein, Total 6.3 g/dL (6.4-8.2); Sodium Level 141 mmol/L (136-145); Troponin-I HS 34 pg/mL (3.0-54.0)
--- NOTE | 2023-12-12 08:37 | PN.HOSP_ITS ---
Subjective Subjective Feels better. No events. Objective Data Objective Data Vital Signs: Vital Signs Temp Pulse Resp BP Pulse Ox O2 Del Method 36.1 C L 60 15 147/49 H 97 Room Air 12/11/23 18:52 12/12/23 05:35 12/12/23 00:02 12/12/23 00:02 12/12/23 05:35 12/12/23 05:35 Oxygen Delivery Method Room Air Weight: 61.73 kg Body Mass Index (BMI) 23.3 Intake & Output: Intake and Output for Last 24 Hours 12/10/23 12/11/23 12/12/23 23:59 23:59 23:59 Intake Total 1000 / 1000 Balance 1000 / 1000 Lab / Micro Data 12/12/23 07:08 12/12/23 07:08 Labs: Laboratory Results - last 24 hr 12/11/23 21:05: WBC 7.0, RBC 4.06 L, Hgb 12.3, Hct 36.9 L, MCV 90.9, MCH 30.3, MCHC 33.3, RDW Std Deviation 41.3, RDW Coeff of [place] 12.6, Plt Count 261, MPV 9.9, Immature Gran % (Auto) 0.300, Neut % (Auto) 77.4 H, Lymph % (Auto) 17.9 L, [place] % (Auto) 3.7, Eos % (Auto) 0.1, Baso % (Auto) 0.6, Absolute Neuts (auto) 5.4, Absolute Lymphs (auto) 1.25, Nucleated RBC % 0, Sodium 138, Potassium 3.9, Chloride 105, Carbon Dioxide 26.0, Anion Gap 7, BUN 28 H, Creatinine 1.36 H, Estim Creat Clear Calc 29.91, Est GFR (MDRD) Af Amer 49 L, Est GFR (MDRD) Non-Af 40 L, BUN/Creatinine Ratio 20.6 H, Glucose 138 H, Calcium 9.2, Troponin I High Sens 38, TSH 2.31 12/12/23 01:24: Troponin I High Sens 43 12/12/23 03:32: Troponin I High Sens 39 12/12/23 07:08: WBC 7.1, RBC 3.73 L, Hgb 11.4 L, Hct 34.5 L, MCV 92.5, MCH 30.6, MCHC 33.0, RDW Std Deviation 42.7, RDW Coeff of [place] 12.6, Plt Count 232, MPV 9.7, Immature Gran % (Auto) 0.100, Neut % (Auto) 59.4, Lymph % (Auto) 31.8, [place] % (Auto) 7.6, Eos % (Auto) 0.8, Baso % (Auto) 0.3, Absolute Neuts (auto) 4.2, Absolute Lymphs (auto) 2.25, Nucleated RBC % 0, Sodium 141, Potassium 3.7, Chloride 111 H, Carbon Dioxide 26.0, Anion Gap 4 L, BUN 20 H, Creatinine 1.20 H, Estim Creat Clear Calc 33.90, Est GFR (MDRD) Af Amer 56 L, Est GFR (MDRD) Non-Af 46 L, BUN/Creatinine Ratio 16.7, Glucose 102, Calcium 8.7, Phosphorus 2.6, Magnesium 2.6, Total Bilirubin 0.70, AST 18, ALT 19, Alkaline Phosphatase 64, Troponin I High Sens 34, Total Protein 6.3 L, Albumin 3.2, Globulin 3.1, Albumin/Globulin Ratio 1.0 Radiography Diagnostic Testing: Radiology Impression Chest X-Ray 12/11/23 19:55 IMPRESSION: No evidence of acute cardiopulmonary disease. Electronically Signed: Sharath Rajan at 20:54 EST Reading Location ID and State: [facility] / [place] Tel , Service support , Brain CT 12/11/23 23:05 IMPRESSION: Normal noncontrast CT of the head. Electronically Signed: Sharath MatsonDO selena at 23:39 EST , Rhythm Strip Rhythm Strip: Sinus bradycardia Rate: 53 Ectopy: None Physical Exam Const alert and no apparent distress Resp normal respiratory effort, no retractions, no use of accessory muscles and clear to auscultation bilaterally Cardio S1 normal heart sound and S2 normal heart sound Cardio Narrative: bradycardic. GI normal to inspection, nondistended, normoactive bowel sounds, soft to palpation, non-tender and non-distended Neuro Sensorium / Orientation: awake and alert Assessment & Plan Assessment/Plan (1) Bradycardia: (2) Light-headedness: (3) Elevated serum creatinine: (4) Nausea and vomiting: PLAN: Plan Bradycardia * symptomatic. * hold carvedilol * check echo * cards consult Chronic conditions: * History of nonischemic cardiomyopathy-Was attributed to chemotherapy related to her breast cancer-Echocardiogram is pending-Hold home Coreg-Last echocardiogram was performed on 06/14/2023 and showed an EF of 40% with mild to moderate global left ventricular dysfunction, chronic bundle maria luisa block with no significant valvular abnormalities.-Continue home Lasix * Hypertension-Hold home Coreg-Continue home lisinopril-As needed hydralazine for systolic pressure greater than 160 * Vitamin D deficiency-Continue home supplementation * History of migraine headaches-Continue home as needed sumatriptan DVT prophylaxis -Subcu Lovenox 40 mg daily CODE STATUS -DNR CCA with no intubation as verified on admission Charges/Coding Visit Charges Inpatient E&M: 02666 Subs Hosp L2
--- NOTE | 2023-12-12 09:55 | CASEMGMT ---
RN CM Face to Face with patient for initial transition planning/care coordination assessment. RN CM introduced self and role at [facility]. Patient lying in bed, alert and oriented, at bedside. Patient willing to participate in assessment and is able to answer all questions appropriately. Care providers, pharmacy, and demographics verified. Patient wishes to discharge home, denies need for home health at this time. Patient states she has no further needs or concerns at this time. CM to follow for discharge planning needs that may arise. 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 Patient is independent at home. Transportation: self, DME/HHC: Patient denies DME at home. No previous HHC or SNF. Disposition Plan: Patient to discharge home with family support and follow-up plans in plans. Mary STOREY, RN, CM
[2023-12-12] MEDS: 0.9% Saline Lock 10 ML Syringe IV (10:44)
--- NOTE | 2023-12-12 11:56 | NURSING ---
PER PT REQUEST- HOLD OFF ON MORNING MEDS TILL AFTER LUNCH. PRN COMPAZINE WAS GIVEN THIS AM.
--- NOTE | 2023-12-12 12:08 | CON.PCM.CA_ITS ---
Documented by User: Akosua MATOS, SHAWNA 12/12/23 14:26 Assessment & Plan Assessment/Plan (1) Light-headedness: (2) Bradycardia: (3) Left bundle branch block: (4) Hx of cardiomyopathy: PLAN: Plan * EF has improved with recent echo * With her bradycardia, will continue to hold her coreg. * pt continues to have episodes of 2:1 AV block being off her BB, discussed PPM with pt. She is agreeable with plan of care. This will likely need to be done at a tertiary care center. * Will continue with her lisinopril * Will f/u wiht pt once d/c home HPI Consult Data Date of Consult: 12/12/23 HPI Narrative HPI Narrative: LOGAN MORTON, is a 78 F who presented [facility] emergency room yesterday for lightheadedness. She states that this has been gradually getting worse over the last several months. She also does have fatigue. And some nausea and vomiting. 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 There was concern over 2:1 AV block. Her Coreg has been held. She was admitted for further evaluation. She has a history of nonischemic cardiomyopathy, mild congestive heart failure, and breast cancer status post radiation and chemotherapy. Her initial diagnosis dates back to 2000. Her initial echocardiogram had demonstrated an ejection fraction of between 20 and 30%. She underwent a stress test that was considered negative for stress-induced myocardial ischemia. She was started on beta- josafat, JAIME inhibitor, and diuretic and discharged home for follow-up. Most recent echo from 07/2023 demonstrated an EF of 40%. She underwent a cardiac catheterization in April of 2019 which demonstrated essentially normal coronary arteries. Her stress test in 2021 was negative for ischemia. Pt sts that over the last few months she has had worsening lightheadedness and increase in fatigue. She does not have any CP or syncope. She does have some TORRES but does not feel that this is worse than before. [facility] Medical History Acute on chronic systolic (congestive) heart failure COVID-19 (~09/2022) History of breast cancer Left bundle branch block Migraine Non-ischemic cardiomyopathy Home Medications lutein extract 15 mg-zeaxanthin extract 0.7 mg capsule 1 ea PO DAILY supplement 12/14/17 [History Last Taken 05/09/18] mecobalamin (vitamin B12) 1,000 mcg disintegrating tablet,sublingual 1,000 mcg sublingual QDAY supplement 05/31/18 [History Last Taken Unknown] cholecalciferol (vitamin D3) 50 mcg (2,000 unit) tablet 2,000 unit PO DAILY supplement 11/07/19 [History Last Taken Unknown] sumatriptan succinate 50 mg tablet 50 mg PO .X1 PRN PRN Migraine Symptoms 06/25/20 [History Last Taken Unknown] multivitamin 1 tab PO DAILY supplement 05/19/22 [History Last Taken Unknown] furosemide 40 mg tablet 40 mg PO DAILY fluid #90 tabs 06/21/23 [Rx Last Taken Unknown] lisinopril 5 mg tablet 5 mg PO DAILY htn #30 tabs 06/28/23 [Rx Last Taken Unknown] carvedilol 25 mg tablet 25 mg PO BID htn #180 tabs 07/31/23 [Rx Last Taken Unknown] Allergy/AdvReac Type Severity Reaction Status Date / Time No Known Allergies Allergy Verified 12/11/23 18:51 Family History Grandfather Myocardial infarction Surgical History H/O lumpectomy History of appendectomy History of left heart catheterization (04/24/19) History of open reduction and internal fixation (ORIF) procedure Hx of cholecystectomy Social History Smoking Status: Never smoker alcohol intake: never substance use type: does not use caffeine: Yes Type: coffee Number of servings: 2 ROS Constitutional Constitutional: Reports fatigue; Denies frequent falls Eyes Eyes: Denies acute decrease in peripheral vision, blurry vision or change in vision ENT HEENT: Reports as per HPI and dizziness; Denies epistaxis, headache(s) or vertigo Cardiovascular Cardiovascular: Reports as per HPI Respiratory/Chest Respiratory/Chest: Denies cough, dyspnea, dyspnea on exertion, tachypnea or wheezing Gastrointestinal Gastrointestinal: Denies abdominal pain, bloating, diarrhea, heartburn, hematemesis, hematochezia or nausea Genitourinary Genitourinary: Denies hematuria Musculoskeletal Musculoskeletal: Denies myalgias, numbness or tingling Neurologic Neurologic: Reports dizziness; Denies abnormal gait, abnormal speech, memory loss, paresthesias or weakness Physical Exam Const alert, oriented x3, no apparent distress, average body habitus and well nourished; Negative for healthy appearing General Appearance: cooperative HEENT normocephalic, head/scalp atraumatic, hearing grossly normal bilaterally and moist oral mucous membranes Eyes PERRL and EOMs intact bilaterally Eyes Narrative: No scleral icterus Neck no lymphadenopathy and supple Resp normal respiratory effort, no retractions, no use of accessory muscles and clear to auscultation bilaterally Auscultation: Negative for rales, rhonchi or wheezes Cardio S1 normal heart sound, S2 normal heart sound, no murmurs, no rub, no gallops and no clicks Cardio Narrative: Bradycardic with intermittent ectopy noted GI normal to inspection, nondistended, normoactive bowel sounds, soft to palpation and non-tender Extremity no clubbing, cyanosis or edema Extremity Narrative: Pedal pulses are 2+ Neuro oriented x3, moves all extremities and no focal motor deficits Speech: speech normal Psych affect normal Psych Narrative: Very pleasant, interacts appropriately Risk Stratification Risk Stratification Applicable: No Charges/Coding Visit Charges Office Visits / Consults: 00665 IP Consult L4 Objective Data Vital Signs: Vital Signs Temp Pulse Resp BP Pulse Ox O2 Del Method 96.9 F L 60 15 147/49 H 95 Room Air 12/11/23 18:52 12/12/23 05:35 12/12/23 00:02 12/12/23 00:02 12/12/23 08:02 12/12/23 08:02 Oxygen Delivery Method Room Air Weight: 136 lb 1.462 oz Body Mass Index (BMI) 23.3 Intake & Output: Intake and Output for Last 24 Hours 12/10/23 12/11/23 12/12/23 23:59 23:59 23:59 Intake Total 1000 / 1000 Balance 1000 / 1000 Lab / Micro Data 12/12/23 07:08 12/12/23 07:08 Labs: Laboratory Results - last 24 hr 12/11/23 21:05: WBC 7.0, RBC 4.06 L, Hgb 12.3, Hct 36.9 L, MCV 90.9, MCH 30.3, MCHC 33.3, RDW Std Deviation 41.3, RDW Coeff of [place] 12.6, Plt Count 261, MPV 9.9, Immature Gran % (Auto) 0.300, Neut % (Auto) 77.4 H, Lymph % (Auto) 17.9 L, [place] % (Auto) 3.7, Eos % (Auto) 0.1, Baso % (Auto) 0.6, Absolute Neuts (auto) 5.4, Absolute Lymphs (auto) 1.25, Nucleated RBC % 0, Sodium 138, Potassium 3.9, Chloride 105, Carbon Dioxide 26.0, Anion Gap 7, BUN 28 H, Creatinine 1.36 H, Estim Creat Clear Calc 29.91, Est GFR (MDRD) Af Amer 49 L, Est GFR (MDRD) Non-Af 40 L, BUN/Creatinine Ratio 20.6 H, Glucose 138 H, Calcium 9.2, Troponin I High Sens 38, TSH 2.31 12/12/23 01:24: Troponin I High Sens 43 12/12/23 03:32: Troponin I High Sens 39 12/12/23 07:08: WBC 7.1, RBC 3.73 L, Hgb 11.4 L, Hct 34.5 L, MCV 92.5, MCH 30.6, MCHC 33.0, RDW Std Deviation 42.7, RDW Coeff of [place] 12.6, Plt Count 232, MPV 9.7, Immature Gran % (Auto) 0.100, Neut % (Auto) 59.4, Lymph % (Auto) 31.8, [place] % (Auto) 7.6, Eos % (Auto) 0.8, Baso % (Auto) 0.3, Absolute Neuts (auto) 4.2, Absolute Lymphs (auto) 2.25, Nucleated RBC % 0, Sodium 141, Potassium 3.7, Chloride 111 H, Carbon Dioxide 26.0, Anion Gap 4 L, BUN 20 H, Creatinine 1.20 H, Estim Creat Clear Calc 33.90, Est GFR (MDRD) Af Amer 56 L, Est GFR (MDRD) Non-Af 46 L, BUN/Creatinine Ratio 16.7, Glucose 102, Calcium 8.7, Phosphorus 2.6, Magnesium 2.6, Total Bilirubin 0.70, AST 18, ALT 19, Alkaline Phosphatase 64, Troponin I High Sens 34, Total Protein 6.3 L, Albumin 3.2, Globulin 3.1, Albumin/Globulin Ratio 1.0 Rhythm Strip Rhythm Strip: Sinus bradycardia Rate: 53 Ectopy: None Cardiology Labs/Tests 12/11/23 21:05: WBC 7.0, RBC 4.06 L, Hgb 12.3, Hct 36.9 L, MCV 90.9, MCH 30.3, MCHC 33.3, Plt Count 261, MPV 9.9, Immature Gran % (Auto) 0.300, Neut % (Auto) 77.4 H, Lymph % (Auto) 17.9 L, [place] % (Auto) 3.7, Eos % (Auto) 0.1, Baso % (Auto) 0.6, Absolute Neuts (auto) 5.4, Nucleated RBC % 0, Sodium 138, Potassium 3.9, Chloride 105, Carbon Dioxide 26.0, Anion Gap 7, BUN 28 H, Creatinine 1.36 H , Est GFR (MDRD) Af Amer 49 L, Est GFR (MDRD) Non-Af 40 L, BUN/Creatinine Ratio 20.6 H, Glucose 138 H, Calcium 9.2 12/12/23 07:08: WBC 7.1, RBC 3.73 L, Hgb 11.4 L, Hct 34.5 L, MCV 92.5, MCH 30.6, MCHC 33.0, Plt Count 232, MPV 9.7, Immature Gran % (Auto) 0.100, Neut % (Auto) 59.4, Lymph % (Auto) 31.8, [place] % (Auto) 7.6, Eos % (Auto) 0.8, Baso % (Auto) 0.3, Absolute Neuts (auto) 4.2, Nucleated RBC % 0, Sodium 141, Potassium 3.7, Chloride 111 H, Carbon Dioxide 26.0, Anion Gap 4 L, BUN 20 H, Creatinine 1.20 H, Est GFR (MDRD) Af Amer 56 L, Est GFR (MDRD) Non-Af 46 L, BUN/Creatinine Ratio 16.7, Glucose 102, Calcium 8.7, Phosphorus 2.6, Magnesium 2.6, Total Bilirubin 0.70 Rhythm: questionable 2:1 AV block EKG: Sinus sophia Chest CT Scan: Radiography Diagnostic Testing: Radiology Impression Chest X-Ray 12/11/23 19:55 IMPRESSION: No evidence of acute cardiopulmonary disease. Electronically Signed: Sharath Rajan DO at 20:54 EST , Brain CT 12/11/23 23:05 IMPRESSION: Normal noncontrast CT of the head. Electronically Signed: Sharath Rajan DO at 23:39 EST , Echocardiogram 12/12/23 00:46 Interpretation Summary Mild (1+) mitral valve insufficiency. Mild (1+) tricuspid valve insufficiency. Compared to previous echo, the LV function has improved. The estimated ejection fraction is 50-55 %. Ordering Physician: Opal Shipley Referring Physician: Etienne Valdivia Performed By: Fanny Tim, HANANE, RVT Documented by User: Dr. Mari Serrato MD 12/12/23 17:20 Assessment & Plan Assessment/Plan (1) Light-headedness: (2) Bradycardia: (3) Left bundle branch block: (4) Hx of cardiomyopathy: PLAN: Plan * EF has improved with recent echo, ejection fraction the range of 50-55% Prior echocardiogram showed EF in the range of 40%. * With her bradycardia, will continue to hold her coreg. * pt continues to have episodes of 2:1 AV block being off her BB, discussed PPM with pt. She is agreeable with plan of care. This will likely need to be done at a tertiary care center. * Will continue with her lisinopril * Today I discussed cardiac care plan and transfer to tertiary care facility for a pacemaker implant With the patient, medical team and nursing staff . Patient to follow-up with the cardiac team at [facility] following pacemaker implant to review and discuss further plan with possible evaluation for ischemia With myocardial fusion study and Possible cardiac catheterization as she has a change in the EKG in the V1 V2. She does not have any active symptoms of chest pain. HPI Consult Data Date of Consult: 12/12/23 [facility] Medical History Acute on chronic systolic (congestive) heart failure COVID-19 (~09/2022) History of breast cancer Left bundle branch block Migraine Non-ischemic cardiomyopathy Home Medications lutein extract 15 mg-zeaxanthin extract 0.7 mg capsule 1 ea PO DAILY supplement 12/14/17 [History Last Taken 05/09/18] mecobalamin (vitamin B12) 1,000 mcg disintegrating tablet,sublingual 1,000 mcg sublingual QDAY supplement 05/31/18 [History Last Taken Unknown] cholecalciferol (vitamin D3) 50 mcg (2,000 unit) tablet 2,000 unit PO DAILY supplement 11/07/19 [History Last Taken Unknown] sumatriptan succinate 50 mg tablet 50 mg PO .X1 PRN PRN Migraine Symptoms 06/25/20 [History Last Taken Unknown] multivitamin 1 tab PO DAILY supplement 05/19/22 [History Last Taken Unknown] furosemide 40 mg tablet 40 mg PO DAILY fluid #90 tabs 06/21/23 [Rx Last Taken Un known] lisinopril 5 mg tablet 5 mg PO DAILY htn #30 tabs 06/28/23 [Rx Last Taken Unknown] carvedilol 25 mg tablet 25 mg PO BID htn #180 tabs 07/31/23 [Rx Last Taken Unknown] Allergy/AdvReac Type Severity Reaction Status Date / Time No Known Allergies Allergy Verified 12/11/23 18:51 Family History Grandfather Myocardial infarction Surgical History H/O lumpectomy History of appendectomy History of left heart catheterization (04/24/19) History of open reduction and internal fixation (ORIF) procedure Hx of cholecystectomy Social History Smoking Status: Never smoker alcohol intake: never substance use type: does not use caffeine: Yes Type: coffee Number of servings: 2 Lab / Micro Data 12/12/23 07:08 12/12/23 07:08
[2023-12-12] MEDS: Lisinopril 5 MG Tablet PO (13:08)
[2023-12-12] MEDS: Enoxaparin 30 MG/0.3 ML Syringe SC (13:08)
[2023-12-12] MEDS: Furosemide 40 MG Tablet PO (13:08)
[2023-12-12] MEDS: Multivitamins,Therapeutic Tablet 1 TABLET PO (13:08)
--- NOTE | 2023-12-12 15:01 | DS.PCM_ITS ---
Providers Date of Admission: 12/11/23 Primary Care Physician: Dr. Etienne Valdivia MD Consultations 12/12/23 00:46 Consult: Cardiology Routine Consulting Provider: Mari Serrato Reason for Consult: Bradycardia EMERGENT Consult: No MD Notified: Yes Date Notified: 12/12/23 Time Notified: 06:45 Method of Notification: phone Reason For Visit: BRADYCARDIA Diagnosis Discharge Diagnosis (1) Bradycardia: Status: Acute Code(s): R00.1 - Bradycardia, unspecified Plan Bradycardia * symptomatic. * hold carvedilol * Echo shows an EF of 50 to 55%. * cards consult. Discussed with Dr. Serrato. He noted when patient was having echocardiogram on the monitor, patient was having 2-1 AV block. Concerning for second-degree Mobitz 2 heart block. He recommended transfer to a tertiary facility. Patient requests [facility]. I spoke with Dr. Montelongo and the patient was accepted. Chronic conditions: * History of nonischemic cardiomyopathy-Was attributed to chemotherapy related to her breast cancer-Echocardiogram is pending-Hold home Coreg-Last echocardiogram was performed on 06/14/2023 and showed an EF of 40% with mild to moderate global left ventricular dysfunction, chronic bundle maria luisa block with no significant valvular abnormalities.-Continue home Lasix * Hypertension-Hold home Coreg-Continue home lisinopril-As needed hydralazine for systolic pressure greater than 160 * Vitamin D deficiency-Continue home supplementation * History of migraine headaches-Continue home as needed sumatriptan DVT prophylaxis -Subcu Lovenox 40 mg daily CODE STATUS -DNR CCA with no intubation as verified on admission Medications at Discharge Home Medications lutein extract 15 mg-zeaxanthin extract 0.7 mg capsule 1 ea PO DAILY supplement 12/14/17 mecobalamin (vitamin B12) 1,000 mcg disintegrating tablet,sublingual 1,000 mcg sublingual QDAY supplement 05/31/18 cholecalciferol (vitamin D3) 50 mcg (2,000 unit) tablet 2,000 unit PO DAILY supplement 11/07/19 sumatriptan succinate 50 mg tablet 50 mg PO .X1 PRN PRN Migraine Symptoms 06/25/20 multivitamin 1 tab PO DAILY supplement 05/19/22 furosemide 40 mg tablet 40 mg PO DAILY fluid #90 tabs 06/21/23 lisinopril 5 mg tablet 5 mg PO DAILY htn #30 tabs 06/28/23 carvedilol 25 mg tablet 25 mg PO BID htn #180 tabs 07/31/23 Hospital Course Operations None Procedures 2-D Echocardiogram Summary of Care Provided Minutes Spent on Discharge: 40 Weight / BMI Weight Weight: 61.83 kg Body Mass Index (BMI) 23.3 ABG / Lab / Microbiology Data 12/12/23 07:08 12/12/23 07:08 Laboratory: Laboratory Results - last 24 hr 12/11/23 21:05: WBC 7.0, RBC 4.06 L, Hgb 12.3, Hct 36.9 L, MCV 90.9, MCH 30.3, MCHC 33.3, RDW Std Deviation 41.3, RDW Coeff of [place] 12.6, Plt Count 261, MPV 9.9, Immature Gran % (Auto) 0.300, Neut % (Auto) 77.4 H, Lymph % (Auto) 17.9 L, [place] % (Auto) 3.7, Eos % (Auto) 0.1, Baso % (Auto) 0.6, Absolute Neuts (auto) 5.4, Absolute Lymphs (auto) 1.25, Nucleated RBC % 0, Sodium 138, Potassium 3.9, Chloride 105, Carbon Dioxide 26.0, Anion Gap 7, BUN 28 H, Creatinine 1.36 H, Estim Creat Clear Calc 29.91, Est GFR (MDRD) Af Amer 49 L, Est GFR (MDRD) Non-Af 40 L, BUN/Creatinine Ratio 20.6 H, Glucose 138 H, Calcium 9.2, Troponin I High Sens 38, TSH 2.31 12/12/23 01:24: Troponin I High Sens 43 12/12/23 03:32: Troponin I High Sens 39 12/12/23 07:08: WBC 7.1, RBC 3.73 L, Hgb 11.4 L, Hct 34.5 L, MCV 92.5, MCH 30.6, MCHC 33.0, RDW Std Deviation 42.7, RDW Coeff of [place] 12.6, Plt Count 232, MPV 9.7, Immature Gran % (Auto) 0.100, Neut % (Auto) 59.4, Lymph % (Auto) 31.8, [place] % (Auto) 7.6, Eos % (Auto) 0.8, Baso % (Auto) 0.3, Absolute Neuts (auto) 4.2, Absolute Lymphs (auto) 2.25, Nucleated RBC % 0, Sodium 141, Potassium 3.7, Chloride 111 H, Carbon Dioxide 26.0, Anion Gap 4 L, BUN 20 H, Creatinine 1.20 H, Estim Creat Clear Calc 33.90, Est GFR (MDRD) Af Amer 56 L, Est GFR (MDRD) Non-Af 46 L, BUN/Creatinine Ratio 16.7, Glucose 102, Calcium 8.7, Phosphorus 2.6, Magnesium 2.6, Total Bilirubin 0.70, AST 18, ALT 19, Alkaline Phosphatase 64, Troponin I High Sens 34, Total Protein 6.3 L, Albumin 3.2, Globulin 3.1, Albumin/Globulin Ratio 1.0 Radiography Diagnostic Testing: Radiology Impression Chest X-Ray 12/11/23 19:55 IMPRESSION: No evidence of acute cardiopulmonary disease. Electronically Signed: Sharath Rajan DO at 20:54 EST , Brain CT 12/11/23 23:05 IMPRESSION: Normal noncontrast CT of the head. Electronically Signed: Sharath Rajan DO at 23:39 EST , Echocardiogram 12/12/23 00:46 Interpretation Summary Mild (1+) mitral valve insufficiency. Mild (1+) tricuspid valve insufficiency. Compared to previous echo, the LV function has improved. The estimated ejection fraction is 50-55 %. Ordering Physician: Opal Shipley Referring Physician: Etienne Valdivia Performed By: Fanny Tim RDCS, RVT Meaningful Use Info Meaningful Use Diagnoses (Choose all that apply): None applicable Discharge Plan Admission Admit Date/Time: 12/11/23 23:29 Primary Reason for Your Visit: bradycardia. Attending Provider: Erich Hills Primary Care Provider: Etienne Valdivia Consulting Providers: Opal Shipley; Mari Serrato Discharge Orders/Prescriptions Prescriptions: No Action mecobalamin (vitamin B12) 1,000 mcg tablet,disintegrating 1,000 mcg SUBLINGUAL QDAY cholecalciferol (vitamin D3) 2,000 unit tablet 2,000 unit PO DAILY multivitamin Tablet 1 tab PO DAILY lutein extract-zeaxanthin ext 1 EACH capsule 1 ea PO DAILY sumatriptan succinate 50 mg tablet 50 mg PO .X1 PRN PRN (Reason: Migraine Symptoms) furosemide 40 mg tablet 40 mg PO DAILY Qty: 90 3RF lisinopril 5 mg tablet 5 mg PO DAILY Qty: 30 11RF carvedilol 25 mg tablet 25 mg PO BID Qty: 180 3RF Referrals / Follow Up: Etienne Valdivia MD [Primary Care Provider] - Disposition Disposition (needs filled in before D/C Order can be placed): Acute Care Hospital Charges/Coding Visit Charges Inpatient E&M: 84134 Disch Hosp >30min
--- NOTE | 2023-12-12 16:36 | NURSING ---
Report given to LESLEY Ashley at [facility] Patient notified. Transport to arrive within the hour.
== END 2023-12-12 17:15 | disposition short-term general hospital (02) | DRG 310 ==
LOC: ED 23:17 → PCU 23:25
PROVIDERS: Admitting Provider Internal Medicine; Emergency Provider Emergency Medicine; PCP Internal Medicine
DX: I44.1 Atrioventricular block, second degree (principal); I42.8 Other cardiomyopathies; I11.0 Hypertensive heart disease with heart failure; I50.9 Heart failure, unspecified; R00.1 Bradycardia, unspecified; E55.9 Vitamin D deficiency, unspecified; R11.2 Nausea with vomiting, unspecified; Z66 Do not resuscitate; R79.89 Other specified abnormal findings of blood chemistry; Z79.899 Other long term (current) drug therapy; Z92.21 Personal history of antineoplastic chemotherapy; Z92.3 Personal history of irradiation; Z85.3 Personal history of malignant neoplasm of breast; Z86.16 Personal history of COVID-19
CPT/HCPCS: 36415; 70450; 71045; 80048; 80053; 83735; 84100; 84443; 84484; 85025; 93005; 93306; 94668; 99285; J7030; A4216; J2405